=== PATIENT | male | born 1950 | race Two or more races ===

== ENCOUNTER 2022-03-26 15:35 | Outpatient (REF) | payer OTHER, SELFPAY ==
--- NOTE | ~2022-03-26 | US_ITS ---
EXAMINATION: US THYROID CLINICAL INFORMATION: Hyperthyroidism. COMPARISON: None. TECHNIQUE: Linear transducer grayscale and color Doppler examination with attention to the region of the thyroid. FINDINGS: SIZE: Measurements of the thyroid lobes and nodules are given in sagittal, anteroposterior and transverse dimensions respectively. Right Thyroid Lobe: 4.3 x 1.6 x 0.9 cm, volume 3 mL. Parenchyma: The gland echotexture is homogeneous. Thyroid vascularity is normal. Left Thyroid Lobe: 3.4 x 1.3 x 1 cm, volume 2.4 mL. Parenchyma: The gland echotexture is homogeneous. Thyroid vascularity is normal. Isthmus: 0.5 cm in maximum AP dimension. Estimated total number of nodules greater than or equal to 1 cm: 0. There is a 0.3 cm colloid cyst in the right lobe. NODES: No lymphadenopathy is seen in the tissue surrounding the thyroid gland. US/US thyroid IMPRESSION: Normal sonographic appearance of the thyroid gland. No thyroid nodules meeting size criteria for additional follow-up. ACR TI-RADS RECOMMENDATION REFERENCE: Ultrasound-guided fine-needle aspiration, followup ultrasound, no further follow up. * TR1 (0 point) and TR 2 (2 points): No FNA or follow up * TR3 (3 points): FNA if more than or equal to 2.5 cm in maximum dimension, followup ultrasound in 1, 3 and 5 years if 1.5 to 2.4 cm in maximum dimension. * TR4 (4-6 points): FNA if more than or equal to 1.5 cm in maximum dimension, followup ultrasound in 1, 2, 3 and 5 years if 1 to 1.4 cm in maximum dimension. * TR5 (more than or equal to 7 points): FNA if more than or equal to 1 cm in maximum dimension, followup ultrasound every year for 5 years if 0.5 to 0.9 cm in maximum dimension. * TR3, TR4 or TR5 nodules that are below the size threshold for follow up receive no follow up.
== END 2022-03-26 15:36 | disposition home or self-care (01) ==
LOC: HO.US 15:35
PROVIDERS: Visit Provider Internal Medicine
DX: E03.9 Hypothyroidism, unspecified (principal)
CPT/HCPCS: 76536

== ENCOUNTER → 2023-01-12 12:25 | Outpatient (BNVA) | payer MEDICARE, MEDICAID, SELFPAY | PROVIDERS: PCP Internal Medicine; Visit Provider Nurse Practitioner Family ==

== ENCOUNTER 2023-02-17 12:04 | Outpatient (REF) | payer OTHER, MEDICAID, SELFPAY ==
--- NOTE | ~2023-02-17 | US_ITS ---
EXAMINATION: US RETROPERITONEAL COMPLETE (RENAL) CLINICAL INFORMATION: Elevated prostate-specific antigen (PSA). COMPARISON: None available. TECHNIQUE: Real-time imaging of the kidneys and bladder. FINDINGS: RIGHT KIDNEY: 11.6 x 4.8 x 6.0 cm (SAG x AP x TRV). The kidney is normal in size, contour, and echogenicity. Renal cortical thickness is normal. No calculi or focal parenchymal lesions. No hydronephrosis. LEFT KIDNEY: 12.2 x 5.5 x 5.4 cm (SAG x AP x TRV). The kidney is normal in size, contour, and echogenicity. Renal cortical thickness is normal. No calculi or focal parenchymal lesions. No hydronephrosis. BLADDER: Bladder is well distended and appears mildly trabeculated. Bilateral ureteral jets are demonstrated. Prevoid bladder volume is 235 mL. Postvoid bladder volume is 98 mL. ADDITIONAL FINDINGS: Prostate is enlarged at 85 mL US/US retroperitoneal comp IMPRESSION: BPH with 85 mL prostate and 98 mL postvoid residual. The bladder is mildly trabeculated.
== END 2023-02-17 12:05 | disposition home or self-care (01) ==
LOC: HO.US 12:04
PROVIDERS: PCP Internal Medicine; Visit Provider Nurse Practitioner Family
DX: R97.20 Elevated prostate specific antigen [PSA] (principal); N40.0 Benign prostatic hyperplasia without lower urinary tract symptoms
CPT/HCPCS: 76770

== ENCOUNTER 2023-03-11 07:13 | Outpatient (REF) | payer OTHER, MEDICAID, SELFPAY ==
[2023-03-11 19:46] LABS: PSA,Total (Free>4and<10) 5.52 ng/mL (0.00-4.00)
[2023-03-14 10:44] LABS: Free Prostate Spec Ag 1.5 ng/mL; Percent Free Prostate Spec Ag 29 % (calc) (>25); Prostate Specific Ag Total 5.1 ng/mL (< OR = 4.0)
== END 2023-03-11 07:14 | disposition home or self-care (01) ==
LOC: HO.10HDL 07:13
PROVIDERS: Visit Provider Nurse Practitioner Family
DX: N40.0 Benign prostatic hyperplasia without lower urinary tract symptoms (principal); Z12.5 Encounter for screening for malignant neoplasm of prostate
CPT/HCPCS: 36415; 84153; 84154

== ENCOUNTER 2023-03-22 13:36 | Outpatient (AMB) | payer OTHER, MEDICAID, SELFPAY ==
--- NOTE | 2023-03-22 13:43 | A.OFFVIS_ITS ---
Intake Intake Visit Reasons: 6w/US/labs(SET) Intake Note: Patient presents for follow up ultrasound/labs/elevated labs (imaging 02/17) (PSA 5.52) Urology Medication: none Blood Thinner: none Sustainability Coach Required: Yes Sustainability Coach Name: juan Accompanied by: Self / Same As Patient Allergies No Known Allergies [No Known Allergies*] Allergy (Unverified 03/22/23 22:49) Medication List - Last Reconciled 03/22/23 by SHANNAN Call atorvastatin 40 mg PO BEDTIME finasteride 5 mg PO DAILY 90 days glipizide 5 mg PO BID glucosamine-chondroitin 500-400 mg 1 cap PO BID insulin glargine (Lantus Solostar U-100 Insulin) 26 units subcut QPM levothyroxine 50 mcg PO DAILY losartan 50 mg PO DAILY HPI HPI Comments History of Present Illness Details Driss is a pleasant 72-year-old male patient of Dr. Pat Castro. He presents to the office today for follow-up. Of note patient was seen approximately 2 months ago as a new patient for elevated PSA at which time a retroperitoneal ultrasound was ordered and redraw of PSA. These results were reviewed with the patient today. Bilateral kidneys with no calculi, lesions, and or hydronephrosis noted. The bladder is well distended and appears mildly trabeculated. Prostate is enlarged at 85 mL. PSAs are as follows.. 12/02--4.8 03/04--5.1 % free 29 In discussion with the patient today he reports to be doing and feeling well. When asked he denies any urinary issues or concerns. When asked he denies urinary urgency, urinary frequency, incontinence, nocturia, hematuria, dysuria, foul smelling urine, changes to urinary stream, flank pain, fever, and or chills. He is happy with his current voiding parameters. In office urinalysis results reviewed with the patient today. Discussed at length potential causes for elevated PSA. Discussed prostate biopsy verses trial of finasteride verses prostate MRI for further assessment evaluation. Discussed risks and benefits of prostate biopsy verses trial of finasteride versus prostate MRI. Review of Systems Const All systems reviewed & are unremarkable except as noted in HPI and below Reports no additional complaints Eyes Reports no additional complaints ENT Reports no additional complaints Card Reports no additional complaints Resp Reports no additional complaints GI Reports no additional complaints Reports as per HPI Musc Reports no additional complaints Neuro Reports no additional complaints Psych Reports no additional complaints Endo Details: patient reports he has Diabetes and checks his sugars 2-3 times per day Davion/Lymph Reports no additional complaints Aller/Immun Reports no additional complaints Physical Exam Const General: cooperative, healthy appearing, comfortable, no acute distress, well developed, alert and awake Orientation/consciousness: patient oriented x3 Limitations: no limitations HEENT Head: Yes normal to inspection, Yes normocephalic and Yes atraumatic Ears: hearing grossly normal bilaterally Eyes General: appearance normal, both eyes and all related structures Neck Neck: Yes normal visual inspection and Yes trachea midline Chest Chest palpation & inspection: normal inspection of the chest Resp Effort & Inspection: normal respiratory effort and able to speak in complete sentences Cardio Rate: regular rate GI Inspection: Yes normal to inspection General: Yes no CVA tenderness Back/Spine/Pelvis Back: no CVA tenderness Skin General skin exam: no rashes or lesions noted Neuro General: patient oriented x3 Extrem General: Yes normal to inspection Psych Appearance: grossly normal and well kempt Mental Status: mental status grossly normal Speech and movement: Normal speech and movement present and Clear speech present Affect: normal affect Attitude: cooperative Thought process: Normal thought process present Thought content: Normal thought content present Insight: Good insight present (Psych) Judgement: Good judgement present (Psych) Results AMB Urinalysis, Automated UA Leukoctes 0 Solomon/uL Last Edit by Anny Anaya on 03/22/23 14:00 UA Nitrite Negative Last Edit by Anny Anaya on 03/22/23 14:00 UA Urobilinogen 0.2 mg/dL Last Edit by [employer] Anaya on 03/22/23 14:00 UA Protein 0 mg/dL Last Edit by [employer] Jaclyn on 03/22/23 14:00 UA pH 5.5 Last Edit by [employer] Jaclyn on 03/22/23 14:00 UA Blood 0 Herson/uL Last Edit by [employer] Anaya on 03/22/23 14:00 UA Specific Delta 1.025 Last Edit by [employer] Anaya on 03/22/23 14:00 UA Ketone Negative Last Edit by [employer] Anaya on 03/22/23 14:00 UA Bilirubin 0 mg/dL Last Edit by Anny Anaya on 03/22/23 14:00 UA Glucose 250 mg/dL Last Edit by Anny Anaya on 03/22/23 14:00 Results Reviewed Results Reviewed: Laboratory Last Values Urine pH (Auto) 5.5 03/22/23 13:46 Specific Delta (Auto) 1.025 03/22/23 13:46 Urine Protein (Auto) 0 mg/dL 03/22/23 13:46 Glucose (UA)(Auto) 250 mg/dL 03/22/23 13:46 Urine Ketones (Auto) Negative 03/22/23 13:46 Urine Blood (Auto) 0 Herson/uL 03/22/23 13:46 Urine Nitrite (Auto) Negative 03/22/23 13:46 Urine Bilirubin (Auto) 0 mg/dL 03/22/23 13:46 Urine Urobilinogen (Auto) 0.2 mg/dL 03/22/23 13:46 Leukocyte Esterase (Auto) 0 Solomon/uL 03/22/23 13:46 Date of Service: 02/17/23 Procedure(s): US retroperitoneal comp FINDINGS: RIGHT KIDNEY: 11.6 x 4.8 x 6.0 cm (SAG x AP x TRV). The kidney is normal in size, contour, and echogenicity. Renal cortical thickness is normal. No calculi or focal parenchymal lesions. No hydronephrosis. LEFT KIDNEY: 12.2 x 5.5 x 5.4 cm (SAG x AP x TRV). The kidney is normal in size, contour, and echogenicity. Renal cortical thickness is normal. No calculi or focal parenchymal lesions. No hydronephrosis. BLADDER: Bladder is well distended and appears mildly trabeculated. Bilateral ureteral jets are demonstrated. Prevoid bladder volume is 235 mL. Postvoid bladder volume is 98 mL. ADDITIONAL FINDINGS: Prostate is enlarged at 85 mL IMPRESSION: BPH with 85 mL prostate and 98 mL postvoid residual. ? The bladder is mildly trabeculated. Assessment & Plan Assessment & Plan (1) Elevated PSA: Code(s): R97.20 - Elevated prostate specific antigen [PSA] (2) Enlarged prostate: Code(s): N40.0 - Benign prostatic hyperplasia without lower urinary tract symptoms Plan In office urinalysis results reviewed with the patient today. Recent retroperitoneal ultrasound results reviewed with the patient today; as noted above. Recent PSA results reviewed with the patient today; as noted above. Discussed at length potential causes for elevated PSA. Discussed trial finasteride verses prostate biopsy verses prostate MRI; discussed risks and benefits of these interventions. Start finasteride as discussed and prescribed. Will redraw PSA in 4 months. Follow-up in 4 months with lab to be completed prior; or sooner with any issues, concerns, and or questions Orders: Orders Prostate Specific Antigen 4 Months R97.20 - Elevated prostate specific antigen [PSA] AMB Urinalysis Automated Today Z13.9 - Encounter for screening, unspecified Medications: New finasteride 5 mg PO DAILY 90 days 90 tabs 1RF N13.8 - Other obstructive and reflux uropathy, N40.1 - Benign prostatic hyperplasia with lower urinary tract symptoms, R33.9 - Retention of urine, unspecified Patient Instructions: The patient had an opportunity to ask questions regarding the treatment plan. All questions were answered. Physical exam, labs, and imaging were discussed and reviewed in detail. As well as risks, benefits, and discussion of treatment choices. No major barriers to understanding were identified. The patient expressed understanding and agreement with the above treatment plan. The patient was made aware they should contact our office by phone for worsening of their current condition, the appearance of new symptoms, or with any questions or concerns. Compliance is encouraged with any medications and follow up testing that is ordered. It is a privilege to be allowed the opportunity to participate in? your urological care.? Again, if you have any questions or concerns If you have any questions or concerns please do not hesitate to contact me. The office is [phone]. This note is constructed using voice recognition software. While every effort has been made to ensure accuracy engineer chief errors may have been included. Yours sincerely, SHANNAN Call Coding Level of Care Code Est Pt Level 4 (73216) Diagnoses Elevated PSA R97.20 Enlarged prostate N40.0
== END 2023-03-22 14:33 | disposition home or self-care (01) ==
PROVIDERS: PCP Internal Medicine; Visit Provider Nurse Practitioner Family
DX: R97.20 Elevated prostate specific antigen [PSA] (principal); N40.0 Benign prostatic hyperplasia without lower urinary tract symptoms
CPT/HCPCS: 99214

== ENCOUNTER → 2023-03-22 13:36 | Outpatient (BNVA) | payer OTHER, MEDICAID, SELFPAY | PROVIDERS: PCP Internal Medicine; Visit Provider Nurse Practitioner Family ==

== ENCOUNTER 2023-07-07 08:41 | Outpatient (REF) | payer OTHER, MEDICAID, SELFPAY ==
[2023-07-07 11:31] LABS: Prostate Specific Antigen 4.81 ng/mL (<0.05-4.0)
== END 2023-07-07 08:42 | disposition home or self-care (01) ==
LOC: HO.10HDL 08:41
PROVIDERS: Visit Provider Nurse Practitioner Family
DX: Z12.5 Encounter for screening for malignant neoplasm of prostate (principal); R97.20 Elevated prostate specific antigen [PSA]
CPT/HCPCS: 36415; 84153

== ENCOUNTER 2023-07-12 12:16 | Outpatient (REF) | payer OTHER, SELFPAY ==
--- NOTE | ~2023-07-12 | XR_ITS ---
EXAMINATION: XR FOOT, RIGHT CLINICAL INFORMATION: Right foot plantar fasciitis COMPARISON: None available. TECHNIQUE: AP, lateral, and oblique views of the right foot. FINDINGS: No acute visible fracture or dislocation. Plantar calcaneal heel spur. Slight enthesopathy at the Achilles tendon insertion site. Mild multi joint arthritic changes. Joint spaces and alignment are otherwise maintained. Soft tissues are unremarkable. Atherosclerotic calcifications are noted. XR/XR foot RT min 3V IMPRESSION: 1. No acute visible fracture or dislocation. 2. Plantar calcaneal heel spur. 3. Slight enthesopathy at the Achilles tendon insertion site.
== END 2023-07-12 12:17 | disposition home or self-care (01) ==
LOC: HO.HHCX 12:16
PROVIDERS: Visit Provider Internal Medicine
DX: M72.2 Plantar fascial fibromatosis (principal)
CPT/HCPCS: 73630

== ENCOUNTER 2023-07-20 11:58 | Outpatient (AMB) | payer OTHER, MEDICAID, SELFPAY ==
--- NOTE | 2023-07-20 12:07 | A.OFFVIS_ITS ---
Intake Vital Signs 3 07/20/23 12:20 Height 5 ft 8 in Weight 217 lb BMI 33.0 BP 145/67 H Blood Pressure Location Lt brachial Position Sitting Pulse 79 Intake Visit Reasons: Colonoscopy Screening Intake Note: Patient new consult for pre colonoscopy screening. Patient denies any GI issues. 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 He is referred by Gene Castro, of [facility]. PMX Hypertension History of colon cancer -Dr. Concepcion [place] Diabetes Abnormal EKG BPH History or colon polyps * SURGICAL HISTORY Partial sigmoid colectomy - Jazmyn Stovall Colonoscopy x4 * ALLERGIES: NKDA * PCP SUPPLIED LABS: 11/2022 TSH 3.25, hemoglobin A1c 7.3%, unremarkable renal panel, unremarkable hepatic panel, negative hepatitis C screen. TODAY'S VISIT He had a prior colonoscopy at [facility] but they lost his record and his last scope was about 6 years ago. Has an upcoming appt with Dr. Day for his abnormal EKG, so we will need clearance from cardiology prior to the procedure. He says he has occasional chest pain. He denies respiratory problems except occasionally when he is climbing stairs. He denies any bowel or upper GI problems. No ID problems. There are no prior problems with anesthesia or sedation. He had sigmoid CRC and a partial colectomy, no known FHX of crc or polyps. [facility] Surgical History S/P partial colectomy Review of Systems Const Denies fatigue, Denies fever(s), Denies night sweats, Denies poor appetite and Denies weight loss Eyes Details: glasses Reports requires corrective lenses ENT Reports Normal hearing present, Denies dental pain, Denies dysphagia, Denies hearing loss, Denies mouth pain, Denies odynophagia, Denies throat swelling, Denies tongue swelling and Reports other (Dentition adequate) Card Reports chest pain and Reports dyspnea on exertion Resp Reports dyspnea on exertion GI Denies abdominal pain, Denies melena, Denies bloating, Denies hematochezia, Denies constipation, Denies GI cramping, Denies dysphagia, Denies excessive flatus, Denies early satiety, Denies heartburn, Denies diarrhea, Denies nausea, Denies odynophagia, Denies vomiting and Denies hematemesis Musc Reports abnormal gait and Reports arthralgias Skin/Breast Denies pruritus, Denies lesions, Denies rash and Denies jaundice Neuro Reports Normal hearing present, Denies Abnormal speech present and Reports abnormal gait Endo Denies fatigue Aller/Immun Denies throat swelling and Denies tongue swelling Physical Exam Vital Signs: Last Vital Signs Pulse 79 07/20/23 12:20 BP 145/67 H 07/20/23 12:20 BMI result Body Mass Index 33.0 Const General: cooperative, no acute distress, well developed and well groomed Nutritional Appearance: well nourished and obese centrally obese Orientation/consciousness: oriented to person, oriented to place and oriented to time Limitations: language barrier and ambulation with cane HEENT Head: Yes normocephalic and Yes atraumatic Eyes General: appearance normal, both eyes and all related structures Pupils: Equal, round and reactive pupils present Neck Neck: Yes normal visual inspection and Yes no lymphadenopathy Thyroid: Thyroid normal Resp Effort & Inspection: normal respiratory effort and able to speak in complete sentences Auscultation: clear to auscultation bilaterally Cardio Rate: regular rate Rhythm: regular rhythm Heart sounds: Normal, physiologic split S2 sound present Peripheral pulses: radial pulses present and posterior tibial pulses present GI Inspection: No distended, No Abdominal panniculus present and Yes obesity Palpation (GI): Soft to palpation, nontender, no guarding, not rigid and No hepatosplenomegaly present Percussion: Yes normal to percussion Auscultation: normal bowel sounds Rectal Exam - Male: Yes deferred Abdomen image: 2 1. surgical scars 2. Skin General skin exam: no rashes or lesions noted, turgor normal, skin not dry, no jaundice, No spider nevi and no striae Rashes: no rashes Nails: normal Neuro General: oriented to person, oriented to place and oriented to time Cranial nerves: Yes Equal, round and reactive pupils present and Yes Normal hearing present Speech: No Abnormal speech present Extrem General: Yes normal to inspection, No clubbing, No cyanosis and No edema Psych Appearance: grossly normal and well kempt Mental Status: mental status grossly normal Speech and movement: Normal speech and movement present Affect: normal affect Attitude: cooperative Thought process: Normal thought process present and not confabulating Thought content: Normal thought content present Insight: Fair insight present (Psych) Judgement: Fair judgement present (Psych) Assessment & Plan Assessment & Plan (1) Pre-op examination: Code(s): Z01.818 - Encounter for other preprocedural examination Plan: He had a prior colonoscopy at [facility] but they lost his record and his last scope was about 6 years ago. Has an upcoming appt with Dr. Day for his abnormal EKG, so we will need clearance from cardiology prior to the procedure. He says he has occasional chest pain. He denies respiratory problems except occasionally when he is climbing stairs. He denies any bowel or upper GI problems. No ID problems. There are no prior problems with anesthesia or sedation. He had sigmoid CRC and a partial colectomy, no known FHX of crc or polyps. (2) History of malignant neoplasm of colon: Code(s): Z85.038 - Personal history of other malignant neoplasm of large intestine (3) Abnormal EKG: Code(s): R94.31 - Abnormal electrocardiogram [ECG] [EKG] Orders: Orders 2 Colonoscopy - GI Use Only Today Z85.038 - Personal history of other malignant neoplasm of large intestine Medications: New 2 peg 3350-electrolytes [id number] -5.86 gram (Golytely) until fecal effluent is clear; do not exceed a total volume of 2,000 mL 240 mL PO Q10M 1 day 4,000 mL 0RF Z12.11 - Encounter for screening for malignant neoplasm of colon Coding Level of Care Code New Pt Level 3 (89637) Diagnoses Pre-op examination Z01.818 History of malignant neoplasm of colon Z85.038 Abnormal EKG R94.31
[2023-07-20 12:20] VITALS: BP 145/67; PULSE 79; BMI 33.0
== END 2023-07-20 12:46 | disposition home or self-care (01) ==
PROVIDERS: PCP Internal Medicine; Visit Provider Nurse Practitioner
DX: Z01.818 Encounter for other preprocedural examination (principal); Z12.11 Encounter for screening for malignant neoplasm of colon
CPT/HCPCS: S0285

== ENCOUNTER → 2023-07-20 11:58 | Outpatient (BNVA) | payer OTHER, MEDICAID, SELFPAY | PROVIDERS: PCP Internal Medicine; Visit Provider Nurse Practitioner ==

== ENCOUNTER 2023-07-22 09:04 | Outpatient (AMB) | payer OTHER, SELFPAY ==
--- NOTE | 2023-07-22 09:42 | MHC.OFFVIS ---
Intake Intake Visit Reasons: 4m/ lab(set) Intake Note: Patient is Present for Follow Up lab/pvr Urology Medication: Finasteride, Antibiotic Allergies: None Blood Thinners:None PVR: 160 Dehydration Plant Operator Required: Yes Dehydration Plant Operator Name: Amparo MachucaDONNA Allergies No Known Allergies [No Known Allergies*] Allergy (Verified 07/24/23 20:16) Medication List - Last Reconciled 07/24/23 by SYLVIA Call-LUIS atorvastatin 40 mg PO BEDTIME finasteride 5 mg PO DAILY 90 days glipizide 5 mg PO BID glucosamine-chondroitin 500-400 mg 1 cap PO BID insulin glargine (Lantus Solostar U-100 Insulin) 26 units subcut QPM levothyroxine 50 mcg PO DAILY losartan 50 mg PO DAILY peg 3350-electrolytes 236-22.74-6.74 -5.86 gram (Golytely) 240 mL PO Q10M 1 day HPI HPI Comments History of Present Illness Details Driss is a pleasant 72-year-old male patient of Dr. Zarate. He has a past medical history of type 2 diabetes, and hypertension. He presents to the office today for follow-up of his elevated PSA. Of note, patient was seen approximately 4 months ago at which time he was started on finasteride 5 mg daily. When asked he reports to be doing and feeling well. Recent PSA results reviewed with the patient today as noted below. When asked he reports compliance with finasteride 5 mg daily. Previous workup has included a retroperitoneal ultrasound noting bilateral kidneys with no calculi, lesions, and or hydronephrosis noted. The bladder is well distended and appears mildly trabeculated. Prostate is enlarged at 85 mL. PSAs are as follows.. 12/02--4.8 03/04--5.1 % free 29 07/04--4.8 When asked he denies any urinary issues or concerns. When asked he denies urinary urgency, urinary frequency, incontinence, nocturia, hematuria, dysuria, foul smelling urine, changes to urinary stream, flank pain, fever, and or chills. He is happy with his current voiding parameters. In office urinalysis results reviewed with the patient today. Discussed at length potential causes for elevated PSA. Discussed prostate biopsy verses continuation of finasteride verses prostate MRI for further assessment evaluation. Discussed risks and benefits of prostate biopsy verses continuation of finasteride versus prostate MRI. Discussed light decrease in PSA despite compliance with 5 mg of finasteride daily. PVR 160 mL. Discussed at length causes and affects of incomplete bladder emptying. [facility] Medical History (Updated 07/24/23 @ 20:26 by SHANNAN Call) Pre-op examination BPH (benign prostatic hyperplasia) Abnormal EKG Diabetes Hypertension Surgical History S/P partial colectomy Review of Systems Const All systems reviewed & are unremarkable except as noted in HPI and below Reports no additional complaints Eyes Reports no additional complaints ENT Reports no additional complaints Card Reports as per HPI Resp Reports no additional complaints GI Reports no additional complaints Reports as per HPI Musc Reports no additional complaints Neuro Reports no additional complaints Psych Reports no additional complaints Endo Reports as per HPI Davion/Lymph Reports no additional complaints Aller/Immun Reports no additional complaints Physical Exam Const General: cooperative, healthy appearing, comfortable, no acute distress, well developed, alert and awake Orientation/consciousness: patient oriented x3 Limitations: no limitations HEENT Head: Yes normal to inspection, Yes normocephalic and Yes atraumatic Ears: hearing grossly normal bilaterally Eyes General: appearance normal, both eyes and all related structures Neck Neck: Yes normal visual inspection and Yes trachea midline Chest Chest palpation & inspection: normal inspection of the chest Resp Effort & Inspection: normal respiratory effort and able to speak in complete sentences Cardio Rate: regular rate GI Inspection: Yes normal to inspection General: Yes no CVA tenderness Back/Spine/Pelvis Back: no CVA tenderness Skin General skin exam: no rashes or lesions noted Neuro General: patient oriented x3 Extrem General: Yes normal to inspection Psych Appearance: grossly normal and well kempt Mental Status: mental status grossly normal Speech and movement: Normal speech and movement present and Clear speech present Affect: normal affect Attitude: cooperative Thought process: Normal thought process present Thought content: Normal thought content present Insight: Good insight present (Psych) Judgement: Good judgement present (Psych) Office Procedures Post Void Residual Post Residual Void Post Void Residual (PVR): 160 [id number] Void Residual by ultrasound Results AMB Urinalysis, Automated UA Leukoctes 0 Solomon/uL Last Edit by EVERARDO Moser on 07/22/23 09:53 UA Nitrite Negative Last Edit by Elaine Jose, RMA on 07/22/23 09:53 UA Urobilinogen 0.2 mg/dL Last Edit by Elaine Jose, RMA on 07/22/23 09:53 UA Protein 0 mg/dL Last Edit by Elaine Jose, RMA on 07/22/23 09:53 UA pH 6.0 Last Edit by Elaine Jose, RMA on 07/22/23 09:53 UA Blood 0 Herson/uL Last Edit by Elaine Jose, RMA on 07/22/23 09:53 UA Specific [place] 1.025 Last Edit by Elaine Jose, RMA on 07/22/23 09:53 UA Ketone Negative Last Edit by Elaine Jose, A on 07/22/23 09:53 UA Bilirubin 0 mg/dL Last Edit by Elaine Jose, RMA on 07/22/23 09:53 UA Glucose 250 mg/dL Last Edit by Elaine Jose, A on 07/22/23 09:53 Results Reviewed Results Reviewed: Laboratory Last Values Urine pH (Auto) 6.0 07/22/23 09:46 Specific [place] (Auto) 1.025 07/22/23 09:46 Urine Protein (Auto) 0 mg/dL 07/22/23 09:46 Glucose (UA)(Auto) 250 mg/dL 07/22/23 09:46 Urine Ketones (Auto) Negative 07/22/23 09:46 Urine Blood (Auto) 0 Herson/uL 07/22/23 09:46 Urine Nitrite (Auto) Negative 07/22/23 09:46 Urine Bilirubin (Auto) 0 mg/dL 07/22/23 09:46 Urine Urobilinogen (Auto) 0.2 mg/dL 07/22/23 09:46 Leukocyte Esterase (Auto) 0 Solomon/uL 07/22/23 09:46 Assessment & Plan Assessment & Plan (1) Enlarged prostate: Code(s): N40.0 - Benign prostatic hyperplasia without lower urinary tract symptoms (2) Elevated PSA: Code(s): R97.20 - Elevated prostate specific antigen [PSA] (3) Bladder trabeculation: Code(s): N32.89 - Other specified disorders of bladder (4) Incomplete bladder emptying: Code(s): R33.9 - Retention of urine, unspecified Plan In office urinalysis results reviewed with the patient today; as noted above. PVR 160 mL. Discussed at length potential causes and affects of incomplete bladder emptying. Discussed lifestyle modifications to assist with complete bladder emptying such as double voiding and attempting to sit when urinating to relax pelvis. Recent PSA results reviewed with the patient today; as noted above. Discussed continuation of finasteride verses prostate MRI verses prostate biopsy; these interventions were discussed at length. Discussed slight decrease in PSA despite daily dosage of 5 mg of finasteride daily. Patient currently denies any bothersome urinary issues or concerns at this time. He reports be happy with current voiding parameters. Discussed at length importance of managing diabetes for improvement in overall health and well-being. Continue finasteride as discussed and prescribed. Will obtain PSA in 4 months. Follow-up in 4 months with lab to be completed prior; or sooner with any issues, concerns, and or questions. Orders: Orders AMB Urinalysis Automated 07/22/23 Z13.9 - Encounter for screening, unspecified AMB Post Void Residual by ultrasound 07/22/23 N40.0 - Benign prostatic hyperplasia without lower urinary tract symptoms Prostate Specific Antigen 4 Months N40.0 - Benign prostatic hyperplasia without lower urinary tract symptoms, R97.20 - Elevated prostate specific antigen [PSA] Patient Instructions: The patient had an opportunity to ask questions regarding the treatment plan. All questions were answered. Physical exam, labs, and imaging were discussed and reviewed in detail. As well as risks, benefits, and discussion of treatment choices. No major barriers to understanding were identified. The patient expressed understanding and agreement with the above treatment plan. The patient was made aware they should contact our office by phone for worsening of their current condition, the appearance of new symptoms, or with any questions or concerns. Compliance is encouraged with any medications and follow up testing that is ordered. It is a privilege to be allowed the opportunity to participate in? your urological care.? Again, if you have any questions or concerns If you have any questions or concerns please do not hesitate to contact me. The office is [phone]. This note is constructed using voice recognition software. While every effort has been made to ensure accuracy endband cutter hand errors may have been included. Yours sincerely, Bibi Downing, TNT POWDER WORKER-BC Coding Level of Care Code Est Pt Level 3 (99011) Diagnoses Enlarged prostate N40.0 Elevated PSA R97.20 Bladder trabeculation N32.89 Incomplete bladder emptying R33.9 CPT Codes Post Residual Void - PVR CPT Code: 48464-[id number] Void Residual by ultrasound ([id number])
== END 2023-07-22 10:28 | disposition home or self-care (01) ==
PROVIDERS: PCP Internal Medicine; Visit Provider Nurse Practitioner Family
DX: N40.0 Benign prostatic hyperplasia without lower urinary tract symptoms (principal); R97.20 Elevated prostate specific antigen [PSA]; N32.89 Other specified disorders of bladder; R33.9 Retention of urine, unspecified
CPT/HCPCS: 99213

== ENCOUNTER → 2023-07-22 09:04 | Outpatient (BNVA) | payer OTHER, MEDICAID, SELFPAY | PROVIDERS: PCP Internal Medicine; Visit Provider Nurse Practitioner Family | DX: N40.0 Benign prostatic hyperplasia without lower urinary tract symptoms (principal); R97.20 Elevated prostate specific antigen [PSA]; R33.9 Retention of urine, unspecified; N32.89 Other specified disorders of bladder | CPT/HCPCS: 51798; 81003 ==

== ENCOUNTER 2023-07-25 14:02 | Outpatient (AMB) | payer OTHER, MEDICAID, SELFPAY ==
--- NOTE | 2023-07-25 14:12 | A.OFFVIS_ITS ---
Intake Vital Signs 07/25/23 14:14 Height 5 ft 8 in Weight 213 lb 13.574 oz BMI 32.5 BP 124/74 Blood Pressure Location Lt brachial Position Sitting Pulse 92 Intake Visit Reasons: NPV/HTN/Abnormal EKG/A. Ramsay/ ? colo clearance Intake Note: NPV w/ EKG Healthcare Recruiter Required: Yes Healthcare Recruiter Language: Home Care Physical Therapist Name: Prashant [id number] Accompanied by: Self / Same As Patient Allergies No Known Allergies [No Known Allergies*] Allergy (Verified 07/25/23 14:13) Medication List - Last Reconciled 07/25/23 by Federico Day MD atorvastatin 40 mg PO BEDTIME finasteride 5 mg PO DAILY 90 days glipizide 5 mg PO BID glucosamine-chondroitin 500-400 mg 1 cap PO BID insulin glargine (Lantus Solostar U-100 Insulin) 26 units subcut QPM levothyroxine 50 mcg PO DAILY losartan 50 mg PO DAILY peg 3350-electrolytes 236-22.74-6.74 -5.86 gram (Golytely) 240 mL PO Q10M 1 day HPI HPI Comments History of Present Illness Details Driss is here for consultation regarding abnormal EKG. He also needs preoperative evaluation for colonoscopy. No history of coronary disease or myocardial infarction or cardiomyopathy. Multiple cardiovascular risk factors including diabetes, hypertension, dyslipidemia. He states that he gets chest tightness type symptoms off and on. Even with a education trainer, somewhat difficult to ascertain this in detail. On several occasions, it seems that happens more with exertion but can't be sure. Is some [facility] Medical History (Updated 07/25/23 @ 14:44 by Federico Day MD) Diabetes Abnormal EKG Pre-op examination BPH (benign prostatic hyperplasia) Hypertension Surgical History S/P partial colectomy Family History (Updated 07/25/23 @ 14:14 by Kristine Griffin) Mother Heart problem Sister Heart problem Social History (Updated 07/25/23 @ 14:13 by Kristine Griffin) Alcohol intake: former Patient Tobacco Use Status: Former Tobacco user Review of Systems Const All systems reviewed & are unremarkable except as noted in HPI and below Reports as per HPI and Reports no additional complaints Eyes Reports as per HPI and Denies no additional complaints ENT Denies no additional complaints and Reports as per HPI Card Reports as per HPI, Reports no additional complaints, Denies acrocyanosis, Denies chest pain, Denies leg edema, Denies lightheadedness, Denies palpitations and Denies dyspnea Resp Reports as per HPI, Denies no additional complaints and Denies dyspnea GI Reports as per HPI and Denies no additional complaints Reports no additional complaints and Reports as per HPI Musc Reports no additional complaints and Reports as per HPI Skin/Breast Reports system reviewed and no additional complaints, except as documented Neuro Reports no additional complaints and Reports as per HPI Psych Reports no additional complaints and Reports as per HPI Endo Reports no additional complaints, Reports as per HPI and Denies palpitations Davion/Lymph Reports no additional complaints and Reports as per HPI Aller/Immun Reports no additional complaints and Reports as per HPI Physical Exam Vital Signs: Last Vital Signs Pulse 92 07/25/23 14:14 BP 124/74 07/25/23 14:14 BMI result Body Mass Index 32.5 Const General: comfortable and no acute distress Orientation/consciousness: patient oriented x3 HEENT Other: Unremarkable Head: Yes normal to inspection Neck Neck: Yes normal visual inspection Chest Chest palpation & inspection: normal inspection of the chest Resp Auscultation: clear to auscultation bilaterally Cardio Palpation: normal PMI Heart sounds: S1 normal heart sound present, S2 normal heart sound present, no gallops, Murmur heart sound present systolic I/ and at the right sternal border and no rubs GI Palpation (GI): Soft to palpation Back/Spine/Pelvis Other: unremarkable Skin General skin exam: no rashes or lesions noted Neuro General: patient oriented x3 Extrem General: Yes normal to inspection Psych Mental Status: mental status grossly normal Assessment & Plan Assessment & Plan (1) Abnormal EKG: Code(s): R94.31 - Abnormal electrocardiogram [ECG] [EKG] (2) Preoperative cardiovascular examination: Code(s): Z01.810 - Encounter for preprocedural cardiovascular examination (3) Diabetes: Code(s): E11.9 - Type 2 diabetes mellitus without complications (4) Hypertension: Code(s): I10 - Essential (primary) hypertension Plan EKG from PCP shows sinus rhythm at 61/Min; inferior Q-waves with T inversions. Not clear if it is nonspecific or reflects ischemia. As he has numerous cardiovascular risk factors, possible exertional chest tightness, abnormal looking EKG, we will proceed with further workup. Echocardiogram as well as stress perfusion imaging recommended. He is walking with a cane and hence will do pharmacological stress test with Lexiscan. Follow-up after the above. Orders: Orders CA lexiscan stress w odessa Today I20.9 - Angina pectoris, unspecified NM cardiolite stress test Today R07.2 - Precordial pain CA echo transthoracic complete Today I25.10 - Atherosclerotic heart disease of [place] coronary artery without angina pectoris Coding Level of Care Code New Pt Level 4 (82719) Diagnoses Abnormal EKG R94.31 Preoperative cardiovascular examination Z01.810 Diabetes E11.9 Hypertension I10
[2023-07-25 14:14] VITALS: BP 124/74; PULSE 92; BMI 32.5
== END 2023-07-25 14:40 | disposition home or self-care (01) ==
PROVIDERS: PCP Internal Medicine; Visit Provider Internal Medicine
DX: R94.31 Abnormal electrocardiogram [ECG] [EKG] (principal); Z01.810 Encounter for preprocedural cardiovascular examination; E11.9 Type 2 diabetes mellitus without complications; I10 Essential (primary) hypertension
CPT/HCPCS: 99204

== ENCOUNTER → 2023-07-25 14:02 | Outpatient (BNVA) | payer OTHER, MEDICAID, SELFPAY | PROVIDERS: PCP Internal Medicine; Visit Provider Internal Medicine | DX: Z01.810 Encounter for preprocedural cardiovascular examination (principal); R94.31 Abnormal electrocardiogram [ECG] [EKG]; I10 Essential (primary) hypertension; E11.9 Type 2 diabetes mellitus without complications | CPT/HCPCS: 99202 ==

== ENCOUNTER → 2023-08-19 14:11 | Outpatient (REF) | payer OTHER, MEDICAID, SELFPAY ==
--- NOTE | 2023-08-19 14:13 | CA_ITS ---
Transthoracic Echocardiogram Patient (Last, First, Middle): Driss Bender E Gender: Male Date of : 1950 Age: 73 Procedure Date: 08/19/2023 Procedure Type: Transthoracic Echocardiogram Location: OP Height: 175.26 cm Weight: 98.43 kg BSA: 2.14 m2 Heart Rate: 63 bpm BP: 140 / 80 mmHg Customer Care Representative: LIONEL/IMELDA Referring MD: Federico Day MD Symptoms: I25.10 - Atherosclerotic heart disease of [place] coronary artery without... Study Quality: Adequate w contrast ECG Rhythm: Sinus Conclusions: - The left ventricular systolic function is normal. The calculated ejection fraction is 62% by biplane method. - There is moderate calcification of the aortic valve. - There is mild mitral annular calcification. Findings Procedure Information Contrast agent, definity, is being given per protocol without apparent complications. Left Ventricle Normal left ventricular cavity size. There is mildly increased left ventricular wall thickness. The left ventricular systolic function is normal. The calculated ejection fraction is 62% by biplane method. There is no evidence of regional wall motion abnormalities. Evidence suggests grade I (mild) diastolic dysfunction. Right Ventricle Mildly increased right ventricular cavity size. There is mildly decreased right ventricular systolic function. Atria Both atria are normal in size. Aortic Valve There is moderate calcification of the aortic valve. There is no aortic valve stenosis. There is no aortic valve regurgitation. Mitral Valve There is mild mitral annular calcification. There is no mitral valve regurgitation. There is no mitral valve stenosis. Pulmonic Valve The pulmonic valve is likely normal. There is trace pulmonic valve regurgitation. Tricuspid Valve Normal tricuspid valve structure. There is mild tricuspid valve regurgitation. There is no evidence of pulmonary hypertension. Great Vessels The asc aorta is normal in size. Venous The inferior vena cava is normal in size and collapses greater than 50% with inspiration. Pericardium/Pleural There is no evidence of pericardial effusion. Prior Study Comparison No prior study available for comparison. Measurements 2D Linear Measurements IVSd: 1.16 0.6-0.9/0.6-1.0 cm LVIDd: 5.15 3.9-5.3/4.2-5.9 cm LVIDd Index: 2.41 2.4-3.2/2.2-3.1 cm/m2 LVIDs: 3.74 2.0-3.6 cm LVPWd: 0.90 0.7-1.1 cm LA Diam: 3.90 2.7-3.8/3.0-4.0 cm LAIDs Index: 1.82 1.5-2.3 cm/m2 LV Mass: 246.93 67-162/88-224 g LV Mass Index: 115.39 43-95/49-115 g/m2 LVOT Diam: 2.20 3.0+(-)1.3 cm 2D Systolic Function EF 4C: 55.80 >55% EF 2C: 65.90 >55% EF BiP: 61.70 >55% Mitral Valve MV Pk E: 0.58 MV PK A: 1.13 MV Decel Time: 356.00 E/A: 0.50 E'Lateral: 6.20 E'Medial: 3.92 E/E' Med: 14.70 E/E' Lat: 9.30 PHT: 104.00 MVA PHT: 2.12 Decel [place]: 1.63 Aortic Valve AoV Pk Devin: 1.98 AoV Mn Devin: 1.37 AoV VTI: 0.43 AoV Pk Grad: 16.00 Aov Mn Grad: 9.00 ROMAIN Cont.VTI: 2.17 LVOT LVOT Pk Devin: 1.02 LVOT Mn Devin: 0.69 LVOT VTI: 0.25 LVOT Pk Grad: 4.00 LVOT Mn Grad: 2.00 LVOT Diam: 2.20 LVOT Area: 3.80 Diastolic Function MV Pk E: 0.58 MV Pk A: 1.13 E/A: 0.50 E'Medial: 3.92 E/E' Med: 14.70 E' Laterial: 6.20 E/E' Lat: 9.30 Right Ventricle TAPSE (mm): 15.20 TVS' Devin: 9.36 Tricuspid Valve TR Pk Devin: 2.29 TR Pk Grad: 21.00 RA Press: 3.00 RVSP: 24.00 Great Vessels Aorta Sinus of Valsalva: 3.10 2.0-3.5 cm Ao Asc: 3.60 2.1-3.4 cm Pulmonary Veins Pulm Vein S/D 2.10 Pulmonary Valve PV Pk Devin: 1.05 Peak PV Grad: 4.00 Updated in Other Vendor System with Status of Final Federico Day MD electronically signed on 08/21/2023 11:45:29 AM with status of Final
== END ==
LOC: HO.CARD 14:11
PROVIDERS: PCP Internal Medicine; Visit Provider Internal Medicine
DX: I25.10 Atherosclerotic heart disease of native coronary artery without angina pectoris (principal)
CPT/HCPCS: 93306; Q9957

== ENCOUNTER → 2023-08-19 14:13 | Outpatient (BNV) | payer OTHER, MEDICAID, SELFPAY | PROVIDERS: PCP Internal Medicine; Visit Provider Internal Medicine | DX: I34.81 Nonrheumatic mitral (valve) annulus calcification (principal); I35.8 Other nonrheumatic aortic valve disorders | CPT/HCPCS: 93306 ==

== ENCOUNTER → 2023-08-26 08:03 | Outpatient (REF) | payer OTHER, MEDICAID, SELFPAY ==
--- NOTE | ~2023-08-26 | NM_ITS ---
Myocardial perfusion study Indication: Precordial chest pain to evaluate for myocardial ischemia Technique: The patient was brought in for a Lexiscan perfusion study on 08/26/2023. Patient performed low-level exercise and was injected 0.4 mg of Lexiscan intravenously. Within a minute of injection, 30 mCi of sestamibi was given intravenously. Images were obtained using the SPECT gamma camera interlaced with the gating device. Images were obtained in supine position. Resting perfusion study was performed on 09/01/2023. Patient was administered 30 mCi of sestamibi intravenously at rest. Images were then obtained in supine position. Images obtained with and without CT attenuation. Total DLP 99 mGy-cm. Images were processed with the software and compared side to side in short axis, horizontal long axis and vertical long axis views. Findings: The stress perfusion study showed aerated corrected images show absent uptake in the basal inferior, mid inferior, severely reduced uptake in the inferoapical, apical, moderately reduced uptake in the inferolateral and moderately reduced uptake in the basal lateral wall of the LV myocardium. The non attenuated images show large area of absent uptake of the entire inferior wall, distal inferolateral and severely reduced uptake in the mid and basal inferolateral as well as mildly reduced uptake in the basal lateral wall and moderately reduced uptake in the inferoseptal wall of the LV myocardium.. The gated study shows normal LV systolic function with calculated LVEF of 58%. LV cavity is mildly dilated size. The gated study shows reduced wall thickening and contraction of basal inferior segments. Resting study shows non attenuated images show persistent severely reduced uptake in the basal inferior and mildly reduced uptake in the mid inferior and inferoapical wall as well as moderately reduced uptake in the inferolateral wall. There is improved uptake in the lateral wall of the LV myocardium. Attenuation corrected images show normalized uptake in the mid and apical inferior wall with absent uptake in the basal inferior blood improved uptake in the inferolateral and lateral wall of the LV myocardium.. Gating at rest reveals basal inferior wall motion abnormality with ejection fraction at 51%. The findings are consistent with large area of severe ischemia of the mid and apical inferior as well as inferolateral and basal lateral wall of the LV myocardium in the RCA/circumflex distribution with fixed defect of the basal inferior wall which could represent severe ischemia as well. NM/NM cardiolite stress test Impression: 1. Myocardial perfusion imaging study shows large area of ischemia in the inferior, inferolateral and basal lateral wall in the RCA/circumflex distribution 2. Gated LVEF is 58% 3. Transient ischemic dilatation not present but LV cavity is dilated EKG is nondiagnostic for ischemia
--- NOTE | 2023-08-26 08:09 | CA_ITS ---
Acquisition Time: 2023-08-26 08:26:47 Total Exercise Time: 00:02:00 Test Indications: Abnormal ECG CP Medications: ATORVASTATIN GLIPIZIDE FINASTERIDE INSULIN LEVOTHYROXINE LOSARTAN Protocol: LEXISCAN Max HR: 121 BPM 83% of Pred: 145 BPM Max BP: 146/070 mmHG Max Work Load: 1.0 METS Pharmacological stress test with Lexiscan injection while sitting and kicking his legs, without arrhythmias, with normotensive response to injection, with scooping lead 1 Nuclear images pending. Test reviewed with Dr. Osorio. V4-V6 downsloping correected with lead placement Referred By: Federico Day Overread By: Brooklynn Phipps
== END ==
LOC: HO.CARD 08:03
PROVIDERS: PCP Internal Medicine; Visit Provider Internal Medicine
DX: R07.2 Precordial pain (principal); I20.9 Angina pectoris, unspecified
CPT/HCPCS: 78452; 93017; A9500; J0280; J2785

== ENCOUNTER → 2023-08-26 08:09 | Outpatient (BNV) | payer OTHER, MEDICAID, SELFPAY | PROVIDERS: PCP Internal Medicine; Visit Provider Nurse Practitioner | DX: I25.10 Atherosclerotic heart disease of native coronary artery without angina pectoris (principal) | CPT/HCPCS: 78452; 93016; 93018 ==

== ENCOUNTER 2023-09-06 15:17 | Outpatient (AMB) | payer OTHER, MEDICAID, SELFPAY ==
[2023-09-06 15:42] VITALS: BP 130/62; PULSE 71; BMI 33.3
--- NOTE | 2023-09-06 15:42 | MHC.OFFVIS ---
Intake Vital Signs 09/06/23 15:42 Height 5 ft 8 in Weight 219 lb 2.232 oz BMI 33.3 BP 130/62 Blood Pressure Location Lt brachial Position Sitting Pulse 71 Pulse Source Pulse Oximeter Intake Visit Reasons: follow up abnormal stress HS Manager Hospital Required: Yes Manager Hospital Language: Internal Grinder Set Up Operator Name: herminia sabillon [id number] Allergies No Known Allergies [No Known Allergies*] Allergy (Verified 09/06/23 15:43) Medication List - Last Reconciled 09/06/23 by Manju Ponce NP-C aspirin (Adult Aspirin Regimen) 81 mg PO DAILY atorvastatin 40 mg PO BEDTIME finasteride 5 mg PO DAILY 90 days glipizide 5 mg PO BID glucosamine-chondroitin 500-400 mg 1 cap PO BID insulin glargine (Lantus Solostar U-100 Insulin) 26 units subcut QPM levothyroxine 50 mcg PO DAILY losartan 50 mg PO DAILY losartan-hydrochlorothiazide 100-12.5 mg 1 tab PO DAILY metoprolol succinate ER (Toprol XL) 25 mg PO DAILY peg 3350-electrolytes 236-22.74-6.74 -5.86 gram (Golytely) 240 mL PO Q10M 1 day sitagliptin phosphate (Januvia) 100 mg PO DAILY HPI follow up abnormal stress HS HPI Details Driss is a 73-year-old male with past medical history of diabetes, hyperlipidemia, hypertension who was recently evaluated for abnormal EKG done at PCP office showing inferior Q-waves with T-wave inversions. He underwent nuclear stress test showing large area of ischemia in the RCA territory. He now presents for follow-up. Today he reports that he does not have symptom of chest discomfort at rest or with activity. He denies shortness of breath, palpitations, presyncope, syncope, PND, orthopnea or edema. He walks with a cane and does light physical activity. He has been taking his meds as directed. [facility] Medical History Diabetes Abnormal EKG Pre-op examination BPH (benign prostatic hyperplasia) Hypertension Surgical History S/P partial colectomy Family History Mother Heart problem Sister Heart problem Social History Alcohol intake: former Patient Tobacco Use Status: Former Tobacco user Review of Systems Const All systems reviewed & are unremarkable except as noted in HPI and below ENT Denies dizziness Card Denies chest pain, Denies chest pain at rest, Denies chest pain with activity, Denies rapid heart rate, Denies pedal edema, Denies edema, Denies leg edema, Denies lightheadedness, Denies palpitations, Denies dyspnea, Denies dyspnea on exertion and Denies orthopnea Resp Denies cough, Denies dyspnea and Denies dyspnea on exertion GI Denies hematochezia and Denies change in stool character Musc Denies abnormal gait, Denies limited range of motion, Denies muscle cramps, Denies muscle weakness, Denies numbness, Denies radiating pain into limb, Denies stiffness and Denies tingling Neuro Denies abnormal gait, Denies dizziness, Denies numbness and Denies tingling Endo Denies palpitations Physical Exam Vital Signs: Last Vital Signs Pulse 71 09/06/23 15:42 BP 130/62 09/06/23 15:42 BMI result Body Mass Index 33.3 Const General: cooperative, healthy appearing, comfortable and no acute distress Orientation/consciousness: patient oriented x3 Neck Neck: Yes normal visual inspection Resp Effort & Inspection: normal respiratory effort Auscultation: clear to auscultation bilaterally, no crackles, no rales, no rhonchi and no wheezes Cardio Jugular venous distension: no JVD Rate: regular rate Rhythm: regular rhythm Heart sounds: S1 normal heart sound present, S2 normal heart sound present, no murmurs and no rubs Neuro General: patient oriented x3 Extrem General: Yes normal to inspection, No no pedal edema and No calf tenderness Psych Appearance: grossly normal Mental Status: mental status grossly normal Speech and movement: Normal speech and movement present Assessment & Plan Assessment & Plan (1) Abnormal EKG: Code(s): R94.31 - Abnormal electrocardiogram [ECG] [EKG] Plan: EKG from PCP office reported to have inferior Q-waves and T-wave inversions. Patient has no known history of coronary artery disease. He does have cardiac risk factors including diabetes, hyperlipidemia and hypertension. He denies having anginal sounding symptoms. He walks with a cane and does limited activity. He did undergo an echocardiogram on 08/19/2023 showing EF 62%, moderate calcification of the aortic valve, no reported regional wall motion abnormality. He underwent a pharmacological nuclear stress test on 09/01/2023 showing a large area of ischemia in the inferior, inferior lateral and basal lateral wall, RCA/circumflex distribution, EF 58%, t.i.d. not present but LV cavity is dilated. Review test results with him in detail. Need for cardiac catheterization reviewed including risks SD, stroke, JÚNIOR, infection, bleeding. He is agreeable to proceed. Will check labs today including basic metabolic profile, CBC and PT INR as part of preop evaluation, lipids added. Will continue on current med management including aspirin, atorvastatin, metoprolol, losartan/hydrochlorothiazide. Blood pressure is normal range. Signs and symptoms of angina reviewed. Emergency care if needed for symptoms. Cardiology follow-up 2 weeks post procedure. (2) Abnormal nuclear stress test: Code(s): R94.39 - Abnormal result of other cardiovascular function study Plan: As above (3) Hyperlipidemia: Code(s): E78.5 - Hyperlipidemia, unspecified Qualifiers: Hyperlipidemia type: unspecified Qualified Code(s): E78.5 - Hyperlipidemia, unspecified Plan: [place] LDL goal less than 70 in patient with diabetes. Continue atorvastatin, current dose 40 mg daily. Checking lipids today. (4) Hypertension: Code(s): I10 - Essential (primary) hypertension Qualifiers: Hypertension type: primary hypertension Qualified Code(s): I10 - Essential (primary) hypertension Plan: Controlled at present. No med changes made (5) Diabetes: Code(s): E11.9 - Type 2 diabetes mellitus without complications Plan: Hemoglobin A1c goal less than 7. Followed by his PCP Plan Time spent on chart review, documentation, interview and assessment Orders: Orders Basic Metabolic Panel Today R94.39 - Abnormal result of other cardiovascular function study Complete Blood Count Auto Diff Today R94.39 - Abnormal result of other cardiovascular function study Prothrombin Time INR Today R94.39 - Abnormal result of other cardiovascular function study Lipid Panel Today E78.5 - Hyperlipidemia, unspecified Cardiac Cath LT w PCI Today E78.5 - Hyperlipidemia, unspecified, I10 - Essential (primary) hypertension, R94.31 - Abnormal electrocardiogram [ECG] [EKG], R94.39 - Abnormal result of other cardiovascular function study Coding Level of Care Code Est Pt Level 4 (00483) Diagnoses Abnormal EKG R94.31 Abnormal nuclear stress test R94.39 Hyperlipidemia, unspecified hyperlipidemia type E78.5 Hyperlipidemia type: unspecified Primary hypertension I10 Hypertension type: primary hypertension Diabetes E11.9 Time Spent (min) 30
== END 2023-09-06 16:22 | disposition home or self-care (01) ==
PROVIDERS: PCP Internal Medicine; Visit Provider Nurse Practitioner Family
DX: R94.31 Abnormal electrocardiogram [ECG] [EKG] (principal); R94.39 Abnormal result of other cardiovascular function study; E78.5 Hyperlipidemia, unspecified; I10 Essential (primary) hypertension; E11.9 Type 2 diabetes mellitus without complications
CPT/HCPCS: 99214

== ENCOUNTER 2023-09-06 15:17 | Outpatient (REF) | payer OTHER, SELFPAY ==
[2023-09-06 16:35] LABS: MANUAL DIFF FLAG NO
[2023-09-06 18:00] LABS: Basophils Absolute Auto 0.1 X10*3/uL (0.0-0.2); Basophils Percent Auto 0.6 % (0-2); Eosinophils Absolute Auto 0.2 X10*3/uL (0.0-0.4); Eosinophils Percent Auto 1.5 % (0-4); Hematocrit 40.8 % (42.0-52.0); Hemoglobin 13.8 g/dl (14.0-18.0); Imm Gran Abs Auto 0.04 X10*3/uL (0.00-0.03); Imm Gran Pct Auto 0.4 % (0.0-0.4); Lymphocytes Absolute Auto 2.1 X10*3/uL (1.2-4.9); Lymphocytes Percent Auto 20.7 % (20-40); Mean Corpuscular HGB Conc 33.8 g/dl (31.0-36.0); Mean Corpuscular Hemoglobin 29.5 pg (27.0-33.0); Mean Corpuscular Volume 87.2 fL (80.0-98.0); Mean Platelet Volume 11.4 fL (9.4-12.4); Monocytes Absolute Auto 0.6 X10*3/uL (0.1-1.2); Monocytes Percent Auto 5.6 % (2-11); Neutrophils Absolute Auto 7.2 x10*3/uL (2.0-8.3); Neutrophils Percent Auto 71.2 % (45-73); Platelet Count 210 X10*3/uL (160-400); Red Blood Count 4.68 X10*6/uL (4.60-5.80)
[2023-09-06 18:31] LABS: Anion Gap 13 (12-20); Blood Urea Nitrogen 24 mg/dL (9-16); Calcium 10.5 mg/dL (8.4-10.2); Carbon Dioxide 28 mmol/L (22-29); Chloride 99 mmol/L (96-108); Cholesterol 216 mg/dL (<200); Estimated Glomerular Filt Rate 51; HDL Cholesterol 41 mg/dL (>40); LDL Cholesterol Calculated 123 mg/dL (<100); Potassium 4.4 mmol/L (3.3-5.1); Sodium 136 mmol/L (135-145); Triglycerides 261 mg/dL (<150)
[2023-09-06 18:38] LABS: Glucose Random 377 mg/dL (60-115)
== END 2023-09-06 15:18 | disposition home or self-care (01) ==
LOC: HO.LAB 15:17
PROVIDERS: PCP Internal Medicine; Visit Provider Nurse Practitioner Family
DX: R94.39 Abnormal result of other cardiovascular function study (principal); E78.5 Hyperlipidemia, unspecified; I10 Essential (primary) hypertension; E11.9 Type 2 diabetes mellitus without complications; Z79.899 Other long term (current) drug therapy; Z79.4 Long term (current) use of insulin
CPT/HCPCS: 36415; 80048; 80061; 85025; 85610; 99212

== ENCOUNTER 2023-11-14 08:03 | Outpatient (REF) | payer OTHER, SELFPAY ==
[2023-11-14 11:47] LABS: Prostate Specific Antigen 5.13 ng/mL (<0.05-4.0)
== END 2023-11-14 08:04 | disposition home or self-care (01) ==
LOC: HO.10HDL 08:03
PROVIDERS: Visit Provider Nurse Practitioner Family
DX: Z12.5 Encounter for screening for malignant neoplasm of prostate (principal); N40.0 Benign prostatic hyperplasia without lower urinary tract symptoms; R97.20 Elevated prostate specific antigen [PSA]
CPT/HCPCS: 36415; 84153

== ENCOUNTER 2023-11-15 14:48 | Outpatient (REF) | payer OTHER, SELFPAY ==
[2023-11-15 16:37] LABS: Anion Gap 10 (12-20); Blood Urea Nitrogen 24 mg/dL (9-16); Calcium 9.9 mg/dL (8.4-10.2); Carbon Dioxide 30 mmol/L (22-29); Chloride 103 mmol/L (96-108); Estimated Glomerular Filt Rate 56; Glucose Random 196 mg/dL (60-115); Potassium 4.1 mmol/L (3.3-5.1); Sodium 139 mmol/L (135-145)
== END 2023-11-15 14:49 | disposition home or self-care (01) ==
LOC: HO.HHCL 14:48
PROVIDERS: Visit Provider Internal Medicine
DX: I10 Essential (primary) hypertension (principal)
CPT/HCPCS: 36415; 80048

== ENCOUNTER 2023-11-23 09:20 | Outpatient (AMB) | payer OTHER, SELFPAY ==
--- NOTE | 2023-11-23 09:28 | MHC.OFFVIS ---
Intake Intake Visit Reasons: 4m/PSA Intake Note: Patient is Present for Follow Up Elevated PSA, Enlarged Prostate, Incomplete Bladder Emptying PSA: 5.13 Urology Medication: Finasteride Antibiotic Allergies: None Blood Thinners:None PVR: 115ml's Melter Assistant Required: Yes Melter Assistant Name: ALLA CASTILLO Accompanied by: Self / Same As Patient Allergies No Known Allergies [No Known Allergies*] Allergy (Verified 11/23/23 10:56) Medication List - Last Reconciled 11/23/23 by SYLVIA Call- aspirin (Adult Aspirin Regimen) 81 mg PO DAILY atorvastatin 80 mg PO BEDTIME dulaglutide (Trulicity) mg subcut finasteride 5 mg PO DAILY 90 days glipizide 5 mg PO BID glucosamine-chondroitin 500-400 mg 1 cap PO BID insulin glargine (Lantus Solostar U-100 Insulin) 26 units subcut QPM levothyroxine 50 mcg PO DAILY losartan 50 mg PO DAILY losartan-hydrochlorothiazide 100-12.5 mg 1 tab PO DAILY metoprolol succinate ER (Toprol XL) 25 mg PO DAILY peg 3350-electrolytes 236-22.74-6.74 -5.86 gram (Golytely) 240 mL PO Q10M 1 day sitagliptin phosphate (Januvia) 100 mg PO DAILY HPI HPI Comments History of Present Illness Details Driss is a pleasant 73-year-old male patient of Dr. Zarate. He has a past medical history of type 2 diabetes, and hypertension. He presents to the office today for follow-up of his elevated PSA. Of note, patient was seen approximately 4 months ago at which time he was started on finasteride 5 mg daily. When asked he reports to be doing and feeling well. Recent PSA results reviewed with the patient today as noted below. When asked he reports compliance with finasteride 5 mg daily. Previous workup has included a retroperitoneal ultrasound noting bilateral kidneys with no calculi, lesions, and or hydronephrosis noted. The bladder is well distended and appears mildly trabeculated. Prostate is enlarged at 85 mL. PSAs are as follows.. 12/02--4.8 03/04--5.1 % free 29 07/04--4.8 12/03--5.2 When asked he denies any urinary issues or concerns. When asked he denies urinary urgency, urinary frequency, incontinence, nocturia, hematuria, dysuria, foul smelling urine, changes to urinary stream, flank pain, fever, and or chills. He is happy with his current voiding parameters. In office urinalysis results reviewed with the patient today. PVR 115 mLs. Discussed at length potential causes for elevated PSA. Discussed bump in PSA despite compliance with finasteride. Discussed obtaining prostate MRI and or prostate biopsy. This was discussed at length. However, patient discusses his upcoming open heart surgery on the of this month and would like to continue with surveillance monitoring at this time. He otherwise offers no other issues or concerns at this time. Discussed at length causes and affects of incomplete bladder emptying. [facility] Medical History Diabetes Abnormal EKG Pre-op examination BPH (benign prostatic hyperplasia) Hypertension Surgical History S/P partial colectomy Family History Mother Heart problem Sister Heart problem Social History Alcohol intake: former Patient Tobacco Use Status: Former Tobacco user Review of Systems Const All systems reviewed & are unremarkable except as noted in HPI and below Reports no additional complaints Eyes Reports no additional complaints ENT Reports no additional complaints Card Reports as per HPI Resp Reports no additional complaints GI Reports no additional complaints Reports as per HPI Musc Reports no additional complaints Neuro Reports no additional complaints Psych Reports no additional complaints Endo Reports as per HPI Davion/Lymph Reports no additional complaints Aller/Immun Reports no additional complaints Physical Exam Const General: cooperative, healthy appearing, comfortable, no acute distress, well developed, alert and awake Orientation/consciousness: patient oriented x3 Limitations: no limitations HEENT Head: Yes normal to inspection, Yes normocephalic and Yes atraumatic Ears: hearing grossly normal bilaterally Eyes General: appearance normal, both eyes and all related structures Neck Neck: Yes normal visual inspection and Yes trachea midline Chest Chest palpation & inspection: normal inspection of the chest Resp Effort & Inspection: normal respiratory effort and able to speak in complete sentences Cardio Rate: regular rate GI Inspection: Yes normal to inspection General: Yes no CVA tenderness Back/Spine/Pelvis Back: no CVA tenderness Skin General skin exam: no rashes or lesions noted Neuro General: patient oriented x3 Extrem General: Yes normal to inspection Psych Appearance: grossly normal and well kempt Mental Status: mental status grossly normal Speech and movement: Normal speech and movement present and Clear speech present Affect: normal affect Attitude: cooperative Thought process: Normal thought process present Thought content: Normal thought content present Insight: Good insight present (Psych) Judgement: Good judgement present (Psych) Office Procedures Post Void Residual Post Residual Void Post Void Residual (PVR): 115 [id number] Void Residual by ultrasound Results AMB Urinalysis, Automated UA Leukoctes 0 Solomon/uL Last Edit by [employer] on 11/23/23 09:54 UA Nitrite Negative Last Edit by [employer] on 11/23/23 09:54 UA Urobilinogen 0.2 mg/dL Last Edit by [employer] on 11/23/23 09:54 UA Protein 15 mg/dL Last Edit by [employer] on 11/23/23 09:54 UA pH 6.0 Last Edit by [employer] on 11/23/23 09:54 UA Blood 0 Herson/uL Last Edit by [employer] on 11/23/23 09:54 UA Specific [place] 1.015 Last Edit by [employer]ing[employer]enn[employer] on 11/23/23 09:54 UA Ketone Negative Last Edit by [employer] on 11/23/23 09:54 UA Bilirubin 0 mg/dL Last Edit by [employer] on 11/23/23 09:54 UA Glucose 0 mg/dL Last Edit by [employer] on 11/23/23 09:54 Results Reviewed Results Reviewed: Laboratory Last Values Urine pH (Auto) 6.0 11/23/23 09:48 Specific [place] (Auto) 1.015 11/23/23 09:48 Urine Protein (Auto) 15 mg/dL 11/23/23 09:48 Glucose (UA)(Auto) 0 mg/dL 11/23/23 09:48 Urine Ketones (Auto) Negative 11/23/23 09:48 Urine Blood (Auto) 0 Herson/uL 11/23/23 09:48 Urine Nitrite (Auto) Negative 11/23/23 09:48 Urine Bilirubin (Auto) 0 mg/dL 11/23/23 09:48 Urine Urobilinogen (Auto) 0.2 mg/dL 11/23/23 09:48 Leukocyte Esterase (Auto) 0 Solomon/uL 11/23/23 09:48 Assessment & Plan Assessment & Plan (1) Elevated PSA: Code(s): R97.20 - Elevated prostate specific antigen [PSA] Plan In office urinalysis results reviewed with the patient today; as noted above. PVR 115 mL; as noted above. Recent PSA results reviewed with the patient today; as noted above. Discussed at length potential causes for elevated PSA. Discussed bump in PSA despite compliance with 5 mg of finasteride daily. Discussed obtaining MRI of the prostate and or prostate biopsy; risks and benefits of these interventions were discussed at length. Patient with upcoming open heart surgery on the will continue with surveillance monitoring at this time; discussed potential for delay in treatment. Patient currently denies any bothersome urinary issues or concerns. He is happy with his current voiding parameters. Continue finasteride 5 mg daily. PSA in 4 months. Follow-up in 4 months with lab to be completed prior; or sooner with any issues, concerns, and or questions. Orders: Orders AMB Urinalysis Automated Today Z13.9 - Encounter for screening, unspecified AMB Post Void Residual by ultrasound Today R33.9 - Retention of urine, unspecified PSA,Total (Free>4and<10) 4 Months R97.20 - Elevated prostate specific antigen [PSA] Patient Instructions: The patient had an opportunity to ask questions regarding the treatment plan. All questions were answered. Physical exam, labs, and imaging were discussed and reviewed in detail. As well as risks, benefits, and discussion of treatment choices. No major barriers to understanding were identified. The patient expressed understanding and agreement with the above treatment plan. The patient was made aware they should contact our office by phone for worsening of their current condition, the appearance of new symptoms, or with any questions or concerns. Compliance is encouraged with any medications and follow up testing that is ordered. It is a privilege to be allowed the opportunity to participate in? your urological care.? Again, if you have any questions or concerns If you have any questions or concerns please do not hesitate to contact me. The office is [phone]. This note is constructed using voice recognition software. While every effort has been made to ensure accuracy liquid sugar melter errors may have been included. Yours sincerely, LINN CallP-BC Coding Level of Care Code Est Pt Level 3 (99411) Diagnoses Elevated PSA R97.20 CPT Codes Post Residual Void - PVR CPT Code: 88682-Yxwq Void Residual by ultrasound ([id number])
== END 2023-11-23 10:18 | disposition home or self-care (01) ==
PROVIDERS: PCP Internal Medicine; Visit Provider Nurse Practitioner Family
DX: Z13.9 Encounter for screening, unspecified (principal); R97.20 Elevated prostate specific antigen [PSA]
CPT/HCPCS: 99213

== ENCOUNTER → 2023-11-23 09:20 | Outpatient (BNVA) | payer OTHER, SELFPAY | PROVIDERS: PCP Internal Medicine; Visit Provider Nurse Practitioner Family | DX: R97.20 Elevated prostate specific antigen [PSA] (principal); R33.9 Retention of urine, unspecified | CPT/HCPCS: 51798; 81003 ==

== ENCOUNTER 2024-01-03 09:11 | Outpatient (AMB) | payer OTHER, SELFPAY ==
[2024-01-03 09:37] VITALS: BP 138/70; PULSE 68; O2SAT 97; BMI 32.7
--- NOTE | 2024-01-03 09:37 | A.OFFVIS_ITS ---
Vital Signs 01/03/24 09:37 Height 5 ft 8 in Weight 215 lb BMI 32.7 BP 138/70 Blood Pressure Location Lt brachial Position Sitting Pulse 68 Pulse Source Monitor Pulse Oximetry (%) 97 Oxygen Delivery Method Room Air Intake Visit Reasons: follow-up post CABG [facility] Patcher Bowling Ball Required: Yes Patcher Bowling Ball Name: MARGI [id number] Allergies No Known Allergies [No Known Allergies*] Allergy (Verified 11/23/23 10:56) Medication List - Last Reconciled 01/03/24 by Federico Day MD aspirin (Adult Aspirin Regimen) 81 mg PO DAILY atorvastatin 80 mg PO BEDTIME dulaglutide (Trulicity) mg subcut finasteride 5 mg PO DAILY 90 days glipizide 5 mg PO BID glucosamine-chondroitin 500-400 mg 1 cap PO BID insulin glargine (Lantus Solostar U-100 Insulin) 26 units subcut QPM levothyroxine 50 mcg PO DAILY losartan 50 mg PO DAILY losartan-hydrochlorothiazide 100-12.5 mg 1 tab PO DAILY metoprolol succinate ER (Toprol XL) 25 mg PO DAILY peg 3350-electrolytes 236-22.74-6.74 -5.86 gram (Golytely) 240 mL PO Q10M 1 day sitagliptin phosphate (Januvia) 100 mg PO DAILY HPI Comments Details: Driss returns for follow-up. In the past, he was seen regarding abnormal EKG/preoperative evaluation for colonoscopy. Multiple cardiovascular risk factors. He is also describing chest tightness. That led to further workup eventually leading to cardiac catheterization followed by bypass surgery. He states he is overall doing good. Some shortness of breath with activity but could be from deconditioning. Comes with a walker. Otherwise feels okay. [facility] Medical History (Updated 01/03/24 @ 09:56 by Federico Day MD) Atherosclerotic cardiovascular disease Diabetes Abnormal EKG Pre-op examination BPH (benign prostatic hyperplasia) Hypertension Surgical History (Updated 01/03/24 @ 09:56 by Federico Day MD) Status post aorto-coronary artery bypass graft S/P partial colectomy Family History Mother Heart problem Sister Heart problem Social History Alcohol intake: former Patient Tobacco Use Status: Former Tobacco user Review of Systems Const Denies weakness ENT Denies dizziness Card Denies chest pain, Denies chest pain with activity, Denies syncope, Denies rapid heart rate, Denies pedal edema, Denies edema, Denies leg edema, Denies lightheadedness, Denies palpitations, Denies dyspnea, Denies dyspnea on exertion and Denies orthopnea Resp Denies cough, Denies dyspnea and Denies dyspnea on exertion GI Denies hematochezia and Denies change in stool character Musc Denies abnormal gait, Denies muscle cramps, Denies muscle weakness, Denies numbness, Denies radiating pain into limb and Denies tingling Neuro Denies abnormal gait, Denies dizziness, Denies syncope, Denies numbness, Denies tingling and Denies weakness Endo Denies palpitations Physical Exam Vital Signs: Last Vital Signs Pulse 68 01/03/24 09:37 BP 138/70 01/03/24 09:37 Pulse Ox 97 01/03/24 09:37 Oxygen Delivery Method Room Air 01/03/24 09:37 BMI result Body Mass Index 32.7 Const General: comfortable and no acute distress Orientation/consciousness: patient oriented x3 HEENT Other: Unremarkable Head: Yes normal to inspection Neck Neck: Yes normal visual inspection Chest Chest palpation & inspection: normal inspection of the chest Resp Auscultation: clear to auscultation bilaterally Cardio Palpation: normal PMI Heart sounds: S1 normal heart sound present, S2 normal heart sound present, no gallops, no murmurs and no rubs GI Palpation (GI): Soft to palpation Back/Spine/Pelvis Other: unremarkable Skin General skin exam: no rashes or lesions noted Neuro General: patient oriented x3 Extrem General: Yes normal to inspection Psych Mental Status: mental status grossly normal Office Procedures EKG Details: EKG with sinus rhythm at 68/Min; inferior as well as anterolateral T inversions. [place]. [id number], Complete Assessment & Plan Assessment & Plan (1) Atherosclerotic cardiovascular disease: Code(s): I25.10 - Atherosclerotic heart disease of [place] coronary artery without angina pectoris Category: Medical (2) Status post aorto-coronary artery bypass graft: Code(s): Z95.1 - Presence of aortocoronary bypass graft Category: Surgical Plan Cardiac catheterization data reviewed. Essentially complex multivessel disease with DIRECTOR HR COMMUNICATIONS of right coronary artery. Status post CABG. Continue long-term aspirin. Otherwise, aggressive risk factor modification of diabetes, hypertension and dyslipidemia. Will follow-up on lipids in due course. Suspect shortness of breath from walking is more from deconditioning but we will get an echocardiogram anyway. Otherwise, recommend cardiac rehabilitation. Patient agrees. Follow-up in 3 months. Orders: Orders Cardiac Rehab Today Z95.5 - Presence of coronary angioplasty implant and graft CA echo transthoracic complete Today Z95.1 - Presence of aortocoronary bypass graft Coding Level of Care Code Est Pt Level 4 (89660) Diagnoses Atherosclerotic cardiovascular disease I25.10 Status post aorto-coronary artery bypass graft Z95.1 CPT Codes EKG - CPT: 59379-[id number], Complete ([id number])
== END 2024-01-03 10:06 | disposition home or self-care (01) ==
PROVIDERS: PCP Internal Medicine; Visit Provider Internal Medicine
DX: I25.10 Atherosclerotic heart disease of native coronary artery without angina pectoris (principal); Z95.1 Presence of aortocoronary bypass graft
CPT/HCPCS: 93010; 99214

== ENCOUNTER → 2024-01-03 09:18 | Outpatient (BNVA) | payer OTHER, SELFPAY | PROVIDERS: PCP Internal Medicine; Visit Provider Internal Medicine | DX: I25.10 Atherosclerotic heart disease of native coronary artery without angina pectoris (principal); Z79.82 Long term (current) use of aspirin; Z95.1 Presence of aortocoronary bypass graft | CPT/HCPCS: 93005 ==

== ENCOUNTER → 2024-01-27 12:31 | Outpatient (REF) | payer OTHER, SELFPAY ==
--- NOTE | 2024-01-27 12:34 | CA_ITS ---
Transthoracic Echocardiogram Patient (Last, First, Middle): Driss Bender E Gender: Male Date of : 1950 Age: 73 Procedure Date: 01/27/2024 Procedure Type: Transthoracic Echocardiogram Location: OP Height: 172.72 cm Weight: 92.99 kg BSA: 2.07 m2 Heart Rate: bpm BP: 140 / 70 mmHg Music Sound Light Technician: TO Referring MD: Federico Day MD Controlled Area Checker: Hieu Sharp MD Symptoms: Z95.1 - Presence of aortocoronary bypass graft Study Quality: Fair/Contrast ECG Rhythm: Sinus Conclusions: - 1. Mildly reduced LV ejection fraction 45-50% with impaired relaxation filling pattern with underlying regional wall motion abnormality consistent with coronary artery disease 2. Mild aortic stenosis 3. Mildly dilated ascending aorta 3.7 cm 4. Small loculated pericardial effusion near the left ventricle Findings Procedure Information Contrast agent, definity, is being given per protocol without apparent complications. Left Ventricle Normal left ventricular cavity size. There is normal left ventricular wall thickness. The left ventricular systolic function is mildly decreased. The visually estimated ejection fraction is between 45-50%. There is paradoxical septal motion consistent with post-operative status. Spectral Doppler is indicative of an impaired relaxation filling pattern. E/E prime ratio is between 8 and 15 consistent with indeterminate filling pressures. There is mild septal asymmetric hypertrophy. Wall Motion Rest Echo Findings The basal inferolateral segment is hypokinetic. The basal inferior and basal inferoseptal segments are akinetic. All other scored wall segments showed normal motion. Right Ventricle The right ventricle was not well visualized. Aortic Valve There is mild calcification of the aortic valve. There is mild thickening of the aortic valve. There is mild aortic valve stenosis. The peak aortic gradient is 17 mmHg.The mean gradient is 9 mmHg. The aortic valve area is 1.81 cm2. There is no aortic valve regurgitation. Mitral Valve There is mild anterior and posterior mitral leaflet thickening. There is trace mitral valve regurgitation. There is no mitral valve stenosis. Pulmonic Valve The pulmonic valve was not well visualized. Tricuspid Valve Likely normal tricuspid valve structure and function. Tricuspid regurgitation envelope is inadequate for calculation of right ventricular systolic pressure. Normal right atrial pressure. Great Vessels The pulmonary artery was not well visualized. There is mild dilatation of the ascending aorta measuring 3.70 cm. Small plaque is seen in the sino tubular ridge. Venous The inferior vena cava is normal in size and collapses greater than 50% with inspiration. Pericardium/Pleural There is a moderate loculated pericardial effusion overlying the left ventricle. Measurements 2D Linear Measurements IVSd: 1.33 0.6-0.9/0.6-1.0 cm LVIDd: 4.59 3.9-5.3/4.2-5.9 cm LVIDd Index: 2.22 2.4-3.2/2.2-3.1 cm/m2 LVIDs: 3.70 2.0-3.6 cm LVPWd: 0.98 0.7-1.1 cm LA Diam: 4.30 2.7-3.8/3.0-4.0 cm LAIDs Index: 2.08 1.5-2.3 cm/m2 LV Mass: 241.38 67-162/88-224 g LV Mass Index: 116.61 43-95/49-115 g/m2 LVOT Diam: 2.30 3.0+(-)1.3 cm 2D Systolic Function EF 4C: 47.50 >55% EF 2C: 49.20 >55% EF BiP: 48.40 >55% Mitral Valve MV Pk E: 0.53 MV PK A: 0.93 MV Decel Time: 190.00 E/A: 0.60 E'Lateral: 6.53 E'Medial: 3.48 E/E' Med: 15.10 E/E' Lat: 8.10 PHT: 56.00 MVA PHT: 3.93 Decel Leslie: 2.77 Aortic Valve AoV Pk Devin: 2.04 AoV Mn Devin: 1.41 AoV VTI: 0.45 AoV Pk Grad: 17.00 Aov Mn Grad: 9.00 ROMAIN Cont.VTI: 1.81 LVOT LVOT Pk Devin: 0.93 LVOT Mn Devin: 0.60 LVOT VTI: 0.20 LVOT Pk Grad: 3.00 LVOT Mn Grad: 2.00 LVOT Diam: 2.30 LVOT Area: 4.15 Diastolic Function MV Pk E: 0.53 MV Pk A: 0.93 E/A: 0.60 E'Medial: 3.48 E/E' Med: 15.10 E' Laterial: 6.53 E/E' Lat: 8.10 Right Ventricle TAPSE (mm): 12.20 TVS' Devin: 8.05 Tricuspid Valve TR Pk Devin: 2.09 TR Pk Grad: 17.00 Great Vessels Aorta Sinus of Valsalva: 3.51 2.0-3.5 cm Ao Asc: 3.70 2.1-3.4 cm Ao Arch: 3.20 Updated in Other Vendor System with Status of Final Hieu Sharp MD electronically signed on 01/28/2024 4:26:18 PM with status of Final
== END ==
LOC: HO.CARD 12:31
PROVIDERS: PCP Internal Medicine; Visit Provider Internal Medicine
DX: Z95.1 Presence of aortocoronary bypass graft (principal)
CPT/HCPCS: 93306; Q9957

== ENCOUNTER → 2024-01-27 12:34 | Outpatient (BNV) | payer OTHER, SELFPAY | PROVIDERS: PCP Internal Medicine; Visit Provider Internal Medicine Cardiovascular Disease | DX: I35.0 Nonrheumatic aortic (valve) stenosis (principal); I35.8 Other nonrheumatic aortic valve disorders; Z95.1 Presence of aortocoronary bypass graft | CPT/HCPCS: 93306 ==

== ENCOUNTER 2024-03-19 07:42 | Outpatient (REF) | payer OTHER, SELFPAY ==
[2024-03-19 12:00] LABS: PSA,Total (Free>4and<10) 3.48 ng/mL (0.00-4.00)
== END 2024-03-19 07:43 | disposition home or self-care (01) ==
LOC: HO.10HDL 07:42
PROVIDERS: Visit Provider Nurse Practitioner Family
DX: R97.20 Elevated prostate specific antigen [PSA] (principal); Z12.5 Encounter for screening for malignant neoplasm of prostate
CPT/HCPCS: 36415; 84153

== ENCOUNTER 2024-03-23 09:14 | Outpatient (AMB) | payer OTHER, SELFPAY ==
--- NOTE | 2024-03-23 09:37 | A.OFFVIS_ITS ---
Intake Visit Reasons: 4m/PSA Intake Note: Patient is Present for Follow Up on: Elevated PSA, Enlarged Prostate, Incomplete Bladder Emptying PSA: 3.48 Urology Medication: Finasteride Antibiotic Allergies: None Blood Thinners:None PVR: 79ml's Rose Grower Required: Yes Rose Grower Name: Adam [id number] Accompanied by: Self / Same As Patient Allergies No Known Allergies [No Known Allergies*] Allergy (Verified 03/23/24 09:59) Medication List - Last Reconciled 03/23/24 by SYLVIA Call- aspirin (Adult Aspirin Regimen) 81 mg PO DAILY atorvastatin 80 mg PO BEDTIME dulaglutide (Trulicity) mg subcut dulaglutide (Trulicity) mg subcut finasteride 5 mg PO DAILY 90 days glipizide 5 mg PO BID glucosamine-chondroitin 500-400 mg 1 cap PO BID insulin glargine (Lantus Solostar U-100 Insulin) 26 units subcut QPM levothyroxine 50 mcg PO DAILY losartan 50 mg PO DAILY losartan-hydrochlorothiazide 100-12.5 mg 1 tab PO DAILY metoprolol succinate ER (Toprol XL) 25 mg PO DAILY sitagliptin phosphate (Januvia) 100 mg PO DAILY HPI Comments Details: Driss is a pleasant 73-year-old Andorran speaking male patient of Dr. Pat Castro. He has a past medical history of type 2 diabetes, and hypertension. He presents to the office today for follow-up of his elevated PSA. In discussion with the patient today he reports to be doing and feeling well. Currently denies any bothersome urinary issues or concerns. He reports compliance with 5 mg of finasteride daily. Recent PSA results reviewed with the patient today as noted and trended below. Previous workup has included a retroperitoneal ultrasound noting bilateral kidneys with no calculi, lesions, and or hydronephrosis noted. The bladder is well distended and appears mildly trabeculated. Prostate is enlarged at 85 mL. PSAs are as follows.. 12/02 4.8, 03/04 5.1 % free 29, 07/04 4.8, 12/03 5.2, 04/04 3.5 When asked he denies urinary urgency, urinary frequency, incontinence, nocturia, hematuria, dysuria, foul smelling urine, changes to urinary stream, flank pain, fever, and or chills. He is happy with his current voiding parameters. In office urinalysis results reviewed with the patient today. PVR 79ml's. He othe rwise offers no other issues or concerns at this time. [facility] Medical History Atherosclerotic cardiovascular disease Diabetes Abnormal EKG Pre-op examination BPH (benign prostatic hyperplasia) Hypertension Surgical History Status post aorto-coronary artery bypass graft S/P partial colectomy Family History Mother Heart problem Sister Heart problem Social History Alcohol intake: former Patient Tobacco Use Status: Former Tobacco user Review of Systems Const All systems reviewed & are unremarkable except as noted in HPI and below Reports no additional complaints Eyes Reports no additional complaints ENT Reports no additional complaints Card Reports as per HPI Resp Reports no additional complaints GI Reports no additional complaints Reports as per HPI Musc Reports no additional complaints Neuro Reports no additional complaints Psych Reports no additional complaints Endo Reports as per HPI Davion/Lymph Reports no additional complaints Aller/Immun Reports no additional complaints Physical Exam Const General: cooperative, healthy appearing, comfortable, no acute distress, well developed, alert and awake Orientation/consciousness: patient oriented x3 Limitations: no limitations HEENT Head: Yes normal to inspection, Yes normocephalic and Yes atraumatic Ears: hearing grossly normal bilaterally Eyes General: appearance normal, both eyes and all related structures Neck Neck: Yes normal visual inspection and Yes trachea midline Chest Chest palpation & inspection: normal inspection of the chest Resp Effort & Inspection: normal respiratory effort and able to speak in complete sentences Cardio Rate: regular rate GI Inspection: Yes normal to inspection General: Yes no CVA tenderness Back/Spine/Pelvis Back: no CVA tenderness Skin General skin exam: no rashes or lesions noted Neuro General: patient oriented x3 Extrem General: Yes normal to inspection Psych Appearance: grossly normal and well kempt Mental Status: mental status grossly normal Speech and movement: Normal speech and movement present and Clear speech present Affect: normal affect Attitude: cooperative Thought process: Normal thought process present Thought content: Normal thought content present Insight: Fair insight present (Psych) Judgement: Fair judgement present (Psych) Office Procedures Post Void Residual Post Residual Void Post Void Residual (PVR): 79 [id number]-[id number] Void Residual by ultrasound Results AMB Urinalysis, Automated UA Leukoctes 0 Solomon/uL Last Edit by Anny Anaya on 03/23/24 09:52 UA Nitrite Negative Last Edit by Anny Anaya on 03/23/24 09:52 UA Urobilinogen 0.2 mg/dL Last Edit by Anny Anaya on 03/23/24 09:52 UA Protein 15 mg/dL Last Edit by Anny Anaya on 03/23/24 09:52 UA pH 5.5 Last Edit by Anny Anaya on 03/23/24 09:52 UA Blood 0 Herson/uL Last Edit by Anny Anaya on 03/23/24 09:52 UA Specific [place] 1.015 Last Edit by Anny Anaya on 03/23/24 09:52 UA Ketone Negative Last Edit by Anny Anaya on 03/23/24 09:52 UA Bilirubin 0 mg/dL Last Edit by Anny Anaya on 03/23/24 09:52 UA Glucose 0 mg/dL Last Edit by Anny Anaya on 03/23/24 09:52 Results Reviewed Results Reviewed: Laboratory Last Values Urine pH (Auto) 5.5 03/23/24 09:43 Specific [place] (Auto) 1.015 03/23/24 09:43 Urine Protein (Auto) 15 mg/dL 03/23/24 09:43 Glucose (UA)(Auto) 0 mg/dL 03/23/24 09:43 Urine Ketones (Auto) Negative 03/23/24 09:43 Urine Blood (Auto) 0 Herson/uL 03/23/24 09:43 Urine Nitrite (Auto) Negative 03/23/24 09:43 Urine Bilirubin (Auto) 0 mg/dL 03/23/24 09:43 Urine Urobilinogen (Auto) 0.2 mg/dL 03/23/24 09:43 Leukocyte Esterase (Auto) 0 Solomon/uL 03/23/24 09:43 Assessment & Plan Assessment & Plan (1) Elevated PSA: Code(s): R97.20 - Elevated prostate specific antigen [PSA] Category: Medical (2) Enlarged prostate: Code(s): N40.0 - Benign prostatic hyperplasia without lower urinary tract symptoms Category: Medical Plan In office urinalysis results reviewed with the patient today; as noted above. PVR 79 mL; as noted above. Recent PSA results reviewed with the patient today; as noted above. Patient currently denies any bothersome urinary issues or concerns. He is happy with his current voiding parameters. Continue finasteride 5 mg daily. PSA in 6 months. Follow-up in 6 months with lab to be completed prior; or sooner with any issues, concerns, and or questions. Orders: Orders Prostate Specific Antigen 6 Months N40.0 - Benign prostatic hyperplasia without lower urinary tract symptoms, R97.20 - Elevated prostate specific antigen [PSA] AMB Urinalysis Automated Today Z13.9 - Encounter for screening, unspecified AMB Post Void Residual by ultrasound Today R33.9 - Retention of urine, unspecified Medications: Refilled finasteride 5 mg PO DAILY 90 days 90 tabs 1RF N13.8 - Other obstructive and reflux uropathy, N40.1 - Benign prostatic hyperplasia with lower urinary tract symptoms, R33.9 - Retention of urine, unspecified Patient Instructions: The patient had an opportunity to ask questions regarding the treatment plan. All questions were answered. Physical exam, labs, and imaging were discussed and reviewed in detail. As well as risks, benefits, and discussion of treatment choices. No major barriers to understanding were identified. The patient expressed understanding and agreement with the above treatment plan. The patient was made aware they should contact our office by phone for worsening of their current condition, the appearance of new symptoms, or with any questions or concerns. Compliance is encouraged with any medications and follow up testing that is ordered. It is a privilege to be allowed the opportunity to participate in? your urological care.? Again, if you have any questions or concerns If you have any questions or concerns please do not hesitate to contact me. The office is [phone]. This note is constructed using voice recognition software. While every effort has been made to ensure accuracy agile business analyst errors may have been included. Yours sincerely, SHANNAN Call Coding Level of Care Code Est Pt Level 3 (19602) Complex EM visit Add On G2211 Diagnoses Elevated PSA R97.20 Enlarged prostate N40.0 CPT Codes Post Residual Void - PVR CPT Code: 15397-[id number] Void Residual by ultrasound ([id number])
== END 2024-03-23 10:00 | disposition home or self-care (01) ==
PROVIDERS: PCP Internal Medicine; Visit Provider Nurse Practitioner Family
DX: R97.20 Elevated prostate specific antigen [PSA] (principal); N40.0 Benign prostatic hyperplasia without lower urinary tract symptoms; Z13.9 Encounter for screening, unspecified
CPT/HCPCS: 99213; G2211

== ENCOUNTER → 2024-03-23 09:14 | Outpatient (BNVA) | payer OTHER, SELFPAY | PROVIDERS: PCP Internal Medicine; Visit Provider Nurse Practitioner Family | DX: R97.20 Elevated prostate specific antigen [PSA] (principal); R40.1 Stupor; R33.8 Other retention of urine; Z79.899 Other long term (current) drug therapy | CPT/HCPCS: 51798; 81003 ==

== ENCOUNTER 2024-04-10 08:39 | Outpatient (AMB) | payer OTHER, SELFPAY ==
[2024-04-10 09:18] VITALS: BP 120/64; PULSE 68; BMI 32.5
--- NOTE | 2024-04-10 09:18 | A.OFFVIS_ITS ---
Vital Signs 04/10/24 09:18 Height 5 ft 8 in Weight 213 lb 13.574 oz BMI 32.5 BP 120/64 Blood Pressure Location Lt brachial Position Sitting Pulse 68 Pulse Source Pulse Oximeter Intake Visit Reasons: 3 mth f/up s/p stephanie/ echo Mysql Database Developer Required: Yes Mysql Database Developer Name: [id number] Allergies No Known Allergies [No Known Allergies*] Allergy (Verified 03/23/24 09:59) Medication List - Last Reconciled 04/10/24 by Federico Day MD aspirin (Adult Aspirin Regimen) 81 mg PO DAILY atorvastatin 80 mg PO BEDTIME dulaglutide (Trulicity) mg subcut finasteride 5 mg PO DAILY 90 days glipizide 5 mg PO BID glucosamine-chondroitin 500-400 mg 1 cap PO BID insulin glargine (Lantus Solostar U-100 Insulin) 26 units subcut QPM levothyroxine 50 mcg PO DAILY losartan 50 mg PO DAILY losartan-hydrochlorothiazide 100-12.5 mg 1 tab PO DAILY metoprolol succinate ER (Toprol XL) 25 mg PO DAILY sitagliptin phosphate (Januvia) 100 mg PO DAILY HPI Comments Details: Driss returns for follow-up. In the past, he was seen regarding abnormal EKG/preoperative evaluation for colonoscopy. Multiple cardiovascular risk factors. He was also describing chest tightness. That led to further workup eventually leading to cardiac catheterization followed by bypass surgery. Overall, he states he is feeling good. No cardiac symptoms. [facility], 1928–1983 Medical History Atherosclerotic cardiovascular disease Diabetes Abnormal EKG Pre-op examination BPH (benign prostatic hyperplasia) Hypertension Surgical History Status post aorto-coronary artery bypass graft S/P partial colectomy Family History Mother Heart problem Sister Heart problem Social History Alcohol intake: former Patient Tobacco Use Status: Former Tobacco user Review of Systems Const Denies weakness ENT Denies dizziness Card Denies chest pain, Denies chest pain with activity, Denies syncope, Denies rapid heart rate, Denies pedal edema, Denies edema, Denies leg edema, Denies lightheadedness, Denies palpitations, Denies dyspnea, Denies dyspnea on exertion and Denies orthopnea Resp Denies cough, Denies dyspnea and Denies dyspnea on exertion GI Denies hematochezia and Denies change in stool character Musc Denies abnormal gait, Denies muscle cramps, Denies muscle weakness, Denies numbness, Denies radiating pain into limb and Denies tingling Neuro Denies abnormal gait, Denies dizziness, Denies syncope, Denies numbness, Denies tingling and Denies weakness Endo Denies palpitations Physical Exam Vital Signs: Last Vital Signs Pulse 68 04/10/24 09:18 BP 120/64 04/10/24 09:18 BMI result Body Mass Index 32.5 Const General: comfortable and no acute distress Orientation/consciousness: patient oriented x3 HEENT Other: Unremarkable Head: Yes normal to inspection Neck Neck: Yes normal visual inspection Chest Chest palpation & inspection: normal inspection of the chest Resp Auscultation: clear to auscultation bilaterally Cardio Palpation: normal PMI Heart sounds: S1 normal heart sound present, S2 normal heart sound present, no gallops, no murmurs and no rubs GI Palpation (GI): Soft to palpation Back/Spine/Pelvis Other: unremarkable Skin General skin exam: no rashes or lesions noted Neuro General: patient oriented x3 Extrem General: Yes normal to inspection Psych Mental Status: mental status grossly normal Assessment & Plan Assessment & Plan (1) Atherosclerotic cardiovascular disease: Code(s): I25.10 - Atherosclerotic heart disease of [place] coronary artery without angina pectoris Category: Medical (2) Status post aorto-coronary artery bypass graft: Code(s): Z95.1 - Presence of aortocoronary bypass graft Category: Surgical (3) Pericardial effusion: Code(s): I31.39 - Other pericardial effusion (noninflammatory) Category: Medical Plan Cardiac catheterization data reviewed. 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 Status post CABG. Recent echocardiogram reported with LVEF of 45-50% inferior/inferolateral wall motion abnormality. Small pericardial effusion over the left ventricle. On review, wall motion seemed somewhat similar to the previous study, but EF was slightly lower. Clinically, he feels well. Hence we will continue medical management. Continue long-term aspirin. Otherwise, aggressive risk factor modification of diabetes, hypertension and dyslipidemia. Check lipids. We will recheck an echocardiogram in about 3-4 months for LVEF as well as the pericardial effusion. Orders: Orders Lipid Panel Today E78.5 - Hyperlipidemia, unspecified, Z95.1 - Presence of aortocoronary bypass graft CA echo transthoracic complete 3 Months I25.10 - Atherosclerotic heart disease of [place] coronary artery without angina pectoris, I31.39 - Other pericardial effusion (noninflammatory), Z95.1 - Presence of aortocoronary bypass graft Liver Panel Today I25.10 - Atherosclerotic heart disease of [place] coronary artery without angina pectoris, Z95.1 - Presence of aortocoronary bypass graft Coding Level of Care Code Est Pt Level 4 (81501) Diagnoses Atherosclerotic cardiovascular disease I25.10 Status post aorto-coronary artery bypass graft Z95.1 Pericardial effusion I31.39
== END 2024-04-10 09:49 | disposition home or self-care (01) ==
PROVIDERS: PCP Internal Medicine; Visit Provider Internal Medicine
DX: I25.10 Atherosclerotic heart disease of native coronary artery without angina pectoris (principal); Z95.1 Presence of aortocoronary bypass graft; I31.39 Other pericardial effusion (noninflammatory)
CPT/HCPCS: 99214

== ENCOUNTER → 2024-04-10 08:39 | Outpatient (BNVA) | payer OTHER, SELFPAY | PROVIDERS: PCP Internal Medicine; Visit Provider Internal Medicine ==

== ENCOUNTER 2024-04-25 07:58 | Outpatient (REF) | payer OTHER, SELFPAY ==
[2024-04-25 11:53] LABS: MANUAL DIFF FLAG NO
[2024-04-25 11:56] LABS: Basophils Percent Auto 0.5 % (0-2); Eosinophils Absolute Auto 0.2 X10*3/uL (0.0-0.4); Hematocrit 37.5 % (42.0-52.0); Hemoglobin 11.9 g/dl (14.0-18.0); Imm Gran Abs Auto 0.02 X10*3/uL (0.00-0.03); Imm Gran Pct Auto 0.2 % (0.0-0.4); Lymphocytes Absolute Auto 2.2 X10*3/uL (1.2-4.9); Mean Corpuscular HGB Conc 31.7 g/dl (31.0-36.0); Mean Corpuscular Hemoglobin 26.4 pg (27.0-33.0); Mean Corpuscular Volume 83.3 fL (80.0-98.0); Mean Platelet Volume 10.6 fL (9.4-12.4); Monocytes Absolute Auto 0.7 X10*3/uL (0.1-1.2); Monocytes Percent Auto 8.3 % (2-11); Neutrophils Absolute Auto 5.4 x10*3/uL (2.0-8.3); Platelet Count 226 X10*3/uL (160-400); White Blood Count 8.6 X10*3/uL (4.8-10.8)
[2024-04-25 12:16] LABS: Alanine Aminotransferase 22 U/L (0-40); Albumin Level 3.8 g/dL (3.5-5.0); Alkaline Phosphatase 81 U/L (39-117); Anion Gap 8 (12-20); Aspartate Amino Transferase 17 U/L (5-37); Bilirubin Total 0.4 mg/dL (0.0-1.0); Blood Urea Nitrogen 19 mg/dL (9-16); Calcium 9.9 mg/dL (8.4-10.2); Carbon Dioxide 29 mmol/L (22-29); Chloride 107 mmol/L (96-108); Cholesterol 137 mg/dL (<200); Estimated Glomerular Filt Rate 56; Glucose Random 173 mg/dL (60-115); HDL Cholesterol 36 mg/dL (>40); LDL Cholesterol Calculated 77 mg/dL (<100); Potassium 4.4 mmol/L (3.3-5.1); Sodium 140 mmol/L (135-145); Total Protein 6.8 g/dL (6.5-8.0); Triglycerides 121 mg/dL (<150)
[2024-04-25 12:28] LABS: Uric Acid 5.4 mg/dL (3.4-7.0)
== END 2024-04-25 07:59 | disposition home or self-care (01) ==
LOC: HO.HHCL 07:58
PROVIDERS: Visit Provider Internal Medicine
DX: E78.2 Mixed hyperlipidemia (principal); M79.671 Pain in right foot; I10 Essential (primary) hypertension; M79.641 Pain in right hand
CPT/HCPCS: 36415; 80053; 80061; 84550; 85025

== ENCOUNTER 2024-04-26 11:45 | Outpatient (REF) | payer OTHER, SELFPAY ==
[2024-04-26 13:45] LABS: Iron 93 mcg/dL (45-160); Percent Iron Saturation 35 % (15-50); Total Iron Binding Capacity 266 mcg/dL (228-428); Unsaturated Iron Binding 173 ug/dL
[2024-04-26 13:48] LABS: Ferritin 19 ng/mL (20-250)
[2024-04-26 14:08] LABS: Folate 4.7 ng/mL (> or = 4.0); Vitamin B12 378 pg/mL (200-900)
== END 2024-04-26 11:46 | disposition home or self-care (01) ==
LOC: HO.HHCL 11:45
PROVIDERS: Visit Provider Internal Medicine
DX: D64.9 Anemia, unspecified (principal)
CPT/HCPCS: 36415; 82607; 82728; 82746; 83540

== ENCOUNTER 2024-06-13 09:00 | Outpatient (RCR) | payer OTHER, SELFPAY | END 2024-08-15 10:38 | disposition home or self-care (01) | LOC: HO.PT 09:00 | PROVIDERS: PCP Internal Medicine; Visit Provider Physician Assistant | DX: M72.2 Plantar fascial fibromatosis (principal) | CPT/HCPCS: 97110; 97140; 97161 ==

== ENCOUNTER → 2024-07-10 08:14 | Outpatient (REF) | payer OTHER, SELFPAY ==
--- NOTE | 2024-07-10 08:47 | CA_ITS ---
Transthoracic Echocardiogram Patient (Last, First, Middle): Driss Bender E Gender: Male Date of : 1950 Age: 73 Procedure Date: 07/10/2024 Procedure Type: Transthoracic Echocardiogram Location: OP Height: 172.72 cm Weight: 98.43 kg BSA: 2.12 m2 Heart Rate: bpm BP: 160 / 85 mmHg Histology Technologist: TODD Referring MD: Federico Day MD Symptoms: I25.10 - Atherosclerotic heart disease of [place] coronary artery without... Study Quality: Adequate ECG Rhythm: Sinus Conclusions: - The left ventricular systolic function is mild to moderately decreased. The calculated ejection fraction is 43% by biplane method. - There is moderately increased left ventricular wall thickness. - The inferolateral wall and basal inferior segment are akinetic. - There is moderate calcification of the aortic valve. - There is moderate mitral annular calcification. Findings Procedure Information Contrast agent, definity, is being given per protocol without apparent complications. Left Ventricle Normal left ventricular cavity size. There is moderately increased left ventricular wall thickness. The left ventricular systolic function is mild to moderately decreased. The calculated ejection fraction is 43% by biplane method. There is evidence of regional wall motion abnormalities. Evidence suggests grade I (mild) diastolic dysfunction. Wall Motion Rest Echo Findings The inferolateral wall and basal inferior segment are akinetic. Right Ventricle Normal right ventricular cavity size. There is mildly decreased right ventricular systolic function. Atria Both atria are normal in size. Aortic Valve There is moderate calcification of the aortic valve. There is no aortic valve regurgitation. No significant aortic stenosis. Mitral Valve There is moderate mitral annular calcification. There is mild mitral valve regurgitation. There is no mitral valve stenosis. Pulmonic Valve There is trace pulmonic valve regurgitation. Tricuspid Valve Normal tricuspid valve structure. There is mild tricuspid valve regurgitation. There is no evidence of pulmonary hypertension. Great Vessels The asc aorta is normal in size. Venous The inferior vena cava was not well visualized. The inferior vena cava is normal in size. Pericardium/Pleural There is no evidence of pericardial effusion. Prior Study Comparison No significant change compared to prior study dated: 01/27/2024. Measurements 2D Linear Measurements IVSd: 1.39 0.6-0.9/0.6-1.0 cm LVIDd: 4.72 3.9-5.3/4.2-5.9 cm LVIDd Index: 2.23 2.4-3.2/2.2-3.1 cm/m2 LVIDs: 3.33 2.0-3.6 cm LVPWd: 1.30 0.7-1.1 cm Ao Root: 3.50 2.1-3.5 cm LA Diam: 4.50 2.7-3.8/3.0-4.0 cm LAIDs Index: 2.12 1.5-2.3 cm/m2 LV Mass: 313.78 67-162/88-224 g LV Mass Index: 148.01 43-95/49-115 g/m2 LVOT Diam: 2.40 3.0+(-)1.3 cm 2D Systolic Function EF 4C: 44.60 >55% EF 2C: 36.50 >55% EF BiP: 42.50 >55% Mitral Valve MV Pk E: 0.77 MV PK A: 0.84 MV Decel Time: 182.00 E/A: 0.90 E'Lateral: 5.55 E'Medial: 3.15 E/E' Med: 24.50 E/E' Lat: 13.90 PHT: 53.00 MVA PHT: 4.15 Decel Hemphill: 4.24 Aortic Valve AoV Pk Devin: 1.83 AoV Mn Devin: 1.23 AoV VTI: 0.42 AoV Pk Grad: 13.00 Aov Mn Grad: 7.00 ROMAIN Cont.VTI: 2.04 LVOT LVOT Pk Devin: 0.80 LVOT Mn Devin: 0.53 LVOT VTI: 0.19 LVOT Pk Grad: 3.00 LVOT Mn Grad: 1.00 LVOT Diam: 2.40 LVOT Area: 4.52 Diastolic Function MV Pk E: 0.77 MV Pk A: 0.84 E/A: 0.90 E'Medial: 3.15 E/E' Med: 24.50 E' Laterial: 5.55 E/E' Lat: 13.90 Right Ventricle TAPSE (mm): 12.00 TVS' Devin: 6.00 Tricuspid Valve TR Pk Devin: 2.13 TR Pk Grad: 18.00 RA Press: 3.00 RVSP: 21.00 Great Vessels Aorta Ao Root-2D: 3.50 2.0-3.7 cm Ao Asc: 3.30 2.1-3.4 cm Pulmonary Valve PV Pk Devin: 0.95 Peak PV Grad: 4.00 Updated in Other Vendor System with Status of Final Federico Day MD electronically signed on 07/11/2024 4:41:31 PM with status of Final
[2024-07-10 10:30] LABS: Alanine Aminotransferase 26 U/L (0-40); Albumin Level 3.8 g/dL (3.5-5.0); Alkaline Phosphatase 84 U/L (39-117); Anion Gap 9 (12-20); Aspartate Amino Transferase 24 U/L (5-37); Bilirubin Direct 0.1 mg/dL (0.0-0.5); Bilirubin Total 0.4 mg/dL (0.0-1.0); Blood Urea Nitrogen 17 mg/dL (9-16); Calcium 10.1 mg/dL (8.4-10.2); Carbon Dioxide 31 mmol/L (22-29); Chloride 105 mmol/L (96-108); Cholesterol 141 mg/dL (<200); Estimated Glomerular Filt Rate > 60; Glucose Random 107 mg/dL (60-115); HDL Cholesterol 36 mg/dL (>40); LDL Cholesterol Calculated 86 mg/dL (<100); Potassium 3.9 mmol/L (3.3-5.1); Sodium 141 mmol/L (135-145); Total Protein 6.6 g/dL (6.5-8.0); Triglycerides 99 mg/dL (<150)
== END ==
LOC: HO.CARD 08:14
PROVIDERS: PCP Internal Medicine; Visit Provider Internal Medicine
DX: I10 Essential (primary) hypertension (principal); I25.10 Atherosclerotic heart disease of native coronary artery without angina pectoris; I31.39 Other pericardial effusion (noninflammatory); Z95.1 Presence of aortocoronary bypass graft; E78.5 Hyperlipidemia, unspecified
CPT/HCPCS: 36415; 80048; 80061; 80076; 93306; Q9957

== ENCOUNTER → 2024-07-10 08:47 | Outpatient (BNV) | payer OTHER, SELFPAY | PROVIDERS: PCP Internal Medicine; Visit Provider Internal Medicine | DX: I35.8 Other nonrheumatic aortic valve disorders (principal); I34.81 Nonrheumatic mitral (valve) annulus calcification | CPT/HCPCS: 93306 ==

== ENCOUNTER 2024-07-25 08:37 | Outpatient (AMB) | payer OTHER, SELFPAY ==
--- NOTE | 2024-07-25 08:58 | A.OFFVIS_ITS ---
Vital Signs 07/25/24 08:59 Height 5 ft 8 in Weight 217 lb 13.067 oz BMI 33.1 BP 124/60 Blood Pressure Location Lt brachial Position Sitting Pulse 74 Pulse Source Pulse Oximeter Intake Visit Reasons: 3+ f/up s/p echo/ labs Rolls Mill Operator Required: Yes Rolls Mill Operator Services: Rolls Mill Operator Present Accompanied by: Self / Same As Patient Allergies No Known Allergies [No Known Allergies*] Allergy (Verified 03/23/24 09:59) Medication List - Last Reconciled 07/25/24 by Federico Day MD aspirin (Adult Aspirin Regimen) 81 mg PO DAILY atorvastatin 80 mg PO BEDTIME dulaglutide (Trulicity) mg subcut finasteride 5 mg PO DAILY 90 days glipizide 5 mg PO BID glucosamine-chondroitin 500-400 mg 1 cap PO BID insulin glargine (Lantus Solostar U-100 Insulin) 26 units subcut QPM levothyroxine 50 mcg PO DAILY losartan-hydrochlorothiazide 100-12.5 mg 1 tab PO DAILY metoprolol succinate ER (Toprol XL) 25 mg PO DAILY HPI Comments Details: Driss returns for follow-up. In the past, he was seen regarding abnormal EKG/preoperative evaluation for colonoscopy. Multiple cardiovascular risk factors. He was also describing chest tightness. That led to further workup eventually leading to cardiac catheterization followed by bypass surgery. Overall, no new complaints. No angina or in fact anything cardiac sounding. [facility] Medical History Atherosclerotic cardiovascular disease Diabetes Abnormal EKG Pre-op examination BPH (benign prostatic hyperplasia) Hypertension Surgical History Status post aorto-coronary artery bypass graft S/P partial colectomy Family History Mother Heart problem Sister Heart problem Social History Alcohol intake: former Patient Tobacco Use Status: Former Tobacco user Review of Systems Const Denies chills, Denies fatigue, Denies fever(s), Denies weight gain and Denies weight loss ENT Denies dizziness Card Denies chest pain, Denies leg edema, Denies lightheadedness, Denies palpitations, Denies dyspnea on exertion, Denies orthopnea and Denies other Resp Denies cough and Denies dyspnea on exertion GI Denies hematochezia and Denies change in stool character Musc Denies abnormal gait, Denies muscle weakness, Denies numbness, Denies radiating pain into limb and Denies tingling Neuro Denies abnormal gait, Denies dizziness, Denies numbness and Denies tingling Endo Denies fatigue and Denies palpitations Physical Exam Vital Signs: Last Vital Signs Pulse 74 07/25/24 08:59 BP 124/60 07/25/24 08:59 BMI result Body Mass Index 33.1 Const General: comfortable and no acute distress Orientation/consciousness: patient oriented x3 HEENT Other: Unremarkable Head: Yes normal to inspection Neck Neck: Yes normal visual inspection Chest Chest palpation & inspection: normal inspection of the chest Resp Auscultation: clear to auscultation bilaterally Cardio Palpation: normal PMI Heart sounds: S1 normal heart sound present, S2 normal heart sound present, no gallops, no murmurs and no rubs GI Palpation (GI): Soft to palpation Back/Spine/Pelvis Other: unremarkable Skin General skin exam: no rashes or lesions noted Neuro General: patient oriented x3 Extrem General: Yes normal to inspection Psych Mental Status: mental status grossly normal Assessment & Plan Assessment & Plan (1) Atherosclerotic cardiovascular disease: Code(s): I25.10 - Atherosclerotic heart disease of makah coronary artery without angina pectoris Category: Medical (2) Status post aorto-coronary artery bypass graft: Code(s): Z95.1 - Presence of aortocoronary bypass graft Category: Surgical Plan Cardiac catheterization data reviewed. Essentially complex multivessel disease with ASSESSMENT NURSE PRACTITIONER of right coronary artery. Status post CABG. In the recent echocardiogram, LVEF is 43%. Inferolateral/basal inferior akinesis. Moderate left ventricle hypertrophy. Aortic/mitral valve calcification. Overall, continue medical therapy for stable CAD. Long-term aspirin. Statins. Optimal management of diabetes, hypertension, dyslipidemia. Follow-up in 6 months. Discussed with patient using prior authorization nurse from our hospital. Coding Level of Care Code Est Pt Level 4 (30804) Diagnoses Atherosclerotic cardiovascular disease I25.10 Status post aorto-coronary artery bypass graft Z95.1
[2024-07-25 08:59] VITALS: BP 124/60; PULSE 74; BMI 33.1
== END 2024-07-25 09:21 | disposition home or self-care (01) ==
PROVIDERS: PCP Internal Medicine; Visit Provider Internal Medicine
DX: I25.10 Atherosclerotic heart disease of native coronary artery without angina pectoris (principal); Z95.1 Presence of aortocoronary bypass graft
CPT/HCPCS: 99214

== ENCOUNTER → 2024-07-25 08:37 | Outpatient (BNVA) | payer OTHER, SELFPAY | PROVIDERS: PCP Internal Medicine; Visit Provider Internal Medicine ==

== ENCOUNTER 2024-10-10 07:41 | Outpatient (REF) | payer OTHER, SELFPAY ==
--- OUTSIDE RECORDS SUMMARY | 2024-10-10 07:44 | XMS_ITS | Encounter Summary ---
Author Organization [employer] [facility] Address [address] [facility] 7t [place] [address] Care Team Providers Care Paper Wrapping Machine Operator Name Role Phone Gene Wallace MD Primary Care Provide r Carlito De La Cruz PharmD Unavailable [phone] Encounter Details Date Type Department Care Team (Late Contact Info) Description 10/08/2022 Orders Only [facility] MED[facility] [address] [place] [phone] Denita Carrasco, NIKHIL Social History Tobacco Use Types Packs/Day Years Used Date Smoking Tobacco: Never Assessed Sex and Gender Information Value Date Recorded Sex Assigned at Male 07/12/2022 10:17 AM EDT Legal Sex Male 10:17 AM EDT Gender Identity Choose not to disclose 10:17 AM EDT Sexual Orientation Choose not to disclose 2021 10:17 AM EDT documented as of this encounter Plan of Treatment Upcoming Encounters Date Type Department Care Team (Late Contact Info) Description 11/06/2024 2:00 PM EST Office Visit [facility] [address] [place] [phone] Gene Wallace MD [address] [place] [phone] documented as of this encounter Visit Diagnoses Not on filedocumented in this encounter Care Teams Paper Wrapping Machine Operator Relationship Specialty Start Date End Date Gene Wallace MD [address] [place] [phone] PCP - General Internal Medicine 07/22/21 Carlito De La Cruz, VargheseD [address] [place] [address] Pharmacist Internal Medicine 01/24/23 documented as of this encounter
--- OUTSIDE RECORDS SUMMARY | 2024-10-10 07:44 | XMS_ITS | Encounter Summary ---
Author Organization [employer] Address [address] [facility] 7t [place] [address] Care Team Providers Care Director Erp Name Role Phone Gene Wallace MD Primary Care Provide r Carlito De La Cruz PharmD Unavailable [phone] Reason for Visit * Reason Comments Med Refill Encounter Details Date Type Department Care Team (Late st Contact Info) Description 06/14/2023 Refill [facility] [address] [place] [address] Gene Wallace MD [address] [place] [address] Social History Tobacco Use Types Packs/Day Years Used Date Smoking Tobacco: Never Passive Smoke Exposure: Never Smokeless Tobacco: Never Alcohol Use Standard Drinks/Week Comments Never 0 (1 standard drink = 0.6 oz pur e alcohol) Depression Answer Date Recorded Patient Health Questionnaire-9 Score 0 12/02/2022 Housing Stability Answer Date Recorded What is your housing situation today? I have housing today, but I am worried about losing housing in the future 06/18/[address] you li ve. Do you have problems with any of the following? None of the above 06/18/2023 Food Insecurity Answer Date Recorded Within the past 12 months, y ou worried that your food would run out before you got money to buy more: Never True 06/18/2023 Within the past 12 months,th e food you bought just didn't last and you didn't have enough money to get more: Never True 03/2023 Transportation Answer Date Recorded In the past 12 months, has l ack of transportation kept you from medical appts, meetings, work or from getting things needed for daily living? No 06/18/2023 Utilities Answer Date Recorded In the past 12 months, has t he electric, gas, oil or water company threatened to shut off services in your home? No 06/18/2023 Depression Answer Date Recorded Patient Health Questionnaire-2 Score 0 12/02/2022 Sex and Gender Information Value Date Recorded Sex Assigned at Male 07/12/2022 10:17 AM EDT Legal Sex Male 10:17 AM EDT Gender Identity Choose not to disclose 10:17 AM EDT Sexual Orientation Choose not to disclose 2021 10:17 AM EDT documented as of this encounter Plan of Treatment Upcoming Encounters Date Type Department Care Team (Late st Contact Info) Description 11/06/2024 2:00 PM EST Office Visit [facility] [address] [place] [address] Gene Wallace MD [address] [place] [phone] documented as of this encounter Goals Goal Patient Goal Type Associated Problems Recent Progress Patient-Stated? Author Blood Pressure < 140/90 Blood Pressure HTN (hypertension), benign 138/82(2023 9:15 AM EDT) No Carlito De La Cruz, PharmD Keep fasting blood glucose between 70 and 130 Result Component Type 2 diabetes mellitus without complication On track( 023 11:39 AM EDT) No Carlito De La Cruz, PharmD Hemoglobin A1c < 7 Result Component 8.6( 9:15 AM EDT) No Carlito De La Cruz, PharmD documented as of this encounter Visit Diagnoses Not on filedocumented in this encounter Additional Health Concerns Assessment Noted Time PHQ-9 Depression Total Score: 0 12/03/19 23 10:28 AM EDT documented as of this encounter Care Teams Director Erp Relationship Specialty Start Date End Date Gene Wallace MD [address] [place] [phone] PCP - General Internal Medicine 07/22/21 Carlito De La Cruz, VargheseD [address] [place] [address] Pharmacist Internal Medicine 01/24/23 documented as of this encounter
--- OUTSIDE RECORDS SUMMARY | 2024-10-10 07:44 | XMS_ITS | Encounter Summary ---
Author Organization [employer] Address [address] [facility] 7t [place] [address] Care Team Providers Care Messenger Floorperson Name Role Phone Gene Wallace MD Primary Care Provide r Carlito De La Cruz PharmD Unavailable [phone] Reason for Visit * Reason Onset Date Comments Durable Medical Equipment 12/07/2023 Encounter Details Date Type Department Care Team ([facility] st Contact Info) Description 12/07/2023 Telephone [facility] [address] [place] [address] Gene Wallace MD [address] [place] [address] Durable Medical Equipment Social History Tobacco Use Types Packs/Day Years Used Date Smoking Tobacco: Never Passive Smoke Exposure: Never Smokeless Tobacco: Never Alcohol Use Standard Drinks/Week Comments Never 0 (1 standard drink = 0.6 oz pur e alcohol) Depression Answer Date Recorded Patient Health Questionnaire-9 Score 0 12/06/2023 Patient Health Questionnaire-9 Score 0 12/06/2023 Last PHQ-9: Questionnaire Data Not on file 0 12/06/2023 Housing Stability Answer Date Recorded What is your housing situation today? I have denis doshi 12/06/[address] you li ve. Do you have problems with any of the following? None of the above 12/06/2023 Food Insecurity Answer Date Recorded Within the past 12 months, y ou worried that your food would run out before you got money to buy more: Never True 12/06/2023 Within the past 12 months,th e food you bought just didn't last and you didn't have enough money to get more: Never True Transportation Answer Date Recorded In the past 12 months, has l ack of transportation kept you from medical appts, meetings, work or from getting things needed for daily living? No 12/06/2023 Utilities Answer Date Recorded In the past 12 months, has t he electric, gas, oil or water company threatened to shut off services in your home? No 12/06/2023 Depression Answer Date Recorded Patient Health Questionnaire-2 Score 0 12/06/2023 Sex and Gender Information Value Date Recorded Sex Assigned at Male 07/12/2022 10:17 AM EDT Legal Sex Male 10:17 AM EDT Gender Identity Choose not to disclose 10:17 AM EDT Sexual Orientation Choose not to disclose 2021 10:17 AM EDT documented as of this encounter Miscellaneous Notes * Telephone Encounter - Maegan Addison - 12/27/2023 2:40 PM EDT DME RX GENERATED FOR [facility] B[facility] AT PCP DESK FOR REVIEW AND SIGNATURE. ONCE SIGNED WILL BE FAXED TO [employer] APPROVAL AND SCAN TO [employer]. * Telephone Encounter - Ramos Castro - 12/27/2023 2:03 PM EDT Tc from Michael at [facility] calling to inform the patients hospital bed will be covered on theinsurance just need the office notes to support it and needs to be sent to [facility] to be filled * Telephone Encounter - Maegan Addison - 12/08/2023 1:44 PM EDT PLEASE READ MESSAGE BELOW AND ADVICE, IF AGREE PROVIDE NOTES AND DX TO SUPPORT THE NEED. * Telephone Encounter - Ramos Castro - 12/07/2023 12:08 PM EDT Tc from patient requesting a Hospital bed to help patient to sit up due to the patient having surgery 12/08 documented in this encounter Plan of Treatment Upcoming Encounters Date Type Department Care Team (Late st Contact Info) Description 11/06/2024 2:00 PM EST Office Visit [facility] [address] [facility] [place] [address] Gene Wallace MD [address] [place] [address] documented as of this encounter Goals Goal Patient Goal Type Associated Problems Recent Progress Patient-Stated? Author Blood Pressure < 140/90 Blood Pressure HTN (hypertension), benign 138/82(2023 9:15 AM EDT) No Carlito De La Cruz PharmAbel Keep fasting blood glucose between 70 and 130 Result Component Type 2 diabetes mellitus without complication On track( 023 11:39 AM EDT) No Carlito De La Cruz PharmAbel Hemoglobin A1c < 7 Result Component 8.6( 9:15 AM EDT) No Carlito De La Cruz PharmD documented as of this encounter Visit Diagnoses Not on filedocumented in this encounter Additional Health Concerns Assessment Noted Time PHQ-9 Depression Total Score: 0 12/06/19 24 9:14 AM EDT documented as of this encounter Care Teams Messenger Floorperson Relationship Specialty Start Date End Date Gene Wallace MD [address] [place] [address] PCP - General Internal Medicine 07/22/21 Carlito De La Cruz PharmD [address] [place], [place] [phone] Pharmacist Internal Medicine 01/24/23 documented as of this encounter
--- OUTSIDE RECORDS SUMMARY | 2024-10-10 07:44 | XMS_ITS | Encounter Summary ---
Author Organization [employer] Address [address] [facility] 7t [place] [address] Care Team Providers Care Event Designer Name Role Phone Gene Wallace MD Primary Care Provide r Carlito De La Cruz PharmD Unavailable [phone] Reason for Visit * Reason Onset Date Comments new script 10/07/2022 Encounter Details Date Type Department Care Team (Late Contact Info) Description 10/07/2022 Telephone [facility]INE [address] [place] [address] Gene Wallace MD [address] [place] [address] new script Social History Tobacco Use Types Packs/Day Years [...] encounter Miscellaneous Notes * Telephone Encounter - Sharyn Kelly - 10/07/2022 1:04 PM EST Tc from pt requesting a new script for Pen needles 8mm to be sent to [facility] Pharm[facility]. PCP DR. Ramsay documented in this encounter Plan of Treatment Upcoming Encounters Date Type Department Care Team (Late Contact Info) Description 11/06/2024 2:00 PM EST Office Visit [facility] [address] [place] [address] Gene Wallace MD [address] [place], [place] [phone] documented as of this encounter Visit Diagnoses Diagnosis Type 2 diabetes mellitus without complication, with long-term current use of insulin ([facility]) documented in this encounter Care Teams Event Designer Relationship Specialty Start Date End Date Gene Wallace MD [address] [place] [phone] PCP - General Internal Medicine 07/22/21 Carlito De La Cruz, VargheseD [address] [place] [phone] Pharmacist Internal Medicine 01/24/23 documented as of this encounter
--- OUTSIDE RECORDS SUMMARY | 2024-10-10 07:45 | XMS_ITS | Encounter Summary ---
Author Organization [employer] Address [address] [facility] 7t [place] [address] Care Team Providers Care Hotel Registration Clerk Name Role Phone Gene Wallace MD Primary Care Provide r Carlito De La Cruz PharmD Unavailable [phone] Reason for Visit * Reason Comments Med Refill Encounter Details Date Type Department Care Team (Late st Contact Info) Description 01/23/2024 Refill [facility] [address] [place] [address] Linda Flores MD [address] [place] [address] Social History Tobacco Use Types Packs/Day Years [...] is your housing situation today? I have denisalie doshi 12/06/[address] you [...] Description 11/06/2024 2:00 PM EST Office Visit [facility] [address] [place] [address] Gene Wallace MD [address] [place] [phone] documented as of this encounter Goals Goal Patient Goal Type Associated Problems Recent Progress Patient-Stated? Author Blood Pressure < 140/90 Blood Pressure HTN (hypertension), benign 138/82(2023 9:15 AM EDT) No Carlito De La Cruz, PharmD Keep fasting blood glucose between 70 and 130 Result Component Type 2 diabetes mellitus without complication On track( 023 11:39 AM EDT) No Eleazar De La Cruzril, PharmD Hemoglobin A1c < 7 Result Component 8.6( 9:15 AM EDT) No Carlito De La Cruz, PharmD documented as of this encounter Visit Diagnoses Not on filedocumented in this encounter Additional Health Concerns Assessment Noted Time PHQ-9 Depression Total Score: 0 12/06/19 24 9:14 AM EDT documented as of this encounter Care Teams Hotel Registration Clerk Relationship Specialty Start Date End Date Gene Wallace MD [address] [place] [phone] PCP - General Internal Medicine 07/22/21 Carlito De La Cruz, VargheseD [address] [place] [phone] Pharmacist Internal Medicine 01/24/23 documented as of this encounter
--- OUTSIDE RECORDS SUMMARY | 2024-10-10 07:45 | XMS_ITS | Encounter Summary ---
Author Organization [employer] Address [address] [facility] 7t [place] [address] Care Team Providers Care Sas Administrator Name Role Phone Gene Wallace MD Primary Care Provide r Carlito De La Cruz PharmD Unavailable [phone] Reason for Visit * Reason Comments Med Refill Encounter Details Date Type Department Care Team ([facility] st Contact Info) Description 04/25/2024 Telephone [facility] MED[facility]INE [address] [place] [address] Marilyn Sutherland MD [address] [place] [address] Med Refill Social History Tobacco Use Types Packs/Day Years Used Date Smoking Tobacco: Never Passive Smoke Exposure: Never Smokeless Tobacco: Never Alcohol Use Standard Drinks/Week Comments Never 0 (1 standard drink = 0.6 oz pur e alcohol) Depression Answer Date Recorded Patient Health Questionnaire-9 Score 0 04/17/2024 Patient Health Questionnaire-9 Score 0 04/17/2024 Last PHQ-9: Questionnaire Data Not on file 0 04/17/2024 Housing Stability Answer Date Recorded What is your housing situation today? I have denis sing 12/06/[address] you li [...] Date Recorded Patient Health Questionnaire-2 Score 0 04/17/2024 Sex and Gender Information Value Date Recorded Sex Assigned at Male 07/12/2022 10:17 AM EDT Legal Sex Male 10:17 AM EDT Gender Identity Choose not to disclose 10:17 AM EDT Sexual Orientation Choose not to disclose 2021 10:17 AM EDT documented as of this encounter Miscellaneous Notes * Telephone Encounter - Layla Holloway RN - 04/26/2024 3:07 PM EDT Incoming call from Dr Shay Berman's [place] returning my call below. She states discussed with Dr Day who said pt is not cleared for colonoscopy. He wouldn't recommend it until next year because of recent CABG. * Telephone Encounter - Layla Holloway RN - 04/26/2024 10:51 AM EDT Telephone call placed to [facility] Cardiology. Left V/m for Dr Day's KATHIA Heardwith my direct ext for call back to see if pt is cleared for colonoscopy now so it can be scheduled. Telephone call placed to pt. Informed of anemia and need for further labs. Pt states will come in later today to get them drawn. Will retask to recall cardiology if no response. * Telephone Encounter - Layla Holloway RN - 04/26/2024 10:41 AM EDT ----- Message from Gene Castro MD sent at 04/25/2024 3:40 PM EDT ----- Patient is anemic. Please contact to let him know I will be adding some tests. Likely as a result to recent CABG surgery. But need to check for Iron or Vitamin Deficiencies. Also please find out if they have scheduled him for his colonoscopy. He was evaluated by GI but wasawaiting cardiac clearance . He has undergone a CABG since . documented in this encounter Plan of Treatment Upcoming Encounters Date Type Department Care Team (Late st Contact Info) Description 11/06/2024 2:00 PM EST Office Visit [facility] MED[facility] [address] [place], [place] [phone] Gene Wallace MD [address] [place] [phone] documented as of this encounter Goals Goal Patient Goal Type Associated Problems Recent Progress Patient-Stated? Author Blood Pressure < 140/90 Blood Pressure HTN (hypertension), benign 138/82(2023 9:15 AM EDT) No Carlito De La Cruz PharmAbel Keep fasting blood glucose between 70 and 130 Result Component Type 2 diabetes mellitus without complication On track( 023 11:39 AM EDT) No Carlito De La Cruz PharmD Hemoglobin A1c < 7 Result Component 8.6( 9:15 AM EDT) No Carlito De La Cruz PharmD documented as of this encounter Visit Diagnoses Not on filedocumented in this encounter Additional Health Concerns Assessment Noted Time PHQ-9 Depression Total Score: 0 04/17/20 24 1:32 PM EDT documented as of this encounter Care Teams Sas Administrator Relationship Specialty Start Date End Date Gene Wallace MD [address] [place] [address] [phone] PCP - General Internal Medicine 07/22/21 Carlito De La Cruz PharmD [address] [place] [address] [phone] Pharmacist Internal Medicine 01/24/23 documented as of this encounter
--- OUTSIDE RECORDS SUMMARY | 2024-10-10 07:45 | XMS_ITS | Clinical Summary ---
Author Organization [employer] Address [address] [facility] [address] [place] [address] Care Team Providers Care In Service Coordinator Name Role Phone Gene Wallace MD Primary Care Provide r Carlito De La Cruz PharmD Unavailable [phone] Allergies No known active allergies Medications finasteride (Proscar) 5 MG tablet Take 5 mg by mouth in the morning. 3 Active insulin pen needle (Easy Touch Pen [place]) 31G X 8 mm miscIndication s:Type 2 diabetes mellitus without complication, with long-term current use of insulin (CMS/HCC) USE DIRECTED 100 each 4 Active OneTouch Delica Lancets 33G misc 1 each 2 times daily. 100 each 4 Active glucose blood (OneTouch Verio) test stripIndicatio ns:Type 2 diabetes mellitus without complication, with long-term current use of insulin (CMS/HCC) 1 each by Other route every 8 (eight) hours. 100 each 4 Active metoprolol succinate XL (Toprol-XL) 25 MG 24 hr tablet TAKE 1 TABLET BY MOUTH EVERY DAY 90 tablet 1 4 Active Aspirin Low Dose 81 MG EC tablet TAKE 1 TABLET BY MOUTH EVERY DAY 90 tablet 1 4 Active losartan-hydro CHLOROthiazide (Hyzaar) 100-12.5 MG tablet TAKE 1 TABLET BY MOUTH EVERY DAY IN THE MORNING 90 tablet 1 4 Active atorvastatin (Lipitor) 80 MG tablet TAKE 1 TABLET BY MOUTH AT BEDTIME 90 tablet 1 4 Active Lantus SoloStar 100 UNIT/ML penIndications :Type 2 diabetes mellitus without complication, with long-term current use of insulin (CMS/HCC) INJECT 34 UNITS SUBCUTANEOUSLY EVERY DAY IN THE EVENING 15 mL 3 4 Active Dulaglutide (Trulicity) 3 MG/0.5ML solution auto-injectorI ndications:Typ e 2 diabetes mellitus without complication, with long-term current use of insulin (CMS/HCC) Inject 3 mg under the skin 1 (one) time per week. 2 mL 3 4 Active levothyroxine (Synthroid, Levoxyl) 50 MCG tablet TAKE 1 TABLET BY MOUTH EVERY DAY AT BEDTIME 90 tablet 1 4 Active meloxicam (Mobic) 15 MG tabletIndicati ons:Plantar fasciitis of right foot TAKE 1 TABLET BY MOUTH ONCE DAILY IN THE MORNING 30 tablet 11 4 Active Active Problems Patient Care Coordination No te Formatting of this note migh t be different from the original. Followed by [facility] HTN, DM - Carlito De La Cruz, RPh Problem Noted Date Diagnosed Date Iron deficiency anemia 07/12/2024 Assessment & Plan (07/12/2024 8:29 AM EDT): Pt with mild anemia, slightly low ferritin, Normal B12 and Folate Pt awaiting Colonoscopy. Cardiology recommended to wait until next year given recent Hx of CABG Class 1 obesity without seri ous comorbidity with body mass index (BMI) of 32.0 to 32.9 in adult 04/17/2024 Assessment & Plan (04/17/2024 1:47 PM EDT): Patient has been counseled and educated about diet and exercise. Personal goal of weight loss discussedPatient has comorbidity of: DM S/P CABG (coronary artery bypass graft) 02/23/20 Assessment & Plan (02/23/2024 11:50 AM EDT): Doing well Following with cardiology Coronary artery disease invo lving [place] coronary artery of [place] heart without angina pectoris 11/15/2023 Assessment & Plan (04/17/2024 1:41 PM EDT): Patient with CAD Cardiac Cath showed: Right dominant circulation. 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 Severe distal left main stenosis involving the ostial LAD and circumflex. Severe proximal LAD stenosis. High diagonal with ostial 80% stenosis and mid segment 90% stenosis. First OM 80% stenosis. Mid circumflex 80% stenosis. S/p CABG 12/09/2023 Last seen by Manager Privacy Dr Day 04/10/2024 Scheduled for ECHO in 3-4 months Assessment & Plan (02/23/2024 12:54 PM EDT): Patient with CAD Most recent Cath showed: Right dominant circulation. Proximal DIRECTOR OF [employer] right coronary artery with [id number] collaterals. Severe distal left main stenosis involving the ostial LAD and circumflex. Severe proximal LAD stenosis. High diagonal with ostial 80% stenosis and mid segment 90% stenosis. First OM 80% stenosis. Mid circumflex 80% stenosis. He is now s/p CABG 12/09/2023 Last seen by Manager Privacy Dr Day 01/03/2024 Scheduled for cardiac rehab at some point Assessment & Plan (12/06/2023 8:39 AM EDT): Patient with CAD Most recent Cath showed: Right dominant circulation. 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 Severe distal left main stenosis involving the ostial LAD and circumflex. Severe proximal LAD stenosis. High diagonal with ostial 80% stenosis and mid segment 90% stenosis. First OM 80% stenosis. Mid circumflex 80% stenosis. Pt was referred for CABG to cardiac surgeon by Manager Privacy scheduled for 12/09/2023 Assessment & Plan (11/15/2023 2:25 PM EST): As part of his PE, Pt had an EKG that showed Qs in III and AVF As a result I referred patient to cardiology Pt had a stress test that was abnormal and subsequently underwent a Cath Coronary anatomy: Right dominant circulation. Proximal DIRECTOR [employer] right coronary artery with [id number] collaterals. Severe distal left main stenosis involving the ostial LAD and circumflex. Severe proximal LAD stenosis. High diagonal with ostial 80% stenosis and mid segment 90% stenosis. First OM 80% stenosis. Mid circumflex 80% stenosis. Pt was referred for CABG to cardiac surgeon by Manager Privacy scheduled for 12/09/2023 Plantar fasciitis of right foot 07/12/2023 Assessment & Plan (07/12/2024 8:26 AM EDT): Pt here for a follow up Previous exam indicative of this Plain films right heel showed; No acute visible fracture or dislocation. 2. Plantar calcaneal heel spur. 3. Slight enthesopathy at the Achilles tendon insertion site. Stretching exercises NSAIDS Patient was seen by Podiatry received a steroid injection with no good results Previous visit I ordered a CT right foot. Not done Pt interested in a 2nd opinion with Ortho. He was seen by [facility] 04/2024 they recommended conservative treatment and if failed might consider AFO or even surgical interventions. Assessment & Plan (04/17/2024 1:54 PM EDT): Exam indicative of this Plain film right heel showed; No acute visible fracture or dislocation. 2. Plantar calcaneal heel spur. 3. Slight enthesopathy at the Achilles tendon insertion site. Stretching exercises NSAIDS Patient was seen by Podiatry received a steroid injection with no good results Plan: CT right foot. 2nd opinion with Ortho cyber systems operations specialist Assessment & Plan (07/12/2023 10:50 AM EDT): Exam indicative of this Plan: Plain film right heel Stretching exercises NSAIDS Podiatry referral Elevated PSA 12/14/2022 Overview (03/23/2023): PSA mildly elevated From urology note 03/22/23: start finasteride as discussed and prescribed. Urology will redraw PSA in 4 months. Assessment & Plan (04/17/2024 1:43 PM EDT): Pt's PSA mildly elevated. Under the care of Urology. Seen last 03/23/2024 recommended to remain on Finasteride and repeat PSA in 6 months Assessment & Plan (12/06/2023 8:40 AM EDT): Pt's PSA mildly elevated. Referred to Urology. Seen last 11/23/2023 Assessment & Plan (04/14/2023 3:11 PM EDT): Pt's PSA mildly elevated. Referred to Urology. Seen last 03/22/2023 Assessment & Plan (01/11/2023 10:42 AM EDT): Pt's PSA mildly elevated. Referred to Urology. Pt has an appointment 01/12/2023 Assessment & Plan (12/14/2022 2:07 PM EDT): Pt's PSA mildly elevated. Plan: Urology referral Hyperlipidemia 10/08/2022 Assessment & Plan (07/12/2024 8:27 AM EDT): Patient with elevated lipids. Lipid profile showed Lab Results Component Value Date TRIG 121 04/25/2024 TRIG 261 (H) 09/06/2023 CHOL 137 04/25/2024 CHOL 216 (H) 09/06/2023 LDLCHOLCAL 77 04/25/2024 LDLCHOLCAL 123 (H) 09/06/2023 HDL 36 (L) 04/25/2024 HDL 41 09/06/2023 Currently on a regimen of: Atorvastatin 40 mg po qhs . Plan: Continue current regimen advised to try to adhere to a low cholesterol diet, counseled and educated about diet and exercise, Patient encouraged to come up with a personal goal for weight loss. Assessment & Plan (04/17/2024 1:46 PM EDT): Patient with elevated lipids. Lipid profile showed Lab Results Component Value Date TRIG 261 (H) 09/06/2023 TRIG 62 12/03/2022 CHOL 216 (H) 09/06/2023 LDLCHOLCAL 123 (H) 09/06/2023 HDL 41 09/06/2023 Currently on a regimen of: Atorvastatin 40 mg po qhs . Plan: Repeat Lipid profile advised to try to adhere to a low cholesterol diet, counseled and educated about diet and exercise, Patient encouraged to come up with a personal goal for weight loss. Assessment & Plan (02/23/2024 11:52 AM EDT): Patient with elevated lipids. Lipid profile 08/2023 showed: Lab Results Component Value Date TRIG 261 (H) 09/06/2023 TRIG 62 12/03/2022 CHOL 216 (H) 09/06/2023 LDLCHOLCAL 123 (H) 09/06/2023 HDL 41 09/06/2023 Currently on a regimen of: Atorvastatin 40 mg po qhs . Plan: continue with current regimen advised to try to adhere to a low cholesterol diet, counseled and educated about diet and exercise, Patient encouraged to come up with a personal goal for weight loss. Assessment & Plan (01/11/2023 8:30 AM EDT): Patient with elevated lipids. Lipid profile 12/03/2022 showed: TC: 144 Trigs 62, HDL 44, LDL: 86 Currently on a regimen of: Atorvastatin 40 mg po qhs . Plan: continue with current regimen advised to try to adhere to a low cholesterol diet, counseled and educated about diet and exercise, Patient encouraged to come up with a personal goal for weight loss. Assessment & Plan (12/02/2022 8:32 AM EDT): Patient with elevated lipids. Lipid profile 06/14/2022 showed: TC: 170 Trigs 69, HDL 41, LDL: 113 Currently on a regimen of: Atorvastatin 40 mg po qhs . LFTS 09/09/2021 Normal Plan: repeat Lipid profile prior to next visit advised to try to adhere to a low cholesterol diet, counseled and educated about diet and exercise, Patient encouraged to come up with a personal goal for weight loss. Hypothyroidism 10/08/2022 Assessment & Plan (01/11/2023 8:29 AM EDT): Repeat TSH 12/03/2022 Normal No record of hypothyroidism in the past Thyroid U/S 03/26/2022 showed: IMPRESSION: Normal sonographic appearance of the thyroid gland. No thyroid nodules meeting size criteria for additional follow-up. He is on Levothyroxine up to 50 mcg po daily' Was seen by Endocrinology 12/07/2021, Plan: Continue Levothyroxine 50 mcg po daily' Assessment & Plan (12/02/2022 8:36 AM EDT): Initial blood work showed TSH 9.67 No record of hypothyroidism in the past Repeat TSH 03/02/2022 down to 5.31 Thyroid U/S 03/26/2022 showed: IMPRESSION: Normal sonographic appearance of the thyroid gland. No thyroid nodules meeting size criteria for additional follow-up. He is on Levothyroxine up to 50 mcg po daily' Was seen by Endocrinology 12/07/2021, Will repeat Free T4, TSH Plan: Continue Levothyroxine 50 mcg po daily' S/P partial colectomy 10/08/2022 Assessment & Plan (12/06/2023 8:43 AM EDT): Past surg. 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 He is supposed to have colonoscopies to be repeated q 5 years, Last one we could obtain was from 01/23/2013 We contacted the office of Dr Concepcion directly unfortunately no more recent records were obtained Pt was treated in [place], at some point he had a repeat colonoscopy at [place] but no records were received from that colonoscopy 3 years ago other than a reference that it was done Pt was last seen by an Oncologist at [facility] [place], he was told he did not needed to come back Previous visit pt was referred to Gastroenterology Dr Crowder, Pt no showed to that appointment. He was finally seen by Pooja Lomax NP at [facility]. Given his ongoing cardiac issues the repeat colonoscopy has been postponed until after he is cleared by cardiology Assessment & Plan (07/12/2023 10:52 AM EDT): Past surg. 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 He is supposed to have colonoscopies to be repeated q 5 years, Last one we could obtain was from 01/23/2013 We contacted the office of Dr Concepcion directly unfortunately no more recent records were obtained Pt was treated in [place], at some point he had a repeat colonoscopy at [place] but no records were received from that colonoscopy 3 years ago other than a reference that it was done Pt was last seen by an Oncologist at [facility] [place], he was told he did not needed to come back Previous visit pt was referred to Gastroenterology Dr Crowder, Pt no showed to that appointment. Today he tells me he already has an appointment coming up Assessment & Plan (04/14/2023 3:12 PM EDT): Past surg. 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 He is supposed to have colonoscopies to be repeated q 5 years, Last one we could obtain was from 01/23/2013 We contacted the office of Dr Concepcion directly unfortunately no more recent records were obtained Pt was treated in [place], at some point he had a repeat colonoscopy at [place] but no records were received from that colonoscopy 3 years ago other than a reference that it was done Pt was last seen by an Oncologist at [facility] [place], he was told he did not needed to come back Previous visit pt was referred to Gastroenterology Dr Crowder, Pt no showed to that appointment. Today he will be referred back Assessment & Plan (01/11/2023 10:20 AM EDT): Past surg. 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 per his report. Last one we could obtain was from 01/23/2013 We contacted the office of Dr Concepcion directly unfortunately no more recent records were obtained Pt was treated in [place], at some point he had a repeat colonoscopy at [place] but no records were received from that colonoscopy 3 years ago other than a reference that it was done Pt was last seen by an Oncologist at [facility] [place], he was told he did not needed to come back 7 yrs ago Previous visit pt was referred to Gastroenterology Dr Crowder, Pt no showed to that appointment Assessment & Plan (12/02/2022 8:38 AM EDT): Past surg. 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 per his report. Last one we could obtain was from 01/23/2013 We contacted the office of Dr Concepcion directly unfortunately no more recent records were obtained Pt was treated in [place], at some point he had a repeat colonoscopy at [place] but no records were received from that colonoscopy 3 years ago other than a reference that it was done Pt was last seen by an Oncologist at [facility] [place], he was told he did not needed to come back 7 yrs ago Previous visit pt was referred to Gastroenterology Dr Crowder, Pt no showed to that appointment Type 2 diabetes mellitus without complication Overview (11/07/2023): Pharmacotherapy updated 11/07/23 - Trulicity 0.75mg weekly - started on 10/10/23 - Lantus solostar 34 units daily On Statin: Yes - Atorvastatin 80mg daily History: Updated 11/07/23 A1c completed today and does not reflect at home BG readings. Recommended to change time of testing to 2 hours after largest meal of day. SMBG dramatically improved since addition of Trulicity. Post prandials have dropped from >200mg/dl to less than 180mg/dl. Patient has upcoming pre-op appt hoping to have BG under better control. Assessment & Plan (07/12/2024 9:17 AM EDT): Pt here for a f/u He is on a regimen of: Lantus 34 units sc q pm, and Trulicity 1.5 once a week. No longer on Januvia. Hgb A1c 07/12/2024: 8.6 from 7.9 down from 8.2 Eye exam referred Microalbumin 09/09/2021 0.7 Pt on an ARB Foot check today is risk of: zero Pt reports compliance with Asa 81 mg po daily Plan: increase Trulicity to 3 mg once a week Continue to follow with our [facility] Program f/u 3 months Pt advised to: adhere to diabetic diet check your blood sugars regularly check your feet on a daily basis. Assessment & Plan (04/17/2024 1:44 PM EDT): Pt here for a f/u He is on a regimen of: Lantus 34 units sc q pm, and Trulicity 1.5 once a week. No longer on Januvia. Hgb A1c 02/23/2024: 7.9 down from 8.2 Eye exam referred Microalbumin 09/09/2021 0.7 Pt on an ARB Foot check today is risk of: zero Pt reports compliance with Asa 81 mg po daily Plan: Continue with current regimen Continue to follow with our [facility] Program f/u 3 months Pt advised to: adhere to diabetic diet check your blood sugars regularly check your feet on a daily basis. Assessment & Plan (02/23/2024 12:55 PM EDT): Pt here for a f/u He is on a regimen of: Lantus 34 units sc q pm, and Trulicity 0.75 once a week. No longer on Januvia. Hgb A1c 02/23/2024: 7.9 down from 8.2 Eye exam referred Microalbumin 09/09/2021 0.7 Pt on an ARB Foot check today is risk of: zero Pt reports compliance with Asa 81 mg po daily Plan: Increase Trulicity to 1.5 mg once a week. I discussed with patient that if his Fasting blood sugars go below 75 to lower the dose of Lantus to 17 units subcutaneous at bedtime. Continue to follow with our [facility] Program f/u 3 months Pt advised to: adhere to diabetic diet check your blood sugars regularly check your feet on a daily basis. Assessment & Plan (12/06/2023 9:18 AM EDT): Pt here for a f/u He is on a regimen of: Lantus 34 units sc q pm, and Trulicity 0.75 once a week. No longer on Januvia. Hgb A1c 12/06/2023: 8.2 Eye exam referred Microalbumin 09/09/2021 0.7 Pt on an ARB Foot check today is risk of: zero Pt reports compliance with Asa 81 mg po daily Plan: Continue to follow with our [facility] Program f/u 3 months Pt advised to: adhere to diabetic diet check your blood sugars regularly check your feet on a daily basis. Assessment & Plan (11/15/2023 2:31 PM EST): Pt here for a f/u He is on a regimen of: Lantus 34 units sc q pm, and Trulicity 0.75 once a week. No longer on Januvia. Hgb A1c 11/15/2023: 8.8 Eye exam referred Microalbumin 09/09/2021 0.7 Pt on an ARB Foot check today is risk of: zero Pt reports compliance with Asa 81 mg po daily Plan: Continue to follow with our [facility] Program f/u 3 months Pt advised to: adhere to diabetic diet check your blood sugars regularly check your feet on a daily basis. Assessment & Plan (11/07/2023 1:28 PM EST): Assessment: -A1c is not at goal of less than 7% per ADA guidelines; however, SMBG is looking better since addition of Trulicity. - Refill needed for lancets Plan: - Continue with current therapy - Lancets Rx sent to pharmacy - F/U in 3 months Assessment & Plan (10/10/2023 11:48 AM EST): Assessment: A1c is not at goal of less than 7% per ADA guidelines Plan: STOP januvia START Trulicity Change testing to 2 hours after largest meal Assessment & Plan (07/12/2023 10:51 AM EDT): Pt here for a f/u He is on a regimen of: Lantus 34 units sc q pm and Januvia 100 mg po daily Hgb A1c 07/12/2023: 8.1 Eye exam referred Microalbumin 09/09/2021 0.7 Pt on an ARB Foot check today is risk of: zero Pt reports compliance with Asa 81 mg po daily Plan: Continue to follow with our [facility] Program f/u 3 months Pt advised to: adhere to diabetic diet check your blood sugars regularly check your feet on a daily basis. Assessment & Plan (06/06/2023 11:38 AM EDT): - A1c not due until 07/2023. Based on at home BG readings; A1c is expected to be at goal based on SMBG/ fasting is between 80-130 mg/dl and 2 hours post prandial is <170mg/dl. - Goal: A1c less than 7% per ADA guidelines Assessment & Plan (05/02/2023 12:42 PM EDT): - A1c is not at goal of less than 7% per ADA guidelines - Start checking BG in AM and then 2 hours after lunch (biggest meal of the day) - Stop Glipizide and start Januvia - F/U in 1 month to assess for side effects Assessment & Plan (04/14/2023 3:26 PM EDT): Pt here for a f/u DM uncontrolled He is on a regimen of: Lantus 28 units sc q pm and Glipizide 5 mg po BID Hgb A1c 04/14/2023: 8.1 Eye exam referred Microalbumin 09/09/2021 0.7 Pt on an ARB Foot check today is risk of: zero Pt reports compliance with Asa 81 mg po daily Plan: Increase Lantus to 34 units qhs f/u 3 months Pt advised to: adhere to diabetic diet check your blood sugars regularly check your feet on a daily basis. Assessment & Plan (01/24/2023 11:10 AM EDT): - A1c was 7.3 in November. Near goal of less than 7% per ADA guidelines - Revisit at next f/u in April. Assessment & Plan (12/02/2022 10:38 AM EDT): Pt here for a f/u DM controlled He is on a regimen of: Lantus 34 units sc q pm and Glipizide 5 mg po BID Hgb A1c 12/02/2022 7.0 Eye exam referred Microalbumin 09/09/2021 0.7 Pt on an ARB Foot check today is risk of: zero Pt reports compliance with Asa 81 mg po daily Plan: Continue with current regimen for now, pt feels he would like to try diet and exercise f/u 3 months Pt advised to: adhere to diabetic diet check your blood sugars regularly check your feet on a daily basis. HTN (hypertension), benign 03/03/2015 Overview (10/10/2023): Pharmacotherapy: - Losartan/HCTZ 100-12.5mg daily History: Updated 10/10/23 [facility] since 04/2022. BP is at goal of less than 140/90 with current plan. Seen by cards for abnormal EKG. Plan to continue with current meds considering controlled BP. At home BP readings average 135/86 Assessment & Plan (07/12/2024 8:22 AM EDT): Patient with Hypertension here for a follow up currently on a regimen of: Losartan/Hctz 100/12.5 mg po daily Follows with our [facility] Program BMP Lab Results Component Value Date NA 140 04/25/2024 NA 139 11/15/2023 K 4.4 04/25/2024 K 4.1 11/15/2023 CL 107 04/25/2024 CL 103 11/15/2023 BUN 19 (H) 04/25/2024 BUN 24 (H) 11/15/2023 CREATININE 1.25 04/25/2024 CREATININE 1.25 11/15/2023 normal. Plan: Continue current regimen patient advised to adhere to a low sodium diet, encouraged about medication compliance, counseled about weight loss. Follow up in 4 months Assessment & Plan (04/17/2024 1:41 PM EDT): Patient with Hypertension currently on a regimen of: Losartan/Hctz 100/12.5 mg po daily Follows with our [facility] Program BMP 11/15/2023 normal. Plan: Continue current regimen patient advised to adhere to a low sodium diet, encouraged about medication compliance, counseled about weight loss. Follow up in 4 months Assessment & Plan (02/23/2024 11:50 AM EDT): Patient with Hypertension currently on a regimen of: Losartan/Hctz 100/12.5 mg po daily Follows with our [facility] Program BMP 11/15/2023 normal. Plan: Continue current regimen patient advised to adhere to a low sodium diet, encouraged about medication compliance, counseled about weight loss. Follow up in 3 months Assessment & Plan (12/06/2023 8:37 AM EDT): Patient with Hypertension currently on a regimen of: Losartan/Hctz 100/12.5 mg po daily Follows with our [facility] Program BMP 11/15/2023 normal. Plan: Continue current regimen patient advised to adhere to a low sodium diet, encouraged about medication compliance, counseled about weight loss. Follow up in 3 months Assessment & Plan (11/15/2023 2:27 PM EST): Patient with Hypertension currently on a regimen of: Losartan/Hctz 100/12.5 mg po daily Follows with our [facility] Program BMP 09/06/2023 normal Today will order a repeat BMP Plan: Continue current regimen patient advised to adhere to a low sodium diet, encouraged about medication compliance, counseled about weight loss. Follow up in 3 months Assessment & Plan (11/07/2023 1:27 PM EST): Assessment: Not assessed today; has upcoming procedure w/ cardiology Plan: - continue with f/u with cardiology - recheck in clinic in 3 months post-op Assessment & Plan (10/10/2023 11:43 AM EST): Assessment: BP is at goal of less than 140/90 per JNC8 guidelines Plan: Continue with current therapy and monitoring. Assessment & Plan (07/12/2023 10:40 AM EDT): Patient with Hypertension currently on a regimen of: Losartan/Hctz 100/12.5 mg po daily Follows with our [facility] Program [facility] 12/03/2022 normal Plan: Continue current regimen patient advised to adhere to a low sodium diet, encouraged about medication compliance, counseled about weight loss. Follow up in 3 months Assessment & Plan (06/06/2023 11:40 AM EDT): - Change losartan to losartan/ hydrochlorothiazide 100-12.5mg daily - BP is not at goal of less than 140/90 per JNC8 guidelines Assessment & Plan (05/02/2023 12:58 PM EDT): - BP is not at goal of less than 140/90 per JNC8 guidelines - Adherence may be a factor; continue with current therapy. Losartan refill sent. Follow-up at next visit Assessment & Plan (04/14/2023 2:57 PM EDT): Patient with Hypertension currently on a regimen of: Losartan 100 mg po daily [facility] 12/03/2022 normal Plan: Continue current regimen patient advised to adhere to a low sodium diet, encouraged about medication compliance, counseled about weight loss. Follow up in 3 months Assessment & Plan (01/24/2023 12:34 PM EDT): - BMP WNL as of 11/2022 - BP is at goal of less than 140/90 per JNC8 guidelines - Continue with current therapy; f/u in 3 months Assessment & Plan (01/11/2023 10:40 AM EDT): Patient with Hypertension currently on a regimen of: Losartan 50 mg po daily [facility] 12/03/2022 normal Plan: Increase Losartan to 100 mg po daily patient advised to adhere to a low sodium diet, encouraged about medication compliance, counseled about weight loss. Follow up in 3 months Assessment & Plan (12/02/2022 10:39 AM EDT): Patient with Hypertension currently uncontrolled on a regimen of: Losartan 50 mg po daily [facility] 06/14/2022 normal Plan: 1 month follow up, if persistently elevated will increase patient advised to adhere to a low sodium diet, encouraged about medication compliance, counseled about weight loss. Resolved Problems Problem Noted Date Diagnosed Date Resolved Date Routine physical examination 04/14/2023 02/23/2024 Assessment & Plan (04/14/2023 3:30 PM EDT): Physical exam today within normal limits EKG abnormal Pt referred to Cardiology for ECHO Abnormal EKG 04/14/2023 07/12/2024 Assessment & Plan (07/12/2023 10:41 AM EDT): As part of his PE, Pt had an EKG that showed Qs in III and AVF Plan: At a minimum he needs an ECHO, but given his age and multiple risk factors such as HTN, DM and High Lipids Last visit he was referred to cardiology for stress testing. Appointment scheduled for July Assessment & Plan (04/14/2023 3:21 PM EDT): As part of his PE, Pt had an EKG that showed Qs in III and AVF Plan: At a minimum he needs an ECHO, but given his age and multiple risk factors such as HTN, DM and High Lipids will refer to cardiology for stress testing Encounters Date Type Department Care Team Description 08/28/2024 Telephone [facility] [address] [place] [address] Juanis Samaniego MA Fe.Recall 07/30/2024 Refill [facility] [address] [place] [address] Gene Wallace MD Plantar fasciitis of right foot 07/17/2024 Refill [facility] [address] [place], [place] [phone] Gene Wallace MD 07/12/2024 9:00 AM EDT Office Visit [facility] [address] [place] [address] Gene Wallace MD Type 2 diabetes mellitus without complication, with long-term current use of insulin ([facility]) (Primary Dx); HTN (hypertension), benign; Plantar fasciitis of right foot; Mixed hyperlipidemia; Other iron deficiency anemia 07/12/2024 Travel from Last 3 Months Immunizations Name Administration Dates Next Due HPV, Quadrivalent 06/12/2012 Influenza High-dose Quadriva lent Preservative Free 06/01/2022 Influenza Quadrivalent Adjuvanted 06/15/2020 Influenza injectable quadriv alent preservative free 05/27/2023 Influenza, High Dose Seasona l, Preservative Free 05/22/2021,05/26/2020,05/16/2019,06/23,06/22/2017 Influenza, IIV3, injectable 05/27/2014, 3 Influenza, seasonal, injecta ble, preservative free 06/07/2016,05/29/2015 [place] SARS-CoV-2 Vaccination 12/09/2020,2020 Moderna Covid-19 Vaccine 12+ 01/26/2022 Pfizer Covid-19 Vaccine 12+ 07/22/2021 Pfizer Covid-19 Vaccine 12+ Bivalent 07/06/2022 Pneumococcal Conjugate PCV 13 08/11/2015 Pneumococcal Polysaccharide PPSV23 06/07/2016,,12/25/2010 Tdap 06/01/2022 Zoster, Recombinant 06/15/2022,04/12/2022 Zoster, live 12/10/2013 Social History Tobacco Use Types Packs/Day Years Used Date Smoking Tobacco: Never Passive Smoke Exposure: Never Smokeless Tobacco: Never Tobacco Cessation:Counseling Given: Not Answered Alcohol Use Standard Drinks/Week Comments Never 0 (1 standard drink = 0.6 oz pur e alcohol) Alcohol Answer Date Recorded Frequency of Alcohol Consumption Not on file 07/12/2024 Average Number of Drinks Not on file 024 Frequency of Binge Drinking Not on file 06/14 Score 0 07/12/2024 Depression Answer Date Recorded Patient Health Questionnaire-9 [...] Recorded Patient Health Questionnaire-2 Score 0 04/17/2024 Internet Access Answer Date Recorded Internet Access Q1 Yes 05/14/2024 Internet Access Q2 I do not want or need it 10/2023 Sex and Gender Information Value Date Recorded Sex Assigned at Male 07/12/2022 10:17 AM EDT Legal Sex Male 10:17 AM EDT Gender Identity Choose not to disclose 10:17 AM EDT Sexual Orientation Choose not to disclose 2021 10:17 AM EDT Last Filed Vital Signs Vital Sign Reading Time Taken Comments Blood Pressure 138/82 07/12/2024 9:15 AM EDT Pulse 77 07/12/2024 9:11 AM EDT Temperature 36.1 ??C (96.9 ??F) 07/12/2024 9:11 AM ED T Respiratory Rate 20 07/12/2024 9:11 AM EDT Oxygen Saturation 98% 07/12/2024 9:11 AM EDT Inhaled Oxygen Concentration - - Weight 98.6 kg (217 lb 6.4 oz) 07/12/2024 9:11 A M EDT Height 172.7 cm (5' 8 ) 07/12/2024 9:11 AM EDT Body Mass Index 33.06 07/12/2024 9:11 AM EDT Plan of Treatment Upcoming Encounters Date Type Department Care Team (Late st Contact Info) Description 11/06/2024 2:00 PM EST Office Visit [facility] [address] [place] [address] Gene Wallace MD [address] [place] [address] Health Maintenance Due Date Last Done Comments Diabetes: Foot Exam 1960 Eye Exam 1960 Diabetes: Urine Protein Screening 09/09/2022 09/09/2021 RSV Patients and Patients Aged 60 years or older (1 - 1-dose 75+ series) 2023 COVID-19 Vaccine ( season) 2024 07/06/2022, 01/26/2022, 07/22/2021, Additional history exists Diabetes: Hemoglobin A1C 10/12/2024 024, 02/23/2024, 12/06/2023, Additional history exists Depression Screening 04/17/2025 04/17/2024, 04/17/20 24 SDOH Screening 04/17/2025 04/17/2024 Lipid Panel 04/25/2025 04/25/2024, 08/13, 12/03/2022, Additional history exists Alcohol/Substance Use Screening 07/12/2025 07/12/2024 Tobacco Screening 07/12/2025 07/12/2024 DTaP/Tdap/Td Vaccines (2 - Td or Tdap) 06/01/2032 06/01/2022 HPV Vaccines Aged Out 06/12/2012 No longer eligi ble based on patient's age to complete this topic Pneumococcal Vaccine: 50+ Years Completed 06/07/2016, 08/11/2015, 05/27/2014, Additional history exists Zoster Vaccines Completed 06/15/2022, 080 09/2021, 12/10/2013 Hepatitis C Screening Completed 12/03/2022, 021 Influenza Vaccine Completed 05/15/2024, , 06/01/2022, Additional history exists HIB Vaccines Aged Out No longer eligi ble based on patient's age to complete this topic Hepatitis A Vaccines Aged Out No long er eligible based on patient's age to complete this topic Hepatitis B Vaccines Aged Out No long er eligible based on patient's age to complete this topic IPV Vaccines Aged Out No longer eligi ble based on patient's age to complete this topic Meningococcal Vaccine Aged Out No reina tulio eligible based on patient's age to complete this topic RSV under 20 months Aged Out No longe r eligible based on patient's age to complete this topic Rotavirus Vaccines Aged Out No longer eligible based on patient's age to complete this topic Goals Goal Patient Goal Type Associated Problems [...] EDT) No Carlito De La Cruz PharmD Procedures Procedure Name Priority Date/Time Associated Diagnosis Comments POCT GLYCATED HEMOGLOBIN, TOTAL Routine 07/12/2024 9:15 AM EDT Type 2 diabetes mellitus without complication, with long-term current use of insulin (CMS/HCC) POCT GLUCOSE Routine 07/12/2024 9:12 AM EDT Type 2 diabetes mellitus without complication, with long-term current use of insulin (CMS/HCC) LIPID PANEL, STANDARD Routine 04/25/2024 7:59 AM EDT Mixed hyperlipidemia HEPATITIS C AB W/REFL TO HCV RNA, QN, PCR Routine 12/03/2022 8:01 AM EDT Type 2 diabetes mellitus without complication, with long-term current use of insulin (CMS/HCC) ALBUMIN, RANDOM URINE W/CREATININE Routine 09/09/2021 8:02 AM EST from Last 3 Months or Most Recently Relevant to Health Maintenance Results * (ABNORMAL) POCT HGB A1C (07/12/2024 9:15 AM EDT) Hemoglobin A1C 8.6(A) 4.0 - 6.0 % QC Media Lot # [id number] Lot# Expiration Date Blood 07/12/2024 9:15 AM EDT us Gene Castro MD POINT OF CARE TEST EN TER/EDIT ORDERABLES Final Result * POCT Glucose (07/12/2024 9:12 AM EDT) Glucose Blood, POC 197 60 - 200 mg/dL QC Media Lot # [id number] Lot# Expiration Date ,025 Blood Capillary blood specimen / Unknown 07/12/2024 9:12 AM EDT us Gene Castro MD POINT OF CARE TEST EN TER/EDIT ORDERABLES Final Result * (ABNORMAL) Lipid Panel, Standard (04/25/2024 7:59 AM EDT) Triglycerides 121 <150 mg/dL [facility] Comment:Desirable Triglyceri de: less than 150 mg/dLBorderline High Triglyceride 150-199 mg/dLHigh Triglyceride: 200-499 mg/dLVery High Triglyceride: greater than or equal to 5OO mg/dL Cholesterol 137 <200 mg/dL [facility] Comment:Desirable Cholestero l: less than 200 mg/dLBorderline High Cholesterol: 200-239 mg/dLHigh Cholesterol: greater than 239 mg/dL LDL Cholesterol Calculated 77 <100 mg/dL [facility] Comment:Desirable LDL: less than 100 mg/dLNear Optimal/Above Optimal LDL: 110- 129 mg/dLBorderline High LDL: 130-159 mg/dLHigh LDL: 160-189 mg/dLVery High LDL: greater than or equal to 190 mg/dL HDL Cholesterol 36(L) >40 mg/dL [facility] Comment:Desirable HDL: great er than 40 mg/dL Note: This HDL assay may give artificially low results in patients with liver disease. Blood Venous blood specimen / Unknown 04/25/2024 7:59 AM EDT 04/25/2024 11:40 AM EDT us Gene Castro MD LAB BLOOD ORDERABLES Final Result [facility] [address] [place] [phone] * Hepatitis C Antibody with Reflex to HCV, RNA, Quantitative, Real-Time PCR (12/03/2022 8:01 AM EDT) Hepatitis C Antibody NON-REACT PUNEET NON-REACT PUNEET [employer] Index 0.05 <1.00 [facility] Comment: HCV antibody was non-reactive. There is no laboratory evidence of HCV infection. In most cases, no further action is required. However, if recent HCV exposure is suspected, a test for HCV RNA (test code 43367) is suggested. For additional information please refer to http://education.[employer]/faq/DTG94r1 (This link is being provided for informational/ educational purposes only.) Blood Venous blood specimen / Unknown 12/03/2022 8:01 AM EDT 12/03/2022 8:02 AM EDT Narrative [facility] - 12/03/2022 8:32 PM EDT FASTING:YES FASTING: YES Gene Castro MD LAB BLOOD ORDERABLES Final Result [facility] [address], [place] [address] [facility] [address] [place] [address] * ALBUMIN, RANDOM URINE W/CREATININE (09/09/2021 8:02 AM EST) Microalbumin Urine 0.7 See Note: mg/dL [facility] Comment: Reference Range: ?? Reference Range Not established Microalb/Creat Ratio 4 <30 mcg/mg creat [facility] Comment: ?? The ADA defines abnormalities in albumin excretion as follows: ?? Albuminuria Category ?Result (mcg/mg creatinine) ?? Normal to Mildly increased ?? <30 Moderately increased ? 30-299 ?? Severely increased ? > OR = 300 ?? The ADA recommends that at least two of three specimens collected within a 3-6 month period be abnormal before considering a patient to be within a diagnostic category. Creatinine, Urine 172 20 - 320 mg/dL [facility] 09/09/2021 8:02 AM EST Gene Castro MD LAB URINE ORDERABLES Final Result [facility] [address] from Last 3 Months or Most Recently Relevant to Health Maintenance Insurance [place] [employer] Care Teams In Service Coordinator Relationship Specialty Start Date End Date Gene Wallace MD [address] [place] [address] PCP - General Internal Medicine 07/22/21 Carlito De La Cruz PharmD [address] [place] [address] Pharmacist Internal Medicine 01/24/23
[2024-10-10 09:19] LABS: Prostate Specific Antigen 3.98 ng/mL (<0.05-4.0)
== END 2024-10-10 07:42 | disposition home or self-care (01) ==
LOC: HO.LAB 07:41
PROVIDERS: PCP Internal Medicine; Visit Provider Nurse Practitioner Family
DX: R97.20 Elevated prostate specific antigen [PSA] (principal); N40.0 Benign prostatic hyperplasia without lower urinary tract symptoms; Z12.5 Encounter for screening for malignant neoplasm of prostate
CPT/HCPCS: 36415; 84153

== ENCOUNTER 2024-10-16 13:31 | Outpatient (AMB) | payer OTHER, SELFPAY ==
--- OUTSIDE RECORDS SUMMARY | 2024-10-16 13:43 | XMS_ITS | Encounter Summary ---
Author Organization [employer] Address [address] [facility] 7t [place] [address] Care Team Providers Care Assistant Tennis Professional Name Role Phone Gene Wallace MD Primary Care Provide r Carlito De La Cruz PharmD Unavailable [phone] Reason for Visit * Reason Onset Date Comments Durable Medical Equipment 12/07/2023 Encounter Details Date Type Department Care Team ([facility] st Contact Info) Description 12/07/2023 Telephone [facility] [address] [place] [address] Gene Wallace MD [address] [place] [address] Durable Medical Equipment Social History Tobacco Use [...] FAXED TO [employer] AND SCAN TO [employer]. * Telephone Encounter - Ramos Castro - 12/27/2023 2:03 PM EDT Tc from Michael at [facility] calling to inform the patients hospital bed [...] 11/06/2024 2:00 PM EST Office Visit [facility] [address] [place] [address] Gene Wallace MD [address] [place] [address] documented as of this encounter Goals Goal [...] documented as of this encounter Care Teams Assistant Tennis Professional Relationship Specialty Start Date End Date Gene Wallace MD [address] [place] [address] PCP - General Internal Medicine 07/22/21 Carlito De La Cruz PharmD [address] [place], [place] [phone] Pharmacist Internal Medicine 01/24/23 documented as of this encounter
--- OUTSIDE RECORDS SUMMARY | 2024-10-16 13:43 | XMS_ITS | Encounter Summary ---
Author Organization [employer] Address 75 [facility] 7t [place] [address] Care Team Providers Care Wagon Drill Operator Name Role Phone Gene Wallace MD Primary Care Provide r Carlito De La Cruz PharmD Unavailable [phone] Reason for Visit * Reason Comments Med Refill Encounter Details Date Type Department Care Team (Late st Contact Info) Description 10/15/2024 Refill [facility] [address] [place] [address] Gene Wallace MD [address] [place] [address] Type 2 diabetes mellitus without complication, with long-term current use of insulin ([facility]) Social History Tobacco Use Types Packs/Day Years [...] t he electric, gas, oil or water [employer] threatened to shut off services in your [...] 11/06/2024 2:00 PM EST Office Visit [facility] [address] [place] [phone] Gene Wallace MD [address] [place] [address] documented as of this encounter Goals Goal Patient Goal Type Associated Problems Recent Progress Patient-Stated? Author Blood Pressure < 140/90 Blood Pressure HTN (hypertension), benign 138/82(2023 9:15 AM EDT) No Carlito De La Cruz PharmD Keep fasting blood glucose between 70 [...] complication, with long-term current use of insulin ([facility]) documented in this encounter Additional Health Concerns Assessment Noted Time PHQ-9 Depression Total Score: 0 04/17/20 24 1:32 PM EDT documented as of this encounter Care Teams Wagon Drill Operator Relationship Specialty Start Date End Date Gene Wallace MD [address] [place] [phone] PCP - General Internal Medicine 07/22/21 Carlito De La Cruz, VargheseD [address] [place] [phone] Pharmacist Internal Medicine 01/24/23 documented as of this encounter
--- OUTSIDE RECORDS SUMMARY | 2024-10-16 13:43 | XMS_ITS | Encounter Summary ---
Author Organization [employer] Address 75 [facility] 7t [place] [address] Care Team Providers Care Vault Mechanic Name Role Phone Gene Wallace MD Primary Care Provide r Carlito De La Cruz PharmD Unavailable [phone] Reason for Visit * Reason Comments Med Refill Encounter Details Date Type Department Care Team (Late st Contact Info) Description 06/14/2023 Refill [facility] [address] [place] [address] Gene Wallace MD [address] [place] [address] Social History Tobacco Use Types Packs/Day Years [...] Description 11/06/2024 2:00 PM EST Office Visit [facility] [address] [place] [address] Gene Wallace MD [address] [place] [phone] documented as of this encounter Goals Goal [...] documented as of this encounter Care Teams Vault Mechanic Relationship Specialty Start Date End Date Gene Wallace MD [address] [place] [phone] PCP - General Internal Medicine 07/22/21 Carlito De La Cruz, VargheseD [address] [place] [address] Pharmacist Internal Medicine 01/24/23 documented as of this encounter
--- OUTSIDE RECORDS SUMMARY | 2024-10-16 13:43 | XMS_ITS | Encounter Summary ---
Author Organization [employer] Address [address] [facility] 7t [place] [address] Care Team Providers Care Moisture Meter Reader Name Role Phone Gene Wallace MD Primary Care Provide r Carlito De La Cruz PharmD Unavailable [phone] Encounter Details Date Type Department Care Team ([facility] st Contact Info) Description 10/10/2024 Orders Only GENERIC EXTERNAL DATA DEPARTMENT Provider, Generic External Data Social History Tobacco Use Types Packs/Day Years [...] Description 11/06/2024 2:00 PM EST Office Visit [facility] [address] [place] [address] Gene Wallace MD [address] [place] [address] documented as of this encounter Goals Goal [...] Cruz PharmD documented as of this encounter Procedures Procedure Name Priority Date/Time Associated Diagnosis Comments PSA, TOTAL Routine 10/10/2024 7:50 AM EST documented in this encounter Results * PSA,Total (10/10/2024 7:50 AM EST) Prostate Specific Antigen 3.98 <0.05 - 4.0 ng/mL [facility] Comment:PSA methodology: Marquis Reno i ChemiluminescentMicroparticle Immunoassay (CMIA) 10/10/2024 7:50 AM EST 10/10/2024 7:50 AM EST us Generic External Data Provider LAB BLOOD ORDERAB LES Final Result [facility] [address] [place] [address] [phone] documented in this encounter Visit Diagnoses Not on filedocumented in this encounter Additional Health Concerns Assessment Noted Time PHQ-9 Depression Total Score: 0 04/17/20 24 1:32 PM EDT documented as of this encounter Care Teams Moisture Meter Reader Relationship Specialty Start Date End Date Gene Wallace MD [address] [place] [address] PCP - General Internal Medicine 07/22/21 Carlito De La Cruz PharmD [address] [place] [address] Pharmacist Internal Medicine 01/24/23 documented as of this encounter
--- OUTSIDE RECORDS SUMMARY | 2024-10-16 13:43 | XMS_ITS | Encounter Summary ---
Author Organization [employer] Address 75 [facility] 7t [place] [address] Care Team Providers Care Storekeeper Helper Name Role Phone Gene Wallace MD Primary Care Provide r Carlito De La Cruz PharmD Unavailable [phone] Reason for Visit * Reason Comments Med Refill Encounter Details Date Type Department Care Team ([facility] st Contact Info) Description 04/25/2024 Telephone [facility] [address] [place] [address] Marilyn Sutherland MD [address] [place] [address] Med Refill Social History Tobacco Use Types [...] 10:51 AM EDT Telephone call placed to [facility]. Left V/m for Dr Day's [...] Description 11/06/2024 2:00 PM EST Office Visit [facility] [address] [place], [place] [phone] Gene Wallace MD [address] [place] [address] [phone] documented as of this encounter Goals Goal [...] documented as of this encounter Care Teams Storekeeper Helper Relationship Specialty Start Date End Date Gene Wallace MD [address] [place] [address] [phone] PCP - General Internal Medicine 07/22/21 Carliot De La Cruz PharmD [address] [place] [address] [phone] Pharmacist Internal Medicine 01/24/23 documented as of this encounter
--- OUTSIDE RECORDS SUMMARY | 2024-10-16 13:43 | XMS_ITS | Encounter Summary ---
Author Organization [employer] Address 75 [facility] 7t [place] [address] Care Team Providers Care Qc Analyst Name Role Phone Gene Wallace MD Primary Care Provide r Carlito De La Cruz PharmD Unavailable [phone] Reason for Visit * Reason Onset Date Comments new script 10/07/2022 Encounter Details Date Type Department Care Team (Late Contact Info) Description 10/07/2022 Telephone [facility] [address] [place] [address] Gene Wallace MD [address] [place] [address] new script Social History Tobacco Use Types [...] Pen needles 8mm to be sent to [facility]. PCP DR. Ramsay documented in this encounter Plan of Treatment Upcoming Encounters Date Type Department Care Team (Late Contact Info) Description 11/06/2024 2:00 PM EST Office Visit [facility] [address] [place] [address] Gene Wallace MD [address] [place], [place] [phone] documented as of this encounter Visit Diagnoses Diagnosis Type 2 diabetes mellitus without complication, with long-term current use of insulin ([facility]) documented in this encounter Care Teams Qc Analyst Relationship Specialty Start Date End Date Gene Wallace MD [address] [place] [phone] PCP - General Internal Medicine 07/22/21 Carlito De La Cruz, VargheseD [address] [place] [phone] Pharmacist Internal Medicine 01/24/23 documented as of this encounter
--- OUTSIDE RECORDS SUMMARY | 2024-10-16 13:43 | XMS_ITS | Encounter Summary ---
Author Organization [facility] Address 75 [facility] 7t [place] [address] Care Team Providers Care Heating Repair Technician Name Role Phone Gene Wallace MD Primary Care Provide r Carlito De La Cruz PharmD Unavailable [phone] Encounter Details Date Type Department Care Team (Late Contact Info) Description 10/08/2022 Orders Only [facility] [address] [place] [phone] Denita Cararsco, NIKHIL Social History Tobacco Use Types Packs/Day [...] Description 11/06/2024 2:00 PM EST Office Visit [facility] [address] [place] [address] Gene Wallace MD [address] [place] [phone] documented as of this encounter Visit Diagnoses Not on filedocumented in this encounter Care Teams Heating Repair Technician Relationship Specialty Start Date End Date Gene Wallace MD [address] [place] [phone] PCP - General Internal Medicine 07/22/21 Carlito De La Cruz, VargheseD [address] [place] [address] Pharmacist Internal Medicine 01/24/23 documented as of this encounter
--- OUTSIDE RECORDS SUMMARY | 2024-10-16 13:43 | XMS_ITS | Encounter Summary ---
Author Organization [employer] Address [address] [facility] 7t [place] [address] Care Team Providers Care Art Therapy Specialist Name Role Phone Gene Wallace MD Primary Care Provide r Carlito De La Cruz PharmD Unavailable [phone] Reason for Visit * Reason Comments Med Refill Encounter Details Date Type Department Care Team (Late st Contact Info) Description 01/23/[address] [facility] CHC MED & PEDS [address] [place] [address] Linda Flores MD [address] [place] [address] Social History Tobacco Use Types Packs/Day Years [...] Description 11/06/2024 2:00 PM EST Office Visit [facility] MEDICINE [address] [place] [address] Gene Wallace MD [address] [place] [phone] documented as of this encounter Goals Goal [...] documented as of this encounter Care Teams Art Therapy Specialist Relationship Specialty Start Date End Date Gene Wallace MD [address] [place] [phone] PCP - General Internal Medicine 07/22/21 Carlito De La Cruz, VargheseD [address] [place] [phone] Pharmacist Internal Medicine 01/24/23 documented as of this encounter
--- OUTSIDE RECORDS SUMMARY | 2024-10-16 13:43 | XMS_ITS | Clinical Summary ---
Author Organization [employer] Address [address] [facility] 7t [place] [address] Care Team Providers Care Whipped Topping Finisher Name Role Phone Gene Wallace MD Primary Care Provide r Carlito De La Cruz PharmD Unavailable [phone] Allergies No known active allergies Medications finasteride (Proscar) 5 MG tablet Take 5 mg by mouth in the morning. 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 Severe distal left main stenosis involving the ostial LAD and circumflex. Severe proximal LAD stenosis. High diagonal with ostial 80% stenosis and mid segment 90% stenosis. First OM 80% stenosis. Mid circumflex 80% stenosis. S/p CABG 12/09/2023 Last seen by Airfield Engineer Officer Dr Day 04/10/2024 Scheduled for ECHO in 3-4 months Assessment & Plan (02/23/2024 12:54 PM EDT): Patient with CAD Most recent Cath showed: Right dominant circulation. 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 Severe distal left main stenosis involving the ostial LAD and circumflex. Severe proximal LAD stenosis. High diagonal with ostial 80% stenosis and mid segment 90% stenosis. First OM 80% stenosis. Mid circumflex 80% stenosis. He is now s/p CABG 12/09/2023 Last seen by Airfield Engineer Officer Dr Day 01/03/2024 Scheduled for cardiac rehab at some point Assessment & Plan (12/06/2023 8:39 AM EDT): Patient with CAD Most recent Cath showed: Right dominant circulation. 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 Severe distal left main stenosis involving the ostial LAD and circumflex. Severe proximal LAD stenosis. High diagonal with ostial 80% stenosis and mid segment 90% stenosis. First OM 80% stenosis. Mid circumflex 80% stenosis. Pt was referred for CABG to cardiac surgeon by Airfield Engineer Officer scheduled for 12/09/2023 Assessment & Plan (11/15/2023 2:25 PM EST): As part of his PE, Pt had an EKG that showed Qs in III and AVF As a result I referred patient to cardiology Pt had a stress test that was abnormal and subsequently underwent a Cath Coronary anatomy: Right dominant circulation. 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 Severe distal left main stenosis involving the ostial LAD and circumflex. Severe proximal LAD stenosis. High diagonal with ostial 80% stenosis and mid segment 90% stenosis. First OM 80% stenosis. Mid circumflex 80% stenosis. Pt was referred for CABG to cardiac surgeon by Airfield Engineer Officer scheduled for 12/09/2023 Plantar fasciitis of right [...] CT right foot. 2nd opinion with Ortho eviction specialist Assessment & Plan (07/12/2023 10:50 AM [...] records were obtained Pt was treated in [place], at some point he had a repeat colonoscopy at [place] but no records were received from that colonoscopy 3 years ago other than a reference that it was done Pt was last seen by an Oncologist at [facility], he was told he did not needed to come back Previous visit pt was referred to Gastroenterology Dr Crowder, Pt no showed to that appointment. He was finally seen by Pooja Lomax NP at [facility]. Given his ongoing cardiac issues the [...] records were obtained Pt was treated in [place], at some point he had a repeat colonoscopy at [place] but no records were received from that colonoscopy 3 years ago other than a reference that it was done Pt was last seen by an Oncologist at [facility], he was told he did not needed [...] records were obtained Pt was treated in [place], at some point he had a repeat colonoscopy at [place] but no records were received from that colonoscopy 3 years ago other than a reference that it was done Pt was last seen by an Oncologist at [facility], he was told he did not needed [...] records were obtained Pt was treated in [place], at some point he had a repeat colonoscopy at [place] but no records were received from that colonoscopy 3 years ago other than a reference that it was done Pt was last seen by an Oncologist at [facility], he was told he did not needed [...] records were obtained Pt was treated in [place], at some point he had a repeat colonoscopy at [place] but no records were received from that colonoscopy 3 years ago other than a reference that it was done Pt was last seen by an Oncologist at [facility], he was told he did not needed [...] po daily Follows with our CDTM Program [facility] 12/03/2022 normal Plan: Continue current regimen [...] regimen of: Losartan 100 mg po daily [facility] 12/03/2022 normal Plan: Continue current regimen [...] regimen of: Losartan 50 mg po daily [facility] 12/03/2022 normal Plan: Increase Losartan to 100 mg po daily patient advised to adhere to a low sodium diet, encouraged about medication compliance, counseled about weight loss. Follow up in 3 months Assessment & Plan (12/02/2022 10:39 AM EDT): Patient with Hypertension currently uncontrolled on a regimen of: Losartan 50 mg po daily [facility] 06/14/2022 normal Plan: 1 month follow [...] Encounters Date Type Department Care Team Description 10/15/2024 Refill [facility] MEDICINE [address] [place] [address] Gene Wallace MD Type 2 diabetes mellitus without complication, with long-term current use of insulin ([facility]) 10/10/2024 Orders Only GENERIC EXTERNAL DATA DEPARTMENT Provider, Generic External Data 08/28/2024 Telephone [facility] MEDICINE [address] [place] [address] Juanis Samaniego [place] Oct.Recall 07/30/2024 Refill [facility] MEDICINE [address] [place] [address] Gene Wallace MD Plantar fasciitis of right foot 07/17/2024 Refill [facility] CHC MED & PEDS [address] [place], [place] [phone] Gene Wallace MD from Last 3 Months Immunizations Name Administration [...] 11/06/2024 2:00 PM EST Office Visit [facility] MEDICINE [address] [place], [place] [phone] Gene Wallace MD [address] [place] [address] Health Maintenance Due Date Last Done Comments [...] Screening 04/17/2025 04/17/2024 Lipid Panel 04/25/2025 04/25/2024, 12/02/2023, 12/03/2022, Additional history exists Alcohol/Substance Use Screening 07/12/2025 07/12/2024 Tobacco Screening 07/12/2025 07/12/2024 DTaP/Tdap/Td Vaccines (2 - Td or Tdap) 06/01/2032 06/01/2022 HPV Vaccines Aged Out 06/12/2012 No longer eligi ble based on patient's age to complete this topic Pneumococcal Vaccine: 50+ Years Completed 06/07/2016, 08/11/2015, 05/27/2014, Additional history exists Zoster Vaccines Completed 06/15/2022, 09/2021, 12/10/2013 Hepatitis C Screening Completed 12/03/2022, [...] PSA, TOTAL Routine 10/10/2024 7:50 AM EST POCT GLYCATED HEMOGLOBIN, TOTAL Routine 07/12/2024 9:15 [...] Recently Relevant to Health Maintenance Results * PSA,Total (10/10/2024 7:50 AM EST) Prostate Specific Antigen 3.98 <0.05 - 4.0 ng/mL [facility] Comment:PSA methodology: Marquis Reno i ChemiluminescentMicroparticle Immunoassay (CMIA) 10/10/2024 7:50 AM EST 10/10/2024 7:50 AM EST us Generic External Data Provider LAB BLOOD ORDERAB LES Final Result Performing Organization Address City/State/[facility] Co de Phone Number [facility] [address] [place] [phone] * (ABNORMAL) POCT HGB A1C (07/12/2024 9:15 AM EDT) Hemoglobin A1C 8.6(A) 4.0 - 6.0 % QC Media Lot # [id number] Lot# Expiration Date [id number] Blood 07/12/2024 9:15 AM EDT us Gene Castro MD POINT OF CARE TEST EN TER/EDIT ORDERABLES Final Result * (ABNORMAL) Lipid Panel, Standard (04/25/2024 7:59 AM EDT) Triglycerides 121 <150 mg/dL [facility] Comment:Desirable Triglyceri de: less than 150 mg/dLBorderline High Triglyceride 150-199 mg/dLHigh Triglyceride: 200-499 mg/dLVery High Triglyceride: greater than or equal to 5OO mg/dL Cholesterol 137 <200 mg/dL [facility] Comment:Desirable Cholestero l: less than 200 mg/dLBorderline High Cholesterol: 200-239 mg/dLHigh Cholesterol: greater than 239 mg/dL LDL Cholesterol Calculated 77 <100 mg/dL [facility] Comment:Desirable LDL: less than 100 mg/dLNear Optimal/Above Optimal LDL: 110- 129 mg/dLBorderline High LDL: 130-159 mg/dLHigh LDL: 160-189 mg/dLVery High LDL: greater than or equal to 190 mg/dL HDL Cholesterol 36(L) >40 mg/dL [facility] Comment:Desirable HDL: great er than 40 mg/dL Note: This HDL assay may give artificially low results in patients with liver disease. Blood Venous blood specimen / Unknown 04/25/2024 7:59 AM EDT 04/25/2024 11:40 AM EDT us Gene Castro MD LAB BLOOD ORDERABLES Final Result [facility] [address] [place] [phone] * Hepatitis C Antibody with Reflex to HCV, RNA, Quantitative, Real-Time PCR (12/03/2022 8:01 AM EDT) Hepatitis C Antibody NON-REACT PUNEET NON-REACT PUNEET SpiderOakt Index 0.05 <1.00 [email or web address] Comment: HCV antibody was non-reactive. There is no laboratory evidence of HCV infection. In most cases, no further action is required. However, if recent HCV exposure is suspected, a test for HCV RNA (test code 82285) is suggested. For additional information please refer to http://education.SeatGeek/faq/KGA37u6 (This link is being provided for informational/ educational purposes only.) Blood Venous blood specimen / Unknown 12/03/2022 8:01 AM EDT 12/03/2022 8:02 AM EDT Narrative [facility] - 12/03/2022 8:32 PM EDT FASTING:YES FASTING: YES Gene Castro MD LAB BLOOD ORDERABLES Final Result [facility] [address], [place] [address] [facility] [address] [place] [address] * ALBUMIN, RANDOM URINE W/CREATININE (09/09/2021 8:02 [...] Final Result [facility] [address] from Last 3 Months or Most Recently Relevant to Health Maintenance Insurance [place] [facility] Care Teams Whipped Topping Finisher Relationship Specialty Start Date End Date Gene Wallace MD [address] [place] [address] PCP - General Internal Medicine 07/22/21 Carlito De La Cruz, VargheseD [address] [place] [address] Pharmacist Internal Medicine 01/24/23
--- NOTE | 2024-10-16 13:52 | A.OFFVIS_ITS ---
Intake Visit Reasons: PSA/PVR Intake Note: Patient is Present for Follow Up on: Elevated PSA, Enlarged Prostate, Incomplete Bladder Emptying * PSA: 3.98 Urology Medication: Finasteride Antibiotic Allergies: None Blood Thinners:None PVR: 89ml's Inspector Experimental Assembly Required: Yes Inspector Experimental Assembly Name: Brielle [id number] Accompanied by: Self / Same As Patient Allergies No Known Allergies [No Known Allergies*] Allergy (Verified 03/23/24 09:59) Medication List - Last Reconciled 10/16/24 by SYLVIA Call- aspirin (Adult Aspirin Regimen) 81 mg PO DAILY atorvastatin 80 mg PO BEDTIME dulaglutide (Trulicity) mg subcut finasteride 5 mg PO DAILY 90 days glipizide 5 mg PO BID glucosamine-chondroitin 500-400 mg 1 cap PO BID insulin glargine (Lantus Solostar U-100 Insulin) 26 units subcut QPM levothyroxine 50 mcg PO DAILY losartan-hydrochlorothiazide 100-12.5 mg 1 tab PO DAILY metoprolol succinate ER (Toprol XL) 25 mg PO DAILY HPI Comments Details: Driss is a pleasant 74-year-old Sierra Leonean speaking male patient of Dr. Pat Castro. He has a past medical history of type 2 diabetes, and hypertension. He presents to the office today for follow-up of his elevated PSA. In discussion with the patient today he reports to be doing and feeling well. He currently denies any bothersome urinary issues or concerns. He reports compliance with 5 mg of finasteride daily. Recent PSA results reviewed with the patient today as noted and trended below. Previous workup has included a retroperitoneal ultrasound 03/04 noting bilateral kidneys with no calculi, lesions, and or hydronephrosis noted. The bladder is well distended and appears mildly trabeculated. Prostate is enlarged at 85 mL. PSAs are as follows.. 12/02 4.8, 03/04 5.1 % free 29, 07/04 4.8, 12/03 5.2, 7/24 3.5, 10/06 4.0 When asked he denies urinary urgency, urinary frequency, incontinence, nocturia, hematuria, dysuria, foul smelling urine, changes to urinary stream, flank pain, fever, and or chills. He is happy with his current voiding parameters. In office urinalysis results reviewed with the patient today. PVR 88ml's. We discussed slight increase in PSA over the last 6 months. We discussed further treatment options and risks and benefits of these treatment options. He otherwise offers no other issues or concerns at this time. [facility] Medical History Atherosclerotic cardiovascular disease Diabetes Abnormal EKG Pre-op examination BPH (benign prostatic hyperplasia) Hypertension Surgical History Status post aorto-coronary artery bypass graft S/P partial colectomy Family History Mother Heart problem Sister Heart problem Social History Alcohol intake: former Patient Tobacco Use Status: Former Tobacco user Review of Systems Const All systems reviewed & are unremarkable except as noted in HPI and below Reports no additional complaints Eyes Reports no additional complaints ENT Reports no additional complaints Card Reports as per HPI Resp Reports no additional complaints GI Reports no additional complaints Reports as per HPI Musc Reports no additional complaints Neuro Reports no additional complaints Psych Reports no additional complaints Endo Reports as per HPI Davion/Lymph Reports no additional complaints Aller/Immun Reports no additional complaints Physical Exam Const General: cooperative, healthy appearing, comfortable, no acute distress, well developed, alert and awake Orientation/consciousness: patient oriented x3 Limitations: no limitations HEENT Head: Yes normal to inspection, Yes normocephalic and Yes atraumatic Ears: hearing grossly normal bilaterally Eyes General: appearance normal, both eyes and all related structures Neck Neck: Yes normal visual inspection and Yes trachea midline Chest Chest palpation & inspection: normal inspection of the chest Resp Effort & Inspection: normal respiratory effort and able to speak in complete sentences Cardio Rate: regular rate GI Inspection: Yes normal to inspection General: Yes no CVA tenderness Back/Spine/Pelvis Back: no CVA tenderness Skin General skin exam: no rashes or lesions noted Neuro General: patient oriented x3 Extrem General: Yes normal to inspection Psych Appearance: grossly normal and well kempt Mental Status: mental status grossly normal Speech and movement: Normal speech and movement present and Clear speech present Affect: normal affect Attitude: cooperative Thought process: Normal thought process present Thought content: Normal thought content present Insight: Fair insight present (Psych) Judgement: Fair judgement present (Psych) Office Procedures Post Void Residual Post Residual Void Post Void Residual (PVR): 89 [id number] Void Residual by ultrasound Results AMB Urinalysis, Automated UA Leukoctes 0 Solomon/uL Last Edit by E-Buyya Blanchardjennifer on 10/16/24 15:27 UA Nitrite Last Edit by [employer] PL Lojennifer on 10/16/24 15:27 UA Urobilinogen 0.2 mg/dL Last Edit by [employer] PL Lojennifer on 10/16/24 15:27 UA Protein 15 mg/dL Last Edit by Acqua Innovationsjennifer on 10/16/24 15:27 UA pH 6.0 Last Edit by MarcoBlack Chair Groupya Blanchardjennifer on 10/16/24 15:27 UA Blood 0 Herson/uL Last Edit by [employer] PL Lojennifer on 10/16/24 15:27 UA Specific Mesa 1.015 Last Edit by [employer] on 10/16/24 15:27 UA Ketone Last Edit by Acqua Innovationsjennifer on 10/16/24 15:27 UA Bilirubin 1 mg/dL Last Edit by Acqua Innovationsjennifer on 10/16/24 15:27 UA Glucose 100 mg/dL Last Edit by [employer] Innovationsjennifer on 10/16/24 15:27 Results Reviewed Results Reviewed: Laboratory Last Values Urine pH (Auto) 6.0 10/16/24 15:25 Specific Mesa (Auto) 1.015 10/16/24 15:25 Urine Protein (Auto) 15 mg/dL 10/16/24 15:25 Glucose (UA)(Auto) 100 mg/dL 10/16/24 15:25 Urine Blood (Auto) 0 Herson/uL 10/16/24 15:25 Urine Bilirubin (Auto) 1 mg/dL 10/16/24 15:25 Urine Urobilinogen (Auto) 0.2 mg/dL 10/16/24 15:25 Leukocyte Esterase (Auto) 0 Solomon/uL 10/16/24 15:25 Assessment & Plan Assessment & Plan (1) Elevated PSA: Code(s): R97.20 - Elevated prostate specific antigen [PSA] Category: Medical (2) Enlarged prostate: Code(s): N40.0 - Benign prostatic hyperplasia without lower urinary tract symptoms Category: Medical Plan In office urinalysis results reviewed with the patient today; as noted above. PVR 88 mL. Recent PSA results reviewed with the patient today; as noted above; we discussed slight increase in PSA over the last 6 months despite compliance with finasteride 5 mg daily. We discussed further treatment options and risks and benefits of these treatment options Continue finasteride. Will continue with surveillance monitoring however will recheck PSA in 4 months. We discussed obtaining PSA in 4 months with no sex the night before, no heavy lifting 1-2 days prior, and no caffeine morning of labs. He currently denies any bothersome urinary issues or concerns. He reports be happy with current voiding parameters. Follow-up in 4 months with PSA to be completed prior; or sooner with any issues, concerns, and or questions. Orders: Orders PSA,Total (Free>4and<10) 4 Months N40.0 - Benign prostatic hyperplasia without lower urinary tract symptoms, R97.20 - Elevated prostate specific antigen [PSA] AMB Urinalysis Automated Today Z13.9 - Encounter for screening, unspecified AMB Post Void Residual by ultrasound Today R33.9 - Retention of urine, unspecified Patient Instructions: The patient had an opportunity to ask questions regarding the treatment plan. All questions were answered. Physical exam, labs, and imaging were discussed and reviewed in detail. As well as risks, benefits, and discussion of treatment choices. No major barriers to understanding were identified. The patient expressed understanding and agreement with the above treatment plan. The patient was made aware they should contact our office by phone for worsening of their current condition, the appearance of new symptoms, or with any questions or concerns. Compliance is encouraged with any medications and follow up testing that is ordered. It is a privilege to be allowed the opportunity to participate in? your urological care.? Again, if you have any questions or concerns If you have any questions or concerns please do not hesitate to contact me. The office is [phone]. This note is constructed using voice recognition software. While every effort has been made to ensure accuracy bottom stainer errors may have been included. Yours sincerely, Bibi Downing, [employer] OPENER-BC Coding Level of Care Code Est Pt Level 3 (98133) Complex EM visit Add On G2211 Diagnoses Elevated PSA R97.20 Enlarged prostate N40.0 CPT Codes Post Residual Void - PVR CPT Code: 40019-Qmlm Void Residual by ultrasound ([id number])
== END 2024-10-16 14:31 | disposition home or self-care (01) ==
PROVIDERS: PCP Internal Medicine; Visit Provider Nurse Practitioner Family
DX: R97.20 Elevated prostate specific antigen [PSA] (principal); N40.0 Benign prostatic hyperplasia without lower urinary tract symptoms; Z13.9 Encounter for screening, unspecified
CPT/HCPCS: 99213; G2211

== ENCOUNTER → 2024-10-16 13:31 | Outpatient (BNVA) | payer OTHER, SELFPAY | PROVIDERS: PCP Internal Medicine; Visit Provider Nurse Practitioner Family | DX: R97.20 Elevated prostate specific antigen [PSA] (principal); N40.1 Benign prostatic hyperplasia with lower urinary tract symptoms; R33.8 Other retention of urine | CPT/HCPCS: 51798; 81003 ==

== ENCOUNTER 2024-11-07 08:57 | Outpatient (REF) | payer MEDICAID, SELFPAY ==
--- OUTSIDE RECORDS SUMMARY | 2024-11-07 09:47 | XMS_ITS | Encounter Summary ---
Author Organization [employer] Address [address] [facility] [address] [place] [address] Care Team Providers Care Body Design Checker Name Role Phone Gene Wallace MD Primary Care Provide r Carlito De La Cruz PharmD Unavailable [phone] Reason for Visit * Reason Comments Med Refill Encounter Details Date Type Department Care Team ([facility] st Contact Info) Description 04/25/2024 Telephone [facility] MEDICINE [address] [place] [address] Marilyn Sutherland MD [address] [place] [address] Med Refill Social History Tobacco Use Types [...] 10:51 AM EDT Telephone call placed to [facility] Cardiology. Left V/m for Dr Day's [...] Care Team (Late st Contact Info) Description 02/07/2025 10:15 AM EDT Office Visit [facility] MEDICINE [address] [place] [address] Gene Wallace MD [address] [place], [place] [phone] documented as of this encounter Goals Goal Patient Goal Type Associated Problems Recent Progress Patient-Stated? Author Blood Pressure < 140/90 Blood Pressure HTN (hypertension), benign 110/70(2024 1:47 PM EST) No Carlito De La Cruz PharmD Keep fasting blood glucose between 70 and 130 Result Component Type 2 diabetes mellitus without complication, with long-term current use of insulin On track( 023 11:39 AM EDT) No Carlito De La Cruz PharmD Hemoglobin A1c < 7 Result Component 8.1( 1:50 PM EST) No Carlito De La Cruz PharmD documented as of this encounter Visit Diagnoses Not on filedocumented in this encounter Additional Health Concerns Assessment Noted Time PHQ-9 Depression Total Score: 0 04/17/20 24 1:32 PM EDT documented as of this encounter Care Teams Body Design Checker Relationship Specialty Start Date End Date Gene Wallace MD [address] [place] [address] [phone] PCP - General Internal Medicine 07/22/21 Carlito De La Cruz PharmD [address] [place] [address] [phone] Pharmacist Internal Medicine 01/24/23 documented as of this encounter
--- OUTSIDE RECORDS SUMMARY | 2024-11-07 09:47 | XMS_ITS | Encounter Summary ---
Author Organization [email or web address] Address [address] [facility] 7t [place] [address] Care Team Providers Care Net Developer Architect Name Role Phone Gene Wallace MD Primary Care Provide r Carlito De La Cruz PharmD Unavailable [phone] Encounter Details Date Type Department Care Team (Latest Contact Info) Description 11/06/2024 Travel Social History Tobacco Use Types Packs/Day Years [...] Description 02/07/2025 10:15 AM EDT Office Visit [facility] [address] [place] [address] Gene Wallace MD [address] [place] [address] documented as of this encounter Goals Goal [...] PM EST) No Carlito De La Cruz PharmAbel documented as of this encounter Visit Diagnoses Not on filedocumented in this encounter Additional Health Concerns Assessment Noted Time PHQ-9 Depression Total Score: 0 04/17/20 24 1:32 PM EDT documented as of this encounter Care Teams Net Developer Architect Relationship Specialty Start Date End Date Gene Wallace MD [address] [place] [address] PCP - General Internal Medicine 07/22/21 Carlito De La Cruz PharmD [address] [place] [address] Pharmacist Internal Medicine 01/24/23 documented as of this encounter
--- OUTSIDE RECORDS SUMMARY | 2024-11-07 09:47 | XMS_ITS | Encounter Summary ---
Author Organization [employer] Address [address] [facility] 7t [place] [address] Care Team Providers Care Boiler Tube Blower Name Role Phone Gene Wallace MD Primary Care Provide r Carlito De La Cruz PharmD Unavailable [phone] Reason for Visit * Reason Comments Pre-visit Planning SDOH Screening negat link and Tobacco screening negative Encounter Details Date Type Department Care Team ([facility] st Contact Info) Description 10/24/2024 Patient Outreach [facility]INE [address] [place] [address] Gene Wallace MD [address] [place] [address] Pre-visit Planning (SDOH Screening negative and Tobacco screening negative) Social History Tobacco Use Types Packs/Day Years [...] AM EDT documented as of this encounter Progress Notes * Shyann Garrett - 10/24/2024 11:37 AM EST CC Shyann Turner placed successful outbound call to patient for pre-visit planning. Patient name and confirmed. Patient confirms appt date and time, and has transportation arrangements. Biggest concern for appointment at this time is requesting a Configuration Consultant referral. Patient advised to bring to appointment a photo id and insurance card. Appropriate screenings completed in anticipation of appointment. documented in this encounter Plan of Treatment Upcoming Encounters Date Type Department Care Team (Late st Contact Info) Description 02/07/2025 10:15 AM EDT Office Visit [facility] [address] [place], [place] [phone] Gene Wallace MD [address] [place] [address] documented as of this encounter Goals Goal [...] documented as of this encounter Care Teams Boiler Tube Blower Relationship Specialty Start Date End Date Gene Wallace MD [address] [place] [id number] PCP - General Internal Medicine 07/22/21 Carlito De La Cruz PharmD [address] [place] [address] Pharmacist Internal Medicine 01/24/23 documented as of this encounter
--- OUTSIDE RECORDS SUMMARY | 2024-11-07 09:47 | XMS_ITS | Encounter Summary ---
Author Organization [employer] Address [address] [facility] 7t [place] [address] Care Team Providers Care Controls Designer Name Role Phone Gene Wallace MD Primary Care Provide r Carlito De La Cruz PharmD Unavailable [phone] Reason for Visit * Reason Onset Date Comments Durable Medical Equipment 12/07/2023 Encounter Details Date Type Department Care Team ([facility] st Contact Info) Description 12/07/2023 Telephone [facility] MEDICINE [address] [place] [address] Gene Wallace MD [address] [place] [address] Durable Medical Equipment Social History Tobacco Use [...] FAXED TO [employer]PROVAL AND SCAN TO [employer]. * Telephone Encounter - Ramos Castro - 12/27/2023 2:03 PM EDT Tc from Michael at [facility] calling to inform the patients hospital [...] Description 02/07/2025 10:15 AM EDT Office Visit [facility] [address] [facility] [place] [address] Gene Wallace MD [address] [place] [address] documented as of this encounter Goals Goal [...] documented as of this encounter Care Teams Controls Designer Relationship Specialty Start Date End Date Gene Wallace MD [address] [place] [address] PCP - General Internal Medicine 07/22/21 Carlito De La Cruz PharmD [address] [place], [place] [phone] Pharmacist Internal Medicine 01/24/23 documented as of this encounter
--- OUTSIDE RECORDS SUMMARY | 2024-11-07 09:47 | XMS_ITS | Encounter Summary ---
Author Organization [employer] Address [address] [facility] 7t [place] [address] Care Team Providers Care Tank Farm Attendant Name Role Phone Gene Wallace MD Primary Care Provide r Carlito De La Cruz PharmD Unavailable [phone] Reason for Visit * Reason Comments Med Refill Encounter Details Date Type Department Care Team (Late st Contact Info) Description 10/21/2024 Refill [facility] [address] [place] [address] Gene Wallace MD [address] [place] [address] Social History Tobacco Use Types Packs/Day Years [...] Description 02/07/2025 10:15 AM EDT Office Visit [facility] MEDICINE [address] [place] [address] Gene Wallace MD [address] [place] [address] documented as of this encounter Goals Goal [...] documented as of this encounter Care Teams Tank Farm Attendant Relationship Specialty Start Date End Date Gene Wallace MD [address] [place], [place] [phone] PCP - General Internal Medicine 07/22/21 Carlito De La Cruz PharmD [address] [place] [address] Pharmacist Internal Medicine 01/24/23 documented as of this encounter
--- OUTSIDE RECORDS SUMMARY | 2024-11-07 09:47 | XMS_ITS | Encounter Summary ---
Author Organization [employer] Address [address] [facility] 7t [place] [address] Care Team Providers Care Pick Up And Delivery Driver Name Role Phone Gene Wallace MD Primary Care Provide r Carlito De La Cruz PharmD Unavailable [phone] Reason for Visit * Reason Onset Date Comments Chart Prep 10/24/2024 Encounter Details Date Type Department Care Team ([facility] st Contact Info) Description 10/24/2024 Telephone [facility] [address] [place] [address] Gene Wallace MD [address] [place] [address] Chart Prep Social History Tobacco Use Types Packs/Day Years [...] encounter Miscellaneous Notes * Telephone Encounter - Marilia Cates [place] - 10/24/2024 2:37 PM EST Chart Prep Labs: not applicable Images: not done Vaccines due: Covid Due and RSV in Pharmacy Due Referrals: Orthopedics Completed Screenings: Eye Exam and Foot Exam Overdue care gaps: A1C and Glucose Chart prep for upcoming appt with Dr.Esparza arriaga. LB documented in this encounter Plan of Treatment Upcoming Encounters Date Type Department Care Team (Late st Contact Info) Description 02/07/2025 10:15 AM EDT Office Visit [facility] [address] [place] [address] Gene Wallace MD [address] [place] [address] documented as of this encounter Goals Goal Patient Goal Type Associated Problems Recent Progress Patient-Stated? Author Blood Pressure < 140/90 Blood Pressure HTN (hypertension), benign 110/70(2024 1:47 PM EST) No Carlito De La Cruz, PharmD Keep fasting blood glucose between 70 and 130 Result Component Type 2 diabetes mellitus without complication, with long-term current use of insulin On track( 023 11:39 AM EDT) No Carlito De La Cruz PharmD Hemoglobin A1c < 7 Result Component 8.1( 5 1:50 PM EST) No Carlito De La Cruz PharmD documented as of this encounter Visit Diagnoses Not on filedocumented in this encounter Additional Health Concerns Assessment Noted Time PHQ-9 Depression Total Score: 0 04/17/20 24 1:32 PM EDT documented as of this encounter Care Teams Pick Up And Delivery Driver Relationship Specialty Start Date End Date Gene Wallace MD [address] [place] [address] PCP - General Internal Medicine 07/22/21 Carlito De La Cruz PharmD [address] [place] [address] Pharmacist Internal Medicine 01/24/23 documented as of this encounter
--- OUTSIDE RECORDS SUMMARY | 2024-11-07 09:47 | XMS_ITS | Encounter Summary ---
Author Organization [employer] Address [address] [facility] 7t [place] [address] Care Team Providers Care Electrician Marine Name Role Phone Gene Wallace MD Primary Care Provide r Carlito De La Cruz PharmD Unavailable [phone] Reason for Visit * Reason Comments Med Refill Encounter Details Date Type Department Care Team (Late st Contact Info) Description 10/15/2024 Refill [facility] [address] [place] [address] Gene Wallace MD [address] [place] [address] Type 2 diabetes mellitus without complication, with long-term current use of insulin ([facility] Social History Tobacco Use Types Packs/Day Years [...] Description 02/07/2025 10:15 AM EDT Office Visit [facility] [address] [place] [address] Gene Wallace MD [address] [place] [address] documented as of this encounter Goals Goal [...] complication, with long-term current use of insulin ([facility]) documented in this encounter Additional Health Concerns Assessment Noted Time PHQ-9 Depression Total Score: 0 04/17/20 24 1:32 PM EDT documented as of this encounter Care Teams Electrician Marine Relationship Specialty Start Date End Date Gene Wallace MD [address] [place] [address] PCP - General Internal Medicine 07/22/21 Carlito De La Cruz PharmD [address] [place] [address] Pharmacist Internal Medicine 01/24/23 documented as of this encounter
--- OUTSIDE RECORDS SUMMARY | 2024-11-07 09:47 | XMS_ITS | Encounter Summary ---
Author Organization [employer] Address [address] [facility] 7t [place] [address] Care Team Providers Care Highway Painter Name Role Phone Gene Wallace MD Primary Care Provide r Carlito De La Cruz PharmD Unavailable [phone] Encounter Details Date Type Department Care Team ([facility] st Contact Info) Description 10/10/2024 Orders Only [...] t he electric, gas, oil or water [employer] threatened to shut off services in your [...] Description 02/07/2025 10:15 AM EDT Office Visit [facility] [address] [place] [address] Gene Wallace MD [address] [place] [address] documented as of this encounter Goals Goal [...] Specific Antigen 3.98 <0.05 - 4.0 ng/mL [facility] Comment:PSA methodology: Marquis [place] i ChemiluminescentMicroparticle Immunoassay (CMIA) 10/10/2024 7:50 AM EST 10/10/2024 7:50 AM EST us Generic External Data Provider LAB BLOOD ORDERAB LES Final Result [facility] [address] [place] [address] [phone] documented in this encounter Visit Diagnoses Not on filedocumented in this encounter Additional Health Concerns Assessment Noted Time PHQ-9 Depression Total Score: 0 04/17/20 24 1:32 PM EDT documented as of this encounter Care Teams Highway Painter Relationship Specialty Start Date End Date Gene Wallace MD [address] [place] [address] PCP - General Internal Medicine 07/22/21 Carlito De La Cruz, Konstantin [address] [place] [address] Pharmacist Internal Medicine 01/24/23 documented as of this encounter
--- OUTSIDE RECORDS SUMMARY | 2024-11-07 09:47 | XMS_ITS | Encounter Summary ---
Author Organization [employer] [facility] Address [address] [facility] [address] [place] [address] Care Team Providers Care Lightning Protection Installer Name Role Phone Gene Wallace MD Primary Care Provide r Carlito De La Cruz PharmD Unavailable [phone] Encounter Details Date Type Department Care Team (Late Contact Info) Description 10/08/2022 Orders Only [facility] MED[facility]INE [address] [place] [address] Denita Carrasco, NIKHIL Social History Tobacco Use [...] Department Care Team (Late Contact Info) Description 02/07/2025 10:15 AM EDT Office Visit [facility] [address] [place] [address] Gene Wallace MD [address] [place] [address] documented as of this encounter Visit Diagnoses Not on filedocumented in this encounter Care Teams Lightning Protection Installer Relationship Specialty Start Date End Date Gene Wallace MD [address] [place] [address] PCP - General Internal Medicine 07/22/21 Carlito De La Cruz, Konstantin [address] [place] [address] Pharmacist Internal Medicine 01/24/23 documented as of this encounter
--- OUTSIDE RECORDS SUMMARY | 2024-11-07 09:47 | XMS_ITS | Clinical Summary ---
Author Organization [employer] Address [address] [facility] [address] [place] [address] Care Team Providers Care Job Site Superintendent Name Role Phone Gene Wallace MD Primary Care Provide r Carlito De La Cruz PharmD Unavailable [phone] Allergies No known active allergies Medications finasteride (Proscar) 5 MG tablet Take 5 mg by mouth in the morning. 06/01/20 23 Active insulin pen needle (Easy Touch Pen Arnold) 31G X 8 mm miscIndicatio ns:Type 2 diabetes mellitus without complication, with long-term current use of insulin (CMS/HCC) USE DIRECTED 100 each 11/03/19 24 Active OneTouch Delica Lancets 33G misc 1 each 2 times daily. 100 each 11/07/19 24 Active glucose blood (OneTouch Verio) test stripIndicati ons:Type 2 diabetes mellitus without complication, with long-term current use of insulin (CMS/HCC) 1 each by Other route every 8 (eight) hours. 100 each 12/27/19 24 Active meloxicam (Mobic) 15 MG tabletIndicat ions:Plantar fasciitis of right foot TAKE 1 TABLET BY MOUTH ONCE DAILY IN THE MORNING 30 tablet 11 07/31/20 24 Active Trulicity 3 MG/0.5ML solution auto-injector Indications:T ype 2 diabetes mellitus without complication, with long-term current use of insulin (CMS/HCC) INJECT ONE PEN (= 3MG) SUBCUTANEOUSLY ONCE A WEEK DIRECTED 2 mL 3 10/16/19 25 Active Lantus SoloStar 100 UNIT/ML penIndication s:Type 2 diabetes mellitus without complication, with long-term current use of insulin ([facility]) INJECT 34 UNIT SUBCUTANEOUSLY EVERY EVENING 15 mL 3 10/16/19 25 Active levothyroxine (Synthroid, Levoxyl) 50 MCG tablet TAKE 1 TABLET BY MOUTH AT BEDTIME 90 tablet 1 10/23/19 25 Active losartan-hydr oCHLOROthiazi de (Hyzaar) 100-12.5 MG tablet TAKE 1 TABLET BY MOUTH EVERY DAY IN THE MORNING 90 tablet 1 10/23/19 25 Active atorvastatin (Lipitor) 80 MG tablet TAKE 1 TABLET BY MOUTH EVERY DAY AT BEDTIME 90 tablet 1 10/23/19 25 Active Aspirin Low Dose 81 MG EC tablet TAKE 1 TABLET BY MOUTH EVERY DAY 90 tablet 1 10/23/19 25 Active metoprolol succinate XL (Toprol-XL) 25 MG 24 hr tablet TAKE 1 TABLET BY MOUTH EVERY DAY 90 tablet 1 10/23/19 25 Active Blood Glucose Monitoring Suppl (Problemcity.com) w/Device kitIndication s:Type 2 diabetes mellitus without complication, with long-term current use of insulin ([facility]) Use daily 1 kit 11/06/19 25 Active metoprolol succinate XL (Toprol-XL) 25 MG 24 hr tablet TAKE 1 TABLET BY MOUTH EVERY DAY 90 tablet 1 04/25/20 24 2024 Discontinued Aspirin Low Dose 81 MG EC tablet TAKE 1 TABLET BY MOUTH EVERY DAY 90 tablet 1 04/25/20 24 2024 Discontinued losartan-hydr oCHLOROthiazi de (Hyzaar) 100-12.5 MG tablet TAKE 1 TABLET BY MOUTH EVERY DAY IN THE MORNING 90 tablet 1 04/25/20 24 2024 Discontinued atorvastatin (Lipitor) 80 MG tablet TAKE 1 TABLET BY MOUTH AT BEDTIME 90 tablet 1 04/25/20 24 2024 Discontinued Lantus SoloStar 100 UNIT/ML penIndication s:Type 2 diabetes mellitus without complication, with long-term current use of insulin ([facility]) INJECT 34 UNITS SUBCUTANEOUSLY EVERY DAY IN THE EVENING 15 mL 3 05/22/20 24 2024 Discontinued Dulaglutide (Trulicity) 3 MG/0.5ML solution auto-injector Indications:T ype 2 diabetes mellitus without complication, with long-term current use of insulin ([facility]) Inject 3 mg under the skin 1 (one) time per week. 2 mL 3 07/12/20 24 2024 Discontinued levothyroxine (Synthroid, Levoxyl) 50 MCG tablet TAKE 1 TABLET BY MOUTH EVERY DAY AT BEDTIME 90 tablet 1 07/18/20 24 2024 Discontinued Active Problems Patient Care Coordination No te Formatting of this note migh t be different from the original. Followed by [facility] HTN, DM - Carlito De La Cruz, RPh Problem Noted Date Diagnosed Date Preventative health care 11/06/2024 Assessment & Plan (11/06/2024 1:42 PM EST): PSA 10/10/2024: Normal Colonoscopy: Past surg. 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, he was told he did not needed to come back Previous visit pt was referred to Gastroenterology Dr Crowder, Pt no showed to that appointment. He was finally seen by Pooja Lomax NP at [facility]. Given his ongoing cardiac issues the repeat colonoscopy has been postponed until after he is cleared by cardiology Bilateral knee pain 11/06/2024 Assessment & Plan (11/06/2024 2:04 PM EST): Pt with c/o new onset Exam suggestive of OA Plan: Obtain plain films both knees Bilateral hip pain 11/06/2024 Assessment & Plan (11/06/2024 2:05 PM EST): Pt with c/o new onset Exam suggestive of OA Plan: Obtain plain films both hips Lesion of nose 11/06/2024 Assessment & Plan (11/06/2024 2:04 PM EST): Hyperpigmented lesion on the nose. Pt reports he has had it for at least 10 years, but lately feels like it has increased in size Will refer to Dermatology Iron deficiency anemia 07/12/2024 Assessment & Plan (07/12/2024 8:29 AM EDT): Pt with mild anemia, slightly low ferritin, Normal B12 and Folate Pt awaiting Colonoscopy. Cardiology recommended to wait until next year given recent Hx of CABG Class 1 obesity without seri ous comorbidity with body mass index (BMI) of 32.0 to 32.9 in adult 04/17/2024 Assessment & Plan (11/06/2024 1:44 PM EST): Patient has been counseled and educated about diet and exercise. Personal goal of weight loss discussedPatient has comorbidity of: DM Dietary Recommendations: Fruits, vegetables, whole grains, protein foods, and fat-free or low-fat dairy products are healthy choices. Eat different types of protein foods in your diet. This can include seafood, lean meats, poultry, beans, peas, lentils, nuts, seeds, soy products, and eggs. Limit foods and beverages higher in added sugars, saturated fat, and sodium. Exercise Recommendations: At least 150 minutes of moderate-intensity physical activity per week, or an equivalent combination of moderate- and vigorous-intensity activity Assessment & Plan (04/17/2024 1:47 PM EDT): Patient has been counseled and educated about diet and exercise. Personal goal of weight loss discussedPatient has comorbidity of: DM S/P CABG (coronary artery bypass graft) 02/23/20 Assessment & Plan (11/06/2024 12:44 PM EST): Doing well Following with cardiology Assessment & Plan (02/23/2024 11:50 AM EDT): Doing well Following with cardiology Coronary artery disease invo lving [place] coronary artery of [place] heart without angina pectoris 11/15/2023 Assessment & Plan (11/06/2024 12:44 PM EST): Patient with CAD Cardiac Cath showed: Right dominant circulation. Proximal DESIGN TECHNICIAN right coronary artery with [id number] collaterals. Severe distal left main stenosis involving the ostial LAD and circumflex. Severe proximal LAD stenosis. High diagonal with ostial 80% stenosis and mid segment 90% stenosis. First OM 80% stenosis. Mid circumflex 80% stenosis. S/p CABG 12/09/2023 Last seen by [facility] Dr Day 07/25/2024 Scheduled for f/u 6 months Assessment & Plan (04/17/2024 1:41 PM EDT): Patient with CAD Cardiac Cath showed: Right dominant circulation. Proximal DESIGN TECHNICIAN right coronary artery with [id number] collaterals. Severe distal left main stenosis involving the ostial LAD and circumflex. Severe proximal LAD stenosis. High diagonal with ostial 80% stenosis and mid segment 90% stenosis. First OM 80% stenosis. Mid circumflex 80% stenosis. S/p CABG 12/09/2023 Last seen by Seat [facility] Dr Day 04/10/2024 Scheduled for ECHO in 3-4 months Assessment & Plan (02/23/2024 12:54 PM EDT): Patient with CAD Most recent Cath showed: Right dominant circulation. Proximal DESIGN TECHNICIAN right coronary artery with [id number] collaterals. Severe distal left main stenosis involving the ostial LAD and circumflex. Severe proximal LAD stenosis. High diagonal with ostial 80% stenosis and mid segment 90% stenosis. First OM 80% stenosis. Mid circumflex 80% stenosis. He is now s/p CABG 12/09/2023 Last seen by Seat [facility] Dr Day 01/03/2024 Scheduled for cardiac rehab at some point Assessment & Plan (12/06/2023 8:39 AM EDT): Patient with CAD Most recent Cath showed: Right dominant circulation. Proximal DESIGN TECHNICIAN right coronary artery with [id number] collaterals. Severe distal left main stenosis involving the ostial LAD and circumflex. Severe proximal LAD stenosis. High diagonal with ostial 80% stenosis and mid segment 90% stenosis. First OM 80% stenosis. Mid circumflex 80% stenosis. Pt was referred for CABG to cardiac surgeon by [facility] [facility] scheduled for 12/09/2023 Assessment & Plan (11/15/2023 2:25 PM EST): As part of his PE, Pt had an EKG that showed Qs in III and AVF As a result I referred patient to cardiology Pt had a stress test that was abnormal and subsequently underwent a Cath Coronary anatomy: Right dominant circulation. Proximal DESIGN TECHNICIAN right coronary artery with [id number] collaterals. Severe distal left main stenosis involving the ostial LAD and circumflex. Severe proximal LAD stenosis. High diagonal with ostial 80% stenosis and mid segment 90% stenosis. First OM 80% stenosis. Mid circumflex 80% stenosis. Pt was referred for CABG to cardiac surgeon by [facility] [facility] scheduled for 12/09/2023 Plantar fasciitis of right [...] CT right foot. 2nd opinion with Ortho business account specialist Assessment & Plan (07/12/2023 10:50 AM [...] Urology referral Hyperlipidemia 10/08/2022 Assessment & Plan (11/06/2024 12:47 PM EST): Patient with elevated lipids. Lipid profile showed [...] goal for weight loss. Assessment & Plan (07/12/2024 8:27 AM EDT): [...] weight loss. Hypothyroidism 10/08/2022 Assessment & Plan (11/06/2024 12:47 PM EST): Repeat Lab Results Component Value Date TSH 3.25 12/03/2022 Normal No record of hypothyroidism in the past Thyroid U/S 03/26/2022 showed: IMPRESSION: Normal sonographic appearance of the thyroid gland. No thyroid nodules meeting size criteria for additional follow-up. He is on Levothyroxine up to 50 mcg po daily' Was seen by Endocrinology 12/07/2021, Plan: Continue Levothyroxine 50 mcg po daily' Assessment & Plan (01/11/2023 8:29 AM EDT): [...] records were obtained Pt was treated in [place], at some point he had a repeat colonoscopy at [place] but no records were received from that colonoscopy 3 years ago other than a reference that it was done Pt was last seen by an Oncologist at [facility], he was told he did not needed to come back Previous visit pt was referred to Gastroenterology Dr Crowder, Pt no showed to that appointment. He was finally seen by Pooja Lomax NP at [facility]. Given his ongoing cardiac issues the [...] records were obtained Pt was treated in [place], at some point he had a repeat colonoscopy at [place] but no records were received from that colonoscopy 3 years ago other than a reference that it was done Pt was last seen by an Oncologist at [facility], he was told he did not needed [...] records were obtained Pt was treated in [place], at some point he had a repeat colonoscopy at [place] but no records were received from that colonoscopy 3 years ago other than a reference that it was done Pt was last seen by an Oncologist at [facility], he was told he did not needed [...] records were obtained Pt was treated in [place], at some point he had a repeat colonoscopy at [place] but no records were received from that colonoscopy 3 years ago other than a reference that it was done Pt was last seen by an Oncologist at [facility], he was told he did not needed [...] records were obtained Pt was treated in [place], at some point he had a repeat colonoscopy at [place] but no records were received from that colonoscopy 3 years ago other than a reference that it was done Pt was last seen by an Oncologist at [facility], he was told he did not needed to come back 7 yrs ago Previous visit pt was referred to Gastroenterology Dr Crowder, Pt no showed to that appointment Type 2 diabetes mellitus wit hout complication, with long-term current use of insulin 10/08/2022 Overview (11/07/2023): Pharmacotherapy updated 11/07/23 - Trulicity [...] BG under better control. Assessment & Plan (11/06/2024 2:06 PM EST): Pt here for a f/u Dm improving, did not bring his glucometer He is on a regimen of: Lantus 34 units sc q pm, and Trulicity 3 mg once a week. No longer on Januvia. Hgb A1c 11/06/2024: 8.1 from 8.6 Eye exam referred Microalbumin 09/09/2021 0.7 Pt on an ARB. Will repeat Foot check today is risk of: zero Pt reports compliance with Asa 81 mg po daily Plan:No change until he brings his glucometer Continue to follow with our [facility] Program f/u 3 months Pt advised to: adhere to diabetic diet check your blood sugars regularly check your feet on a daily basis. Assessment & Plan (07/12/2024 9:17 AM EDT): [...] BP readings average 135/86 Assessment & Plan (11/06/2024 12:44 PM EST): Patient here for a follow up currently on [...] up in 4 months Assessment & Plan (07/12/2024 8:22 AM EDT): [...] po daily Follows with our [facility] 09/06/2023 normal Today will order a repeat [...] daily Follows with our [facility] Program BMP 12/03/2022 normal Plan: Continue current regimen patient [...] regimen of: Losartan 100 mg po daily BMP 12/03/2022 normal Plan: Continue current regimen patient [...] regimen of: Losartan 50 mg po daily BMP 12/03/2022 normal Plan: Increase Losartan to 100 mg po daily patient advised to adhere to a low sodium diet, encouraged about medication compliance, counseled about weight loss. Follow up in 3 months Assessment & Plan (12/02/2022 10:39 AM EDT): Patient with Hypertension currently uncontrolled on a regimen of: Losartan 50 mg po daily BMP 06/14/2022 normal Plan: 1 month follow up, [...] Encounters Date Type Department Care Team Description 11/06/2024 2:00 PM EST Office Visit [facility] [address] [place] [phone] Gene Wallace MD Type 2 diabetes mellitus without complication, with long-term current use of insulin ([facility]) (Primary Dx); HTN (hypertension), benign; Mixed hyperlipidemia; Coronary artery disease involving [place] coronary artery of [place] heart without angina pectoris; S/P CABG (coronary artery bypass graft); Acquired hypothyroidism; Preventative health care; Class 1 obesity due to excess calories without serious comorbidity with body mass index (BMI) of 32.0 to 32.9 in adult; Dietary counseling; Exercise counseling; Acute pain of both knees; Bilateral hip pain; Lesion of nose 11/06/2024 Travel 10/24/2024 Telephone [facility] [address] [place] [address] Gene Wallace MD Chart Prep 10/24/2024 Patient Outreach [facility] [address] [place] [address] Gene Wallace MD Pre-visit Planning (SDOH Screening negative and Tobacco screening negative) 10/21/2024 Refill [facility] & PEDS [address] [place] [address] Gene Wallace MD 10/15/2024 Refill [facility] [address] [place] [address] Gene Wallace MD Type 2 diabetes mellitus without complication, with long-term current use of insulin ([facility]) 10/10/2024 Orders Only GENERIC EXTERNAL DATA DEPARTMENT Provider, Generic External Data 08/28/[address] [address] Juanis Samaniego [place] Fe.Recall from Last 3 Months Immunizations Name Administration Dates Next Due HPV, Quadrivalent 06/12/2012 Influenza High-dose Quadriva lent Preservative Free 06/01/2022 Influenza Quadrivalent Adjuvanted 06/15/2020 Influenza injectable quadriv alent preservative free 05/27/2023 Influenza, High Dose Seasona l, Preservative Free 05/22/2021,05/26/2020,05/16/2019,06/23,06/22/2017 Influenza, IIV3, injectable 05/27/2014, 3 Influenza, seasonal, injecta ble, preservative free 06/07/2016,05/29/2015 Influenza, trivalent, adjuvanted 05/15/2024 [place] SARS-CoV-2 Vaccination 12/09/2020,2020 Moderna Covid-19 Vaccine [...] Sign Reading Time Taken Comments Blood Pressure 110/70 11/06/2024 1:47 PM EST Pulse 80 11/06/2024 1:47 PM EST Temperature 36.1 ??C (97 ??F) 11/06/2024 1:47 PM EST Respiratory Rate 18 11/06/2024 1:47 PM EST Oxygen Saturation 98% 11/06/2024 1:47 PM EST Inhaled Oxygen Concentration - - Weight 97.5 kg (215 lb) 11/06/2024 1:47 PM EST Height 172.7 cm (5' 8 ) 11/06/2024 1:47 PM EST Body Mass Index 32.69 11/06/2024 1:47 PM EST Plan of Treatment Upcoming Encounters Date Type Department Care Team (Late st Contact Info) Description 02/07/2025 10:15 AM EDT Office Visit [facility] [address] [place], [place] [phone] Gene Wallace MD [address], [place] [phone] Health Maintenance Due Date Last Done Comments Diabetes: Foot Exam 1960 Eye Exam 1960 Diabetes: Urine Protein Screening 09/09/2022 09/09/2021 RSV Patients and Patients Aged 60 years or older (1 - 1-dose 75+ series) 2023 COVID-19 Vaccine ( season) 2024 07/06/2022, 01/26/2022, 07/22/2021, Additional history exists Diabetes: Hemoglobin A1C 02/03/2025 025, 07/12/2024, 02/23/2024, Additional history exists Depression Screening 04/17/2025 04/17/2024, 04/17/20 24 Lipid Panel 04/25/2025 04/25/2024, 08/13, 12/03/2022, Additional history exists Alcohol/Substance Use Screening 07/12/2025 07/12/2024 SDOH Screening 10/24/2025 10/24/2024 Tobacco Screening 11/06/2025 11/06/2024 DTaP/Tdap/Td Vaccines (2 - Td or Tdap) [...] EST) No Carlito De La Cruz PharmD Procedures Procedure Name Priority Date/Time Associated Diagnosis Comments POCT GLYCATED HEMOGLOBIN, TOTAL Routine 11/06/2024 1:50 PM EST Type 2 diabetes mellitus without complication, with long-term current use of insulin ([facility]) POCT GLUCOSE Routine 11/06/2024 1:49 PM EST Type 2 diabetes mellitus without complication, with long-term current use of insulin ([facility]) PSA, TOTAL Routine 10/10/2024 7:50 AM EST LIPID PANEL, STANDARD Routine 04/25/2024 7:59 AM EDT Mixed hyperlipidemia HEPATITIS C AB W/REFL TO HCV RNA, QN, PCR Routine 12/03/2022 8:01 AM EDT Type 2 diabetes mellitus without complication, with long-term current use of insulin (CMS/HCC) ALBUMIN, RANDOM URINE W/CREATININE Routine 09/09/2021 8:02 AM EST from Last 3 Months or Most Recently Relevant to Health Maintenance Results * (ABNORMAL) POCT HGB A1C (11/06/2024 1:50 PM EST) Hemoglobin A1C 8.1(A) 4.0 - 6.0 % QC Media Lot # [id number] Lot# Expiration Date Blood 11/06/2024 1:50 PM EST Gene Castro MD POINT OF CARE TEST EN TER/EDIT ORDERABLES Final Result * POCT Glucose (11/06/2024 1:49 PM EST) Glucose Blood, POC 164 60 - 200 mg/dL QC Media Lot # [id number] Lot# Expiration Date Blood Capillary blood specimen / Unknown 11/06/2024 1:49 PM EST Gene Castro MD POINT OF CARE TEST EN TER/EDIT ORDERABLES Final Result * PSA,Total (10/10/2024 7:50 AM EST) Prostate Specific Antigen 3.98 <0.05 - 4.0 ng/mL [facility] Comment:PSA methodology: Abb hollis Alikikity i ChemiluminescentMicroparticle Immunoassay (CMIA) 10/10/2024 7:50 AM EST 10/10/2024 7:50 AM EST us Generic External Data Provider LAB BLOOD ORDERAB LES Final Result Performing Organization Address [facility]/ZIP Co de Phone Number [facility] [address] [place] [phone] * (ABNORMAL) Lipid Panel, Standard (04/25/2024 7:59 AM EDT) Triglycerides 121 <150 mg/dL [facility] Comment:Desirable Triglyceri de: less than 150 mg/dLBorderline High Triglyceride 150-199 mg/dLHigh Triglyceride: 200-499 mg/dLVery High Triglyceride: greater than or equal to 5OO mg/dL Cholesterol 137 <200 mg/dL [facility] Comment:Desirable Cholestero l: less than 200 mg/dLBorderline High Cholesterol: 200-239 mg/dLHigh Cholesterol: greater than 239 mg/dL LDL Cholesterol Calculated 77 <100 mg/dL [facility] Comment:Desirable LDL: less than 100 mg/dLNear Optimal/Above Optimal LDL: 110- 129 mg/dLBorderline High LDL: 130-159 mg/dLHigh LDL: 160-189 mg/dLVery High LDL: greater than or equal to 190 mg/dL HDL Cholesterol 36(L) >40 mg/dL [facility] Comment:Desirable HDL: great er than 40 mg/dL Note: This HDL assay may give artificially low results in patients with liver disease. Blood Venous blood specimen / Unknown 04/25/2024 7:59 AM EDT 04/25/2024 11:40 AM EDT us Gene Castro MD LAB BLOOD ORDERABLES Final Result Performing Organization Address [facility]/ZIP Co de Phone Number [facility] [address] [place] [phone] * Hepatitis C Antibody with Reflex to HCV, RNA, Quantitative, Real-Time PCR (12/03/2022 8:01 AM EDT) Hepatitis C Antibody NON-REACT PUNEET NON-REACT PUNEET [facility] Diagnost Index 0.05 <1.00 [facility] Comment: HCV antibody was non-reactive. There is no laboratory evidence of HCV infection. In most cases, no further action is required. However, if recent HCV exposure is suspected, a test for HCV RNA (test code 00811) is suggested. For additional information please refer to http://education.[employer]/faq/RLJ39i5 (This link is being provided for informational/ educational purposes only.) Blood Venous blood specimen / Unknown 12/03/2022 8:01 AM EDT 12/03/2022 8:02 AM EDT Narrative [facility] - 12/03/2022 8:32 PM EDT FASTING:YES FASTING: YES us Gene Castro MD LAB BLOOD ORDERABLES Final Result [facility] [address], [place] [address] [employer] [place] [address] [place] [address] * ALBUMIN, RANDOM URINE W/CREATININE (09/09/2021 8:02 AM EST) Microalbumin Urine 0.7 See Note: mg/dL [facility] Comment: Reference Range: ?? Reference [...] [facility] 09/09/2021 8:02 AM EST us Gene Castro MD LAB URINE ORDERABLES Final Result [facility] [address] from Last 3 Months or Most Recently Relevant to Health Maintenance Insurance [facility] STANDARD Member Subscriber Plan / Payer (Ef fective 2023-Present) Name:Driss Guerrero Relation to Subscriber:Self Name:Driss Guerrero Payer ID:Not on file Group ID:Not on file Type:Medicaid Address: [address] [id number] [address] Care Teams Job Site Superintendent Relationship Specialty Start Date End Date Ramsay Matthew, Gene, MD [address] [place] [address] PCP - General Internal Medicine 07/22/21 Carlito De La Cruz PharmD [address] [place] [address] Pharmacist Internal Medicine 01/24/23
--- OUTSIDE RECORDS SUMMARY | 2024-11-07 09:47 | XMS_ITS | Encounter Summary ---
Author Organization [employer] Address [address] [facility] 7t [place] [address] Care Team Providers Care Circus Performer Name Role Phone Gene Wallace MD Primary Care Provide r Carlito De La Cruz PharmD Unavailable [phone] Reason for Visit * Reason Onset Date Comments new script 10/07/2022 Encounter Details Date Type Department Care Team (Late Contact Info) Description 10/07/2022 Telephone [facility] MEDICINE [address] [place] [address] Gene Wallace MD [address] [place] [address] new script Social History Tobacco Use Types [...] Pen needles 8mm to be sent to [facility] Pharm[facility]. PCP DR. Ramsay documented in this encounter Plan of Treatment Upcoming Encounters Date Type Department Care Team (Late Contact Info) Description 02/07/2025 10:15 AM EDT Office Visit [facility] MEDICINE [address] [place] [address] Gene Wallace MD [address] [place] [address] documented as of this encounter Visit Diagnoses Diagnosis Type 2 diabetes mellitus without complication, with long-term current use of insulin ([facility]) documented in this encounter Care Teams Circus Performer Relationship Specialty Start Date End Date Gene Wallace MD [address] [place] [address] PCP - General Internal Medicine 07/22/21 Carlito De La Cruz, VargheseD [address] [place] [address] Pharmacist Internal Medicine 01/24/23 documented as of this encounter
--- OUTSIDE RECORDS SUMMARY | 2024-11-07 09:47 | XMS_ITS | Encounter Summary ---
Author Organization [employer] Address [address] [facility] [address]t [place] [address] Care Team Providers Care Journeyman Pressman Name Role Phone Gene Wallace MD Primary Care Provide r Carlito De La Cruz PharmD Unavailable [phone] Reason for Referral * Consultation (Routine) - Authorized Specialty Diagnoses / Procedures Referred By Jimmie garcia Referred To Contact Optometry Diagnoses Type 2 diabetes mellitus without complication, with long-term current use of insulin ([facility]) Gene Wallace MD [address] [place] [address] Phone: tel: fax: [facility] OPTOMETRY [address] [place] [address] Phone: tel: fax: Referral ID Status Reason Start Date Expiration Date Visits Requested Visits Authorized [id number] Authorized Consult and Treat 11/06/2024 11/06/2025 1 1 * Consultation (Routine) - Authorized Specialty Diagnoses / Procedures Referred By Jmimie t Referred To Contact Dermatology Diagnoses Lesion of nose Gene Wallace MD [address] [place] [address] Phone: tel: fax: Donal Hensley MD [address] [place] [address] Phone: tel: fax: Referral ID Status Reason Start Date Expiration Date Visits Requested Visits Authorized [id number] Authorized Specialty Services Required 11/06/2024 11/06/2025 1 1 Reason for Visit * Reason Comments Diabetes Mellitus Fatigue Encounter Details Date Type Department Care Team (Late st Contact Info) Description 11/06/2024 2:00 PM EST Office Visit [facility] MEDICINE [address] [place] [address] Gene Wallace MD [address] [place] [address] Type 2 diabetes mellitus without complication, with long-term current use of insulin (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 angina pectoris; S/P CABG (coronary artery bypass graft); Acquired hypothyroidism; Preventative health care; Class 1 obesity due to excess calories without serious comorbidity with body mass index (BMI) of 32.0 to 32.9 in adult; Dietary counseling; Exercise counseling; Acute pain of both knees; Bilateral hip pain; Lesion of nose Social History Tobacco Use Types Packs/Day Years [...] AM EDT documented as of this encounter Last Filed Vital Signs Vital Sign Reading [...] Mass Index 32.69 11/06/2024 1:47 PM EST documented in this encounter Progress Notes * Gene Castro MD - 11/06/2024 2:00 PM EST SUBJECTIVE Driss Johnson is a 74 y.o. adult who presents for Diabetes Mellitus and Fatigue. Diabetes He presents for his follow-up diabetic visit. He has type 2 diabetes mellitus. Pertinent negatives for hypoglycemia include no headaches. Pertinent negatives for diabetes include no chest pain. Review of Systems Constitutional: Negative for fever. HENT: Negative for sore throat. Respiratory: Negative for cough and shortness of breath. Cardiovascular: Negative for chest pain. Gastrointestinal: Negative for abdominal pain. Neurological: Negative for headaches. No Known Allergies OBJECTIVE Vitals: 11/06/24 1347 BP: 110/70 BP Location: Left arm Patient Position: Sitting BP Cuff Size: Adult Pulse: 80 Resp: 18 Temp: 97 ??F (36.1 ??C) TempSrc: Temporal SpO2: 98% Weight: 215 lb (97.5 kg) Height: 5' 8 (1.727 m) Physical Exam Vitals reviewed. Constitutional: Appearance: Normal appearance. HENT: Head: Normocephalic and atraumatic. Right Ear: External ear normal. Left Ear: External ear normal. Nose: Nose normal. Mouth/Throat: Mouth: Mucous membranes are moist. Eyes: Conjunctiva/sclera: Conjunctivae normal. Cardiovascular: Rate and Rhythm: Normal rate and regular rhythm. Pulmonary: Effort: Pulmonary effort is normal. Breath sounds: Normal breath sounds. Skin: General: Skin is warm. Neurological: Mental Status: He is alert. Mental status is at baseline. Assessment/Plan Problem List Items Addressed This Visit Type 2 diabetes mellitus without complication, with long-term current use of insulin ([facility]) - Primary Pt here for a f/u Dm improving, [...] check your feet on a daily basis. Relevant Medications Blood Glucose Monitoring Suppl (official.fm Verio) w/Device kit Other Relevant Orders POCT Glucose (Completed) POCT HGB A1C (Completed) Albumin, Random Urine W/Creatinine Referral to [facility] Eye Care HTN (hypertension), benign Patient here for a follow up currently [...] weight loss. Follow up in 4 months Relevant Orders Basic Metabolic Panel Hyperlipidemia Patient with elevated lipids. Lipid profile showed [...] diet, counseled and educated about diet and exercise,Patient encouraged to come up with a personal goal for weight loss. 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 Severe distal left main stenosis involving the ostial LAD and circumflex. Severe proximal LAD stenosis. High diagonal with ostial 80% stenosis and mid segment 90% stenosis. First OM 80% stenosis. Mid circumflex 80% stenosis. S/p CABG 12/09/2023 Last seen by Rehab Nursing Tech Dr Day 07/25/2024 Scheduled for f/u 6 months S/P CABG (coronary artery bypass graft) Doing well Following with cardiology Hypothyroidism Repeat Lab Results Component Value Date TSH 3.25 12/03/2022 Normal No record of hypothyroidism in the past Thyroid U/S 03/26/2022 showed: IMPRESSION: Normal sonographic appearance of the thyroid gland. No thyroid nodules meeting size criteria for additional follow-up. He is on Levothyroxine up to 50 mcg po daily' Was seen by Endocrinology 12/07/2021, Plan: Continue Levothyroxine 50 mcg po daily' Relevant Orders TSH with Reflex to Free T4 Preventative health care PSA 10/10/2024: Normal Colonoscopy: Past surg. 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 He is supposed to have colonoscopies to be repeated q 5 years, Last one we could obtain was from 01/23/2013 We contacted the office of Dr Concepcion directly unfortunately no more recent records were obtained Pt was treated in [place], at some point he had a repeat colonoscopy at [place] but no records were received from that colonoscopy 3 years ago other than a reference that it was done Pt was last seen by [place]ologist [place] [facility] he was told he did not needed to come back Previous visit pt was referred to Gastroenterology Dr Crowder, Pt no showed to that appointment. He was finally seen by Pooja Lomax NP at [facility]. Given his ongoing cardiac issues the repeat colonoscopy has been postponed until after he is cleared by cardiology Class 1 obesity without serious comorbidity with body mass index (BMI) of 32.0 to 32.9 in adult Patient has been counseled and educated about diet and exercise. Personal goal of weight loss discussedPatient has comorbidity of: DM Dietary Recommendations: Fruits, vegetables, whole grains, protein foods, and fat-free or low-fat dairy products are healthychoices. Eat different types of protein foods in your diet. This can include seafood, lean meats, poultry, beans, peas, lentils, nuts, seeds, soy products, and eggs. Limit foods and beverages higher in added sugars, saturated fat, and sodium. Exercise Recommendations: At least 150 minutes of moderate-intensity physical activity per week, or an equivalent combinationof moderate- and vigorous-intensity activity Bilateral knee pain Pt with c/o new onset Exam suggestive of OA Plan: Obtain plain films both knees Relevant Orders XR Knee 3 Views Right XR Knee 3 Views Left Bilateral hip pain Pt with c/o new onset Exam suggestive of OA Plan: Obtain plain films both hips Relevant Orders XR Hip 2 or 3 Views Right XR Hip 2 or 3 Views Left Lesion of nose Hyperpigmented lesion on the nose. Pt reports he has had it for at least 10 years, but lately feelslike it has increased in size Will refer to Dermatology Relevant Orders Referral to Dermatology Other Visit Diagnoses Dietary counseling Exercise counseling documented in this encounter Miscellaneous Notes * Assessment & Plan Note - Gene Castro MD - 11/06/2024 2:05 PM EST Associated Problem(s): Bilateral hip pain Pt with c/o new onset Exam suggestive of OA Plan: Obtain plain films both hips * Assessment & Plan Note - Gene Castro MD - 11/06/2024 2:04 PM EST Associated Problem(s): Bilateral knee pain Pt with c/o new onset Exam suggestive of OA Plan: Obtain plain films both knees * Assessment & Plan Note - Gene Castro MD - 11/06/2024 2:02 PM EST Associated Problem(s): Lesion of nose Hyperpigmented lesion on the nose. Pt reports he has had it for at least 10 years, but lately feelslike it has increased in size Will refer to Dermatology * Assessment & Plan Note - Gene Castro MD - 11/06/2024 1:44 PM EST Associated Problem(s): Class 1 obesity without serious comorbidity with body mass index (BMI) of 32.0 to 32.9 in adult Patient has been counseled and educated about diet and exercise. Personal goal of weight loss discussedPatient has comorbidity of: DM Dietary Recommendations: Fruits, vegetables, whole grains, protein foods, and fat-free or low-fat dairy products are healthychoices. Eat different types of protein foods in your diet. This can include seafood, lean meats, poultry, beans, peas, lentils, nuts, seeds, soy products, and eggs. Limit foods and beverages higher in added sugars, saturated fat, and sodium. Exercise Recommendations: At least 150 minutes of moderate-intensity physical activity per week, or an equivalent combinationof moderate- and vigorous-intensity activity * Assessment & Plan Note - Gene Castro MD - 11/06/2024 1:42 PM EST Associated Problem(s): Preventative health care PSA 10/10/2024: Normal Colonoscopy: Past surg. 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 He is supposed to have colonoscopies to be repeated q 5 years, Last one we could obtain was from 01/23/2013 We contacted the office of Dr Concepcion directly unfortunately no more recent records were obtained Pt was treated in [place], at some point he had a repeat colonoscopy at [place] but no records were received from that colonoscopy 3 years ago other than a reference that it was done Pt was last seen by an Oncologist [place] [facility], he was told he did not needed to come back Previous visit pt was referred to Gastroenterology Dr Crowder, Pt no showed to that appointment. He was finally seen by Pooja Lomax NP at [facility]. Given his ongoing cardiac issues the repeat colonoscopy has been postponed until after he is cleared by cardiology * Assessment & Plan Note - Gene Castro MD - 11/06/2024 12:47 PM EST Associated Problem(s): Hyperlipidemia Patient with elevated lipids. Lipid profile showed [...] diet, counseled and educated about diet and exercise,Patient encouraged to come up with a personal goal for weight loss. * Assessment & Plan Note - Gene Castro MD - 11/06/2024 12:47 PM EST Associated Problem(s): Hypothyroidism Repeat Lab Results Component Value Date TSH 3.25 12/03/2022 Normal No record of hypothyroidism in the past Thyroid U/S 03/26/2022 showed: IMPRESSION: Normal sonographic appearance of the thyroid gland. No thyroid nodules meeting size criteria for additional follow-up. He is on Levothyroxine up to 50 mcg po daily' Was seen by Endocrinology 12/07/2021, Plan: Continue Levothyroxine 50 mcg po daily' * Assessment & Plan Note - Gene Castro MD - 11/06/2024 12:45 PM EST Associated Problem(s): Type 2 diabetes mellitus without complication, with long-term current use ofinsulin ([facility]) Pt here for a f/u Dm improving, [...] check your feet on a daily basis. * Assessment & Plan Note - Gene Castro MD - 11/06/2024 12:44 PM EST Associated Problem(s): HTN (hypertension), benign Patient here for a follow up currently [...] weight loss. 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 Severe distal left main stenosis involving the ostial LAD and circumflex. Severe proximal LAD stenosis. High diagonal with ostial 80% stenosis and mid segment 90% stenosis. First OM 80% stenosis. Mid circumflex 80% stenosis. S/p CABG 12/09/2023 Last seen by Rehab Nursing Tech Dr Day 07/25/2024 Scheduled for f/u 6 months documented in this encounter Plan of Treatment Upcoming Encounters Date Type Department Care Team (Late st Contact Info) Description 02/07/2025 10:15 AM EDT Office Visit [facility] MEDICINE [address] [place], [place] [phone] Gene Wallace MD [address] [place], [place] [phone] Scheduled Orders Name Type Priority Associated Diagnoses Orde r Schedule TSH with Reflex to Free T4 Lab Routine Acquired hypothyroidism Ordered: 11/06/2024 Albumin, Random Urine W/Creatinine Lab Routine Type 2 diabetes mellitus without complication, with long-term current use of insulin (CMS/HCC) Ordered: 11/06/2024 XR Knee 3 Views Right Imaging Routine Acute pain of both knees Ordered: 11/06/2024 XR Knee 3 Views Left Imaging Routine Acute pain of both knees Ordered: 11/06/2024 XR Hip 2 or 3 Views Right Imaging Routine Bilateral hip pain Ordered: 11/06/2024 XR Hip 2 or 3 Views Left Imaging Routine Bilateral hip pain Expected: 11/06/2024, Expires: 11/06/2025 Basic Metabolic Panel Lab Routine HTN (hypertension), benign Ordered: 11/06/2024 Scheduled Referrals Name Type Priority Associated Diagnoses Order Schedule Referral to Dermatology Outpatient Referral Routine Lesion of nose Expected: 11/06/2024 (Approximate), Expires: 11/06/2025 Referral to [facility] Eye Care Outpatient Referral Routine Type 2 diabetes mellitus without complication, with long-term current use of insulin (CMS/HCC) Expected: 11/06/2024 (Approximate), Expires: 11/06/2025 documented as of this encounter Goals Goal [...] complication, with long-term current use of insulin ([facility]) POCT GLUCOSE Routine 11/06/2024 1:49 PM EST Type 2 diabetes mellitus without complication, with long-term current use of insulin ([facility]) documented in this encounter Results * (ABNORMAL) POCT HGB A1C (11/06/2024 1:50 PM EST) Hemoglobin A1C 8.1(A) 4.0 - 6.0 % QC Media Lot # [id number] Lot# Expiration Date Blood 11/06/2024 1:50 PM EST us Gene Castro MD POINT OF CARE TEST EN TER/EDIT ORDERABLES Final Result * POCT Glucose (11/06/2024 1:49 PM EST) Glucose Blood, POC 164 60 - 200 mg/dL QC Media Lot # [id number] Lot# Expiration Date Blood Capillary blood specimen / Unknown 11/06/2024 1:49 PM EST us Gene Castro MD POINT OF CARE TEST EN TER/EDIT ORDERABLES Final Result documented in this encounter Visit Diagnoses Diagnosis Type 2 diabetes mellitus without complication, with long-term current use of insulin (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 pectoris S/P CABG (coronary artery bypass graft) Postsurgical aortocoronary bypass status Acquired hypothyroidism Unspecified hypothyroidism Preventative health care Routine general medical examination at a health care facility Class 1 obesity due to excess calories without serious comorbidity with body mass index (BMI) of 32.0 to 32.9 in adult Dietary counseling Dietary surveillance and counseling Exercise counseling Acute pain of both knees Bilateral hip pain Pain in joint, pelvic region and thigh Lesion of nose documented in this encounter Additional Health Concerns Assessment Noted Time PHQ-9 Depression Total Score: 0 04/17/20 24 1:32 PM EDT documented as of this encounter Care Teams Journeyman Pressman Relationship Specialty Start Date End Date Gene Wallace MD [address] [place] [address] PCP - General Internal Medicine 07/22/21 Carlito De La Cruz PharmD [address] [place] [address] Pharmacist Internal Medicine 01/24/23 documented as of this encounter
--- OUTSIDE RECORDS SUMMARY | 2024-11-07 09:47 | XMS_ITS | Encounter Summary ---
Author Organization [employer] Address [address] [facility] [address]t [place] [address] Care Team Providers Care Labor Relations Teacher Name Role Phone Gene Wallace MD Primary Care Provide r Carlito De La Cruz PharmD Unavailable [phone] Reason for Visit * Reason Comments Med Refill Encounter Details Date Type Department Care Team (Late st Contact Info) Description 06/14/2023 Refill [facility] MEDICINE [address] [place] [address] Gene Wallace MD [address] [place] [address] Social History Tobacco Use Types Packs/Day Years [...] Description 02/07/2025 10:15 AM EDT Office Visit [facility] MEDICINE [address] [place] [address] Gene Wallace MD [address] [place] [address] documented as of this encounter Goals Goal [...] PharmAbel Hemoglobin A1c < 7 Result Component 8.1( 1:50 PM EST) No Carlito De La Cruz PharmD documented as of this encounter Visit Diagnoses Not on filedocumented in this encounter Additional Health Concerns Assessment Noted Time PHQ-9 Depression Total Score: 0 12/03/19 23 10:28 AM EDT documented as of this encounter Care Teams Labor Relations Teacher Relationship Specialty Start Date End Date Gene Wallace MD [address] [place] [address] PCP - General Internal Medicine 07/22/21 Carlito De La Cruz, Konstantin [address] [place] [address] Pharmacist Internal Medicine 01/24/23 documented as of this encounter
--- OUTSIDE RECORDS SUMMARY | 2024-11-07 09:47 | XMS_ITS | Encounter Summary ---
Author Organization [employer] Address [address] [facility] 7t [place] [address] Care Team Providers Care Jewel Oliving Machine Operator Name Role Phone Gene Wallace MD Primary Care Provide r Carlito De La Cruz PharmD Unavailable [phone] Reason for Visit * Reason Comments Med Refill Encounter Details Date Type Department Care Team (Late st Contact Info) Description 01/23/2024 Refill [facility] [address] [place] [address] Linda Flores MD [address] [place] [address] Social History Tobacco Use Types Packs/Day Years [...] Description 02/07/2025 10:15 AM EDT Office Visit [facility] MEDICINE [address] [place] [address] Gene Wallace MD [address] [place] [address] documented as of this encounter Goals Goal Patient Goal Type Associated Problems Recent Progress Patient-Stated? Author Blood Pressure < 140/90 Blood Pressure HTN (hypertension), benign 110/70(2024 1:47 PM EST) No Carliot De La Cruz, PharmD Keep fasting blood [...] documented as of this encounter Care Teams Jewel Oliving Machine Operator Relationship Specialty Start Date End Date Gene Wallace MD [address] [place] [address] PCP - General Internal Medicine 07/22/21 Carlito De La Cruz, VargheseD [address] [place] [address] Pharmacist Internal Medicine 01/24/23 documented as of this encounter
[2024-11-07 11:36] LABS: Anion Gap 10 (12-20); Blood Urea Nitrogen 22 mg/dL (9-16); Calcium 9.8 mg/dL (8.4-10.2); Carbon Dioxide 29 mmol/L (22-29); Chloride 103 mmol/L (96-108); Estimated Glomerular Filt Rate > 60; Glucose Random 182 mg/dL (60-115); Potassium 3.7 mmol/L (3.3-5.1); Sodium 138 mmol/L (135-145)
[2024-11-07 11:42] LABS: Creatinine Urine 211.69 mg/dL; Microalbum/Creatinine Ratio Ur 3.3 ug/mg cr (<30)
[2024-11-07 11:47] LABS: TSH reflex Free T4 4.69 uIU/mL (0.32-4.0)
[2024-11-07 13:09] LABS: Free T4 (Free Thyroxine) 0.98 ng/dL (0.71-1.85)
== END 2024-11-07 08:58 | disposition home or self-care (01) ==
LOC: HO.HHCL 08:57
PROVIDERS: Visit Provider Internal Medicine
DX: E03.9 Hypothyroidism, unspecified (principal); E11.9 Type 2 diabetes mellitus without complications; I10 Essential (primary) hypertension; Z79.4 Long term (current) use of insulin
CPT/HCPCS: 36415; 80048; 82043; 82570; 84439; 84443

== ENCOUNTER 2024-11-29 08:38 | Outpatient (REF) | payer MEDICAID, SELFPAY ==
--- NOTE | ~2024-11-29 | XR_ITS ---
EXAMINATION: XR HIP, LEFT CLINICAL INFORMATION: bilateral hip pain COMPARISON: None available. TECHNIQUE: Two views of the left hip. FINDINGS: Sclerosis along the articular surface of the left acetabulum and left femoral head with associated subchondral cyst formation. Asymmetric joint space narrowing, left coxofemoral joint. No acute cortical disruption or malalignment. No lytic or blastic lesions. XR/XR hip LT min 2V IMPRESSION: Gake-bp-rwxcokpi osteoarthrosis, left hip. Electronically signed by: Stevan Martinez MD 11/29/2024 09:17 AM EDT
--- NOTE | ~2024-11-29 | XR_ITS ---
EXAMINATION: XR HIP, RIGHT CLINICAL INFORMATION: bilateral hip pain COMPARISON: None available. TECHNIQUE: Two views of the right hip. FINDINGS: Sclerosis along the articular surface of the right acetabulum. Subchondral cyst formation femoral head. Asymmetric joint space narrowing. No acute cortical disruption or malalignment. No lytic or blastic lesions. 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 Electronically signed by: Stevan Martinez MD 11/29/2024 09:16 AM EDT
--- NOTE | ~2024-11-29 | XR_ITS ---
EXAMINATION: XR KNEE, RIGHT CLINICAL INFORMATION: bilateral knee pain COMPARISON: None available. TECHNIQUE: Four views of the right knee. FINDINGS: Chondrocalcinosis in the lateral and medial meniscus. Joint space narrowing medial compartment. Sclerosis of the articular surface in the medial and to a lesser extent lateral compartment of the tibial plateau and medial femoral condyle. No suprapatellar bursa joint effusion. Small osteophyte formation in the posterior superior patella. Vascular calcifications in the popliteal region. XR/XR knee RT 3V IMPRESSION: Tricompartmental osteoarthrosis, moderate involving mostly the medial compartment. Consider CPPD. Electronically signed by: Stevan Martinez MD 11/29/2024 09:20 AM EDT
--- NOTE | ~2024-11-29 | XR_ITS ---
EXAMINATION: XR KNEE, LEFT CLINICAL INFORMATION: knee pain COMPARISON: None available. TECHNIQUE: Four views of the left knee. FINDINGS: Chondrocalcinosis in the medial and lateral menisci. Asymmetric joint space narrowing involving the medial compartment with the sclerosis on the medial tibial plateau. No acute cortical disruption or malalignment. No lytic or blastic lesions. No suprapatellar bursa joint effusion. Small osteophyte formation in the posterior superior patella. Punctate calcifications in the popliteal region. XR/XR knee LT 3V IMPRESSION: Consider CPPD. Tricompartmental osteoarthrosis, mild to moderate involving likely the medial compartment. Probable vascular calcifications, popliteal region. Electronically signed by: Stevan Martinez MD 11/29/2024 09:19 AM EDT
--- OUTSIDE RECORDS SUMMARY | 2024-11-29 08:56 | XMS_ITS | Encounter Summary ---
Author Organization [employer] Address [address] [facility] [address]t [place] [address] Care Team Providers Care Glass Installer Name Role Phone Gene Wallace MD Primary Care Provide r Carlito De La Cruz PharmD Unavailable [phone] Encounter Details Date Type Department Care Team [...] Description 02/07/2025 10:15 AM EDT Office Visit [facility] MEDICINE [address] [place] [address] Gene Wallace MD [address] [place] [address] documented as of this encounter Goals Goal [...] documented as of this encounter Care Teams Glass Installer Relationship Specialty Start Date End Date Gene Wallace MD [address] [place] [address] PCP - General Internal Medicine 07/22/21 Carlito De La Cruz PharmD [address] [place] [address] Pharmacist Internal Medicine 01/24/23 documented as of this encounter
--- OUTSIDE RECORDS SUMMARY | 2024-11-29 08:56 | XMS_ITS | Encounter Summary ---
Author Organization [employer] Address [address] [facility] [address]t [place] [address] Care Team Providers Care Research Director Name Role Phone Gene Wallace MD Primary Care Provide r Carlito De La Cruz PharmD Unavailable [phone] Reason for Visit * Reason Comments Med Refill Encounter Details Date Type Department Care Team (Late st Contact Info) Description 06/14/2023 Refill [facility] MEDICINE [address] [place] [address] Gene Wallace MD [address] [place] [address] Social History Tobacco Use Types Packs/Day Years [...] Description 02/07/2025 10:15 AM EDT Office Visit [facility] MEDICINE [address] [place] [address] Gene Wallace MD [address] [place] [address] documented as of this encounter Goals Goal [...] documented as of this encounter Care Teams Research Director Relationship Specialty Start Date End Date Gene Wallace MD [address] [place] [address] PCP - General Internal Medicine 07/22/21 Carlito De La Cruz, Konstantin [address] [place] [address] Pharmacist Internal Medicine 01/24/23 documented as of this encounter
--- OUTSIDE RECORDS SUMMARY | 2024-11-29 08:56 | XMS_ITS | Encounter Summary ---
Author Organization [employer] Address [address] [facility] [address]t [place] [address] Care Team Providers Care Integration Specialist Name Role Phone Gene Wallace MD Primary Care Provide r Carlito De La Cruz PharmD Unavailable [phone] Reason for Referral * Consultation (Routine) - Authorized Specialty Diagnoses / Procedures Referred By Jimmie garcia Referred To Contact Optometry Diagnoses Type 2 diabetes mellitus without complication, with long-term current use of insulin ([facility]) Gene Wallace MD [address] [place] [address] Phone: tel: fax: [facility] OPTOMETRY [address] [place] [address] Phone: tel: fax: Referral ID Status Reason Start Date Expiration Date Visits Requested Visits Authorized [id number] Authorized Consult and Treat 11/06/2024 11/06/2025 1 1 * Consultation (Routine) - Authorized Specialty Diagnoses / Procedures Referred By Jimmie t Referred To Contact Dermatology Diagnoses Lesion of nose Gene Wallace MD [address] [place] [address] Phone: tel: fax: Donal Hensley MD [address] [place] [address] Phone: tel: fax: Referral ID Status Reason Start Date Expiration Date Visits Requested Visits Authorized [id number] Authorized Specialty Services Required 11/06/2024 11/06/2025 1 1 Reason for Visit * Reason Comments Diabetes Mellitus Fatigue Encounter Details Date Type Department Care Team (Late st Contact Info) Description 11/06/2024 2:00 PM EST Office Visit [facility] MEDICINE [address] [place] [address] Gene Wallace MD [address] [place] [address] Type 2 diabetes mellitus without complication, with long-term current use of insulin ([facility]) (Primary Dx); HTN (hypertension), benign; Mixed hyperlipidemia; Coronary artery disease involving [place] coronary artery of [place] heart without angina pectoris; S/P CABG (coronary [...] complication, with long-term current use of insulin ([facility]) - Primary Pt here for a f/u [...] basis. Relevant Medications Blood Glucose Monitoring Suppl ([employer]) w/Device kit Other Relevant Orders POCT Glucose (Completed) POCT HGB A1C (Completed) Albumin, Random Urine W/Creatinine Referral to [facility] Eye Care HTN (hypertension), benign Patient here [...] for weight loss. Coronary artery disease involving [place] coronary artery of [place] heart without angina pectoris Patient with CAD Cardiac Cath showed: Right dominant circulation. Proximal SPEAKER WIRER right coronary artery with mwki-fh-yugti collaterals. Severe distal left main stenosis involving the ostial LAD and circumflex. Severe proximal LAD stenosis. High diagonal with ostial 80% stenosis and mid segment 90% stenosis. First OM 80% stenosis. Mid circumflex 80% stenosis. S/p CABG 12/09/2023 Last seen by Wireless Field Technician Dr Day 07/25/2024 Scheduled for f/u 6 [...] records were obtained Pt was treated in [place], at some point he had a repeat colonoscopy at [place] but no records were received from that colonoscopy 3 years ago other than a reference that it was done Pt was last seen by an Oncologist at [facility], he was told he did not needed to come back Previous visit pt was referred to Gastroenterology Dr Crowder, Pt no showed to that appointment. He was finally seen by Pooja Lomax NP at [facility]. Given his ongoing cardiac issues [...] records were obtained Pt was treated in [place], at some point he had a repeat colonoscopy at [place] but no records were received from that colonoscopy 3 years ago other than a reference that it was done Pt was last seen by an Oncologist at [facility], he was told he did not needed to come back Previous visit pt was referred to Gastroenterology Dr Crowder, Pt no showed to that appointment. He was finally seen by Pooja Lomax NP at [facility]. Given his ongoing cardiac issues [...] without complication, with long-term current use ofinsulin ([facility]) Pt here for a f/u Dm improving, [...] EST Associated Problem(s): Coronary artery disease involving [place] coronary artery of [place] heart without angina pectoris Patient with CAD Cardiac Cath showed: Right dominant circulation. Proximal SPEAKER WIRER right coronary artery with pakx-we-nwumc collaterals. Severe distal left main stenosis involving the ostial LAD and circumflex. Severe proximal LAD stenosis. High diagonal with ostial 80% stenosis and mid segment 90% stenosis. First OM 80% stenosis. Mid circumflex 80% stenosis. S/p CABG 12/09/2023 Last seen by Wireless Field Technician Dr Day 07/25/2024 Scheduled for f/u 6 months documented in this encounter Plan of Treatment Upcoming Encounters Date Type Department Care Team (Late st Contact Info) Description 02/07/2025 10:15 AM EDT Office Visit [facility] MEDICINE [address] [place] [address] Gene Wallace MD [address] [place] [address] Scheduled Orders Name Type Priority Associated Diagnoses Orde r Schedule XR Knee 3 Views Right Imaging Routine Acute pain of both knees Ordered: 11/06/2024 XR Knee 3 Views Left Imaging Routine Acute pain of both knees Ordered: 11/06/2024 XR Hip 2 or 3 Views Right Imaging Routine Bilateral hip pain Ordered: 11/06/2024 XR Hip 2 or 3 Views Left Imaging Routine Bilateral hip pain Expected: 11/06/2024, Expires: 11/06/2025 Scheduled Referrals Name Type Priority Associated Diagnoses Order Schedule Referral to Dermatology Outpatient Referral Routine Lesion of nose Expected: 11/06/2024 (Approximate), Expires: 11/06/2025 Referral to [facility] Eye Care Outpatient Referral Routine Type 2 diabetes mellitus without complication, with long-term current use of insulin ([facility]) Expected: 11/06/2024 (Approximate), Expires: 11/06/2025 documented as of this encounter Goals Goal Patient Goal Type Associated Problems Recent Progress Patient-Stated? Author Blood Pressure < 140/90 Blood Pressure HTN (hypertension), benign 110/70(2024 1:47 PM EST) No Carlito De La Cruz PharmAbel Keep fasting blood glucose between 70 and 130 Result Component Type 2 diabetes mellitus without complication, with long-term current use of insulin On track( 023 11:39 AM EDT) No Carlito De La Cruz, PharmAbel Hemoglobin A1c < 7 Result Component 8.1( 1:50 PM EST) No Carlito De La Cruz PharmD documented as of this encounter Procedures Procedure Name Priority Date/Time Associated Diagnosis Comments TSH W/REFLEX TO FT4 Routine 11/07/2024 9:00 AM EST Acquired hypothyroidism ALBUMIN, RANDOM URINE W/CREATININE Routine 11/07/2024 9:00 AM EST Type 2 diabetes mellitus without complication, with long-term current use of insulin ([facility]) BASIC METABOLIC PANEL Routine 11/07/2024 9:00 AM EST HTN (hypertension), benign POCT GLYCATED HEMOGLOBIN, TOTAL Routine 11/06/2024 1:50 PM EST Type 2 diabetes mellitus without complication, with long-term current use of insulin ([facility]) POCT GLUCOSE Routine 11/06/2024 1:49 PM EST Type 2 diabetes mellitus without complication, with long-term current use of insulin ([facility]) documented in this encounter Results * (ABNORMAL) Basic Metabolic Panel (11/07/2024 9:00 AM EST) Sodium 138 135 - 145 mmol/L [facility] Potassium 3.7 3.3 - 5.1 mmol/L [facility] Chloride 103 96 - 108 mmol/L [facility] Carbon Dioxide 29 22 - 29 mmol/L [facility] Anion Gap 10(L) 12 - 20 [facility] Urea Nitrogen (BUN) 22(H) 9 - 16 mg/dL [facility] Creatinine, Serum 1.13 0.5 - 1.4 mg/dL [facility] Estimated Glomerular Filt Rate >60 [facility] Comment:Chronic Kidney Disea se: Estimated GFR < 60 mL/min/1.03o3Upwndj Kidney Disease: Estimated GFR < 15 mL/min/1.73m2 Glucose 182(H) 60 - 115 mg/dL [facility] Calcium 9.8 8.4 - 10.2 mg/dL [facility] Blood Venous blood specimen / Unknown 11/07/2024 9:00 AM EST 11/07/2024 11:08 AM EST Gene Castro MD LAB BLOOD ORDERABLES Final Result Performing Organization Address [facility] Co de Phone Number [facility] [address] [place] [phone] * Albumin, Random Urine W/Creatinine (11/07/2024 9:00 AM EST) Creatinine, Urine 211.69 mg/dL [facility] Microalbumin Urine 7.0 mg/L [facility] Microalbum Creatinine Ratio Ur 3.3 <30 ug/mg cr [facility] Comment:Albumin/Creatinine R atio Reference Ranges: Normal: < 30 ug/mg creatinine Microalbuminuria: 30 - 300 ug/mg creatinineClinical Albuminuria: > 300 ug/mg creatinine Urine (Urine, Random) 11/07/2024 9:00 AM EST 11/07/2024 11:06 AM EST Gene Castro MD LAB URINE ORDERABLES Final Result Performing Organization Address [facility] Co de Phone Number [facility] [address] [place] [phone] * (ABNORMAL) TSH with Reflex to Free T4 (11/07/2024 9:00 AM EST) TSH reflex Free T4 4.69(H) 0.32 - 4.0 uIU/mL [facility] Blood Venous blood specimen / Unknown 11/07/2024 9:00 AM EST 11/07/2024 11:08 AM EST Gene Castro MD LAB BLOOD ORDERABLES Final Result Performing Organization Address [facility] Co de Phone Number [facility] [address] [place] [address] [phone] * (ABNORMAL) POCT HGB A1C (11/06/2024 1:50 [...] complication, with long-term current use of insulin ([facility])- Primary HTN (hypertension), benign Essential hypertension, benign Mixed hyperlipidemia Coronary artery disease involving [place] coronary artery of [place] heart without angina pectoris S/P CABG (coronary [...] documented as of this encounter Care Teams Integration Specialist Relationship Specialty Start Date End Date Gene Wallace MD [address] [place] [address] PCP - General Internal Medicine 07/22/21 Carlito De La Cruz, VargheseD [address] [place] [address] Pharmacist Internal Medicine 01/24/23 documented as of this encounter
--- OUTSIDE RECORDS SUMMARY | 2024-11-29 08:57 | XMS_ITS | Encounter Summary ---
Author Organization [employer] Address [address] [facility] 7t [place] [address] Care Team Providers Care Solar Sales Consultant Name Role Phone Gene Wallace MD Primary Care Provide r Carlito De La Cruz PharmD Unavailable [phone] Reason for Visit * Reason Comments Med Refill Encounter Details Date Type Department Care Team ([facility] st Contact Info) Description 04/25/2024 Telephone [facility] MEDICINE [address] [place] [address] Marilyn Sutherland MD [address] [place] [address] Med Refill Social History Tobacco Use Types [...] 10:51 AM EDT Telephone call placed to [facility] Cardiology. Left V/m for Dr Day's [...] 10:15 AM EDT Office Visit [facility] MEDICINE [address] [place] [address] Gene Wallace MD [address] [place], [place] [phone] documented as of this encounter Goals Goal [...] documented as of this encounter Care Teams Solar Sales Consultant Relationship Specialty Start Date End Date Gene Wallace MD [address] [place] [address] [phone] PCP - General Internal Medicine 07/22/21 Carlito De La Cruz PharmD [address] [place] [address] [phone] Pharmacist Internal Medicine 01/24/23 documented as of this encounter
--- OUTSIDE RECORDS SUMMARY | 2024-11-29 08:57 | XMS_ITS | Encounter Summary ---
Author Organization [employer] Address [address] [facility] 7t [place] [address] Care Team Providers Care Animal Nurse Name Role Phone Gene Wallace MD Primary Care Provide r Carlito De La Cruz PharmD Unavailable [phone] Reason for Visit * Reason Comments Med Refill Encounter Details Date Type Department Care Team (Late st Contact Info) Description 01/23/2024 Refill [facility] [address] [place] [address] Linda Flores MD [address] [place] [address] Social History Tobacco Use Types Packs/Day Years [...] Description 02/07/2025 10:15 AM EDT Office Visit [facility] MEDICINE [address] [place] [address] Gene Wallace MD [address] [place] [address] documented as of this encounter Goals Goal [...] documented as of this encounter Care Teams Animal Nurse Relationship Specialty Start Date End Date Gene Wallace MD [address] [place] [address] PCP - General Internal Medicine 07/22/21 Carlito De La Cruz, VargheseD [address] [place] [phone] Pharmacist Internal Medicine 01/24/23 documented as of this encounter
--- OUTSIDE RECORDS SUMMARY | 2024-11-29 08:57 | XMS_ITS | Encounter Summary ---
Author Organization [employer] Address [address] [facility] 7t [place] [address] Care Team Providers Care Canoe Inspector Final Name Role Phone Gene Wallace MD Primary Care Provide r Carlito De La Cruz PharmD Unavailable [phone] Reason for Visit * Reason Onset Date Comments Durable Medical Equipment 12/07/2023 Encounter Details Date Type Department Care Team ([facility] st Contact Info) Description 12/07/2023 Telephone [facility] MEDICINE [address] [place] [address] eGne Wallace MD [address] [place] [address] Durable Medical Equipment Social History Tobacco Use [...] FAXED TO [employer] AND SC[employer] TO [employer]. * Telephone Encounter - Ramos Castro - 12/27/2023 2:03 PM EDT Tc from Michael at [facility] calling to inform the patients hospital [...] 10:15 AM EDT Office Visit [facility] [address] [facility] [place] [address] Gene Wallace MD [address] [place] [address] documented as of this encounter Goals Goal [...] documented as of this encounter Care Teams Canoe Inspector Final Relationship Specialty Start Date End Date Gene Wallace MD [address] [place] [address] PCP - General Internal Medicine 07/22/21 Carlito De La Cruz PharmD [address] [place], [place] [phone] Pharmacist Internal Medicine 01/24/23 documented as of this encounter
--- OUTSIDE RECORDS SUMMARY | 2024-11-29 08:57 | XMS_ITS | Encounter Summary ---
Author Organization [employer] Address [address] [facility] 7t [place] [address] Care Team Providers Care Cad Administrator Name Role Phone Gene Wallace MD Primary Care Provide r Carlito De La Cruz PharmD Unavailable [phone] Reason for Visit * Reason Onset Date Comments new script 10/07/2022 Encounter Details Date Type Department Care Team (Late Contact Info) Description 10/07/2022 Telephone [facility] MEDICINE [address] [place] [address] Gene Wallace MD [address] [place] [address] new script Social History Tobacco Use Types [...] Pen needles 8mm to be sent to [facility] Pharm[facility]. PCP DR. Ramsay documented in this encounter Plan of Treatment Upcoming Encounters Date Type Department Care Team (Late Contact Info) Description 02/07/2025 10:15 AM EDT Office Visit [facility] MEDICINE [address] [place] [address] Gene Wallace MD [address] [place] [address] documented as of this encounter Visit Diagnoses Diagnosis Type 2 diabetes mellitus without complication, with long-term current use of insulin ([facility]) documented in this encounter Care Teams Cad Administrator Relationship Specialty Start Date End Date Gene Wallace MD [address] [place] [phone] PCP - General Internal Medicine 07/22/21 Carlito De La Cruz, VargheseD [address] [place] [phone] Pharmacist Internal Medicine 01/24/23 documented as of this encounter
--- OUTSIDE RECORDS SUMMARY | 2024-11-29 08:57 | XMS_ITS | Encounter Summary ---
Author Organization [employer] Address [address] [facility] 7t [place] [address] Care Team Providers Care Steep Tender Name Role Phone Gene Wallace MD Primary Care Provide r Carlito De La Cruz PharmD Unavailable [phone] Reason for Visit * Reason Onset Date Comments Referral 11/28/2024 Encounter Details Date Type Department Care Team ([facility] st Contact Info) Description 11/28/2024 Telephone [facility] MEDICINE [address] [place] [address] Gene Wallace MD [address] [place] [address] Referral Social History Tobacco Use Types Packs/Day Years [...] encounter Miscellaneous Notes * Telephone Encounter - Kristine Tovar RN - 11/28/2024 3:22 PM EDT Telephone call to pt using [employer] japanese interpreter Viktor #[id number]. Pt reports still having bilateral knee pain, states it is the same pain as in office visit on 11/06/24 and asked about orthopedic referral. Advised pt that plan of care from office visit with Dr Devendra sheppard to complete bilateral knee xrays and hip xrays, pt stated he was unaware. Advised him he can get this done at [facility] tomorrow or [facility] and that typically, providers make referrals based on the results. Pt verbalized understanding, states he will go get xrays done tomorrow. * Telephone Encounter - Sarai Johnson - 11/28/2024 1:11 PM EDT Tc from pt requesting Orthopaedic referral regarding knee pain. Pt states spoke with PCP in last office visit (11/06/24). documented in this encounter Plan of Treatment Upcoming Encounters Date Type Department Care Team (Late st Contact Info) Description 02/07/2025 10:15 AM EDT Office Visit [facility] MED[facility]INE [address] [place] [address] Gene Wallace MD [address] [place] [address] documented as of this encounter Goals Goal [...] documented as of this encounter Care Teams Steep Tender Relationship Specialty Start Date End Date Gene Wallace MD [address] [place] [phone] PCP - General Internal Medicine 07/22/21 Carlito De La Cruz PharmD [address] [place] [phone] Pharmacist Internal Medicine 01/24/23 documented as of this encounter
--- OUTSIDE RECORDS SUMMARY | 2024-11-29 08:57 | XMS_ITS | Clinical Summary ---
Author Organization [employer] Address [address] [facility] 7[address] [place] [address] Care Team Providers Care Gastroenterology Teacher Name Role Phone Gene Wallace MD Primary Care Provide r Carlito De La Cruz PharmD Unavailable [phone] Allergies No known active allergies Medications finasteride (Proscar) 5 MG tablet Take 5 mg by mouth in the morning. 3 Active insulin pen needle (Easy Touch Pen [place]) 31G X 8 mm miscIndication s:Type 2 diabetes mellitus without complication, with long-term current use of insulin (CMS/HCC) USE DIRECTED 100 each 11 4 Active OneTouch Delica Lancets 33G misc 1 each 2 times daily. 100 each 4 Active glucose blood (OneTouch Verio) test stripIndicatio ns:Type 2 diabetes mellitus without complication, with long-term current use of insulin (CMS/HCC) 1 each by Other route every 8 (eight) hours. 100 each 11 4 Active meloxicam (Mobic) 15 MG tabletIndicati ons:Plantar fasciitis of right foot TAKE 1 TABLET BY MOUTH ONCE DAILY IN THE MORNING 30 tablet 11 4 Active Trulicity 3 MG/0.5ML solution auto-injectorI ndications:Typ e 2 diabetes mellitus without complication, with long-term current use of insulin (CMS/HCC) INJECT ONE PEN (= 3MG) SUBCUTANEOUSLY ONCE A WEEK DIRECTED 2 mL 3 5 Active Lantus SoloStar 100 UNIT/ML penIndications :Type 2 diabetes mellitus without complication, with long-term current use of insulin (CMS/HCC) INJECT 34 UNIT SUBCUTANEOUSLY EVERY EVENING 15 mL 3 5 Active levothyroxine (Synthroid, Levoxyl) 50 MCG tablet TAKE 1 TABLET BY MOUTH AT BEDTIME 90 tablet 1 5 Active losartan-hydro CHLOROthiazide (Hyzaar) 100-12.5 MG tablet TAKE 1 TABLET BY MOUTH EVERY DAY IN THE MORNING 90 tablet 1 5 Active atorvastatin (Lipitor) 80 MG tablet TAKE 1 TABLET BY MOUTH EVERY DAY AT BEDTIME 90 tablet 1 5 Active Aspirin Low Dose 81 MG EC tablet TAKE 1 TABLET BY MOUTH EVERY DAY 90 tablet 1 5 Active metoprolol succinate XL (Toprol-XL) 25 MG 24 hr tablet TAKE 1 TABLET BY MOUTH EVERY DAY 90 tablet 1 5 Active Blood Glucose Monitoring Suppl (Keyade Verio) w/Device kitIndications :Type 2 diabetes mellitus without complication, with long-term current use of insulin (CMS/HCC) Use daily 1 kit 5 Active Active Problems Patient Care Coordination No [...] records were obtained Pt was treated in [place], at some point he had a repeat colonoscopy at [place] but no records were received from that colonoscopy 3 years ago other than a reference that it was done Pt was last seen by an Oncologist at [facility], he was told he did not needed to come back Previous visit pt was referred to Gastroenterology Dr Crowder, Pt no showed to that appointment. He was finally seen by Pooja Lomax NP at [facility]. Given his ongoing cardiac issues the [...] with cardiology Coronary artery disease invo lving kake coronary artery of kake heart without angina pectoris 11/15/2023 Assessment & Plan (11/06/2024 12:44 PM EST): Patient with CAD Cardiac Cath showed: Right dominant circulation. Proximal PUBLIC RELATIONS SPECIALIST right coronary artery with [id number] collaterals. Severe distal left main stenosis involving the ostial LAD and circumflex. Severe proximal LAD stenosis. High diagonal with ostial 80% stenosis and mid segment 90% stenosis. First OM 80% stenosis. Mid circumflex 80% stenosis. S/p CABG 12/09/2023 Last seen by Professor Of Forest[employer] Dr Day 07/25/2024 Scheduled for f/u 6 months Assessment & Plan (04/17/2024 1:41 PM EDT): Patient with CAD Cardiac Cath showed: Right dominant circulation. Proximal PUBLIC RELATIONS SPECIALIST right coronary artery with [id number] collaterals. Severe distal left main stenosis involving the ostial LAD and circumflex. Severe proximal LAD stenosis. High diagonal with ostial 80% stenosis and mid segment 90% stenosis. First OM 80% stenosis. Mid circumflex 80% stenosis. S/p CABG 12/09/2023 Last seen by Professor Of Forestry Dr Day 04/10/2024 Scheduled for ECHO in 3-4 months Assessment & Plan (02/23/2024 12:54 PM EDT): Patient with CAD Most recent Cath showed: Right dominant circulation. Proximal PUBLIC RELATIONS SPECIALIST right coronary artery with [id number] collaterals. Severe distal left main stenosis involving the ostial LAD and circumflex. Severe proximal LAD stenosis. High diagonal with ostial 80% stenosis and mid segment 90% stenosis. First OM 80% stenosis. Mid circumflex 80% stenosis. He is now s/p CABG 12/09/2023 Last seen by Professor Of Forestry Dr Day 01/03/2024 Scheduled for cardiac rehab at some point Assessment & Plan (12/06/2023 8:39 AM EDT): Patient with CAD Most recent Cath showed: Right dominant circulation. Proximal PUBLIC RELATIONS SPECIALIST right coronary artery with [id number]-[id number] collaterals. Severe distal left main stenosis involving the ostial LAD and circumflex. Severe proximal LAD stenosis. High diagonal with ostial 80% stenosis and mid segment 90% stenosis. First OM 80% stenosis. Mid circumflex 80% stenosis. Pt was referred for CABG to cardiac surgeon by Professor Of Forestry scheduled for 12/09/2023 Assessment & Plan (11/15/2023 2:25 PM EST): As part of his PE, Pt had an EKG that showed Qs in III and AVF As a result I referred patient to cardiology Pt had a stress test that was abnormal and subsequently underwent a Cath Coronary anatomy: Right dominant circulation. Proximal PUBLIC RELATIONS SPECIALIST right coronary artery with [id number]-og-hcmzi collaterals. Severe distal left main stenosis involving the ostial LAD and circumflex. Severe proximal LAD stenosis. High diagonal with ostial 80% stenosis and mid segment 90% stenosis. First OM 80% stenosis. Mid circumflex 80% stenosis. Pt was referred for CABG to cardiac surgeon by Professor Of Forestry scheduled for 12/09/2023 Plantar fasciitis of right [...] CT right foot. 2nd opinion with Ortho destination specialist Assessment & Plan (07/12/2023 10:50 AM [...] records were obtained Pt was treated in [place], at some point he had a repeat colonoscopy at [place] but no records were received from that colonoscopy 3 years ago other than a reference that it was done Pt was last seen by an Oncologist at [facility], he was told he did not needed to come back Previous visit pt was referred to Gastroenterology Dr Crowder, Pt no showed to that appointment. He was finally seen by Pooja Lomax NP at [facility]. Given his ongoing cardiac issues the [...] records were obtained Pt was treated in [place], at some point he had a repeat colonoscopy at [place] but no records were received from that colonoscopy 3 years ago other than a reference that it was done Pt was last seen by an Oncologist at [facility], he was told he did not needed [...] records were obtained Pt was treated in [place], at some point he had a repeat colonoscopy at [place] but no records were received from that colonoscopy 3 years ago other than a reference that it was done Pt was last seen by an Oncologist at [facility], he was told he did not needed [...] records were obtained Pt was treated in [place], at some point he had a repeat colonoscopy at [place] but no records were received from that colonoscopy 3 years ago other than a reference that it was done Pt was last seen by an Oncologist at [facility], he was told he did not needed [...] records were obtained Pt was treated in [place], at some point he had a repeat colonoscopy at [place] but no records were received from that colonoscopy 3 years ago other than a reference that it was done Pt was last seen by an Oncologist at [facility], he was told he did not needed [...] daily Follows with our CDTM Program [facility] Lab Results Component Value Date NA 140 [...] of: Losartan 50 mg po daily [facility] 12/03/2022 normal Plan: Increase Losartan to 100 [...] Encounters Date Type Department Care Team Description 11/28/2024 Telephone [facility] [place] [address] Gene Wallace MD Referral 11/06/2024 2:00 PM EST Office Visit [facility] [address] [facility] [place] [address] Gene Wallace MD Type 2 diabetes mellitus without complication, with long-term current use of insulin (CMS/[facility]) (Primary Dx); HTN (hypertension), benign; Mixed hyperlipidemia; Coronary artery disease involving kake coronary artery of kake heart without angina pectoris; S/P CABG (coronary artery bypass graft); Acquired hypothyroidism; Preventative health care; Class 1 obesity due to excess calories without serious comorbidity with body mass index (BMI) of 32.0 to 32.9 in adult; Dietary counseling; Exercise counseling; Acute pain of both knees; Bilateral hip pain; Lesion of nose 11/06/2024 Travel 10/24/2024 Telephone [facility] [address] [place] [address] Gene Wallace MD Chart Prep 10/24/2024 Patient Outreach [facility] [address] [place] [address] Gene Wallace MD Pre-visit Planning (SDOH Screening negative and Tobacco screening negative) 10/21/2024 Refill [facility] [address] [place], [place] [phone] Gene Wallace MD 10/15/2024 Refill [facility] [address] [place] [address] Gene Wallace MD Type 2 diabetes mellitus without complication, with long-term current use of insulin (CMS/HCC) 10/10/2024 Orders Only GENERIC EXTERNAL DATA DEPARTMENT Provider, Generic External Data from Last 3 Months Immunizations Name Administration [...] 10:15 AM EDT Office Visit [facility] [address] [place] [address] Gene Wallace MD [address] [place] [address] Health Maintenance Due Date Last Done Comments Diabetes: Foot Exam 1960 Eye Exam 1960 RSV Patients and Patients Aged 60 years or older (1 - 1-dose 75+ series) 2023 COVID-19 Vaccine ( season) 2024 07/06/2022, 01/26/2022, 07/22/2021, Additional history exists Diabetes: Hemoglobin A1C 02/03/2025 025, 07/12/2024, 02/23/2024, Additional history exists Depression Screening 04/17/2025 04/17/2024, 04/17/20 Lipid Panel 04/25/2025 04/25/2024, 08/13, 12/03/2022, Additional history exists Alcohol/Substance Use Screening 07/12/2025 07/12/2024 SDOH Screening 10/24/2025 10/24/2024 Tobacco Screening 11/06/2025 11/06/2024 Diabetes: Urine Protein Screening 11/07/2025 11/07/2024, 09/09/2021 DTaP/Tdap/Td Vaccines (2 - Td or Tdap) 06/01/2032 06/01/2022 HPV Vaccines Aged Out 06/12/2012 No longer eligi ble based on patient's age to complete this topic Pneumococcal Vaccine: 50+ Years Completed 06/07/2016, 08/11/2015, 05/27/2014, Additional history exists Zoster Vaccines Completed 06/15/2022, 08/0 09/2021, 12/10/2013 Hepatitis C Screening Completed 12/03/2022, [...] Procedure Name Priority Date/Time Associated Diagnosis Comments T4, FREE Routine 11/07/2024 9:00 AM EST BASIC METABOLIC PANEL Routine 11/07/2024 9:00 AM EST HTN (hypertension), benign ALBUMIN, RANDOM URINE W/CREATININE Routine 11/07/2024 9:00 AM EST Type 2 diabetes mellitus without complication, with long-term current use of insulin (CMS/HCC) TSH W/REFLEX TO FT4 Routine 11/07/2024 9:00 AM EST Acquired hypothyroidism POCT GLYCATED HEMOGLOBIN, TOTAL Routine 11/06/2024 1:50 PM EST Type 2 diabetes mellitus without complication, with long-term current use of insulin (CMS/HCC) POCT GLUCOSE Routine 11/06/2024 1:49 PM EST Type 2 diabetes mellitus without complication, with long-term current use of insulin (CMS/HCC) PSA, TOTAL Routine 10/10/2024 7:50 AM EST LIPID PANEL, STANDARD Routine 04/25/2024 7:59 AM EDT Mixed hyperlipidemia HEPATITIS C AB W/REFL TO HCV RNA, QN, PCR Routine 12/03/2022 8:01 AM EDT Type 2 diabetes mellitus without complication, with long-term current use of insulin (CMS/HCC) from Last 3 Months or Most Recently Relevant to Health Maintenance Results * (ABNORMAL) TSH with Reflex to Free T4 (11/07/2024 9:00 AM EST) TSH reflex Free T4 4.69(H) 0.32 - 4.0 uIU/mL [facility] Blood Venous blood specimen / Unknown 11/07/2024 9:00 AM EST 11/07/2024 11:08 AM EST Gene Castro MD LAB BLOOD ORDERABLES Final Result Performing Organization Address [facility] Co de Phone Number [facility] [address] [place] [phone] * Albumin, Random Urine W/Creatinine (11/07/2024 9:00 AM EST) Creatinine, Urine 211.69 mg/dL [facility] Microalbumin Urine 7.0 mg/L [facility] Microalbum Creatinine Ratio Ur 3.3 <30 ug/mg cr [facility] Comment:Albumin/Creatinine R atio Reference Ranges: Normal: < 30 ug/mg creatinine Microalbuminuria: 30 - 300 ug/mg creatinineClinical Albuminuria: > 300 ug/mg creatinine Urine (Urine, Random) 11/07/2024 9:00 AM EST 11/07/2024 11:06 AM EST Gene Castro MD LAB URINE ORDERABLES Final Result Performing Organization Address [facility] Co de Phone Number [facility] [address] [place] [phone] * T4, Free (11/07/2024 9:00 AM EST) Free T4 (Free Thyroxine) 0.98 0.71 - 1.85 ng/dL [facility] 11/07/2024 9:00 AM EST 11/07/2024 11:08 AM EST Gene Castro MD LAB BLOOD ORDERABLES Final Result Performing Organization Address [facility] Co de Phone Number [facility] [address] [place] [phone] * (ABNORMAL) Basic Metabolic Panel (11/07/2024 9:00 AM EST) Pathologist [facility] Sodium 138 135 - 145 mmol/L [facility] Potassium 3.7 3.3 - 5.1 mmol/L [facility] Chloride 103 96 - 108 mmol/L [facility] Carbon Dioxide 29 22 - 29 mmol/L [facility] Anion Gap 10(L) 12 - 20 [facility] Urea Nitrogen (BUN) 22(H) 9 - 16 mg/dL [facility] Creatinine, Serum 1.13 0.5 - 1.4 mg/dL [facility] Estimated Glomerular Filt Rate >60 [facility] Comment:Chronic Kidney Disea se: Estimated GFR < 60 mL/min/[id number] Kidney Disease: Estimated GFR < 15 mL/min/1.73m2 Glucose 182(H) 60 - 115 mg/dL [facility] Calcium 9.8 8.4 - 10.2 mg/dL [facility] Blood Venous blood specimen / Unknown 11/07/2024 9:00 AM EST 11/07/2024 11:08 AM EST Gene Castro MD LAB BLOOD ORDERABLES Final Result [facility] [address] [place] [phone] * (ABNORMAL) POCT HGB A1C (11/06/2024 1:50 PM EST) Pathologist [facility] Hemoglobin A1C 8.1(A) 4.0 - 6.0 % QC Media Lot # [id number] Lot# Expiration Date Blood 11/06/2024 1:50 PM EST us Gene Castro MD POINT OF CARE TEST EN TER/EDIT ORDERABLES Final Result * POCT Glucose (11/06/2024 1:49 PM EST) Glucose Blood, POC 164 60 - 200 mg/dL [employer] Lot # [id number] Lot# Expiration Date [id number] Blood Capillary blood specimen / Unknown 11/06/2024 1:49 PM EST Gene Castro MD POINT OF CARE TEST EN TER/EDIT ORDERABLES Final Result * PSA,Total (10/10/2024 7:50 AM EST) Prostate Specific Antigen 3.98 <0.05 - 4.0 ng/mL [facility] Comment:PSA methodology: Abb hollis Alitasha i ChemiluminescentMicroparticle Immunoassay (CMIA) 10/10/2024 7:50 AM EST 10/10/2024 7:50 AM EST us Generic External Data Provider LAB BLOOD ORDERAB LES Final Result [facility] [address] [place] [phone] * (ABNORMAL) Lipid Panel, Standard (04/25/2024 7:59 AM EDT) Triglycerides 121 <150 mg/dL [facility] Comment:Desirable Triglyceri de: less than 150 mg/dLBorderline High Triglyceride 150-199 mg/dLHigh Triglyceride: 200-499 mg/dLVery High Triglyceride: greater than or equal to 5OO mg/dL Cholesterol 137 <200 mg/dL [facility] Comment:Desirable Cholestero l: less than 200 mg/dLBorderline High Cholesterol: 200-239 mg/dLHigh Cholesterol: greater than 239 mg/dL LDL Cholesterol Calculated 77 <100 mg/dL [facility] Comment:Desirable LDL: less than 100 mg/dLNear Optimal/Above Optimal LDL: 110- 129 mg/dLBorderline High LDL: 130-159 mg/dLHigh LDL: 160-189 mg/dLVery High LDL: greater than or equal to 190 mg/dL HDL Cholesterol 36(L) >40 mg/dL [facility] Comment:Desirable HDL: great er than 40 mg/dL Note: This HDL assay may give artificially low results in patients with liver disease. Blood Venous blood specimen / Unknown 04/25/2024 7:59 AM EDT 04/25/2024 11:40 AM EDT Gene Castro MD LAB BLOOD ORDERABLES Final Result Performing Organization Address City/[facility]/ZIP Co de Phone Number [facility] [address] [place] [phone] * Hepatitis C Antibody with Reflex to HCV, RNA, Quantitative, Real-Time PCR (12/03/2022 8:01 AM EDT) Hepatitis C Antibody NON-REACT PUNEET NON-REACT PUNEET uber[facility]U Index 0.05 <1.00 [facility] Comment: HCV antibody was non-reactive. There is no laboratory evidence of HCV infection. In most cases, no further action is required. However, if recent HCV exposure is suspected, a test for HCV RNA (test code 16022) is suggested. For additional information please refer to http://education.Prediculous/faq/YVJ22i6 (This link is being provided for informational/ educational purposes only.) Blood Venous blood specimen / Unknown 12/03/2022 8:01 AM EDT 12/03/2022 8:02 AM EDT Narrative [facility] - 12/03/2022 8:32 PM EDT FASTING:YES FASTING: YES Gene Castro MD LAB BLOOD ORDERABLES Final Result Performing Organization Address City/[facility] Co de Phone Number [facility] [address], [facility] [place] [phone] [employer] [address] [place] [phone] from Last 3 Months or Most Recently Relevant to Health Maintenance Insurance [facility] Care Teams Gastroenterology Teacher Relationship Specialty Start Date End Date Gene Wallace MD [address] [place] [phone] PCP - General Internal Medicine 07/22/21 Carlito De La Cruz, VargheseD [address] [place] [phone] Pharmacist Internal Medicine 01/24/23
--- OUTSIDE RECORDS SUMMARY | 2024-11-29 08:57 | XMS_ITS | Encounter Summary ---
Author Organization [employer] [facility] Address [address] [facility] [address] [place] [address] Care Team Providers Care Malted Milk Mixer Name Role Phone Gene Wallace MD Primary Care Provide r Carlito De La rCuz PharmD Unavailable [phone] Encounter Details Date Type Department Care Team (Late Contact Info) Description 10/08/[address] [facility] [address] [place] [phone] Denita Carrasco, NIKHIL Social History Tobacco Use [...] Description 02/07/2025 10:15 AM EDT Office Visit [facility] [address] [place] [phone] Gene Wallace MD [address] [place] [phone] documented as of this encounter Visit Diagnoses Not on filedocumented in this encounter Care Teams Malted Milk Mixer Relationship Specialty Start Date End Date Gene Wallace MD [address] [place] [phone] PCP - General Internal Medicine 07/22/21 Carlito De La Cruz, Konstantin [address] [place] [address] Pharmacist Internal Medicine 01/24/23 documented as of this encounter
== END 2024-11-29 08:39 | disposition home or self-care (01) ==
LOC: HO.HHCX 08:38
PROVIDERS: Visit Provider Internal Medicine
DX: M25.561 Pain in right knee (principal); M25.562 Pain in left knee; M25.551 Pain in right hip; M25.552 Pain in left hip
CPT/HCPCS: 73502; 73562

== ENCOUNTER → 2024-11-29 08:38 | Outpatient (BNV) | payer MEDICAID, SELFPAY | PROVIDERS: Visit Provider Radiology Diagnostic Radiology | DX: M25.551 Pain in right hip (principal); M25.552 Pain in left hip; M25.561 Pain in right knee; M25.562 Pain in left knee | CPT/HCPCS: 73502; 73562 ==

== ENCOUNTER 2024-12-17 07:46 | Outpatient (AMB) | payer MEDICAID, SELFPAY ==
--- OUTSIDE RECORDS SUMMARY | 2024-12-17 07:49 | XMS_ITS | Clinical Summary ---
Author Organization [employer] Address [address] [place] [address] Care Team Providers Care Claim Processing Specialist Name Role Phone Gene Wallace MD Primary Care Provide r Carlito De La Cruz PharmD Unavailable [phone] Allergies No known active allergies Medications finasteride (Proscar) 5 MG tablet Take 5 mg by mouth in the morning. 3 Active insulin pen needle (Easy Touch Pen Carpenter) 31G X 8 mm miscIndication s:Type 2 [...] 1 5 Active Blood Glucose Monitoring Suppl ([facility] Verio) w/Device kitIndications :Type 2 diabetes mellitus [...] records were obtained Pt was treated in [place], at some point he had a repeat colonoscopy at [place] but no records were received from that colonoscopy 3 years ago other than a reference that it was done Pt was last seen by an Oncologist at [facility], he was told he did not needed to come back Previous visit pt was referred to Gastroenterology Dr Crowder, Pt no showed to that appointment. He was finally seen by Pooja Lomax NP at [facility]. Given his ongoing cardiac issues [...] with cardiology Coronary artery disease invo lving chippewa-cree coronary artery of chippewa-cree heart without angina pectoris 11/15/2023 Assessment & Plan (11/06/2024 12:44 PM EST): Patient with CAD Cardiac Cath showed: Right dominant circulation. 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 Severe distal left main stenosis involving the ostial LAD and circumflex. Severe proximal LAD stenosis. High diagonal with ostial 80% stenosis and mid segment 90% stenosis. First OM 80% stenosis. Mid circumflex 80% stenosis. S/p CABG 12/09/2023 Last seen by Welfare Specialist Dr Day 07/25/2024 Scheduled for f/u 6 months Assessment & Plan (04/17/2024 1:41 PM EDT): Patient with CAD Cardiac Cath showed: Right dominant circulation. 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 Severe distal left main stenosis involving the ostial LAD and circumflex. Severe proximal LAD stenosis. High diagonal with ostial 80% stenosis and mid segment 90% stenosis. First OM 80% stenosis. Mid circumflex 80% stenosis. S/p CABG 12/09/2023 Last seen by Welfare Specialist Dr Day 04/10/2024 Scheduled for ECHO in 3-4 months Assessment & Plan (02/23/2024 12:54 PM EDT): Patient with CAD Most recent Cath showed: Right dominant circulation. 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 Severe distal left main stenosis involving the ostial LAD and circumflex. Severe proximal LAD stenosis. High diagonal with ostial 80% stenosis and mid segment 90% stenosis. First OM 80% stenosis. Mid circumflex 80% stenosis. He is now s/p CABG 12/09/2023 Last seen by Welfare Specialist Dr Day 01/03/2024 Scheduled for cardiac rehab at some point Assessment & Plan (12/06/2023 8:39 AM EDT): Patient with CAD Most recent Cath showed: Right dominant circulation. 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 Severe distal left main stenosis involving the ostial LAD and circumflex. Severe proximal LAD stenosis. High diagonal with ostial 80% stenosis and mid segment 90% stenosis. First OM 80% stenosis. Mid circumflex 80% stenosis. Pt was referred for CABG to cardiac surgeon by Welfare Specialist scheduled for 12/09/2023 Assessment & Plan (11/15/2023 2:25 PM EST): As part of his PE, Pt had an EKG that showed Qs in III and AVF As a result I referred patient to cardiology Pt had a stress test that was abnormal and subsequently underwent a Cath Coronary anatomy: Right dominant circulation. 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 Severe distal left main stenosis involving the ostial LAD and circumflex. Severe proximal LAD stenosis. High diagonal with ostial 80% stenosis and mid segment 90% stenosis. First OM 80% stenosis. Mid circumflex 80% stenosis. Pt was referred for CABG to cardiac surgeon by Welfare Specialist scheduled for 12/09/2023 Plantar fasciitis of right [...] CT right foot. 2nd opinion with Ortho engineer specialist Assessment & Plan (07/12/2023 10:50 AM [...] records were obtained Pt was treated in [place], at some point he had a repeat colonoscopy at [place] but no records were received from that colonoscopy 3 years ago other than a reference that it was done Pt was last seen by an Oncologist at [facility], he was told he did not needed to come back Previous visit pt was referred to Gastroenterology Dr Crowder, Pt no showed to that appointment. He was finally seen by Pooja Lomax NP at [facility]. Given his ongoing cardiac issues [...] records were obtained Pt was treated in [place], at some point he had a repeat colonoscopy at [place] but no records were received from that colonoscopy 3 years ago other than a reference that it was done Pt was last seen by an Oncologist at [facility], he was told he [...] records were obtained Pt was treated in [place], at some point he had a repeat colonoscopy at [place] but no records were received from that colonoscopy 3 years ago other than a reference that it was done Pt was last seen by an Oncologist at [facility], he was told he [...] records were obtained Pt was treated in [place], at some point he had a repeat colonoscopy at [place] but no records were received from that colonoscopy 3 years ago other than a reference that it was done Pt was last seen by an Oncologist at [facility], he was told he [...] records were obtained Pt was treated in [place], at some point he had a repeat colonoscopy at [place] but no records were received from that colonoscopy 3 years ago other than a reference that it was done Pt was last seen by an Oncologist at [facility], he was told he [...] po daily Follows with our CDTM Program [facility] Lab Results Component Value Date NA 140 [...] regimen of: Losartan 50 mg po daily [facility] 12/03/2022 normal Plan: Increase Losartan to [...] Encounters Date Type Department Care Team Description 12/04/2024 Orders Only [facility] [address] [place] [address] Gene Wallace MD Acute pain of both knees (Primary Dx); Bilateral hip pain 11/28/2024 Telephone [facility] [address] [place] [address] Gene Wallace MD Referral 11/06/2024 2:00 PM EST Office Visit [facility] [address] [place] [place] [address] Gene Wallace MD Type 2 diabetes mellitus without complication, with long-term current use of insulin (CMS/HCC) (Primary Dx); HTN (hypertension), benign; Mixed hyperlipidemia; Coronary artery disease involving chippewa-cree coronary artery of chippewa-cree heart without angina pectoris; S/P CABG (coronary artery bypass graft); Acquired hypothyroidism; Preventative health care; Class 1 obesity due to excess calories without serious comorbidity with body mass index (BMI) of 32.0 to 32.9 in adult; Dietary counseling; Exercise counseling; Acute pain of both knees; Bilateral hip pain; Lesion of nose 11/06/2024 Travel 10/24/2024 Telephone [facility] [place] [address] Gene Wallace MD Chart Prep 10/24/2024 Patient Outreach [facility] [address] [place] [address] Gene Wallace MD Pre-visit Planning (SDOH Screening negative and Tobacco screening negative) 10/21/2024 Refill [facility] [address] [place], [place] [phone] Gene Wallace MD 10/15/2024 Refill [facility] [address] [place], [place] [phone] Gene Wallace MD Type 2 diabetes mellitus [...] Description 02/07/2025 10:15 AM EDT Office Visit [facility] [address] [place] [address] Gene Wallace MD [address] [place] [address] Health Maintenance Due Date Last Done Comments Diabetes: Foot Exam 1958 Eye Exam 1958 RSV Patients and Patients Aged 60 years or older (1 - 1-dose 75+ series) 2023 COVID-19 Vaccine (2023- season) 2024 07/06/2022, 01/26/2022, 07/22/2021, Additional history [...] this topic Meningococcal Vaccine Aged Out No renia tulio eligible based on patient's age to [...] Procedure Name Priority Date/Time Associated Diagnosis Comments XR HIP 2 OR 3 VIEWS LEFT Routine 11/29/2024 8:38 AM EDT Bilateral hip pain XR HIP 2 OR 3 VIEWS RIGHT Routine 11/29/2024 8:38 AM EDT Bilateral hip pain XR KNEE 3 VIEWS LEFT Routine 11/29/2024 8:38 AM EDT Acute pain of both knees XR KNEE 3 VIEWS RIGHT Routine 11/29/2024 8:38 AM EDT Acute pain of both knees T4, FREE Routine 11/07/2024 9:00 AM EST BASIC METABOLIC PANEL Routine 11/07/2024 9:00 AM EST HTN (hypertension), benign ALBUMIN, RANDOM URINE W/CREATININE Routine 11/07/2024 9:00 AM EST Type 2 diabetes mellitus without complication, with long-term current use of insulin ([facility]) TSH W/REFLEX TO FT4 Routine 11/07/2024 9:00 AM EST Acquired hypothyroidism POCT GLYCATED HEMOGLOBIN, TOTAL Routine 11/06/2024 1:50 PM EST Type 2 diabetes mellitus without complication, with long-term current use of insulin ([facility]) POCT GLUCOSE Routine 11/06/2024 1:49 PM [...] Recently Relevant to Health Maintenance Results * XR Knee 3 Views Right (11/29/2024 8:38 AM EDT) Anatomical Region Laterality Modality Lower Extremities, Knee Right Radiogra phic Imaging 11/29/2024 8:38 AM EDT Narrative 11/29/2024 9:23 AM EDT ?[facility] ?[address] ?[place] [address] ?XRay Report ? Signed ? Patient: Driss Bender ?MR#: [id number] ?? 52 ? : 1950 ?Acct:[id number] ? Age/Sex: 74 / M ?ADM Date: 11/29/24 ? Loc: HO.HHCX ? Attending Dr: Gene Zarate MD ? Ordering Physician: Gene Zarate MD ?? Date of Service: 11/29/24 ?? Procedure(s): XR knee RT 3V ?? Accession Number(s): [id number] ? cc: Gene Zarate MD ? EXAMINATION: ?? XR KNEE, RIGHT ? CLINICAL INFORMATION: ?? bilateral knee pain ? COMPARISON: ?? None available. ? TECHNIQUE: ?? Four views of the right knee. ? FINDINGS: ?? Chondrocalcinosis in the lateral and medial meniscus. ?? Joint space narrowing medial compartment. ?? Sclerosis of the articular surface in the medial and to a lesser extent ?? lateral compartment of the tibial plateau and medial femoral condyle. ?? No suprapatellar bursa joint effusion. ?? Small osteophyte formation in the posterior superior patella. ?? Vascular calcifications in the popliteal region. ? XR/XR knee RT 3V ?? IMPRESSION: ?? 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 ?? Consider CPPD. ? Electronically signed by: ??Stevan Martinez MD ??11/29/2024 09:20 AM ?? EDT RP ? Dictated By: ?Stevan Garcia MD ? Signed By: ?<Electronically signed by Stevan Holloway MD in OV> ? 11/29/24 0920 ? DD/ 0838 ? TD/TT: 11/29/24 0900 ? Fur Repairer: ? Procedure Note Prestonenrique, Bassam - 11/29/[address] [address] XRay Report Signed Patient: Driss Bender EMR#: [id number] 52 : 1950cct:[id number] Age/Sex: 74 / MADM Date: 11/29/24 Loc: HO.HHCX Attending Dr: Gene Zarate MD Ordering Physician: Gene Zarate MD Date of Service: 11/29/24 Procedure(s): XR knee RT 3V Accession Number(s): [id number] cc: Gene Zarate MD EXAMINATION: XR KNEE, RIGHT CLINICAL INFORMATION: bilateral knee pain COMPARISON: None available. TECHNIQUE: Four views of the right knee. FINDINGS: Chondrocalcinosis in the lateral and medial meniscus. Joint space narrowing medial compartment. Sclerosis of the articular surface in the medial and to a lesser extent lateral compartment of the tibial plateau and medial femoral condyle. No suprapatellar bursa joint effusion. Small osteophyte formation in the posterior superior patella. Vascular calcifications in the popliteal region. XR/XR knee RT 3V IMPRESSION: Tricompartmental osteoarthrosis, moderate involving mostly the medial compartment. Consider CPPD. Electronically signed by: Stevan Martinez MD 11/29/2024 09:20 AM EDT Dictated By: Stevan Garcia MD Signed By: <Electronically signed by Stevan Holloway MDin OV> 11/29/24 09 DD/ 0838 TD/TT: 11/29/24 09 Fur Repairer: us Gene Castro MD IMG XR PROCEDURES Rodriguez peace Result - Final * XR Knee 3 Views Left (11/29/2024 8:38 AM EDT) Anatomical Region Laterality Modality Lower Extremities, Knee Left Radiogra phic Imaging 11/29/2024 8:38 AM EDT Narrative 11/29/2024 9:23 AM EDT ?[facility] ?[address] ?[place] [address] ?XRay Report ? Signed ? Patient: Driss Bender ?MR#: [id number] ?? 52 ? : 1950 ?Acct:[id number] ? Age/Sex: 74 / M ?ADM Date: 11/29/24 ? Loc: HO.HHCX ? Attending Dr: Gene Zarate MD ? Ordering Physician: Gene Zarate MD ?? Date of Service: 11/29/24 ?? Procedure(s): XR knee LT 3V ?? Accession Number(s): [id number] ? cc: Gene Zarate MD ? EXAMINATION: ?? XR KNEE, LEFT ? CLINICAL INFORMATION: ?? knee pain ? COMPARISON: ?? None available. ? TECHNIQUE: ?? Four views of the left knee. ? FINDINGS: ?? Chondrocalcinosis in the medial and lateral menisci. ?? Asymmetric joint space narrowing involving the medial compartment with ?? the sclerosis on the medial tibial plateau. ?? No acute cortical disruption or malalignment. No lytic or blastic ?? lesions. No suprapatellar bursa joint effusion. ?? Small osteophyte formation in the posterior superior patella. ?? Punctate calcifications in the popliteal region. ? XR/XR knee LT 3V ?? IMPRESSION: ?? Consider CPPD. ?? Tricompartmental osteoarthrosis, mild to moderate involving likely the ?? medial compartment. ?? Probable vascular calcifications, popliteal region. ? Electronically signed by: ??Stevan Martinez MD ??11/29/2024 09:19 AM ?? EDT RP ? Dictated By: ?Stevan Garcia MD ? Signed By: ?<Electronically signed by Stevan Holloway MD in OV> ? 11/29/24 0919 ? DD/ 0838 ? TD/TT: 11/29/24 0900 ? Fur Repairer: ? Procedure Note Ilsater, Image - 11/29/[address] [address] XRay Report Signed Patient: Driss Bender EMR#: [id number] [birth year] : 8Acct:[id number] Age/Sex: 74 / MADM Date: 11/29/24 Loc: HO.HHCX Attending Dr: Gene Zarate MD Ordering Physician: Gene Zarate MD Date of Service: 11/29/24 Procedure(s): XR knee LT 3V Accession Number(s): [id number] cc: Gene Zarate MD EXAMINATION: XR KNEE, LEFT CLINICAL INFORMATION: knee pain COMPARISON: None available. TECHNIQUE: Four views of the left knee. FINDINGS: Chondrocalcinosis in the medial and lateral menisci. Asymmetric joint space narrowing involving the medial compartment with the sclerosis on the medial tibial plateau. No acute cortical disruption or malalignment. No lytic or blastic lesions. No suprapatellar bursa joint effusion. Small osteophyte formation in the posterior superior patella. Punctate calcifications in the popliteal region. XR/XR knee LT 3V IMPRESSION: Consider CPPD. Tricompartmental osteoarthrosis, mild to moderate involving likely the medial compartment. Probable vascular calcifications, popliteal region. Electronically signed by: Stevan Martinez MD 11/29/2024 09:19 AM EDT Dictated By: Stevan Garcia MD Signed By: <Electronically signed by Stevan Holloway MDin OV> 11/29/24 0919 DD/ 0838 TD/TT: 11/29/24 0900 Fur Repairer: us Gene Castro MD IMG XR PROCEDURES Rodriguez peace Result - Final * XR Hip 2 or 3 Views Right (11/29/2024 8:38 AM EDT) Anatomical Region Laterality Modality Lower Extremities, Hip Right Radiograp hic Imaging 11/29/2024 8:38 AM EDT Narrative 11/29/2024 9:20 AM EDT ?[facility] ?[address] ?[place] [address] ?XRay Report ? Signed ? Patient: Driss Bender ?MR#: [id number] ?? 52 ? : 1950 ?Acct:[id number] ? Age/Sex: 74 / M ?ADM Date: 11/29/24 ? Loc: HO.HHCX ? Attending Dr: Gene Zarate MD ? Ordering Physician: Gene Zarate MD ?? Date of Service: 11/29/24 ?? Procedure(s): XR hip RT min 2V ?? Accession Number(s): [id number] ? cc: Gene Zarate MD ? EXAMINATION: ?? XR HIP, RIGHT ? CLINICAL INFORMATION: ?? bilateral hip pain ? COMPARISON: ?? None available. ? TECHNIQUE: ?? Two views of the right hip. ? FINDINGS: ?? Sclerosis along the articular surface of the right acetabulum. ?? Subchondral cyst formation femoral head. Asymmetric joint space ?? narrowing. No acute cortical disruption or malalignment. No lytic or ?? blastic lesions. ? XR/XR hip RT min 2V ?? IMPRESSION: ?? Mild to moderate osteoarthrosis, right hip. ? Electronically signed by: ??Stevan Martinez MD ??11/29/2024 09:16 AM ?? EDT RP ? Dictated By: ?Stevan Garcia MD ? Signed By: ?<Electronically signed by Stevan Holloway MD in OV> ? 11/29/24 0916 ? DD/ 0838 ? TD/TT: 11/29/24 0900 ? Fur Repairer: ? Procedure Note Donotrobbieinterpreter, Image - 11/29/2024 [facility] [address] [place] [address] XRay Report Signed Patient: Driss Bender EMR#: [id number] [birth year] : 8Acct:[id number] Age/Sex: 74 / MADM Date: 11/29/24 Loc: HO.HHCX Attending Dr: Gene Zarate MD Ordering Physician: Gene Zarate MD Date of Service: 11/29/24 Procedure(s): XR hip RT min 2V Accession Number(s): [id number] cc: Gene Zarate MD EXAMINATION: XR HIP, RIGHT CLINICAL INFORMATION: bilateral hip pain COMPARISON: None available. TECHNIQUE: Two views of the right hip. FINDINGS: Sclerosis along the articular surface of the right acetabulum. Subchondral cyst formation femoral head. Asymmetric joint space narrowing. No acute cortical disruption or malalignment. No lytic or blastic lesions. 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 Electronically signed by: Stevan Martinez MD 11/29/2024 09:16 AM EDT Dictated By: Stevan Garcia MD Signed By: <Electronically signed by Stevan Holloway MDin OV> 11/29/24 0916 DD/ 0838 TD/TT: 11/29/24 0900 Fur Repairer: us Gene Castro MD IMG XR PROCEDURES Rodriguez peace Result - Final * XR Hip 2 or 3 Views Left (11/29/2024 8:38 AM EDT) Anatomical Region Laterality Modality Lower Extremities, Hip Left Radiograp hic Imaging 11/29/2024 8:38 AM EDT Narrative 11/29/2024 9:22 AM EDT ?[facility] ?[address] ?[place] [address] ?XRay Report ? Signed ? Patient: Bender,Driss E ?MR#: [id number] ?? 52 ? : 1950 ?Acct:[id number] ? Age/Sex: 74 / M ?ADM Date: 11/29/24 ? Loc: HO.HHCX ? Attending Dr: Gene Zarate MD ? Ordering Physician: Gene Zarate MD ?? Date of Service: 11/29/24 ?? Procedure(s): XR hip LT min 2V ?? Accession Number(s): [id number] ? cc: Gene Zarate MD ? EXAMINATION: ?? XR HIP, LEFT ? CLINICAL INFORMATION: ?? bilateral hip pain ? COMPARISON: ?? None available. ? TECHNIQUE: ?? Two views of the left hip. ? FINDINGS: ?? Sclerosis along the articular surface of the left acetabulum and left ?? femoral head with associated subchondral cyst formation. ?? Asymmetric joint space narrowing, left coxofemoral joint. ?? No acute cortical disruption or malalignment. No lytic or blastic ?? lesions. ? XR/XR hip LT min 2V ?? IMPRESSION: ?? Qypq-dl-pxkokhdf osteoarthrosis, left hip. ? Electronically signed by: ??Stevan Martinez MD ??11/29/2024 09:17 AM ?? EDT RP ? Dictated By: ?Stevan Garcia MD ? Signed By: ?<Electronically signed by Stevan Holloway MD in OV> ? 11/29/24 0917 ? DD/ 0838 ? TD/TT: 11/29/24 0900 ? Fur Repairer: ? Procedure Note Bassam Lang - 11/29/2024 [facility] [address] [place] [address] XRay Report Signed Patient: Driss Bender EMR#: [id number] 52 : 1950Acct:[id number] Age/Sex: 74 / MADM Date: 11/29/24 Loc: .HHX Attending Dr: Gene Zarate MD Ordering Physician: Gene Zarate MD Date of Service: 11/29/24 Procedure(s): XR hip LT min 2V Accession Number(s): [id number] cc: Gene Zarate MD EXAMINATION: XR HIP, LEFT CLINICAL INFORMATION: bilateral hip pain COMPARISON: None available. TECHNIQUE: Two views of the left hip. FINDINGS: Sclerosis along the articular surface of the left acetabulum and left femoral head with associated subchondral cyst formation. Asymmetric joint space narrowing, left coxofemoral joint. No acute cortical disruption or malalignment. No lytic or blastic lesions. XR/XR hip LT min 2V IMPRESSION: Cxnc-bs-dfkzvnxg osteoarthrosis, left hip. Electronically signed by: Stevan Martinez MD 11/29/2024 09:17 AM EDT RP Dictated By: Stevan Garcia MD Signed By: <Electronically signed by Stevan Holloway MDin OV> 11/29/24 0917 DD/ 0838 TD/TT: 11/29/24 0900 Fur Repairer: Gene Castro MD IMG XR PROCEDURES Rodriguez peace Result - Final * (ABNORMAL) TSH with Reflex to Free T4 (11/07/2024 9:00 AM EST) TSH reflex Free T4 4.69(H) 0.32 - 4.0 uIU/mL [facility] Blood Venous blood specimen / Unknown 11/07/2024 9:00 AM EST 11/07/2024 11:08 AM EST Gene Castro MD LAB BLOOD ORDERABLES Final Result [facility] [address] [place] [phone] * Albumin, Random Urine W/Creatinine (11/07/2024 9:00 AM EST) Creatinine, Urine 211.69 mg/dL [facility] Microalbumin Urine 7.0 mg/L [facility] Microalbum Creatinine Ratio Ur 3.3 <30 ug/mg cr [facility] Comment:Albumin/Creatinine R atio Reference Ranges: Normal: < 30 ug/mg creatinine Microalbuminuria: 30 - 300 ug/mg creatinineClinical Albuminuria: > 300 ug/mg creatinine Urine (Urine, Random) 11/07/2024 9:00 AM EST 11/07/2024 11:06 AM EST Gene Castro MD LAB URINE ORDERABLES Final Result Performing Organization Address [facility] Co de Phone Number [facility] [address] [place] [phone] * T4, Free (11/07/2024 9:00 AM EST) Pathologist [facility] Free T4 (Free Thyroxine) 0.98 0.71 - 1.85 ng/dL [facility] 11/07/2024 9:00 AM EST 11/07/2024 11:08 AM EST Gene Castro MD LAB BLOOD ORDERABLES Final Result Performing Organization Address [facility] de Phone Number [facility] [address] [place] [phone] * (ABNORMAL) Basic Metabolic Panel (11/07/2024 9:00 AM EST) Pathologist [facility] Sodium 138 135 - 145 mmol/L [facility] Potassium 3.7 3.3 - 5.1 mmol/L [facility] Chloride 103 96 - 108 mmol/L [facility] Carbon Dioxide 29 22 - 29 mmol/L [facility] Anion Gap 10(L) 12 - 20 [facility] Urea Nitrogen (BUN) 22(H) 9 - 16 mg/dL [facility] Creatinine, Serum 1.13 0.5 - 1.4 mg/dL [facility] Estimated Glomerular Filt Rate >60 [facility] Comment:Chronic Kidney Disea se: Estimated GFR < 60 mL/min/[id number] Kidney Disease: Estimated GFR < 15 mL/min/1.73m2 Glucose 182(H) 60 - 115 mg/dL [facility] Calcium 9.8 8.4 - 10.2 mg/dL [facility] Blood Venous blood specimen / Unknown 11/07/2024 9:00 AM EST 11/07/2024 11:08 AM EST us Gene Castro MD LAB BLOOD ORDERABLES Final Result [facility] [address] [place] [phone] * (ABNORMAL) POCT HGB A1C (11/06/2024 [...] Media Lot # [id number] Lot# Expiration Date 628 Blood Capillary blood specimen / Unknown 11/06/2024 1:49 PM EST us Gene Castro MD POINT OF CARE TEST EN TER/EDIT ORDERABLES Final Result * PSA,Total (10/10/2024 7:50 AM EST) Prostate Specific Antigen 3.98 <0.05 - 4.0 ng/mL [facility] Comment:PSA methodology: Abb hollis Alikikity i ChemiluminescentMicroparticle Immunoassay (CMIA) 10/10/2024 7:50 AM EST 10/10/2024 7:50 AM EST Generic External Data Provider LAB BLOOD ORDERAB LES Final Result Performing Organization Address City/[facility]/ZIP Co de Phone Number [facility] [address] [place] [phone] * (ABNORMAL) Lipid Panel, Standard (04/25/2024 7:59 AM EDT) Triglycerides 121 <150 mg/dL [facility] Comment:Desirable Triglyceri de: less than 150 mg/dLBorderline High Triglyceride 150-199 mg/dLHigh Triglyceride: 200-499 mg/dLVery High Triglyceride: greater than or equal to 5OO mg/dL Cholesterol 137 <200 mg/dL [facility] Comment:Desirable Cholestero l: less than 200 mg/dLBorderline High Cholesterol: 200-239 mg/dLHigh Cholesterol: greater than 239 mg/dL LDL Cholesterol Calculated 77 <100 mg/dL [facility] Comment:Desirable LDL: less than 100 mg/dLNear Optimal/Above Optimal LDL: 110- 129 mg/dLBorderline High LDL: 130-159 mg/dLHigh LDL: 160-189 mg/dLVery High LDL: greater than or equal to 190 mg/dL HDL Cholesterol 36(L) >40 mg/dL [facility] Comment:Desirable HDL: great er than 40 mg/dL Note: This HDL assay may give artificially low results in patients with liver disease. Blood Venous blood specimen / Unknown 04/25/2024 7:59 AM EDT 04/25/2024 11:40 AM EDT us Gene Castro MD LAB BLOOD ORDERABLES Final Result Performing Organization Address City/[facility]/ZIP Co de Phone Number [facility] [address] [place] [address] [phone] * Hepatitis C Antibody with Reflex to HCV, RNA, Quantitative, Real-Time PCR (12/03/2022 8:01 AM EDT) Hepatitis C Antibody NON-REACT PUNEET NON-REACT PUNEET [facility] [place] [facility] Index 0.05 <1.00 [facility] [place] [facility] Comment: HCV antibody was non-reactive. There is no laboratory evidence of HCV infection. In most cases, no further action is required. However, if recent HCV exposure is suspected, a test for HCV RNA (test code 32449) is suggested. For additional information please refer to http://education.[employer]/faq/KHE20t4 (This link is being provided for informational/ educational purposes only.) Blood Venous blood specimen / Unknown 12/03/2022 8:01 AM EDT 12/03/2022 8:02 AM EDT Narrative [facility] - 12/03/2022 8:32 PM EDT FASTING:YES FASTING: YES Gene Castro MD LAB BLOOD ORDERABLES Final Result [facility] [address], [place] [address] [facility] [place] [facility] [address] [place] [address] from Last 3 Months or Most Recently Relevant to Health Maintenance Insurance [facility] [employer] Care Teams Claim Processing Specialist Relationship Specialty Start Date End Date Gene Wallace MD [address] [place] [address] PCP - General Internal Medicine 07/22/21 Carlito De La Cruz, Konstantin [address] [place] [address] Pharmacist Internal Medicine 01/24/23
--- OUTSIDE RECORDS SUMMARY | 2024-12-17 07:49 | XMS_ITS | Encounter Summary ---
Author Organization [employer] Address [address] [facility] 7t [place] [address] Care Team Providers Care Valving Machine Operator Name Role Phone Gene Wallace MD Primary Care Provide r Carlito De La Cruz PharmD Unavailable [phone] Reason for Visit * Reason Comments Med Refill Encounter Details Date Type Department Care Team ([facility] st Contact Info) Description 04/25/2024 Telephone [facility] [address] [place] [address] Marilyn Sutherland MD [address] [place] [address] Med Refill Social History Tobacco Use Types [...] 10:51 AM EDT Telephone call placed to [facility]. Left V/m for Dr Day's KATHIA [...] EDT Office Visit [facility] [address] [place] [address] Gene Wallace MD [address] [place], [place] [phone] documented as of this encounter Goals Goal [...] documented as of this encounter Care Teams Valving Machine Operator Relationship Specialty Start Date End Date Gene Wallace MD [address] [place] [address] [phone] PCP - General Internal Medicine 07/22/21 Carlito De La Cruz PharmD [address] [place] [address] [phone] Pharmacist Internal Medicine 01/24/23 documented as of this encounter
--- OUTSIDE RECORDS SUMMARY | 2024-12-17 07:49 | XMS_ITS | Encounter Summary ---
Author Organization [employer] Address 75 [facility] 7t [place] [address] Care Team Providers Care Regulatory Intern Name Role Phone Gene Wallace MD Primary Care Provide r Carlito De La Cruz PharmD Unavailable [phone] Reason for Visit * Reason Onset Date Comments Durable Medical Equipment 12/07/2023 Encounter Details Date Type Department Care Team ([facility] st Contact Info) Description 12/07/2023 Telephone [facility] [address] [place] [address] Gene Wallace MD [address] [place] [address] Durable Medical Equipment Social History Tobacco Use [...] FAXED TO [employer] AND SCAN TO [employer]. * Telephone Encounter - Ramos Castro - 12/27/2023 2:03 PM EDT Tc from Michael at [facility] calling to inform the patients hospital bed [...] Description 02/07/2025 10:15 AM EDT Office Visit [facility] [address] [facility] [place] [address] Gene Wallace MD [address] [place] [address] documented as of this encounter Goals Goal [...] documented as of this encounter Care Teams Regulatory Intern Relationship Specialty Start Date End Date Gene Wallace MD [address] [place] [address] PCP - General Internal Medicine 07/22/21 Carlito De La Cruz PharmD [address] [place], [place] [phone] Pharmacist Internal Medicine 01/24/23 documented as of this encounter
--- OUTSIDE RECORDS SUMMARY | 2024-12-17 07:49 | XMS_ITS | Encounter Summary ---
Author Organization [employer] Address 75 [facility] 7t [place] [address] Care Team Providers Care Facility Manager Name Role Phone Gene Wallace MD Primary Care Provide r Carlito De La Cruz PharmD Unavailable [phone] Reason for Visit * Reason Comments Med Refill Encounter Details Date Type Department Care Team (Late st Contact Info) Description 06/14/2023 Refill [facility] [address] [place] [address] Gene Wallace MD [address] [place] [address] Social History Tobacco Use Types Packs/Day Years [...] 02/07/2025 10:15 AM EDT Office Visit [facility] [address] [place] [address] Gene Wallace MD [address] [place] [address] documented as of this encounter Goals Goal [...] documented as of this encounter Care Teams Facility Manager Relationship Specialty Start Date End Date Gene Wallace MD [address] [place] [address] PCP - General Internal Medicine 07/22/21 Carlito De La Cruz, Konstantin [address] [place] [address] Pharmacist Internal Medicine 01/24/23 documented as of this encounter
--- OUTSIDE RECORDS SUMMARY | 2024-12-17 07:49 | XMS_ITS | Encounter Summary ---
Author Organization [employer] Address [address] [facility] 7t [place] [address] Care Team Providers Care Wringer And Setter Name Role Phone Gene Wallace MD Primary Care Provide r Carlito De La Cruz PharmD Unavailable [phone] Reason for Visit * Reason Comments Med Refill Encounter Details Date Type Department Care Team (Late st Contact Info) Description 01/23/2024 Refill [facility] & [facility]EDS [address] [place] [address] Linda Flores MD [address] [place] [address] Social History Tobacco Use Types Packs/Day Years [...] 10:15 AM EDT Office Visit [facility] MEDICINE [address] [place] [address] Gene Wallace MD [address] [place] [address] documented as of this encounter Goals Goal [...] documented as of this encounter Care Teams Wringer And Setter Relationship Specialty Start Date End Date Gene Wallace MD [address] [place] [address] PCP - General Internal Medicine 07/22/21 Carlito De La Cruz, VargheseD [address] [place] [phone] Pharmacist Internal Medicine 01/24/23 documented as of this encounter
--- OUTSIDE RECORDS SUMMARY | 2024-12-17 07:49 | XMS_ITS | Encounter Summary ---
Author Organization [employer] Address 75 [facility] 7t [place] [address] Care Team Providers Care Fisher Trap Name Role Phone Gene Wallace MD Primary Care Provide r Carlito De La Cruz PharmD Unavailable [phone] Reason for Visit * Reason Onset Date Comments new script 10/07/2022 Encounter Details Date Type Department Care Team (Late Contact Info) Description 10/07/2022 Telephone [facility] [address] [place] [address] Gene Wallace MD [address] [place] [address] new script Social History Tobacco Use Types [...] Pen needles 8mm to be sent to [facility] Pharm[facility]. PCP DR. Ramsay documented in this encounter Plan of Treatment Upcoming Encounters Date Type Department Care Team (Late Contact Info) Description 02/07/2025 10:15 AM EDT Office Visit [facility] [address] [place] [address] Gene Wallace MD [address] [place] [address] documented as of this encounter Visit Diagnoses Diagnosis Type 2 diabetes mellitus without complication, with long-term current use of insulin ([facility]) documented in this encounter Care Teams Fisher Trap Relationship Specialty Start Date End Date Gene Wallace MD [address] [place] [phone] PCP - General Internal Medicine 07/22/21 Carlito De La Cruz, VargheseD [address] [place] [phone] Pharmacist Internal Medicine 01/24/23 documented as of this encounter
--- OUTSIDE RECORDS SUMMARY | 2024-12-17 07:49 | XMS_ITS | Encounter Summary ---
Author Organization [facility] Address [address] [facility] 7t [place] [address] Care Team Providers Care Gristmiller Name Role Phone Gene Wallace MD Primary Care Provide r Carlito De La Cruz PharmD Unavailable [phone] Encounter Details Date Type Department Care Team (Late Contact Info) Description 10/08/2022 Orders Only [facility] MED[facility]INE [address] [place] [address] Denita Carrasco, NIKHIL Social History Tobacco Use [...] Description 02/07/2025 10:15 AM EDT Office Visit [facility] MED[facility] [address] [place] [address] Gene Wallace MD [address] [place] [address] documented as of this encounter Visit Diagnoses Not on filedocumented in this encounter Care Teams Gristmiller Relationship Specialty Start Date End Date Gene Wallace MD [address] [place] [id number] PCP - General Internal Medicine 07/22/21 Carlito De La Cruz, Konstantin [address] [place] [address] Pharmacist Internal Medicine 01/24/23 documented as of this encounter
--- NOTE | 2024-12-17 08:15 | A.OFFVIS_ITS ---
Vital Signs 12/17/24 08:27 Height 5 ft 8 in Weight 217 lb BMI 33.0 Intake Visit Reasons: New Pt - B/L knee pain Intake Note: Driss is a 74 year old male who presents today as a new patient for a evaluation of his bilateral knee pain. Patient reports ongoing pain for about 2 year ago. He states that his pain is worse in both knees. Patient notices that his pain is through out both knees. When patient is walking, using the stairs, bending makes his pain worse. Patient has tried Tylenol, heat/ice and NSAIDs with mild relief for a couple hours. IMPRESSION (right knee): Tricompartmental osteoarthrosis, moderate involving mostly the medial compartment. Consider CPPD. IMPRESSION (left knee): Consider CPPD. Tricompartmental osteoarthrosis, mild to moderate involving likely the medial compartment. Probable vascular calcifications, popliteal region. Allergies No Known Allergies [No Known Allergies*] Allergy (Verified 12/17/24 08:27) HPI HPI New Pt - B/L knee pain: Details: Mr. Aguilera is a 74-year-old male who presents the office today for bilateral knee pain for the past several years. He denies any injury or trauma. He he he has increased pain with going from a sitting to standing position as well as squatting or stair climbing. He has not had any treatment such as physical therapy or cortisone injections. [facility] Medical History Atherosclerotic cardiovascular disease Diabetes Abnormal EKG Pre-op examination BPH (benign prostatic hyperplasia) Hypertension Surgical History Status post aorto-coronary artery bypass graft S/P partial colectomy Family History Mother Heart problem Sister Heart problem Social History (Updated 12/17/24 @ 08:27 by Alisa Corley) Alcohol intake: former Patient Tobacco Use Status: Former Tobacco user Current occupational status: retired Review of Systems Const All systems reviewed & are unremarkable except as noted in HPI and below Physical Exam Vital Signs: BMI result Body Mass Index 33.0 Const General: cooperative, healthy appearing and no acute distress Resp Effort & Inspection: normal respiratory effort and able to speak in complete sentences Cardio Rate: regular rate Peripheral pulses: Peripheral pulses 2+ throughout Skin Lesions: no lesions Rashes: no rashes Extrem Other: Right/Left knees: Normal to inspection. No ecchymosis, erythema, or joint effusion. Full knee extension and flexion. Crepitus felt with range of motion. NVI. Office Procedures AMB Joint Injection/Aspiration Joint Injection/Aspiration Primary Site: right knee Secondary Site: left knee Prep: site was prepped using aseptic technique, ethochloride spray was applied and injection warnings given Injected: 40 mg of, DepoMedrol, with 8 mL of (2% plain lidocaine) and in the joint Approach Used: anterolateral Procedure: The patient tolerated the procedure well, but had some pain with the injection and there was some relief with the local anesthesia Coding - Bilateral Large Joint Procedure code (CPT) selection complete Assessment & Plan Assessment & Plan (1) Osteoarthritis of knees, bilateral: Code(s): M17.0 - Bilateral primary osteoarthritis of knee Category: Medical (2) Diabetes: Code(s): E11.9 - Type 2 diabetes mellitus without complications Category: Medical Plan The patient was offered a cortisone injection in bilateral knees with 40 mg of DepoMedrol. The patient was explained the risks, benefits, and alternatives to receiving this injection. After receiving consent for the injection, the patient had the procedure done while in the office today. The patient tolerated the procedure well with no complications. Due to the patient?s history of diabetes, they were instructed to monitor their blood glucose level. The patient was informed that they could see a rise in their numbers and if the numbers became too high, they were instructed to call their PCP. The patient was also informed that they could have facial flushing as a side effect of the injection, but this will pass. Follow-up will be p.r.n., or sooner if needed X-rays of the left knee which were obtained on 11/29/2024 were reviewed by me, Corazon Tello PA-C, revealed osteoarthritis bilateral knees. Coding Level of Care Code New Pt Level 4 (13233) Diagnoses Osteoarthritis of knees, bilateral M17.0 Diabetes E11.9 CPT Codes Coding - - Bilateral Large Joint: 45029 - Bilateral Large Joint ([id number])
[2024-12-17 08:27] VITALS: BMI 33.0
== END 2024-12-17 08:52 | disposition home or self-care (01) ==
LOC: HO.HOS 07:47
PROVIDERS: Visit Provider Physician Assistant
DX: M17.0 Bilateral primary osteoarthritis of knee (principal); E11.9 Type 2 diabetes mellitus without complications
CPT/HCPCS: 20610; 99203

== ENCOUNTER → 2024-12-17 07:46 | Outpatient (BNVA) | payer MEDICAID, SELFPAY | PROVIDERS: Visit Provider Physician Assistant | DX: M17.0 Bilateral primary osteoarthritis of knee (principal); E11.9 Type 2 diabetes mellitus without complications | CPT/HCPCS: 20610; 99212; J1010; J2003 ==

== ENCOUNTER 2024-12-19 12:50 | Outpatient (AMB) | payer MEDICARE, MEDICAID, SELFPAY ==
[2024-12-19 13:22] VITALS: BP 122/68; PULSE 72; BMI 32.5
--- NOTE | 2024-12-19 13:22 | A.OFFVIS_ITS ---
Vital Signs 12/19/24 13:22 Height 5 ft 8 in Weight 213 lb 13.574 oz BMI 32.5 BP 122/68 Blood Pressure Location Lt brachial Position Sitting Pulse 72 Pulse Source Monitor Intake Visit Reasons: new onset leg edema Collar Turner Operator Required: Yes Collar Turner Operator Name: RAYMOND [id number] Allergies No Known Allergies [No Known Allergies*] Allergy (Verified 12/17/24 08:27) Medication List - Last Reconciled 12/19/24 by Federico Day MD aspirin (Adult Aspirin Regimen) 81 mg PO DAILY atorvastatin 80 mg PO BEDTIME dulaglutide (Trulicity) mg subcut finasteride 5 mg PO DAILY 90 days glipizide 5 mg PO BID insulin glargine (Lantus Solostar U-100 Insulin) 26 units subcut QPM levothyroxine 50 mcg PO DAILY losartan-hydrochlorothiazide 100-12.5 mg 1 tab PO DAILY metoprolol succinate ER (Toprol XL) 25 mg PO DAILY HPI Comments Details: Driss returns for follow-up. In the past, he was seen regarding abnormal EKG/preoperative evaluation for colonoscopy. Multiple cardiovascular risk factors. He was also describing chest tightness. That led to further workup eventually leading to cardiac catheterization followed by bypass surgery. For the most part, he seems to be feeling okay but has been noticing some leg swelling and that is bothering him. Has been present for the last few weeks according to him. No shortness of breath or angina. [facility] Medical History Atherosclerotic cardiovascular disease Diabetes Abnormal EKG Pre-op examination BPH (benign prostatic hyperplasia) Hypertension Surgical History Status post aorto-coronary artery bypass graft S/P partial colectomy Family History Mother Heart problem Sister Heart problem Social History (Updated 12/17/24 @ 08:27 by Alisa Corley) Alcohol intake: former Patient Tobacco Use Status: Former Tobacco user Current occupational status: retired Review of Systems Const Denies weakness ENT Denies dizziness Card Denies chest pain, Denies chest pain with activity, Denies syncope, Denies rapid heart rate, Denies pedal edema, Denies edema, Denies leg edema, Denies lightheadedness, Denies palpitations, Denies dyspnea, Denies dyspnea on exertion and Denies orthopnea Resp Denies cough, Denies dyspnea and Denies dyspnea on exertion GI Denies hematochezia and Denies change in stool character Musc Denies abnormal gait, Reports joint swelling, Denies muscle cramps, Denies muscle weakness, Reports numbness, Denies radiating pain into limb and Denies tingling Neuro Denies abnormal gait, Denies dizziness, Denies syncope, Reports numbness, Denies tingling and Denies weakness Endo Denies palpitations Physical Exam Vital Signs: Last Vital Signs Pulse 72 12/19/24 13:22 BP 122/68 12/19/24 13:22 BMI result Body Mass Index 32.5 Const General: comfortable and no acute distress Orientation/consciousness: patient oriented x3 HEENT Other: Unremarkable Head: Yes normal to inspection Neck Neck: Yes normal visual inspection Chest Chest palpation & inspection: normal inspection of the chest Resp Auscultation: clear to auscultation bilaterally Cardio Palpation: normal PMI Heart sounds: S1 normal heart sound present, S2 normal heart sound present, no gallops, no murmurs and no rubs GI Palpation (GI): Soft to palpation Back/Spine/Pelvis Other: unremarkable Skin General skin exam: no rashes or lesions noted Neuro General: patient oriented x3 Extrem Other: 1+ edema General: Yes normal to inspection Psych Mental Status: mental status grossly normal Office Procedures EKG Details: EKG with underlying sinus rhythm at 72/Min; inferior and anterolateral [place] inversions[place] [address]-Ezqlxwdoqmijheeqb, Complete Assessment & Plan Assessment & Plan (1) Atherosclerotic cardiovascular disease: Code(s): I25.10 - Atherosclerotic heart disease of [place] coronary artery without angina pectoris Category: Medical (2) Status post aorto-coronary artery bypass graft: Code(s): Z95.1 - Presence of aortocoronary bypass graft Category: Surgical Plan Cardiac catheterization data reviewed. Essentially complex multivessel disease with SOCIAL MEDIA EDITOR of right coronary artery. Status post CABG. In the echocardiogram from June 2024, LVEF is 43%. Inferolateral/basal inferior akinesis. Moderate left ventricle hypertrophy. Aortic/mitral valve calcification. Overall, continue medical therapy for stable CAD. Long-term aspirin. Statins. Optimal management of diabetes, hypertension, dyslipidemia. With regard to leg swelling, could be dependent edema. Less likely congestive heart failure but could also be possible. We will recheck his echocardiogram for any worsening of cardiac function. He can take low-dose Lasix for the next few days and then make it as needed. We discussed about this today. He is already on HCTZ in a combination pill for high blood pressure. If he needs long-term diuretics, then we can stop the hydrochlorothiazide and just keep him on Lasix only. Follow-up renal function in the next few weeks. He already has an appointment set up for next month and he can keep that. Discussed using condominium property manager. Orders: Orders B Type Natriuretic Peptide 4 Weeks I50.9 - Heart failure, unspecified, Z95.1 - Presence of aortocoronary bypass graft Basic Metabolic Panel 4 Weeks I50.9 - Heart failure, unspecified, Z95.1 - Presence of aortocoronary bypass graft CA echo transthoracic complete Today I42.9 - Cardiomyopathy, unspecified, Z95.1 - Presence of aortocoronary bypass graft Medications: New furosemide (Lasix) once/day as needed for leg swelling. 20 mg PO DAILY PRN 30 tabs 3RF edema Coding Level of Care Code Est Pt Level 4 (90047) Complex EM visit Add On G2211 Diagnoses Atherosclerotic cardiovascular disease I25.10 Status post aorto-coronary artery bypass graft Z95.1 CPT Codes EKG - CPT: 37801-Oydnqyeffxmohliga, Complete ([id number])
--- OUTSIDE RECORDS SUMMARY | 2024-12-19 14:54 | XMS_ITS | Encounter Summary ---
Author Organization [employer] Address 75 [facility] 7t [place] [address] Care Team Providers Care Pot Maker Name Role Phone Gene Wallace MD Primary Care Provide r Carlito De La Cruz PharmD Unavailable [phone] Reason for Visit * Reason Comments Med Refill Encounter Details Date Type Department Care Team (Late st Contact Info) Description 06/14/2023 Refill [facility] MED[facility]INE [address] [place] [address] Gene Wallace MD [address] [place] [address] Social History Tobacco Use Types Packs/Day Years [...] Description 02/07/2025 10:15 AM EDT Office Visit [facility] [address] [place] [address] Gene Wallace MD [address] [place] [address] documented as of this encounter Goals Goal [...] documented as of this encounter Care Teams Pot Maker Relationship Specialty Start Date End Date Gene Wallace MD [address] [place] [address] PCP - General Internal Medicine 07/22/21 Carlito De La Cruz, Konstantin [address] [place] [address] Pharmacist Internal Medicine 01/24/23 documented as of this encounter
--- OUTSIDE RECORDS SUMMARY | 2024-12-19 14:54 | XMS_ITS | Encounter Summary ---
Author Organization [email or web address] Address 75 [facility] 7t [place] [address] Care Team Providers Care Low Pressure Kettle Operator Name Role Phone Gene Wallace MD Primary Care Provide r Carlito De La Cruz PharmD Unavailable [phone] Reason for Visit * Reason Onset Date Comments new script 10/07/2022 Encounter Details Date Type Department Care Team (Late Contact Info) Description 10/07/2022 Telephone [facility] MEDICINE [address] [place] [address] Gene Wallace MD [address] [place] [address] new script Social History Tobacco Use Types [...] Pen needles 8mm to be sent to [facility] Pharmacy. PCP DR. Ramsay documented in this encounter Plan of Treatment Upcoming Encounters Date Type Department Care Team (Late Contact Info) Description 02/07/2025 10:15 AM EDT Office Visit [facility] MED[facility]INE [address] [place] [address] Gene Wallace MD [address] [place] [address] documented as of this encounter Visit Diagnoses Diagnosis Type 2 diabetes mellitus without complication, with long-term current use of insulin ([facility]) documented in this encounter Care Teams Low Pressure Kettle Operator Relationship Specialty Start Date End Date Gene Wallace MD [address] [place] [phone] PCP - General Internal Medicine 07/22/21 Carlito De La Cruz, VargheseD [address] [place] [phone] Pharmacist Internal Medicine 01/24/23 documented as of this encounter
--- OUTSIDE RECORDS SUMMARY | 2024-12-19 14:54 | XMS_ITS | Encounter Summary ---
Author Organization [employer] Address [address] [facility] 7t [place] [address] Care Team Providers Care Load Manager Name Role Phone Gene Wallace MD Primary Care Provide r Carlito De La Cruz PharmD Unavailable [phone] Reason for Visit * Reason Comments Med Refill Encounter Details Date Type Department Care Team ([facility] st Contact Info) Description 04/25/2024 Telephone [facility] [address] [place] [address] Marilyn Sutherland MD [address] [place] [address] Med Refill Social History Tobacco Use Types [...] 10:51 AM EDT Telephone call placed to [facility] Cardiology. Left V/m for Dr Day's KATHIA [...] Description 02/07/2025 10:15 AM EDT Office Visit [facility] [address] [place] [address] Gene Wallace MD [address] [place], [place] [phone] documented as of this encounter Goals Goal [...] documented as of this encounter Care Teams Load Manager Relationship Specialty Start Date End Date Gene Wallace MD [address] [place] [address] [phone] PCP - General Internal Medicine 07/22/21 Carlito De La Cruz PharmD [address] [place] [address] [phone] Pharmacist Internal Medicine 01/24/23 documented as of this encounter
--- OUTSIDE RECORDS SUMMARY | 2024-12-19 14:54 | XMS_ITS | Clinical Summary ---
Author Organization [employer] Address 75 [facility] 7t [place] [address] Care Team Providers Care Direct Support Worker Name Role Phone Gene Wallace MD Primary Care Provide r Carlito De La Cruz PharmD Unavailable [phone] Allergies No known active allergies Medications finasteride (Proscar) 5 MG tablet Take 5 mg by mouth in the morning. 3 Active insulin pen needle (Easy Touch Pen Oneida) 31G X 8 mm miscIndication s:Type 2 [...] 1 5 Active Blood Glucose Monitoring Suppl (Floobits Verio) w/Device kitIndications :Type 2 diabetes mellitus [...] records were obtained Pt was treated in [place], at some point he had a repeat colonoscopy at [place] but no records were received from that colonoscopy 3 years ago other than a reference that it was done Pt was last seen by an Oncologist at [facility], he was told he did not needed to come back Previous visit pt was referred to Gastroenterology Dr Crowder, Pt no showed to that appointment. He was finally seen by Pooja Lomax NP at [facility]. Given his ongoing cardiac issues the [...] with cardiology Coronary artery disease invo lving eklutna coronary artery of eklutna heart without angina pectoris 11/15/2023 Assessment & Plan (11/06/2024 12:44 PM EST): Patient with CAD Cardiac Cath showed: Right dominant circulation. Proximal DIRECT CARE SPECIALIST right coronary artery with pval-ka-elzev collaterals. Severe distal left main stenosis involving the ostial LAD and circumflex. Severe proximal LAD stenosis. High diagonal with ostial 80% stenosis and mid segment 90% stenosis. First OM 80% stenosis. Mid circumflex 80% stenosis. S/p CABG 12/09/2023 Last seen by Weight Guesser Dr Day 07/25/2024 Scheduled for f/u 6 months Assessment & Plan (04/17/2024 1:41 PM EDT): Patient with CAD Cardiac Cath showed: Right dominant circulation. Proximal DIRECT CARE SPECIALIST right coronary artery with aoau-xz-pqced collaterals. Severe distal left main stenosis involving the ostial LAD and circumflex. Severe proximal LAD stenosis. High diagonal with ostial 80% stenosis and mid segment 90% stenosis. First OM 80% stenosis. Mid circumflex 80% stenosis. S/p CABG 12/09/2023 Last seen by Weight Guesser Dr Day 04/10/2024 Scheduled for ECHO in 3-4 months Assessment & Plan (02/23/2024 12:54 PM EDT): Patient with CAD Most recent Cath showed: Right dominant circulation. Proximal DIRECT CARE SPECIALIST right coronary artery with jrop-dq-mptme collaterals. Severe distal left main stenosis involving the ostial LAD and circumflex. Severe proximal LAD stenosis. High diagonal with ostial 80% stenosis and mid segment 90% stenosis. First OM 80% stenosis. Mid circumflex 80% stenosis. He is now s/p CABG 12/09/2023 Last seen by Weight Guesser Dr Day 01/03/2024 Scheduled for cardiac rehab at some point Assessment & Plan (12/06/2023 8:39 AM EDT): Patient with CAD Most recent Cath showed: Right dominant circulation. Proximal DIRECT CARE SPECIALIST right coronary artery with xhxx-wp-kuabd collaterals. Severe distal left main stenosis involving the ostial LAD and circumflex. Severe proximal LAD stenosis. High diagonal with ostial 80% stenosis and mid segment 90% stenosis. First OM 80% stenosis. Mid circumflex 80% stenosis. Pt was referred for CABG to cardiac surgeon by Weight Guesser scheduled for 12/09/2023 Assessment & Plan (11/15/2023 2:25 PM EST): As part of his PE, Pt had an EKG that showed Qs in III and AVF As a result I referred patient to cardiology Pt had a stress test that was abnormal and subsequently underwent a Cath Coronary anatomy: Right dominant circulation. Proximal DIRECT CARE SPECIALIST right coronary artery with xnzt-cr-ixfgw collaterals. Severe distal left main stenosis involving the ostial LAD and circumflex. Severe proximal LAD stenosis. High diagonal with ostial 80% stenosis and mid segment 90% stenosis. First OM 80% stenosis. Mid circumflex 80% stenosis. Pt was referred for CABG to cardiac surgeon by Weight Gu[employer]er scheduled for 12/09/2023 Plantar fasciitis of right [...] CT right foot. 2nd opinion with Ortho mirror specialist Assessment & Plan (07/12/2023 10:50 AM [...] records were obtained Pt was treated in [place], at some point he had a repeat colonoscopy at [place] but no records were received from that colonoscopy 3 years ago other than a reference that it was done Pt was last seen by an Oncologist at [facility], he was told he did not needed to come back Previous visit pt was referred to Gastroenterology Dr Crowder, Pt no showed to that appointment. He was finally seen by Pooja Lomax NP at [facility]. Given his ongoing cardiac issues the [...] records were obtained Pt was treated in [place], at some point he had a repeat colonoscopy at [place] but no records were received from that colonoscopy 3 years ago other than a reference that it was done Pt was last seen by an Oncologist at [facility], he was told he did not needed [...] records were obtained Pt was treated in [place], at some point he had a repeat colonoscopy at [place] but no records were received from that colonoscopy 3 years ago other than a reference that it was done Pt was last seen by an Oncologist at [facility], he was told he did not needed [...] records were obtained Pt was treated in [place], at some point he had a repeat colonoscopy at [place] but no records were received from that colonoscopy 3 years ago other than a reference that it was done Pt was last seen by an Oncologist at [facility], he was told he did not needed [...] records were obtained Pt was treated in [place], at some point he had a repeat colonoscopy at [place] but no records were received from that colonoscopy 3 years ago other than a reference that it was done Pt was last seen by an Oncologist at [facility], he was told he did not needed [...] po daily Follows with our CDTM Program [facility] Lab Results Component Value Date NA [...] regimen of: Losartan 50 mg po daily [facility] 12/03/2022 normal Plan: Increase Losartan to [...] Department Care Team Description 12/04/2024 Orders Only [facility] [address] [facility] [place] [address] Gene Wallace MD Acute pain of both knees (Primary Dx); Bilateral hip pain 11/28/2024 Telephone [facility] [address] [place] [address] Gene Wallace MD Referral 11/06/2024 2:00 PM EST Office Visit [facility] [address] [facility] [place] [address] Gene Wallace MD Type 2 diabetes mellitus without complication, with long-term current use of insulin (CMS/HCC) (Primary Dx); HTN (hypertension), benign; Mixed hyperlipidemia; Coronary artery disease involving eklutna coronary artery of eklutna heart without angina pectoris; S/P CABG (coronary artery bypass graft); Acquired hypothyroidism; Preventative health care; Class 1 obesity due to excess calories without serious comorbidity with body mass index (BMI) of 32.0 to 32.9 in adult; Dietary counseling; Exercise counseling; Acute pain of both knees; Bilateral hip pain; Lesion of nose 11/06/2024 Travel 10/24/2024 Telephone [facility] [place] [address] Gene Wallace MD Chart Prep 10/24/2024 Patient Outreach [facility] [address] [place] [address] Gene Wallace MD Pre-visit Planning (SDOH Screening negative and Tobacco screening negative) 10/21/2024 Refill [facility] [address] [place], [place] [phone] Gene Wallace MD 10/15/2024 Refill [facility] [address] [place], [place] [phone] Gene Wallace MD Type 2 diabetes mellitus [...] Description 02/07/2025 10:15 AM EDT Office Visit [facility] [address] [place] [address] Gene Wallace MD [address] [place] [address] Health Maintenance Due Date Last Done Comments [...] complication, with long-term current use of insulin ([facility]) TSH W/REFLEX TO FT4 Routine 11/07/2024 9:00 AM EST Acquired hypothyroidism POCT GLYCATED HEMOGLOBIN, TOTAL Routine 11/06/2024 1:50 PM EST Type 2 diabetes mellitus without complication, with long-term current use of insulin ([facility]) POCT GLUCOSE Routine 11/06/2024 1:49 PM [...] AM EDT Narrative 11/29/2024 9:23 AM EDT ?[facility] ?[address] ?[place] [address] ?XRay Report ? Signed ? Patient: Driss Bender ?MR#: [id number] ?? 52 ? : 1950 ?Acct:[id number] ? Age/Sex: 74 / M ?ADM Date: 11/29/24 ? Loc: HO.HHCX ? Attending Dr: Gene Zarate MD ? Ordering Physician: Gene Zarate MD ?? Date of Service: 11/29/24 ?? Procedure(s): XR knee RT 3V ?? Accession Number(s): [id number] ? cc: Gene Zarate MD ? EXAMINATION: [...] DD/ 0838 ? TD/TT: 11/29/24 0900 ? Seafood Fisherman: ? Procedure Note Prestonenrique, Bassam - 11/29/[address] [address] XRay Report Signed Patient: Driss Bender EMR#: [id number] 52 : 1950cct:[id number] Age/Sex: 74 / MADM Date: 11/29/24 Loc: HO.HHCX Attending Dr: Gene Zarate MD Ordering Physician: Gene Zarate MD Date of Service: 11/29/24 Procedure(s): XR knee RT 3V Accession Number(s): [id number] cc: Gene Zarate MD EXAMINATION: XR KNEE, [...] 11/29/24 09 DD/ 0838 TD/TT: 11/29/24 09 Seafood Fisherman: us Gene Castro MD IMG XR PROCEDURES Rodriguez peace Result - Final * XR Knee 3 Views Left (11/29/2024 8:38 AM EDT) Anatomical Region Laterality Modality Lower Extremities, Knee Left Radiogra phic Imaging 11/29/2024 8:38 AM EDT Narrative 11/29/2024 9:23 AM EDT ?[facility] ?[address] ?[place] [address] ?XRay Report ? Signed ? Patient: Driss Bender ?MR#: [id number] ?? 52 ? : 1950 ?Acct:[id number] ? Age/Sex: 74 / M ?ADM Date: 11/29/24 ? Loc: HO.HHCX ? Attending Dr: Gene Zarate MD ? Ordering Physician: Gene Zarate MD ?? Date of Service: 11/29/24 ?? Procedure(s): XR knee LT 3V ?? Accession Number(s): [id number] ? cc: Gene Zarate MD ? EXAMINATION: [...] DD/ 0838 ? TD/TT: 11/29/24 0900 ? Seafood Fisherman: ? Procedure Note Ilsater, Image - 11/29/[address] [address] XRay Report Signed Patient: Driss Bender EMR#: [id number] 52 : 8Acct:[id number] Age/Sex: 74 / MADM Date: 11/29/24 Loc: HO.HHCX Attending Dr: Gene Zarate MD Ordering Physician: Gene Zarate MD Date of Service: 11/29/24 Procedure(s): XR knee LT 3V Accession Number(s): [id number] cc: Gene Zarate MD EXAMINATION: XR KNEE, [...] 11/29/24 0919 DD/ 0838 TD/TT: 11/29/24 0900 Seafood Fisherman: us Gene Castro MD IMG XR PROCEDURES Rodriguez peace Result - Final * XR Hip 2 or 3 Views Right (11/29/2024 8:38 AM EDT) Anatomical Region Laterality Modality Lower Extremities, Hip Right Radiograp hic Imaging 11/29/2024 8:38 AM EDT Narrative 11/29/2024 9:20 AM EDT ?[facility] ?[address] ?[place] [address] ?XRay Report ? Signed ? Patient: Driss Bender ?MR#: [id number] ?? 52 ? : 1950 ?Acct:[id number] ? Age/Sex: 74 / M ?ADM Date: 11/29/24 ? Loc: HO.HHCX ? Attending Dr: Gene Zarate MD ? Ordering Physician: Geen Zarate MD ?? Date of Service: 11/29/24 ?? Procedure(s): XR hip RT min 2V ?? Accession Number(s): [id number] ? cc: Gene Zarate MD ? EXAMINATION: [...] DD/ 0838 ? TD/TT: 11/29/24 0900 ? Seafood Fisherman: ? Procedure Note Donotrobbieinterpreter, Image - 11/29/2024 [facility] [address] [place] [address] XRay Report Signed Patient: Driss Bender EMR#: [id number] 52 : 8Acct:[id number] Age/Sex: 74 / MADM Date: 11/29/24 Loc: HO.HHCX Attending Dr: Gene Zarate MD Ordering Physician: Gene Zarate MD Date of Service: 11/29/24 Procedure(s): XR hip RT min 2V Accession Number(s): [id number] cc: Gene Zarate MD EXAMINATION: XR HIP, [...] 11/29/24 0916 DD/ 0838 TD/TT: 11/29/24 0900 Seafood Fisherman: us Gene Castro MD IMG XR PROCEDURES Rodriguez peace Result - Final * XR Hip 2 or 3 Views Left (11/29/2024 8:38 AM EDT) Anatomical Region Laterality Modality Lower Extremities, Hip Left Radiograp hic Imaging 11/29/2024 8:38 AM EDT Narrative 11/29/2024 9:22 AM EDT ?[facility] ?[address] ?[place] [address] ?XRay Report ? Signed ? Patient: Bender,Driss E ?MR#: [id number] ?? 52 ? : 1950 ?Acct:[id number] ? Age/Sex: 74 / M ?ADM Date: 11/29/24 ? Loc: HO.HHCX ? Attending Dr: Gene Zarate MD ? Ordering Physician: Gene Zarate MD ?? Date of Service: 11/29/24 ?? Procedure(s): XR hip LT min 2V ?? Accession Number(s): [id number] ? cc: Gene Zarate MD ? EXAMINATION: [...] hip LT min 2V ?? IMPRESSION: ?? Gxdy-lv-rlabwzsb osteoarthrosis, left hip. ? Electronically signed by: ??Stevan Martinez MD ??11/29/2024 09:17 AM ?? EDT RP ? Dictated By: ?Stevan Garcia MD ? Signed By: ?<Electronically signed by Stevan Holloway MD in OV> ? 11/29/24 0917 ? DD/ 0838 ? TD/TT: 11/29/24 0900 ? Seafood Fisherman: ? Procedure Note Bassam Lang - 11/29/2024 [facility] [address] [place] [address] XRay Report Signed Patient: Driss Bender EMR#: [id number] 52 : 1950Acct:[id number] Age/Sex: 74 / MADM Date: 11/29/24 Loc: .HHX Attending Dr: Gene Zarate MD Ordering Physician: Gene Zarate MD Date of Service: 11/29/24 Procedure(s): XR hip LT min 2V Accession Number(s): [id number] cc: Gene Zarate MD EXAMINATION: XR HIP, [...] lesions. XR/XR hip LT min 2V IMPRESSION: Uwsj-uv-zkxopsos osteoarthrosis, left hip. Electronically signed by: Stevan Martinez MD 11/29/2024 09:17 AM EDT RP Dictated By: Stevan Garcia MD Signed By: <Electronically signed by Stevan Holloway MDin OV> 11/29/24 0917 DD/ 0838 TD/TT: 11/29/24 0900 Seafood Fisherman: Gene Castro MD IMG XR PROCEDURES Rodriguez peace Result - Final * (ABNORMAL) TSH with Reflex to Free T4 (11/07/2024 9:00 AM EST) TSH reflex Free T4 4.69(H) 0.32 - 4.0 uIU/mL [facility] Blood Venous blood specimen / Unknown 11/07/2024 9:00 AM EST 11/07/2024 11:08 AM EST Gene Castro MD LAB BLOOD ORDERABLES Final Result [facility] [address] [place] [phone] * Albumin, Random Urine W/Creatinine (11/07/2024 9:00 AM EST) Creatinine, Urine 211.69 mg/dL [facility] Microalbumin Urine 7.0 mg/L [facility] Microalbum Creatinine Ratio Ur 3.3 <30 ug/mg cr [facility] Comment:Albumin/Creatinine R atio Reference Ranges: Normal: < 30 ug/mg creatinine Microalbuminuria: 30 - 300 ug/mg creatinineClinical Albuminuria: > 300 ug/mg creatinine Urine (Urine, Random) 11/07/2024 9:00 AM EST 11/07/2024 11:06 AM EST Gene Castro MD LAB URINE ORDERABLES Final Result Performing Organization Address [facility] Co de Phone Number [facility] [address] [place] [phone] * T4, Free (11/07/2024 9:00 AM EST) Pathologist [facility] Free T4 (Free Thyroxine) 0.98 0.71 - 1.85 ng/dL [facility] 11/07/2024 9:00 AM EST 11/07/2024 11:08 AM EST Gene Castro MD LAB BLOOD ORDERABLES Final Result Performing Organization Address [facility] de Phone Number [facility] [address] [place] [phone] * (ABNORMAL) Basic Metabolic Panel (11/07/2024 9:00 AM EST) Pathologist [facility] Sodium 138 135 - 145 mmol/L [facility] Potassium 3.7 3.3 - 5.1 mmol/L [facility] Chloride 103 96 - 108 mmol/L [facility] Carbon Dioxide 29 22 - 29 mmol/L [facility] Anion Gap 10(L) 12 - 20 [facility] Urea Nitrogen (BUN) 22(H) 9 - 16 mg/dL [facility] Creatinine, Serum 1.13 0.5 - 1.4 mg/dL [facility] Estimated Glomerular Filt Rate >60 [facility] Comment:Chronic Kidney Disea se: Estimated GFR < 60 mL/min/1.46s7Zdaahw Kidney Disease: Estimated GFR < 15 mL/min/1.73m2 Glucose 182(H) 60 - 115 mg/dL [facility] Calcium 9.8 8.4 - 10.2 mg/dL [facility] Blood Venous blood specimen / Unknown 11/07/2024 9:00 AM EST 11/07/2024 11:08 AM EST us Gene Castro MD LAB BLOOD ORDERABLES Final Result [facility] [address] [place] [phone] * (ABNORMAL) POCT HGB A1C (11/06/2024 [...] Media Lot # [id number] Lot# Expiration Date 194 Blood Capillary blood specimen / Unknown 11/06/2024 1:49 PM EST us Gene Castro MD POINT OF CARE TEST EN TER/EDIT ORDERABLES Final Result * PSA,Total (10/10/2024 7:50 AM EST) Prostate Specific Antigen 3.98 <0.05 - 4.0 ng/mL [facility] Comment:PSA methodology: Abb hollis Alikikity i ChemiluminescentMicroparticle Immunoassay (CMIA) 10/10/2024 7:50 AM EST 10/10/2024 7:50 AM EST Generic External Data Provider LAB BLOOD ORDERAB LES Final Result Performing Organization Address City/[facility]/ZIP Co de Phone Number [facility] [address] [place] [phone] * (ABNORMAL) Lipid Panel, Standard (04/25/2024 7:59 AM EDT) Triglycerides 121 <150 mg/dL [facility] Comment:Desirable Triglyceri de: less than 150 mg/dLBorderline High Triglyceride 150-199 mg/dLHigh Triglyceride: 200-499 mg/dLVery High Triglyceride: greater than or equal to 5OO mg/dL Cholesterol 137 <200 mg/dL [facility] Comment:Desirable Cholestero l: less than 200 mg/dLBorderline High Cholesterol: 200-239 mg/dLHigh Cholesterol: greater than 239 mg/dL LDL Cholesterol Calculated 77 <100 mg/dL [facility] Comment:Desirable LDL: less than 100 mg/dLNear Optimal/Above Optimal LDL: 110- 129 mg/dLBorderline High LDL: 130-159 mg/dLHigh LDL: 160-189 mg/dLVery High LDL: greater than or equal to 190 mg/dL HDL Cholesterol 36(L) >40 mg/dL [facility] Comment:Desirable HDL: great er than 40 mg/dL Note: This HDL assay may give artificially low results in patients with liver disease. Blood Venous blood specimen / Unknown 04/25/2024 7:59 AM EDT 04/25/2024 11:40 AM EDT us Gene Castro MD LAB BLOOD ORDERABLES Final Result Performing Organization Address City/[facility]/ZIP Co de Phone Number [facility] [address] [place] [phone] * Hepatitis C Antibody with Reflex to HCV, RNA, Quantitative, Real-Time PCR (12/03/2022 8:01 AM EDT) Hepatitis C Antibody NON-REACT PUNEET NON-REACT PUNEET [facility] Index 0.05 <1.00 [facility] Comment: HCV antibody was non-reactive. There is no laboratory evidence of HCV infection. In most cases, no further action is required. However, if recent HCV exposure is suspected, a test for HCV RNA (test code 31298) is suggested. For additional information please refer to http://education.Timecros/faq/BLM37n7 (This link is being provided for informational/ educational purposes only.) Blood Venous blood specimen / Unknown 12/03/2022 8:01 AM EDT 12/03/2022 8:02 AM EDT Narrative [facility] - 12/03/2022 8:32 PM EDT FASTING:YES FASTING: YES Gene Castro MD LAB BLOOD ORDERABLES Final Result [facility] [address] [place] [phone] [facility] [address] [place] [phone] from Last 3 Months or Most Recently Relevant to Health Maintenance Insurance [facility] [employer] Care Teams Direct Support Worker Relationship Specialty Start Date End Date Gene Wallace MD [address] [place] [address] PCP - General Internal Medicine 07/22/21 Carlito De La Cruz, Konstantin [address] [place] [address] Pharmacist Internal Medicine 01/24/23
--- OUTSIDE RECORDS SUMMARY | 2024-12-19 14:54 | XMS_ITS | Encounter Summary ---
Author Organization [employer] Address [address] [facility] 7t [place] [address] Care Team Providers Care Family Resource Specialist Name Role Phone Gene Wallace MD Primary Care Provide r Carlito De La Cruz PharmD Unavailable [phone] Reason for Visit * Reason Onset Date Comments Durable Medical Equipment 12/07/2023 Encounter Details Date Type Department Care Team ([facility] st Contact Info) Description 12/07/2023 Telephone [facility] [address] [place] [address] Gene Wallace MD [address] [place] [address] Durable Medical Equipment Social History Tobacco Use [...] FAXED TO [employer]AL AND SCAN TO [employer]. * Telephone Encounter - Ramos Castro - 12/27/2023 2:03 PM EDT Tc from Michael at [facility] calling to inform the patients hospital bed [...] Description 02/07/2025 10:15 AM EDT Office Visit [facility] [address] [facility] [place] [address] Gene Wallace MD [address] [place] [address] documented as of this encounter Goals Goal [...] documented as of this encounter Care Teams Family Resource Specialist Relationship Specialty Start Date End Date Gene Wallace MD [address] [place] [address] PCP - General Internal Medicine 07/22/21 Carlito De La Cruz PharmD [address] [place], [place] [phone] Pharmacist Internal Medicine 01/24/23 documented as of this encounter
--- OUTSIDE RECORDS SUMMARY | 2024-12-19 14:54 | XMS_ITS | Encounter Summary ---
Author Organization [employer] Address [address] [facility] 7t [place] [address] Care Team Providers Care Ict Support Engineer Name Role Phone Gene Wallace MD Primary Care Provide r Carlito De La Cruz PharmD Unavailable [phone] Reason for Visit * Reason Comments Med Refill Encounter Details Date Type Department Care Team (Late st Contact Info) Description 01/23/2024 Refill [facility] [address] [place] [address] Linda Flores MD [address] [place] [address] Social History Tobacco Use Types Packs/Day Years [...] Description 02/07/2025 10:15 AM EDT Office Visit [facility] [address] [place] [address] Gene Wallace MD [address] [place] [address] documented as of this encounter Goals Goal [...] documented as of this encounter Care Teams Ict Support Engineer Relationship Specialty Start Date End Date Gene Wallace MD [address] [place] [address] PCP - General Internal Medicine 07/22/21 Carlito De La Cruz, VargheseD [address] [place] [phone] Pharmacist Internal Medicine 01/24/23 documented as of this encounter
--- OUTSIDE RECORDS SUMMARY | 2024-12-19 14:54 | XMS_ITS | Encounter Summary ---
Author Organization [employer] [facility] Address [address] [facility] [address] [place] [address] Care Team Providers Care Wet Cotton Feeder Name Role Phone Gene Wallace MD Primary Care Provide r Carlito De La Cruz PharmD Unavailable [phone] Encounter Details Date Type Department Care Team (Late Contact Info) Description 10/08/2022 Orders Only [facility] [address] [place] [phone] Denita Carrasco, NIKHIL Social History Tobacco Use [...] EDT Office Visit [facility] [address] [place] [phone] Gene Wallace MD [address] [place] [phone] documented as of this encounter Visit Diagnoses Not on filedocumented in this encounter Care Teams Wet Cotton Feeder Relationship Specialty Start Date End Date Gene Wallace MD [address] [place] [phone] PCP - General Internal Medicine 07/22/21 Carlito De La Cruz, Konstantin [address] [place] [address] Pharmacist Internal Medicine 01/24/23 documented as of this encounter
== END 2024-12-19 13:45 | disposition home or self-care (01) ==
LOC: HO.HCS 12:53
PROVIDERS: PCP Internal Medicine; Visit Provider Internal Medicine
DX: I25.10 Atherosclerotic heart disease of native coronary artery without angina pectoris (principal); Z95.1 Presence of aortocoronary bypass graft
CPT/HCPCS: 93010; 99214; G2211

== ENCOUNTER → 2024-12-19 12:50 | Outpatient (BNVA) | payer MEDICARE, MEDICAID, SELFPAY | PROVIDERS: PCP Internal Medicine; Visit Provider Internal Medicine | DX: I25.10 Atherosclerotic heart disease of native coronary artery without angina pectoris (principal); I50.9 Heart failure, unspecified; I42.9 Cardiomyopathy, unspecified; Z95.1 Presence of aortocoronary bypass graft | CPT/HCPCS: 93005; 99212 ==

== ENCOUNTER 2025-01-14 08:47 | Outpatient (AMB) | payer MEDICARE, SELFPAY ==
--- NOTE | 2025-01-14 08:59 | MHC.OFFVIS ---
Intake Visit Reasons: New prob - B/L hip OA Intake Note: Driss is a 74 year old male who presents today for a evaluation of his bilateral hip OA. No hx of injury. No previous treatments. Hx of Patient states ongoing pain for about 2 months. He states his pain is worse on the left hip than the right hip. He states that his pain is on the lateral aspect of both hips and it radiates up to his lower back. Patient notices that his pain is worse when he is laying down, sitting and bending down. He states that he tried ice and topical cream with mild relief. IMPRESSION: Mild to moderate osteoarthrosis, right hip. IMPRESSION: [id number]-ok-[id number] osteoarthrosis, left hip. 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 Bender is a 74-year-old male who presents to the office today for evaluation of bilateral hip pain. He reports that the majority of his pain is located on the posterior aspect of his hip just superior to his glute. He reports that the left is worse than the right. He endorses numbness and tingling in bilateral lower extremities. His pain is worse when lying down. He has tried ice and topical pain cream with mild relief. [facility] Medical History Atherosclerotic cardiovascular disease Diabetes Abnormal EKG Pre-op examination BPH (benign prostatic hyperplasia) Hypertension Surgical History Status post aorto-coronary artery bypass graft S/P partial colectomy Family History Mother Heart problem Sister Heart problem Social History Alcohol intake: former Patient Tobacco Use Status: Former Tobacco user Current occupational status: retired Review of Systems Const All systems reviewed & are unremarkable except as noted in HPI and below Physical Exam Const General: cooperative, healthy appearing and no acute distress Resp Effort & Inspection: normal respiratory effort and able to speak in complete sentences Extrem Other: Right/Left hip Full hip ROM in all planes. No reports of groin pain with range of motion testing. No tenderness to palpation over the greater trochanteric bursa. Reproduction of pain in the lower back with straight leg raise. 4/5 strength with resisted hip flexion, knee extension, abduction, and abduction. NVI. Assessment & Plan Assessment & Plan (1) Low back pain: Code(s): M54.50 - Low back pain, unspecified Category: Medical (2) Osteoarthritis of hips, bilateral: Code(s): M16.0 - Bilateral primary osteoarthritis of hip Category: Medical Plan Mr. Bender is a 74-year-old male who presents to the office today for evaluation of bilateral hip pain. He reports that the majority of his pain is located on the posterior aspect of his hip just superior to his glute. He reports that the left is worse than the right. He endorses numbness and tingling in bilateral lower extremities. His pain is worse when lying down. He has tried ice and topical pain cream with mild relief. While in the office today I did discuss with the patient that x-rays do show that he has [id number] osteoarthritis in bilateral hips. Although the patient is denying groin pain. Additionally he denies groin pain with internal and external rotation on exam. He reports that the pain is located in his lower back just superior to the glutes on both sides. He also endorses numbness and tingling down bilateral lower extremities. Although the patient does have osteoarthritis in bilateral hips on x-ray I feel as though his symptoms are coming from his lower back at this time. He does have a history of lower back pain. I have placed a referral to Dr. Milligan for additional workup to evaluate his low back for contributing pain. He will follow up with Orthopedics p.r.n[facility] sooner if needed. X-rays of the bilateral hips which were obtained on 11/2024 revealed bilateral hip osteoarthritis mild to moderate. Coding Level of Care Code Est Pt Level 3 (79809) Diagnoses Low back pain M54.50 Osteoarthritis of hips, bilateral M16.0
--- OUTSIDE RECORDS SUMMARY | 2025-01-14 09:11 | XMS_ITS | Encounter Summary ---
Author Organization [employer] Address [address] [facility] [address] [place] [address] Care Team Providers Care Cable Maintainer Name Role Phone Gene Wallace MD Primary Care Provide r Carlito De La Cruz PharmD Unavailable [phone] Reason for Visit * Reason Onset Date Comments Durable Medical Equipment 12/07/2023 Encounter Details Date Type Department Care Team ([facility] st Contact Info) Description 12/07/2023 Telephone [facility] [address] [place] [address] Gene Wallace MD [address] [place] [address] Durable Medical Equipment Social History Tobacco Use [...] FAXED TO [employer] AND [employer] TO [employer]. * Telephone Encounter - Ramos Castro - 12/27/2023 2:03 PM EDT Tc from Michael at [facility] calling to inform the patients hospital [...] Description 02/07/2025 10:15 AM EDT Office Visit [facility] [address] [place] [address] Gene Wallace MD [address] [place] [address] 04/18/2025 2:00 PM EDT Office Visit [facility] OPT[facility] [address] [place], [place] [phone] Angeline Robison, OD [address] [place] [address] documented as of this encounter Goals Goal [...] documented as of this encounter Care Teams Cable Maintainer Relationship Specialty Start Date End Date Gene Wallace MD [address] [place] [address] [phone] PCP - General Internal Medicine 07/22/21 Carlito De La Cruz, PharmD [address] [place] [address] Pharmacist Internal Medicine 01/24/23 documented as of this encounter
--- OUTSIDE RECORDS SUMMARY | 2025-01-14 09:11 | XMS_ITS | Encounter Summary ---
Author Organization [employer] Address [address] [facility] 7t [place] [address] Care Team Providers Care Breaker Tender Name Role Phone Gene Wallace MD Primary Care Provide r Carlito De La Cruz PharmD Unavailable [phone] Reason for Visit * Reason Comments Med Refill Encounter Details Date Type Department Care Team ([facility] st Contact Info) Description 04/25/2024 Telephone [facility] [address] [place] [address] Marilyn Sutherland MD [address] [place] [address] Med Refill Social History Tobacco Use Types [...] 10:51 AM EDT Telephone call placed to [facility] Cardiology. Left V/m for Dr Day's [...] Description 02/07/2025 10:15 AM EDT Office Visit [facility] [address] [place] [address] Gene Wallace MD [address] [place] [address] 04/18/2025 2:00 PM EDT Office Visit [facility] OPTOMETRY [address] [place], [place] [phone] Angeline Robison, OD [address] [place] [address] documented as of this encounter Goals Goal [...] documented as of this encounter Care Teams Breaker Tender Relationship Specialty Start Date End Date Gene Wallace MD [address] [place] [address] PCP - General Internal Medicine 07/22/21 Carlito De La Cruz, VargheseD [address] [place] [address] [place] [phone] Pharmacist Internal Medicine 01/24/23 documented as of this encounter
--- OUTSIDE RECORDS SUMMARY | 2025-01-14 09:11 | XMS_ITS | Encounter Summary ---
Author Organization [employer] Address [address] [facility] [address] [place] [address] Care Team Providers Care Wildlife Officer Name Role Phone Gene Wallace MD Primary Care Provide r Carlito De La Cruz PharmD Unavailable [phone] Reason for Visit * Reason Onset Date Comments new script 10/07/2022 Encounter Details Date Type Department Care Team (Late Contact Info) Description 10/07/2022 Telephone [facility] [address] [place] [address] Gene Wallace MD [address] [place] [address] new script Social History Tobacco Use Types [...] Pen needles 8mm to be sent to [facility] Pharmacy. PCP DR. Ramsay documented in this encounter Plan of Treatment Upcoming Encounters Date Type Department Care Team (Late Contact Info) Description 02/07/2025 10:15 AM EDT Office Visit [facility] [address] [place] [address] Gene Wallace MD [address] [place] [address] 04/18/2025 2:00 PM EDT Office Visit [facility] OPTOMETRY [address] [place] [address] Angeline Robison, OD [address] [place] [address] documented as of this encounter Visit Diagnoses Diagnosis Type 2 diabetes mellitus without complication, with long-term current use of insulin ([facility]) documented in this encounter Care Teams Wildlife Officer Relationship Specialty Start Date End Date Gene Wallace MD [address] [place] [phone] PCP - General Internal Medicine 07/22/21 Carlito De La Cruz, VargheseD [address] [place] [address] Pharmacist Internal Medicine 01/24/23 documented as of this encounter
--- OUTSIDE RECORDS SUMMARY | 2025-01-14 09:11 | XMS_ITS | Encounter Summary ---
Author Organization [employer] Address [address] [facility] [address] [place] [address] Care Team Providers Care Screw Machine Tender Name Role Phone Gene Wallace MD Primary Care Provide r Carlito De La Cruz PharmD Unavailable [phone] Encounter Details Date Type Department Care Team (Late Contact Info) Description 10/08/2022 Orders Only [facility] [address] [place] [address] Denita Carrasco, NIKHIL Social History Tobacco Use [...] 02/07/2025 10:15 AM EDT Office Visit [facility] [address] [place] [address] Gene Wallace MD [address] [place] [address] 04/18/2025 2:00 PM EDT Office Visit [facility] OPTOMETRY [address] [place] [address] Ricki, Angeline, OD [address] [place] [address] documented as of this encounter Visit Diagnoses Not on filedocumented in this encounter Care Teams Screw Machine Tender Relationship Specialty Start Date End Date Gene Wallace MD [address] [place] [address] PCP - General Internal Medicine 07/22/21 Carlito De La Cruz PharmD [address] [place] [phone] Pharmacist Internal Medicine 01/24/23 documented as of this encounter
--- OUTSIDE RECORDS SUMMARY | 2025-01-14 09:11 | XMS_ITS | Clinical Summary ---
Author Organization [employer] Address [address] [facility] 7t [place] [address] Care Team Providers Care Guide Escort Name Role Phone Gene Wallace MD Primary Care Provide r Carlito De La Cruz PharmD Unavailable [phone] Allergies No known active allergies Medications finasteride (Proscar) 5 MG tablet Take 5 mg by mouth in the morning. 3 Active insulin pen needle (Easy Touch Pen [employer]) 31G X 8 mm miscIndication s:Type 2 [...] 1 5 Active Blood Glucose Monitoring Suppl ([employer] Ver[employer]) w/Device kitIndications :Type 2 diabetes mellitus without complication, with long-term current use of insulin (CMS/HCC) Use daily 1 kit 5 Active Active Problems Patient Care Coordination No te Formatting of this note migh t be different from the original. Followed by CDTM HTN, DM - Cralito De La Cruz, RPh Problem Noted Date [...] were obtained Pt was treated in [place], at some point he had a repeat colonoscopy at [place] but no records were received from that colonoscopy 3 years ago other than a reference that it was done Pt was last seen by an Oncologist at [facility], he was told he did not needed to come back Previous visit pt was referred to Gastroenterology Dr Crowder, Pt no showed to that appointment. He was finally seen by Pooja Lomax NP at [facility]. Given his ongoing cardiac issues the [...] with cardiology Coronary artery disease invo lving choctaw coronary artery of choctaw heart without angina pectoris 11/15/2023 Assessment & Plan (11/06/2024 12:44 PM EST): Patient with CAD Cardiac Cath showed: Right dominant circulation. Proximal CITY DETECTIVE right coronary artery with qqzd-mn-orjvb collaterals. Severe distal left main stenosis involving the ostial LAD and circumflex. Severe proximal LAD stenosis. High diagonal with ostial 80% stenosis and mid segment 90% stenosis. First OM 80% stenosis. Mid circumflex 80% stenosis. S/p CABG 12/09/2023 Last seen by [facility] Dr Day 07/25/2024 Scheduled for f/u 6 months Assessment & Plan (04/17/2024 1:41 PM EDT): Patient with CAD Cardiac Cath showed: Right dominant circulation. Proximal CITY DETECTIVE right coronary artery with awrp-bb-bqddn collaterals. Severe distal left main stenosis involving the ostial LAD and circumflex. Severe proximal LAD stenosis. High diagonal with ostial 80% stenosis and mid segment 90% stenosis. First OM 80% stenosis. Mid circumflex 80% stenosis. S/p CABG 12/09/2023 Last seen by [facility] [facility] Dr Day 04/10/2024 Scheduled for ECHO in 3-4 months Assessment & Plan (02/23/2024 12:54 PM EDT): Patient with CAD Most recent Cath showed: Right dominant circulation. Proximal CITY DETECTIVE right coronary artery with vknt-fc-shryg collaterals. Severe distal left main stenosis involving the ostial LAD and circumflex. Severe proximal LAD stenosis. High diagonal with ostial 80% stenosis and mid segment 90% stenosis. First OM 80% stenosis. Mid circumflex 80% stenosis. He is now s/p CABG 12/09/2023 Last seen by [facility] Dr Day 01/03/2024 Scheduled for cardiac rehab at some point Assessment & Plan (12/06/2023 8:39 AM EDT): Patient with CAD Most recent Cath showed: Right dominant circulation. Proximal CITY DETECTIVE right coronary artery with ogrt-yx-fiyub collaterals. Severe distal left main stenosis involving the ostial LAD and circumflex. Severe proximal LAD stenosis. High diagonal with ostial 80% stenosis and mid segment 90% stenosis. First OM 80% stenosis. Mid circumflex 80% stenosis. Pt was referred for CABG to cardiac surgeon by [employer] scheduled for 12/09/2023 Assessment & Plan (11/15/2023 2:25 PM EST): As part of his PE, Pt had an EKG that showed Qs in III and AVF As a result I referred patient to cardiology Pt had a stress test that was abnormal and subsequently underwent a Cath Coronary anatomy: Right dominant circulation. Proximal CITY DETECTIVE right coronary artery with uoor-ay-hvism collaterals. Severe distal left main stenosis involving the ostial LAD and circumflex. Severe proximal LAD stenosis. High diagonal with ostial 80% stenosis and mid segment 90% stenosis. First OM 80% stenosis. Mid circumflex 80% stenosis. Pt was referred for CABG to cardiac surgeon by [employer] scheduled for 12/09/2023 Plantar fasciitis of right [...] CT right foot. 2nd opinion with Ortho legal specialist Assessment & Plan (07/12/2023 10:50 AM [...] were obtained Pt was treated in [place], at some point he had a repeat colonoscopy at [place] but no records were received from that colonoscopy 3 years ago other than a reference that it was done Pt was last seen by an Oncologist at [facility], he was told he did not needed to come back Previous visit pt was referred to Gastroenterology Dr Crowder, Pt no showed to that appointment. He was finally seen by Pooja Lomax NP at [facility]. Given his ongoing cardiac issues the [...] were obtained Pt was treated in [place], at some point he had a repeat colonoscopy at [place] but no records were received from that colonoscopy 3 years ago other than a reference that it was done Pt was last seen by an Oncologist at [facility], he was told he did not needed [...] were obtained Pt was treated in [place], at some point he had a repeat colonoscopy at [place] but no records were received from that colonoscopy 3 years ago other than a reference that it was done Pt was last seen by an Oncologist at [facility], he was told he did not needed [...] were obtained Pt was treated in [place], at some point he had a repeat colonoscopy at [place] but no records were received from that colonoscopy 3 years ago other than a reference that it was done Pt was last seen by an Oncologist at [facility], he was told he did not needed [...] were obtained Pt was treated in [place], at some point he had a repeat colonoscopy at [place] but no records were received from that colonoscopy 3 years ago other than a reference that it was done Pt was last seen by an Oncologist at [facility], he was told he did not needed [...] po daily Follows with our [facility] Program [facility] Lab Results Component Value Date [...] regimen of: Losartan 50 mg po daily [facility] 12/03/2022 normal Plan: Increase Losartan [...] Department Care Team Description 12/04/2024 Orders Only [facility] MEDICINE [address] [place] [phone] Gene Wallace MD Acute pain of both knees (Primary Dx); Bilateral hip pain 11/28/2024 Telephone [facility] [address] [place] [address] Gene Wallace MD Referral 11/06/2024 2:00 PM EST Office Visit [facility] MEDICINE [address] [place] [address] Gene Wallace MD Type 2 diabetes mellitus without complication, with long-term current use of insulin ([facility]) (Primary Dx); HTN (hypertension), benign; Mixed hyperlipidemia; Coronary artery disease involving choctaw coronary artery of choctaw heart without angina pectoris; S/P CABG (coronary artery bypass graft); Acquired hypothyroidism; Preventative health care; Class 1 obesity due to excess calories without serious comorbidity with body mass index (BMI) of 32.0 to 32.9 in adult; Dietary counseling; Exercise counseling; Acute pain of both knees; Bilateral hip pain; Lesion of nose 11/06/2024 Travel 10/24/2024 Telephone [facility] MEDICINE [address] [place] [phone] Gene Wallace MD Chart Prep 10/24/2024 Patient Outreach [address] [address] Gene Wallace MD Pre-visit Planning (SDOH Screening negative and Tobacco screening negative) 10/21/2024 Refill [facility] CHC MED & PEDS [address] [place], [place] [phone] Gene Wallace MD from Last 3 Months [...] Description 02/07/2025 10:15 AM EDT Office Visit [facility] MEDICINE [address] [place] [address] Gene Wallace MD [address] [place] [address] 04/18/2025 2:00 PM EDT Office Visit [facility] OPTOMETRY [address] [place] [address] Angeline Robison, OD [address] [place] [address] Health Maintenance Due Date Last Done Comments [...] complication, with long-term current use of insulin ([facility]) TSH W/REFLEX TO FT4 Routine 11/07/2024 9:00 AM EST Acquired hypothyroidism POCT GLYCATED HEMOGLOBIN, TOTAL Routine 11/06/2024 1:50 PM EST Type 2 diabetes mellitus without complication, with long-term current use of insulin (CMS/[facility]) POCT GLUCOSE Routine 11/06/2024 1:49 PM EST Type 2 diabetes mellitus without complication, with long-term current use of insulin (CMS/[facility]) LIPID PANEL, STANDARD Routine 04/25/2024 7:59 AM [...] AM EDT Narrative 11/29/2024 9:23 AM EDT ?[facility] ?[address] ?[place] [address] ?XRay Report ? Signed ? Patient: Driss Bender ?MR#: [id number] ?? 52 ? : 1950 ?Acct:[id number] ? Age/Sex: 74 / M ?ADM Date: 11/29/24 ? Loc: HO.HHCX ? Attending Dr: Gene Zarate MD ? Ordering Physician: Gene Zarate MD ?? Date of Service: 11/29/24 ?? Procedure(s): XR knee RT 3V ?? Accession Number(s): [id number] ? cc: Gene Zarate MD ? EXAMINATION: [...] DD/ 0838 ? TD/TT: 11/29/24 0900 ? Wastewater Supervisor: ? Procedure Note Donotuseinterpreter, Image - 11/29/[address] [address] XRay Report Signed Patient: Driss Bender EMR#: [id number] 52 : 8Acct:[id number] Age/Sex: 74 / MADM Date: 11/29/24 Loc: HO.HHCX Attending Dr: Gene Zarate MD Ordering Physician: Gene Zarate MD Date of Service: 11/29/24 Procedure(s): XR knee RT 3V Accession Number(s): [id number] cc: Gene Zarate MD EXAMINATION: XR KNEE, [...] <Electronically signed by Stevan Holloway MDin OV> 03/20/25 0920 DD/ 0838 TD/TT: 11/29/24 0900 Wastewater Supervisor: us Gene Castro MD IMG XR PROCEDURES Rodriguez peace Result - Final * XR Knee 3 Views Left (11/29/2024 8:38 AM EDT) Anatomical Region Laterality Modality Lower Extremities, Knee Left Radiogra phic Imaging 11/29/2024 8:38 AM EDT Narrative 11/29/2024 9:23 AM EDT ?[facility] ?[address] ?[place] [address] ?XRay Report ? Signed ? Patient: Driss Bender ?MR#: [id number] ?? 52 ? : 1950 ?Acct:[id number] ? Age/Sex: 74 / M ?ADM Date: 11/29/24 ? Loc: HO.HHCX ? Attending Dr: Gene Zarate MD ? Ordering Physician: Gene Zarate MD ?? Date of Service: 11/29/24 ?? Procedure(s): XR knee LT 3V ?? Accession Number(s): [id number] ? cc: Gene Zarate MD ? EXAMINATION: [...] by Stevan Holloway MD in OV> ? 11/29/[address] ? DD/ ? TD/TT: 11/29/24 0900 ? Wastewater Supervisor: ? Procedure Note Donmadisonrobbieheatherter, Image - 11/29/2024 [facility] [address] [place] [address] XRay Report Signed Patient: Driss Bender EMR#: [id number] 52 : 1950cct:[id number] Age/Sex: 74 / MADM Date: 11/29/24 Loc: HO.HHCX Attending Dr: Gene Zarate MD Ordering Physician: Gene Zarate MD Date of Service: 11/29/24 Procedure(s): XR knee LT 3V Accession Number(s): [id number] cc: Gene Zarate MD EXAMINATION: XR KNEE, [...] 11/29/24 0919 DD/ 0838 TD/TT: 11/29/24 0900 Wastewater Supervisor: us Gene Castro MD IMG XR PROCEDURES Rodriguez peace Result - Final * XR Hip 2 or 3 Views Right (11/29/2024 8:38 AM EDT) Anatomical Region Laterality Modality Lower Extremities, Hip Right Radiograp hic Imaging 11/29/2024 8:38 AM EDT Narrative 11/29/2024 9:20 AM EDT ?[facility] ?[address] ?[place] [address] ?XRay Report ? Signed ? Patient: Driss Bender ?MR#: [id number] ?? 52 ? : 1950 ?Acct:[id number] ? Age/Sex: 74 / M ?ADM Date: 11/29/24 ? Loc: HO.HHCX ? Attending Dr: Gene Zarate MD ? Ordering Physician: Gene Zarate MD ?? Date of Service: 11/29/24 ?? Procedure(s): XR hip RT min 2V ?? Accession Number(s): [id number] ? cc: Gene Zarate MD ? EXAMINATION: [...] DD/ 0838 ? TD/TT: 11/29/24 0900 ? Wastewater Supervisor: ? Procedure Note Rickey Image - 11/29/2024 [facility] [address] [place] [address] XRay Report Signed Patient: Driss Bender EMR#: [id number] 52 : 8Acct:[id number] Age/Sex: 74 / MADM Date: 11/29/24 Loc: HO.HHCX Attending Dr: Gene Zarate MD Ordering Physician: Gene Zarate MD Date of Service: 11/29/24 Procedure(s): XR hip RT min 2V Accession Number(s): [id number] cc: Gene Zarate MD EXAMINATION: XR HIP, [...] 11/29/24 0916 DD/ 0838 TD/TT: 11/29/24 0900 Wastewater Supervisor: us Gene Castro MD IMG XR PROCEDURES Rodriguez peace Result - Final * XR Hip 2 or 3 Views Left (11/29/2024 8:38 AM EDT) Anatomical Region Laterality Modality Lower Extremities, Hip Left Radiograp hic Imaging 11/29/2024 8:38 AM EDT Narrative 11/29/2024 9:22 AM EDT ?[facility] [facility] ?[address] ?[place] [address] ?XRay Report ? Signed ? Patient: Bender,Driss E ?MR#: [id number] ?? 52 ? : 1950 ?Acct:[id number] ? Age/Sex: 74 / M ?ADM Date: 11/29/24 ? Loc: HO.HHCX ? Attending Dr: Gene Zarate MD ? Ordering Physician: Gene Zarate MD ?? Date of Service: 11/29/24 ?? Procedure(s): XR hip LT min 2V ?? Accession Number(s): [id number] ? cc: Gene Zarate MD ? EXAMINATION: [...] hip LT min 2V ?? IMPRESSION: ?? Cwfl-tx-hnwmyywq osteoarthrosis, left hip. ? Electronically signed by: ??Stevan Mratinez MD ??11/29/2024 09:17 AM ?? EDT RP ? Dictated By: ?Stevan Garcia MD ? Signed By: ?<Electronically signed by Stevan Holloway MD in OV> ? 11/29/24 0917 ? DD/ 0838 ? TD/TT: 11/29/24 0900 ? Wastewater Supervisor: ? Procedure Note Bassam aLng - 11/29/[address] [address] XRay Report Signed Patient: Driss Bender EMR#: [id number] 52 : 8Acct:[id number] Age/Sex: 74 / MADM Date: 11/29/24 Loc: HO.HHCX Attending Dr: Gene Zarate MD Ordering Physician: Gene Zarate MD Date of Service: 11/29/24 Procedure(s): XR hip LT min 2V Accession Number(s): [id number] cc: Gene Zarate MD EXAMINATION: XR HIP, [...] lesions. XR/XR hip LT min 2V IMPRESSION: Pwdq-du-mbrzaemr osteoarthrosis, left hip. Electronically signed by: Stevan Martinez MD 11/29/2024 09:17 AM EDT Dictated By: Stevan Garcia MD Signed By: <Electronically signed by Stevan Holloway MDin OV> 11/29/24 0917 DD/ 0838 TD/TT: 11/29/24 0900 Wastewater Supervisor: Gene Castro MD IMG XR PROCEDURES Rodriguez peace Result - Final * (ABNORMAL) TSH with Reflex to Free T4 (11/07/2024 9:00 AM EST) TSH reflex Free T4 4.69(H) 0.32 - 4.0 uIU/mL [facility] Blood Venous blood specimen / Unknown 11/07/2024 9:00 AM EST 11/07/2024 11:08 AM EST us Gene Castro MD LAB BLOOD ORDERABLES Final Result [facility] [address] [place] [phone] * Albumin, Random Urine W/Creatinine (11/07/2024 9:00 AM EST) Creatinine, Urine 211.69 mg/dL [facility] Microalbumin Urine 7.0 mg/L [facility] Microalbum Creatinine Ratio Ur 3.3 <30 ug/mg cr [facility] Comment:Albumin/Creatinine R atio Reference Ranges: Normal: < 30 ug/mg creatinine Microalbuminuria: 30 - 300 ug/mg creatinineClinical Albuminuria: > 300 ug/mg creatinine Urine (Urine, Random) 11/07/2024 9:00 AM EST 11/07/2024 11:06 AM EST Gene Castro MD LAB URINE ORDERABLES Final Result Performing Organization Address [facility] Co de Phone Number [facility] [address] [place] [phone] * T4, Free (11/07/2024 9:00 AM EST) Free T4 (Free Thyroxine) 0.98 0.71 - 1.85 ng/dL [facility] 11/07/2024 9:00 AM EST 11/07/2024 11:08 AM EST Gene Castro MD LAB BLOOD ORDERABLES Final Result Performing Organization Address [facility] de Phone Number [facility] [address] [place] [phone] * (ABNORMAL) Basic Metabolic Panel (11/07/2024 9:00 AM EST) Sodium 138 135 - 145 mmol/L [facility] Potassium 3.7 3.3 - 5.1 mmol/L [facility] Chloride 103 96 - 108 mmol/L [facility] Carbon Dioxide 29 22 - 29 mmol/L [facility] Anion Gap 10(L) 12 - 20 [facility] Urea Nitrogen (BUN) 22(H) 9 - 16 mg/dL [facility] Creatinine, Serum 1.13 0.5 - 1.4 mg/dL [facility] Estimated Glomerular Filt Rate >60 [facility] Comment:Chronic Kidney Disea se: Estimated GFR < 60 mL/min/1.98j8Ypxkyk Kidney Disease: Estimated GFR < 15 mL/min/1.73m2 Glucose 182(H) 60 - 115 mg/dL [facility] Calcium 9.8 8.4 - 10.2 mg/dL [facility] Blood Venous blood specimen / Unknown 11/07/2024 9:00 AM EST 11/07/2024 11:08 AM EST us Gene Castro MD LAB BLOOD ORDERABLES Final Result [facility] [address] [place] [address] [phone] * (ABNORMAL) POCT HGB A1C (11/06/2024 [...] Media Lot # [id number] Lot# Expiration Date 260 Blood Capillary blood specimen / Unknown 11/06/2024 1:49 PM EST us Gene Castro MD POINT OF CARE TEST EN TER/EDIT ORDERABLES Final Result * (ABNORMAL) Lipid Panel, Standard (04/25/2024 7:59 AM EDT) Triglycerides 121 <150 mg/dL [facility] Comment:Desirable Triglyceri de: less than 150 mg/dLBorderline High Triglyceride 150-199 mg/dLHigh Triglyceride: 200-499 mg/dLVery High Triglyceride: greater than or equal to 5OO mg/dL Cholesterol 137 <200 mg/dL [facility] Comment:Desirable Cholestero l: less than 200 mg/dLBorderline High Cholesterol: 200-239 mg/dLHigh Cholesterol: greater than 239 mg/dL LDL Cholesterol Calculated 77 <100 mg/dL [facility] Comment:Desirable LDL: less than 100 mg/dLNear Optimal/Above Optimal LDL: 110- 129 mg/dLBorderline High LDL: 130-159 mg/dLHigh LDL: 160-189 mg/dLVery High LDL: greater than or equal to 190 mg/dL HDL Cholesterol 36(L) >40 mg/dL [facility] Comment:Desirable HDL: great er than 40 mg/dL Note: This HDL assay may give artificially low results in patients with liver disease. Blood Venous blood specimen / Unknown 04/25/2024 7:59 AM EDT 04/25/2024 11:40 AM EDT Gene Castro MD LAB BLOOD ORDERABLES Final Result [facility] [address] [place] [phone] * Hepatitis C Antibody with Reflex to HCV, RNA, Quantitative, Real-Time PCR (12/03/2022 8:01 AM EDT) Hepatitis C Antibody NON-REACT PUNEET NON-REACT PUNEET [employer] [place] [employer] | VIP Index 0.05 <1.00 [employer] [place] [employer] Comment: HCV antibody was non-reactive. There is no laboratory evidence of HCV infection. In most cases, no further action is required. However, if recent HCV exposure is suspected, a test for HCV RNA (test code 39451) is suggested. For additional information please refer to http://education.[employer]/faq/ZIM99o0 (This link is being provided for informational/ educational purposes only.) Blood Venous blood specimen / Unknown 12/03/2022 8:01 AM EDT 12/03/2022 8:02 AM EDT Narrative [facility] - 12/03/2022 8:32 PM EDT FASTING:YES FASTING: YES Gene Castro MD LAB BLOOD ORDERABLES Final Result [facility] [address], [place] [address] [facility] [address] [place] [phone] from Last 3 Months or Most Recently Relevant to Health Maintenance Insurance [facility] STANDARD Member Subscriber Plan / Payer (Ef fective 2023-Present) Name:Driss Guerrero Relation to Subscriber:Self Name:Driss Guerrero Payer ID:Not on file Group ID:Not on file Type:Medicaid Address: [address] [place] [address] [place], [place] [address] Care Teams Guide Escort Relationship Specialty Start Date End Date Gene Wallace MD [address] [place] [address] PCP - General Internal Medicine 07/22/21 Carlito De La Cruz, VargheseD [address] [place] [address] Pharmacist Internal Medicine 01/24/23"
--- OUTSIDE RECORDS SUMMARY | 2025-01-14 09:11 | XMS_ITS | Encounter Summary ---
Author Organization [employer] Address [address] [facility] 7t [place] [address] Care Team Providers Care Plate Cleaner Name Role Phone Gene Wallace MD Primary Care Provide r Carlito De La Cruz PharmD Unavailable [phone] Reason for Visit * Reason Comments Med Refill Encounter Details Date Type Department Care Team (Late st Contact Info) Description 01/23/2024 Refill [facility] CHC MED & PEDS [address] [place] [address] Linda Flores MD [address] [place] [address] Social History Tobacco Use Types Packs/Day Years [...] EDT Office Visit [facility] MEDICINE [address] [place] [address] Gene Wallace MD [address] [place] [address] 04/18/2025 2:00 PM EDT Office Visit [facility] OPTOMETRY [address] [place] [address] Angeline Robison, OD [address] [place] [address] documented as of this encounter Goals Goal [...] documented as of this encounter Care Teams Plate Cleaner Relationship Specialty Start Date End Date Gene Wallace MD [address] [place] [phone] PCP - General Internal Medicine 07/22/21 Carlito De La Cruz PharmD [address] [place] [phone] Pharmacist Internal Medicine 01/24/23 documented as of this encounter
--- OUTSIDE RECORDS SUMMARY | 2025-01-14 09:11 | XMS_ITS | Encounter Summary ---
Author Organization [employer] Address [address] [facility] 7t [place] [address] Care Team Providers Care Music Publicist Name Role Phone Gene Wallace MD Primary Care Provide r Carlito De La Cruz PharmD Unavailable [phone] Reason for Visit * Reason Comments Med Refill Encounter Details Date Type Department Care Team (Late st Contact Info) Description 06/14/2023 Refill [facility] MEDICINE [address] [place] [address] Gene Wallace MD [address] [place] [address] Social History Tobacco Use Types Packs/Day Years [...] Description 02/07/2025 10:15 AM EDT Office Visit [facility] MEDICINE [address] [place] [address] Gene Wallace MD [address] [place] [address] 04/18/2025 2:00 PM EDT Office Visit [facility] OPTOMETRY [address] [place] [address] Angeline Robison OD [address] [place] [address] documented as of this encounter Goals Goal [...] Time PHQ-9 Depression Total Score: 0 12/03/19 10:28 AM EDT documented as of this encounter Care Teams Music Publicist Relationship Specialty Start Date End Date Gene Wallace MD [address] [place] [address] PCP - General Internal Medicine 07/22/21 Carlito De La Cruz PharmD [address] [place] [address] Pharmacist Internal Medicine 01/24/23 documented as of this encounter
== END 2025-01-14 09:18 | disposition home or self-care (01) ==
LOC: HO.HOS 08:47
PROVIDERS: PCP Internal Medicine; Visit Provider Physician Assistant
DX: M54.50 Low back pain, unspecified (principal); M16.0 Bilateral primary osteoarthritis of hip
CPT/HCPCS: 99213

== ENCOUNTER → 2025-01-14 08:47 | Outpatient (BNVA) | payer OTHER, SELFPAY | PROVIDERS: PCP Internal Medicine; Visit Provider Physician Assistant | DX: M16.0 Bilateral primary osteoarthritis of hip (principal); M54.50 Low back pain, unspecified | CPT/HCPCS: 99212 ==

== ENCOUNTER → 2025-01-16 09:18 | Outpatient (REF) | payer OTHER, SELFPAY ==
--- OUTSIDE RECORDS SUMMARY | 2025-01-16 09:57 | XMS_ITS | Encounter Summary ---
Author Organization [employer] Address [address] [facility] 7[address] [place] [address] Care Team Providers Care Liner Checker Name Role Phone Gene Wallace MD Primary Care Provide r Carlito De La Cruz PharmD Unavailable [phone] Reason for Visit * Reason Onset Date Comments new script 10/07/2022 Encounter Details Date Type Department Care Team (Late Contact Info) Description 10/07/2022 Telephone [facility] MEDICINE [address] [place] [address] Gene Wallace MD [address] [place] [address] new script Social History Tobacco Use Types [...] Pen needles 8mm to be sent to [facility] Pharmacy. PCP DR. Ramsay documented in this encounter Plan of Treatment Upcoming Encounters Date Type Department Care Team (Late Contact Info) Description 02/07/2025 10:15 AM EDT Office Visit [facility] MEDICINE [address] [place] [address] Gene Wallace MD [address] [place] [address] 04/18/2025 2:00 PM EDT Office Visit [facility] OPTOMETRY [address] [place] [address] Angeline Robison, OD [address] [place] [address] documented as of this encounter Visit Diagnoses Diagnosis Type 2 diabetes mellitus without complication, with long-term current use of insulin ([facility]) documented in this encounter Care Teams Liner Checker Relationship Specialty Start Date End Date Gene Wallace MD [address] [place] [id number] PCP - General Internal Medicine 07/22/21 Carlito De La Cruz, VargheseD [address] [place] [id number] Pharmacist Internal Medicine 01/24/23 documented as of this encounter
--- OUTSIDE RECORDS SUMMARY | 2025-01-16 09:57 | XMS_ITS | Encounter Summary ---
Author Organization [employer] Address [address] [facility] [address] [place] [address] Care Team Providers Care Header Up Name Role Phone Gene Wallace MD Primary Care Provide r Carlito De La Cruz PharmD Unavailable [phone] Reason for Visit * Reason Comments Med Refill Encounter Details Date Type Department Care Team (Late st Contact Info) Description 01/23/2024 Refill [facility] MED & PEDS [address] [place] [address] Linda Flores MD [address] [place] [address] Social History Tobacco Use Types Packs/Day Years [...] Description 02/07/2025 10:15 AM EDT Office Visit [facility] MEDICINE [address] [place] [address] Gene Wallace MD [address] [place] [address] 04/18/2025 2:00 PM EDT Office Visit [facility] OPTOMETRY [address] [place] [address] Angeline Robison, OD [address] [place] [address] documented as of this encounter Goals Goal [...] documented as of this encounter Care Teams Header Up Relationship Specialty Start Date End Date Gene Wallace MD [address] [place] [id number] PCP - General Internal Medicine 07/22/21 Carlito De La Cruz PharmD [address] [place] [id number] Pharmacist Internal Medicine 01/24/23 documented as of this encounter
--- OUTSIDE RECORDS SUMMARY | 2025-01-16 09:57 | XMS_ITS | Encounter Summary ---
Author Organization [employer] Address [address] [facility] [address] [place] [address] Care Team Providers Care Undercover Agent Name Role Phone Gene Wallace MD Primary Care Provide r Carlito De La Cruz PharmD Unavailable [phone] Reason for Visit * Reason Comments Med Refill Encounter Details Date Type Department Care Team ([facility] st Contact Info) Description 04/25/2024 Telephone [facility] MEDICINE [address] [place] [address] Marilyn Sutherland MD [address] [place] [address] Med Refill Social History Tobacco Use Types [...] 10:51 AM EDT Telephone call placed to [facility] Cardiology. Left V/m for Dr Day's [...] Office Visit [facility] MEDICINE [address] [place] [address] Gene Wallace MD [address] [place] [address] 04/18/2025 2:00 PM EDT Office Visit [facility] OPTOMETRY [address] [place], [place] [phone] Angeline Robison, OD [address] [place] [address] documented as of this encounter Goals Goal [...] documented as of this encounter Care Teams Undercover Agent Relationship Specialty Start Date End Date Gene Wallace MD [address] [place] [address] PCP - General Internal Medicine 07/22/21 Carlito De La Cruz, VargheseD [address] [place] [address] [place] [id number] Pharmacist Internal Medicine 01/24/23 documented as of this encounter
--- OUTSIDE RECORDS SUMMARY | 2025-01-16 09:57 | XMS_ITS | Encounter Summary ---
Author Organization [employer] Address [address] [facility] [address] [place] [address] Care Team Providers Care Field Crop Grower Name Role Phone Gene Wallace MD Primary Care Provide r Carlito De La Cruz PharmD Unavailable [phone] Reason for Visit * Reason Comments Med Refill Encounter Details Date Type Department Care Team (Late st Contact Info) Description 06/14/2023 Refill [facility] MEDICINE [address] [place] [address] Gene Wallace MD [address] [place] [address] Social History Tobacco Use Types Packs/Day Years [...] Description 02/07/2025 10:15 AM EDT Office Visit [facility] MEDICINE [address] [place] [address] Gene Wallace MD [address] [place] [address] 04/18/2025 2:00 PM EDT Office Visit [facility] OPTOMETRY [address] [place] [address] Angeline Robison OD [address] [place] [address] documented as of this encounter Goals Goal [...] documented as of this encounter Care Teams Field Crop Grower Relationship Specialty Start Date End Date Gene Wallace MD [address] [place] [address] PCP - General Internal Medicine 07/22/21 Carlito De La Cruz PharmD [address] [place] [address] Pharmacist Internal Medicine 01/24/23 documented as of this encounter
--- OUTSIDE RECORDS SUMMARY | 2025-01-16 09:57 | XMS_ITS | Encounter Summary ---
Author Organization [employer] Address [address] [facility] [address] [place] [address] Care Team Providers Care Pot Lining Supervisor Name Role Phone Gene Wallace MD Primary Care Provide r Carlito De La Cruz PharmD Unavailable [phone] Reason for Visit * Reason Comments Med Refill Encounter Details Date Type Department Care Team (Late st Contact Info) Description 01/15/[address] [facility] MEDICINE [address] [place] [address] Gene Wallace MD [address] [place] [address] Type 2 diabetes mellitus without complication, with long-term current use of insulin ([facility]) Social History Tobacco Use Types Packs/Day Years [...] Description 02/07/2025 10:15 AM EDT Office Visit [facility] MEDICINE [address] [place] [address] Gene Wallace MD [address] [place] [address] 04/18/2025 2:00 PM EDT Office Visit [facility] OPTOMETRY [address] [place], [place] [phone] Angeline Robison, ODILON [address] [place] [address] documented as of this encounter Goals Goal Patient Goal Type Associated Problems Recent Progress Patient-Stated? Author Blood Pressure < 140/90 Blood Pressure HTN (hypertension), benign 110/70(2024 1:47 PM EST) No Carlito De La Cruz, PharmAbel Keep fasting blood glucose between 70 [...] current use of insulin ([facility]) documented in this encounter Additional Health Concerns Assessment Noted Time PHQ-9 Depression Total Score: 0 04/17/20 24 1:32 PM EDT documented as of this encounter Care Teams Pot Lining Supervisor Relationship Specialty Start Date End Date Gene Wallace MD [address] [place] [address] PCP - General Internal Medicine 07/22/21 Carlito De La Cruz PharmD [address] [place] [id number] Pharmacist Internal Medicine 01/24/23 documented as of this encounter
--- OUTSIDE RECORDS SUMMARY | 2025-01-16 09:57 | XMS_ITS | Clinical Summary ---
Author Organization [employer] Address [address] [facility] 7t [place] [address] Care Team Providers Care Account Services Manager Name Role Phone Gene Wallace MD Primary Care Provide r Carlito De La Cruz PharmD Unavailable [phone] Allergies No known active allergies Medications finasteride (Proscar) 5 MG tablet Take 5 mg by mouth in the morning. 3 Active insulin pen needle (Easy Touch Pen [place]) 31G X 8 mm miscIndication s:Type 2 [...] 1 5 Active Blood Glucose Monitoring Suppl ([employer] Verio) w/Device kitIndications :Type 2 diabetes mellitus [...] records were obtained Pt was treated in [place], at some point he had a repeat colonoscopy at [place] but no records were received from that colonoscopy 3 years ago other than a reference that it was done Pt was last seen by an Oncologist at [facility], he was told he did not needed to come back Previous visit pt was referred to Gastroenterology Dr Crowder, Pt no showed to that appointment. He was finally seen by Pooja Lomax NP at [facility]. Given his ongoing cardiac issues the [...] with cardiology Coronary artery disease invo lving [place] coronary artery of [place] heart without angina pectoris 11/15/2023 Assessment & Plan (11/06/2024 12:44 PM EST): Patient with CAD Cardiac Cath showed: Right dominant circulation. Proximal WEB OPERATIONS SPECIALIST right coronary artery with fubc-wi-hhsjj collaterals. Severe distal left main stenosis involving the ostial LAD and circumflex. Severe proximal LAD stenosis. High diagonal with ostial 80% stenosis and mid segment 90% stenosis. First OM 80% stenosis. Mid circumflex 80% stenosis. S/p CABG 12/09/2023 Last seen by Pulmonologist/Intensivist Dr Day 07/25/2024 Scheduled for f/u 6 months Assessment & Plan (04/17/2024 1:41 PM EDT): Patient with CAD Cardiac Cath showed: Right dominant circulation. Proximal WEB OPERATIONS SPECIALIST right coronary artery with aemg-tw-ijfzm collaterals. Severe distal left main stenosis involving the ostial LAD and circumflex. Severe proximal LAD stenosis. High diagonal with ostial 80% stenosis and mid segment 90% stenosis. First OM 80% stenosis. Mid circumflex 80% stenosis. S/p CABG 12/09/2023 Last seen by Pulmonologist/Intensivist Dr Day 04/10/2024 Scheduled for ECHO in 3-4 months Assessment & Plan (02/23/2024 12:54 PM EDT): Patient with CAD Most recent Cath showed: Right dominant circulation. Proximal WEB OPERATIONS SPECIALIST right coronary artery with qwgu-pm-nblyl collaterals. Severe distal left main stenosis involving the ostial LAD and circumflex. Severe proximal LAD stenosis. High diagonal with ostial 80% stenosis and mid segment 90% stenosis. First OM 80% stenosis. Mid circumflex 80% stenosis. He is now s/p CABG 12/09/2023 Last seen by Pulmonologist/Intensivist Dr Day 01/03/2024 Scheduled for cardiac rehab at some point Assessment & Plan (12/06/2023 8:39 AM EDT): Patient with CAD Most recent Cath showed: Right dominant circulation. Proximal WEB OPERATIONS SPECIALIST right coronary artery with kgnx-on-qxvpq collaterals. Severe distal left main stenosis involving the ostial LAD and circumflex. Severe proximal LAD stenosis. High diagonal with ostial 80% stenosis and mid segment 90% stenosis. First OM 80% stenosis. Mid circumflex 80% stenosis. Pt was referred for CABG to cardiac surgeon by Pulmonologist/Intensivist scheduled for 12/09/2023 Assessment & Plan (11/15/2023 2:25 PM EST): As part of his PE, Pt had an EKG that showed Qs in III and AVF As a result I referred patient to cardiology Pt had a stress test that was abnormal and subsequently underwent a Cath Coronary anatomy: Right dominant circulation. Proximal WEB OPERATIONS SPECIALIST right coronary artery with mycc-sv-wbmct collaterals. Severe distal left main stenosis involving the ostial LAD and circumflex. Severe proximal LAD stenosis. High diagonal with ostial 80% stenosis and mid segment 90% stenosis. First OM 80% stenosis. Mid circumflex 80% stenosis. Pt was referred for CABG to cardiac surgeon by Pulmonologist/Intensivist scheduled for 12/09/2023 Plantar fasciitis of right [...] CT right foot. 2nd opinion with Ortho literacy specialist Assessment & Plan (07/12/2023 10:50 AM [...] records were obtained Pt was treated in [place], at some point he had a repeat colonoscopy at [place] but no records were received from that colonoscopy 3 years ago other than a reference that it was done Pt was last seen by an Oncologist at [facility], he was told he did not needed to come back Previous visit pt was referred to Gastroenterology Dr Crowder, Pt no showed to that appointment. He was finally seen by Pooja Lomax NP at [facility]. Given his ongoing cardiac issues the [...] records were obtained Pt was treated in [place], at some point he had a repeat colonoscopy at [place] but no records were received from that colonoscopy 3 years ago other than a reference that it was done Pt was last seen by an Oncologist at [facility], he was told he did not needed [...] records were obtained Pt was treated in [place], at some point he had a repeat colonoscopy at [place] but no records were received from that colonoscopy 3 years ago other than a reference that it was done Pt was last seen by an Oncologist at [facility], he was told he did not needed [...] records were obtained Pt was treated in [place], at some point he had a repeat colonoscopy at [place] but no records were received from that colonoscopy 3 years ago other than a reference that it was done Pt was last seen by an Oncologist at [facility], he was told he did not needed [...] records were obtained Pt was treated in [place], at some point he had a repeat colonoscopy at [place] but no records were received from that colonoscopy 3 years ago other than a reference that it was done Pt was last seen by an Oncologist at [facility], he was told he did not needed [...] po daily Follows with our CDTM Program [facility] Lab Results Component Value Date [...] regimen of: Losartan [address] [facility] 12/03/2022 normal Plan: Increase Losartan [...] Encounters Date Type Department Care Team Description 01/15/2025 Refill [facility] [place] [id number] Gene Wallace MD Type 2 diabetes mellitus without complication, with long-term current use of insulin ([facility]) 12/04/2024 Orders Only [facility] [id number] Gene Wallace MD Acute pain of both knees (Primary Dx); Bilateral hip pain 11/28/2024 Telephone [facility] [address] [facility] [place] [id number] Gene Wallace MD Referral 11/06/2024 2:00 PM EST Office Visit [facility] [place] [id number] Gene Wallace MD Type 2 diabetes mellitus without complication, with long-term current use of insulin ([facility]) (Primary Dx); HTN (hypertension), benign; Mixed hyperlipidemia; Coronary artery disease involving [place] coronary artery of [place] heart without angina pectoris; S/P CABG (coronary artery bypass graft); Acquired hypothyroidism; Preventative health care; Class 1 obesity due to excess calories without serious comorbidity with body mass index (BMI) of 32.0 to 32.9 in adult; Dietary counseling; Exercise counseling; Acute pain of both knees; Bilateral hip pain; Lesion of nose 11/06/2024 Travel 10/24/2024 Telephone [facility] [place] [id number] Gene Wallace MD Chart Prep 10/24/2024 Patient Outreach [facility] [address] [facility] [id number] Gene Wallace MD Pre-visit Planning (SDOH Screening negative and Tobacco screening negative) 10/21/2024 Refill [facility] [address] [place] [phone] Gene Wallace MD from Last 3 Months [...] Description 02/07/2025 10:15 AM EDT Office Visit [facility] [address] [place] [address] Gene Wallace MD [address] [place] [address] 04/18/2025 2:00 PM EDT Office Visit [facility] [address] [place] [address] Angeline Robison, OD [address] [place] [address] Health Maintenance Due Date Last Done Comments [...] long-term current use of insulin ([facility]) TSH W/REFLEX TO FT4 Routine 11/07/2024 9:00 [...] AM EDT Narrative 11/29/2024 9:23 AM EDT ?[facility] ?[address] ?[place] [address] ?XRay Report ? Signed ? Patient: Driss Bender ?MR#: [id number] ?? 52 ? : 1950 ?Acct:[id number] ? Age/Sex: 74 / M ?ADM Date: 11/29/24 ? Loc: HO.HHCX ? Attending Dr: Gene Zarate MD ? Ordering Physician: Gene Zarate MD ?? Date of Service: 11/29/24 ?? Procedure(s): XR knee RT 3V ?? Accession Number(s): [id number] ? cc: Gene Zarate MD ? EXAMINATION: [...] DD/ 0838 ? TD/TT: 11/29/24 0900 ? Sales Trainer: ? Procedure Note Rickey, Image - 11/29/2024 [place] [address] XRay Report Signed Patient: Driss Bender EMR#: [id number] 52 : 1950cct:[id number] Age/Sex: 74 / MADM Date: 11/29/24 Loc: HO.HHCX Attending Dr: Gene Zarate MD Ordering Physician: Gene Zarate MD Date of Service: 11/29/24 Procedure(s): XR knee RT 3V Accession Number(s): [id number] cc: Gene Zarate MD EXAMINATION: XR KNEE, [...] Stevan Martinez MD 11/29/2024 09:20 AM EDT RP Dictated By: Stevan Garcia MD Signed By: <Electronically signed by Stevan Holloway MDin OV> 11/29/2420 DD/ 0838 TD/TT: 11/29/24 0900 Sales Trainer: us Gene Castro MD IMG XR PROCEDURES Rodriguez peace Result - Final * XR Knee 3 Views Left (11/29/2024 8:38 AM EDT) Anatomical Region Laterality Modality Lower Extremities, Knee Left Radiogra phic Imaging 11/29/2024 8:38 AM EDT Narrative 11/29/2024 9:23 AM EDT ?[facility] ?[address] ?[place] [address] ?XRay Report ? Signed ? Patient: Driss Bender ?MR#: [id number] ?? 52 ? : 1950 ?Acct:[id number] ? Age/Sex: 74 / M ?ADM Date: 11/29/24 ? Loc: HO.HHCX ? Attending Dr: Gene Zarate MD ? Ordering Physician: Gene Zarate MD ?? Date of Service: 11/29/24 ?? Procedure(s): XR knee LT 3V ?? Accession Number(s): [id number] ? cc: Gene Zarate MD ? EXAMINATION: [...] DD/ 0838 ? TD/TT: 11/29/24 0900 ? Sales Trainer: ? Procedure Note Donenrique, Image - 11/29/[address] [address] XRay Report Signed Patient: Driss Bender EMR#: [id number] 52 : 1950cct:[id number] Age/Sex: 74 / MADM Date: 11/29/24 Loc: HO.HHCX Attending Dr: Gene Zarate MD Ordering Physician: Gene Zarate MD Date of Service: 11/29/24 Procedure(s): XR knee LT 3V Accession Number(s): [id number] cc: Gene Zarate MD EXAMINATION: XR KNEE, [...] <Electronically signed by Stevan Holloway MDin OV> 11/29/24918 DD/ 0838 TD/TT: 11/29/24 09 Sales Trainer: us Gene Castro MD IMG XR PROCEDURES Rodriguez peace Result - Final * XR Hip 2 or 3 Views Right (11/29/2024 8:38 AM EDT) Anatomical Region Laterality Modality Lower Extremities, Hip Right Radiograp hic Imaging 11/29/2024 8:38 AM EDT Narrative 11/29/2024 9:20 AM EDT ?[facility] ?[address] ?[place] [address] ?XRay Report ? Signed ? Patient: Driss Bender ?MR#: [id number] ?? 52 ? : 1950 ?Acct:[id number] ? Age/Sex: 74 / M ?ADM Date: 11/29/24 ? Loc: HO.HHCX ? Attending Dr: Gene Zarate MD ? Ordering Physician: Gene Zarate MD ?? Date of Service: 11/29/24 ?? Procedure(s): XR hip RT min 2V ?? Accession Number(s): [id number] ? cc: Gene Zarate MD ? EXAMINATION: [...] DD/ 0838 ? TD/TT: 11/29/24 0900 ? Sales Trainer: ? Procedure Note Rickey, Image - 11/29/[address] [address] XRay Report Signed Patient: Driss Bender EMR#: [id number] 52 : 1950cct:[id number] Age/Sex: 74 / MADM Date: 11/29/24 Loc: HO.HHCX Attending Dr: Gene Zarate MD Ordering Physician: Gene Zarate MD Date of Service: 11/29/24 Procedure(s): XR hip RT min 2V Accession Number(s): [id number] cc: Gene Zarate MD EXAMINATION: XR HIP, [...] OV> 11/29/24 0916 DD/ 0838 TD/TT: 11/29/24 09 Sales Trainer: us Gene Castro MD IMG XR PROCEDURES Rodriguez peace Result - Final * XR Hip 2 or 3 Views Left (11/29/2024 8:38 AM EDT) Anatomical Region Laterality Modality Lower Extremities, Hip Left Radiograp hic Imaging 11/29/2024 8:38 AM EDT Narrative 11/29/2024 9:22 AM EDT ?[facility] ?[address] ?[place] [address] ?XRay Report ? Signed ? Patient: Bender,Driss E ?MR#: [id number] ?? 52 ? : 1950 ?Acct:[id number] ? Age/Sex: 74 / M ?ADM Date: 11/29/24 ? Loc: HO.HHCX ? Attending Dr: Gene Zarate MD ? Ordering Physician: Gene Zarate MD ?? Date of Service: 11/29/24 ?? Procedure(s): XR hip LT min 2V ?? Accession Number(s): [id number] ? cc: Gene Zarate MD ? EXAMINATION: [...] hip LT min 2V ?? IMPRESSION: ?? Myid-hy-pbououqc osteoarthrosis, left hip. ? Electronically signed by: ??Stevan Martinez MD ??11/29/2024 09:17 AM ?? EDT RP ? Dictated By: ?Stevan Garcia MD ? Signed By: ?<Electronically signed by Stevan Holloway MD in OV> ? 11/29/24 0917 ? DD/ 0838 ? TD/TT: 11/29/24 0900 ? Sales Trainer: ? Procedure Note Bassam Lang - 11/29/2024 [facility] [address] [place] [address] XRay Report Signed Patient: Driss Bender EMR#: [id number] 52 : 8Acct:[id number] Age/Sex: 74 / MADM Date: 11/29/24 Loc: HO.HHCX Attending Dr: Gene Zarate MD Ordering Physician: Gene Zarate MD Date of Service: 11/29/24 Procedure(s): XR hip LT min 2V Accession Number(s): [id number] cc: Gene Zarate MD EXAMINATION: XR HIP, [...] lesions. XR/XR hip LT min 2V IMPRESSION: Onok-yb-ubdhrtzj osteoarthrosis, left hip. Electronically signed by: Stevan Martinez MD 11/29/2024 09:17 AM EDT Dictated By: Stevan Garcia MD Signed By: <Electronically signed by Stevan Holloway MDin OV> 11/29/24 0917 DD/ 0838 TD/TT: 11/29/24 0900 Sales Trainer: Gene Castro MD IMG XR PROCEDURES Rodriguez peace Result - Final * (ABNORMAL) TSH with Reflex to Free T4 (11/07/2024 9:00 AM EST) TSH reflex Free T4 4.69(H) 0.32 - 4.0 uIU/mL [facility] Blood Venous blood specimen / Unknown 11/07/2024 9:00 AM EST 11/07/2024 11:08 AM EST Gene Castro MD LAB BLOOD ORDERABLES Final Result [facility] [address] [place] [phone] * Albumin, Random Urine W/Creatinine (11/07/2024 9:00 AM EST) Creatinine, Urine 211.69 mg/dL [facility] Microalbumin Urine 7.0 mg/L [facility] Microalbum Creatinine Ratio Ur 3.3 <30 ug/mg cr [facility] Comment:Albumin/Creatinine R atio Reference Ranges: Normal: < 30 ug/mg creatinine Microalbuminuria: 30 - 300 ug/mg creatinineClinical Albuminuria: > 300 ug/mg creatinine Urine (Urine, Random) 11/07/2024 9:00 AM EST 11/07/2024 11:06 AM EST Gene Castro MD LAB URINE ORDERABLES Final Result Performing Organization Address City/[facility]/ZIP Co de Phone Number [facility] [address] [place] [phone] * T4, Free (11/07/2024 9:00 AM EST) Free T4 (Free Thyroxine) 0.98 0.71 - 1.85 ng/dL [facility] 11/07/2024 9:00 AM EST 11/07/2024 11:08 AM EST Gene Castro MD LAB BLOOD ORDERABLES Final Result Performing Organization Address City/[facility]/ZIP Co de Phone Number [facility] [address] [place] [phone] * (ABNORMAL) Basic Metabolic Panel (11/07/2024 9:00 AM EST) Sodium 138 135 - 145 mmol/L [facility] Potassium 3.7 3.3 - 5.1 mmol/L [facility] Chloride 103 96 - 108 mmol/L [facility] Carbon Dioxide 29 22 - 29 mmol/L [facility] Anion Gap 10(L) 12 - 20 [facility] Urea Nitrogen (BUN) 22(H) 9 - 16 mg/dL [facility] Creatinine, Serum 1.13 0.5 - 1.4 mg/dL [facility] Estimated Glomerular Filt Rate >60 [facility] Comment:Chronic Kidney Disea se: Estimated GFR < 60 mL/min/1.00c3Lxwoab Kidney Disease: Estimated GFR < 15 mL/min/1.73m2 Glucose 182(H) 60 - 115 mg/dL [facility] Calcium 9.8 8.4 - 10.2 mg/dL [facility] Blood Venous blood specimen / Unknown 11/07/2024 9:00 AM EST 11/07/2024 11:08 AM EST us Gene Castro MD LAB BLOOD ORDERABLES Final Result [facility] [address] [place] [phone] * (ABNORMAL) POCT HGB A1C (11/06/2024 [...] specimen / Unknown 11/06/2024 1:49 PM EST Result Siddhartha Castro MD POINT OF CARE TEST EN TER/EDIT ORDERABLES Final Result * (ABNORMAL) Lipid Panel, Standard (04/25/2024 7:59 AM EDT) Triglycerides 121 <150 mg/dL [facility] Comment:Desirable Triglyceri de: less than 150 mg/dLBorderline High Triglyceride 150-199 mg/dLHigh Triglyceride: 200-499 mg/dLVery High Triglyceride: greater than or equal to 5OO mg/dL Cholesterol 137 <200 mg/dL [facility] Comment:Desirable Cholestero l: less than 200 mg/dLBorderline High Cholesterol: 200-239 mg/dLHigh Cholesterol: greater than 239 mg/dL LDL Cholesterol Calculated 77 <100 mg/dL [facility] Comment:Desirable LDL: less than 100 mg/dLNear Optimal/Above Optimal LDL: 110- 129 mg/dLBorderline High LDL: 130-159 mg/dLHigh LDL: 160-189 mg/dLVery High LDL: greater than or equal to 190 mg/dL HDL Cholesterol 36(L) >40 mg/dL [facility] Comment:Desirable HDL: great er than 40 mg/dL Note: This HDL assay may give artificially low results in patients with liver disease. Blood Venous blood specimen / Unknown 04/25/2024 7:59 AM EDT 04/25/2024 11:40 AM EDT Gene Castro MD LAB BLOOD ORDERABLES Final Result [facility] [address] [place] [phone] * Hepatitis C Antibody with Reflex to HCV, RNA, Quantitative, Real-Time PCR (12/03/2022 8:01 AM EDT) Hepatitis C Antibody NON-REACT PUNEET NON-REACT PUNEET Kyron Index 0.05 <1.00 Kyron Comment: HCV antibody was non-reactive. There is no laboratory evidence of HCV infection. In most cases, no further action is required. However, if recent HCV exposure is suspected, a test for HCV RNA (test code 30677) is suggested. For additional information please refer to http://education.AWAK/faq/XVM37y9 (This link is being provided for informational/ educational purposes only.) Blood Venous blood specimen / Unknown 12/03/2022 8:01 AM EDT 12/03/2022 8:02 AM EDT Narrative [facility] - 12/03/2022 8:32 PM EDT FASTING:YES FASTING: YES Gene Castro MD LAB BLOOD ORDERABLES Final Result [facility] [address] [place] [phone] [facility] [address] [place] [phone] from Last 3 Months or Most Recently Relevant to Health Maintenance Insurance [facility] Member Subscriber Plan / Payer (Ef fective 2023-Present) Name:Driss Guerrero Relation to Subscriber:Self Name:Driss Guerrero Payer ID:Not on file Group ID:Not on file Type:Medicaid Address: [facility] [id number] [place] [id number] [place] [address] Care Teams Account Services Manager Relationship Specialty Start Date End Date Gene Wallace MD [address] [place] [address] PCP - General Internal Medicine 07/22/21 Carlito De La Cruz PharmD [address] [place] [phone] Pharmacist Internal Medicine 01/24/23
--- OUTSIDE RECORDS SUMMARY | 2025-01-16 09:57 | XMS_ITS | Encounter Summary ---
Author Organization [employer] Address [address] [facility] 7t [place] [address] Care Team Providers Care Store Gift Wrap Associate Name Role Phone Gene Wallace MD Primary Care Provide r Carlito De La Cruz PharmD Unavailable [phone] Encounter Details Date Type Department Care Team (Late Contact Info) Description 10/08/2022 Orders Only [facility] [address] [place] [address] Denita Carrasco, NIKHIL Social History Tobacco Use [...] Description 02/07/2025 10:15 AM EDT Office Visit [facility] [address] [place] [address] Gene Wallace MD [address] [place] [address] 04/18/2025 2:00 PM EDT Office Visit [facility] [address] [place] [address] Ricki, Angeline, OD [address] [place] [address] documented as of this encounter Visit Diagnoses Not on filedocumented in this encounter Care Teams Store Gift Wrap Associate Relationship Specialty Start Date End Date Gene Wallace MD [address] [place] [address] PCP - General Internal Medicine 07/22/21 Carlito De La Cruz PharmD [address] [place] [phone] Pharmacist Internal Medicine 01/24/23 documented as of this encounter
--- OUTSIDE RECORDS SUMMARY | 2025-01-16 09:57 | XMS_ITS | Encounter Summary ---
Author Organization [employer] Address [address] [facility] 7t [place] [address] Care Team Providers Care Office Coordinator Name Role Phone Gene Wallace MD Primary Care Provide r Carlito De La Cruz PharmD Unavailable [phone] Reason for Visit * Reason Onset Date Comments Durable Medical Equipment 12/07/2023 Encounter Details Date Type Department Care Team ([facility] st Contact Info) Description 12/07/2023 Telephone [facility] [address] [place] [address] Gene Wallace MD [address] [place] [address] Durable Medical Equipment Social History Tobacco Use [...] FAXED TO [employer] AND SCAN TO [employer] * Telephone Encounter - Ramos Castro - 12/27/2023 2:03 PM EDT Tc from Michael at [facility] calling to inform the patients hospital [...] 10:15 AM EDT Office Visit [facility] [address] [place] [address] Gene Wallace MD [address] [place] [address] 04/18/2025 2:00 PM EDT Office Visit [facility] OPTOMET[facility] [address] [place], [place] [phone] Angeline Robison, OD [address] [place] [address] documented as of this encounter Goals Goal [...] documented as of this encounter Care Teams Office Coordinator Relationship Specialty Start Date End Date Gene Wallace MD [address] [place] [phone] PCP - General Internal Medicine 07/22/21 Carlito De La Cruz, PharmD [address] [place] [address] Pharmacist Internal Medicine 01/24/23 documented as of this encounter
--- NOTE | 2025-01-16 10:21 | CA_ITS ---
Transthoracic Echocardiogram Amended Patient (Last, First, Middle): Driss Bender E Gender: Male Date of : 1950 Age: 74 Procedure Date: 01/16/2025 Procedure Type: Transthoracic Echocardiogram Location: OP Height: 172.72 cm Weight: 96.62 kg BSA: 2.10 m2 Heart Rate: bpm BP: 122 / 68 mmHg Lease Out Man: ASA Referring MD: Federico Day MD Symptoms: Z95.1 - Presence of aortocoronary bypass graft Study Quality: Adequate ECG Rhythm: Sinus Conclusions: - The left ventricular systolic function is low normal. The calculated ejection fraction is 52% by biplane method. - The basal inferior segment is akinetic. - There is moderate calcification of the aortic valve. There is mild aortic valve stenosis. - There is mild mitral annular calcification. Findings Procedure Information Contrast agent, definity, is being given per protocol without apparent complications. Left Ventricle Normal left ventricular cavity size. There is moderately increased left ventricular wall thickness. The left ventricular systolic function is low normal. The calculated ejection fraction is 52% by biplane method. Diastolic function is normal for age. Wall Motion Rest Echo Findings The basal inferior segment is akinetic. Right Ventricle Mildly increased right ventricular cavity size. There is mildly decreased right ventricular systolic function. Atria The left atrium is mildly dilated. The right atrium is normal in size. Aortic Valve There is moderate calcification of the aortic valve. There is mild aortic valve stenosis. There is no aortic valve regurgitation. Mitral Valve There is mild mitral annular calcification. There is trace mitral valve regurgitation. There is no mitral valve stenosis. Pulmonic Valve There is trace pulmonic valve regurgitation. Tricuspid Valve There is mild tricuspid valve regurgitation. There is no evidence of pulmonary hypertension. Great Vessels The asc aorta is normal in size. Venous The inferior vena cava was not well visualized. Pericardium/Pleural There is no evidence of pericardial effusion. Prior Study Comparison Changes noted compared to prior study dated: 07/10/2024. LVEF improved. Measurements 2D Linear Measurements IVSd: 1.46 0.6-0.9/0.6-1.0 cm LVIDd: 4.22 3.9-5.3/4.2-5.9 cm LVIDd Index: 2.01 2.4-3.2/2.2-3.1 cm/m2 LVIDs: 3.05 2.0-3.6 cm LVPWd: 1.46 0.7-1.1 cm LA Diam: 4.10 2.7-3.8/3.0-4.0 cm LAIDs Index: 1.95 1.5-2.3 cm/m2 LV Mass: 300.40 67-162/88-224 g LV Mass Index: 143.05 43-95/49-115 g/m2 LVOT Diam: 2.30 3.0+(-)1.3 cm 2D Volumes LA Vol: 34.60 2D Systolic Function EF 4C: 58.50 >55% EF 2C: 49.40 >55% EF BiP: 52.40 >55% Mitral Valve MV Pk E: 0.76 MV PK A: 1.02 MV Decel Time: 334.00 E/A: 0.70 E'Lateral: 10.70 E'Medial: 3.15 E/E' Med: 24.10 E/E' Lat: 7.10 PHT: 98.00 MVA PHT: 2.24 Decel Medina: 2.27 Aortic Valve AoV Pk Devin: 2.28 AoV Mn Devin: 1.57 AoV VTI: 0.48 AoV Pk Grad: 21.00 Aov Mn Grad: 11.00 ROMAIN Cont.VTI: 1.66 LVOT LVOT Pk Devin: 0.78 LVOT Mn Devin: 0.55 LVOT VTI: 0.19 LVOT Pk Grad: 2.00 LVOT Mn Grad: 1.00 LVOT Diam: 2.30 LVOT Area: 4.15 Diastolic Function MV Pk E: 0.76 MV Pk A: 1.02 E/A: 0.70 E'Medial: 3.15 E/E' Med: 24.10 E' Laterial: 10.70 E/E' Lat: 7.10 Right Ventricle TAPSE (mm): 14.00 TVS' Devin: 7.00 Tricuspid Valve TR Pk Devin: 2.23 TR Pk Grad: 20.00 RA Press: 3.00 RVSP: 23.00 Great Vessels Aorta Ao Asc: 3.70 2.1-3.4 cm Updated in Other Vendor System with Status of Final Federico Day MD electronically signed on 01/18/2025 2:33:24 PM with status of Final
== END ==
LOC: HO.CARD 09:18
PROVIDERS: PCP Internal Medicine; Visit Provider Internal Medicine
DX: I42.9 Cardiomyopathy, unspecified (principal); Z95.1 Presence of aortocoronary bypass graft
CPT/HCPCS: 93306; Q9957

== ENCOUNTER → 2025-01-16 10:21 | Outpatient (BNV) | payer OTHER, SELFPAY | PROVIDERS: PCP Internal Medicine; Visit Provider Internal Medicine | DX: I42.9 Cardiomyopathy, unspecified (principal); Z95.1 Presence of aortocoronary bypass graft | CPT/HCPCS: 93306 ==

== ENCOUNTER 2025-01-30 07:30 | Outpatient (REF) | payer OTHER, SELFPAY ==
[2025-01-30 11:56] LABS: PSA,Total (Free>4and<10) 4.83 ng/mL (0.00-4.00)
[2025-01-31 13:38] LABS: Free Prostate Spec Ag 0.7 ng/mL; Percent Free Prostate Spec Ag 18 % (calc) (>25); Prostate Specific Ag Total 3.9 ng/mL (< OR = 4.0)
== END 2025-01-30 07:31 | disposition home or self-care (01) ==
LOC: HO.10HDL 07:30
PROVIDERS: Visit Provider Nurse Practitioner Family
DX: N40.0 Benign prostatic hyperplasia without lower urinary tract symptoms (principal); R97.20 Elevated prostate specific antigen [PSA]; Z12.5 Encounter for screening for malignant neoplasm of prostate
CPT/HCPCS: 36415; 84153; 84154

== ENCOUNTER 2025-02-12 12:23 | Outpatient (AMB) | payer OTHER, MEDICAID, SELFPAY ==
[2025-02-12 12:48] VITALS: BP 116/62; PULSE 68; BMI 32.2
--- NOTE | 2025-02-12 12:48 | A.OFFVIS_ITS ---
Vital Signs 02/12/25 12:48 Height 5 ft 8 in Weight 212 lb BMI 32.2 BP 116/62 Blood Pressure Location Lt brachial Position Sitting Pulse 68 Pulse Source Pulse Oximeter Intake Visit Reasons: 6m follow up Whipped Topping Supervisor Required: Yes Whipped Topping Supervisor Name: RAYMOND [phone] Allergies No Known Allergies [No Known Allergies*] Allergy (Verified 12/17/24 08:27) Medication List - Last Reconciled 02/12/25 by Federico Day MD aspirin (Adult Aspirin Regimen) 81 mg PO DAILY atorvastatin 80 mg PO BEDTIME dulaglutide (Trulicity) mg subcut finasteride 5 mg PO DAILY 90 days furosemide (Lasix) 20 mg PO DAILY PRN glipizide 5 mg PO BID insulin glargine (Lantus Solostar U-100 Insulin) 26 units subcut QPM levothyroxine 50 mcg PO DAILY losartan-hydrochlorothiazide 100-12.5 mg 1 tab PO DAILY metoprolol succinate ER (Toprol XL) 25 mg PO DAILY HPI Comments Details: Driss returns for follow-up. In the past, he was seen regarding abnormal EKG/preoperative evaluation for colonoscopy. Multiple cardiovascular risk factors. He was also describing chest tightness. That led to further workup eventually leading to cardiac catheterization followed by bypass surgery. He is generally doing well. During a prior visit, he is describing some leg swelling. Then tried low-dose diuretics prn and that helped him a lot. Otherwise, he feels good. [facility] Medical History Atherosclerotic cardiovascular disease Diabetes Abnormal EKG Pre-op examination BPH (benign prostatic hyperplasia) Hypertension Surgical History Status post aorto-coronary artery bypass graft S/P partial colectomy Family History Mother Heart problem Sister Heart problem Social History Alcohol intake: former Patient Tobacco Use Status: Former Tobacco user Current occupational status: retired Review of Systems Const Denies weakness ENT Denies dizziness Card Denies chest pain, Denies chest pain with activity, Denies syncope, Denies rapid heart rate, Denies pedal edema, Denies edema, Denies leg edema, Denies lightheadedness, Denies palpitations, Denies dyspnea, Denies dyspnea on exertion and Denies orthopnea Resp Denies cough, Denies dyspnea and Denies dyspnea on exertion GI Denies hematochezia and Denies change in stool character Musc Denies abnormal gait, Denies muscle cramps, Denies muscle weakness, Denies numbness, Denies radiating pain into limb and Denies tingling Neuro Denies abnormal gait, Denies dizziness, Denies syncope, Denies numbness, Denies tingling and Denies weakness Endo Denies palpitations Physical Exam Vital Signs: Last Vital Signs Pulse 68 02/12/25 12:48 BP 116/62 02/12/25 12:48 BMI result Body Mass Index 32.2 Const General: comfortable and no acute distress Orientation/consciousness: patient oriented x3 HEENT Other: Unremarkable Head: Yes normal to inspection Neck Neck: Yes normal visual inspection Chest Chest palpation & inspection: normal inspection of the chest Resp Auscultation: clear to auscultation bilaterally Cardio Palpation: normal PMI Heart sounds: S1 normal heart sound present, S2 normal heart sound present, no gallops, no murmurs and no rubs GI Palpation (GI): Soft to palpation Back/Spine/Pelvis Other: unremarkable Skin General skin exam: no rashes or lesions noted Neuro General: patient oriented x3 Extrem Other: 1+ edema General: Yes normal to inspection Psych Mental Status: mental status grossly normal Assessment & Plan Assessment & Plan (1) Atherosclerotic cardiovascular disease: Code(s): I25.10 - Atherosclerotic heart disease of [place] coronary artery without angina pectoris Category: Medical (2) Status post aorto-coronary artery bypass graft: Code(s): Z95.1 - Presence of aortocoronary bypass graft Category: Surgical Plan Cardiac catheterization data reviewed. Essentially complex multivessel disease with WEIGHT CHECKER of right coronary artery. Status post CABG. In the most recent echocardiogram, LVEF is 52%. Basal inferior akinesis. Moderate aortic valve calcification with mild stenosis. Mild mitral annular calcification. Overall, continue medical therapy for stable CAD. Long-term aspirin. Statins. Optimal management of diabetes, hypertension, dyslipidemia. With regard to the leg swelling, possibly dependent edema. Less likely cardiac. He is getting some benefit from low-dose diuretics and can use it as needed. If he uses it regularly, then can stop the hydrochlorothiazide component of lisinopril. Follow-up labs can be consolidated through PCP. We will follow up with 6 months' time. In the interim, call with concerns. Discussed using interpreter deaf. Discussion Notes We discussed the ongoing management of leg edema with as needed diuretic therapy which appears effective. We agreed on a routine follow-up schedule of every six months to monitor cardiovascular health and adjust the treatment plan if necessary. No new interventions were required at this visit given the stability of the symptoms. The risks and benefits of the current treatment regimen were reviewed. The patient appears satisfied with the current plan of care. Patient was informed and verbally consented to the use of an ambient scribe for clinic note documentation during this visit. Patient Instructions: - Continue taking your water pill as directed. - Do not take more than prescribed unless advised. - Schedule and attend your follow-up appointment in six months. - Call if you notice any new or worsening swelling or pain in your legs. Coding Level of Care Code Est Pt Level 4 (03575) Complex EM visit Add On G2211 Diagnoses Atherosclerotic cardiovascular disease I25.10 Status post aorto-coronary artery bypass graft Z95.1
--- OUTSIDE RECORDS SUMMARY | 2025-02-12 13:47 | XMS_ITS | Encounter Summary ---
Author Organization [employer] Address [address] [facility] [address] [place] [address] Care Team Providers Care Window Shade Installer Name Role Phone Gene Wallace MD Primary Care Provide r Carlito De La Cruz PharmD Unavailable [phone] Reason for Visit * Reason Comments Med Refill Encounter Details Date Type Department Care Team (Late st Contact Info) Description 06/14/2023 Refill [facility] MEDICINE [address] [place] [address] Gene Wallace MD [address] [place] [address] Social History Tobacco Use Types Packs/Day Years [...] Care Team (Late st Contact Info) Description 04/18/2025 2:00 PM EDT Office Visit [facility] OPTOMETRY [address] [place], [place] [phone] Angeline Robison, OD [address] [place], [place] [phone] documented as of this encounter Goals Goal Patient Goal Type Associated Problems Recent Progress Patient-Stated? Author Blood Pressure < 140/90 Blood Pressure HTN (hypertension), benign 120/70(2024 10:00 AM EDT) No Carlito De La Cruz PharmD Keep fasting blood glucose between 70 and 130 Result Component Type 2 diabetes mellitus without complication, with long-term current use of insulin On track( 023 11:39 AM EDT) No Carlito De La Cruz PharmAbel Hemoglobin A1c < 7 Result Component 9.6( 10:04 AM EDT) No Carlito De La Cruz PharmD documented as of this encounter Visit Diagnoses Not on filedocumented in this encounter Additional Health Concerns Assessment Noted Time PHQ-9 Depression Total Score: 0 12/03/19 23 10:28 AM EDT documented as of this encounter Care Teams Window Shade Installer Relationship Specialty Start Date End Date Gene Wallace MD [address] [place], [place] [phone] PCP - General Internal Medicine 11/10/21 Carlito De La Cruz, VargheseD [address] [place] [phone] Pharmacist Internal Medicine 01/24/23 documented as of this encounter
== END 2025-02-12 13:08 | disposition home or self-care (01) ==
PROVIDERS: PCP Internal Medicine; Visit Provider Internal Medicine
DX: I25.10 Atherosclerotic heart disease of native coronary artery without angina pectoris (principal); Z95.1 Presence of aortocoronary bypass graft
CPT/HCPCS: 99214; G2211

== ENCOUNTER → 2025-02-12 12:23 | Outpatient (BNVA) | payer OTHER, SELFPAY | PROVIDERS: PCP Internal Medicine; Visit Provider Internal Medicine ==

== ENCOUNTER 2025-02-13 10:37 | Outpatient (AMB) | payer OTHER, SELFPAY ==
--- NOTE | 2025-02-13 10:39 | MHC.OFFVIS ---
Intake Visit Reasons: 4m/PSA(set) Intake Note: Pt presents to the office today for a 4 month follow up/PSA/BPH Urology meds:Finasteride Blood thinners:Aspirin PVR:29ml Medical Office Specialist Required: Yes Medical Office Specialist Services: Medical Office Specialist Present Medical Office Specialist Name: Blanca [id number] Allergies No Known Allergies [No Known Allergies*] Allergy (Verified 02/13/25 11:53) Medication List - Last Reconciled 02/13/25 by SYLVIA Call- aspirin (Adult Aspirin Regimen) 81 mg PO DAILY atorvastatin 80 mg PO BEDTIME dulaglutide (Trulicity) mg subcut finasteride 5 mg PO DAILY 90 days furosemide (Lasix) 20 mg PO DAILY PRN glipizide 5 mg PO BID insulin glargine (Lantus Solostar U-100 Insulin) 26 units subcut QPM levothyroxine 50 mcg PO DAILY losartan-hydrochlorothiazide 100-12.5 mg 1 tab PO DAILY metoprolol succinate ER (Toprol XL) 25 mg PO DAILY HPI Comments Details: Driss is a pleasant 74-year-old Hungarian speaking male patient of Dr. Zarate. He has a past medical history of type 2 diabetes, and hypertension. He presents to the office today for follow-up of his elevated PSA. In discussion with the patient today he reports to be doing and feeling well. He currently denies any bothersome urinary issues or concerns. He reports compliance with 5 mg of finasteride daily. Recent PSA results reviewed with the patient today as noted and trended below. Previous workup has included a retroperitoneal ultrasound 03/04 noting bilateral kidneys with no calculi, lesions, and or hydronephrosis noted. The bladder is well distended and appears mildly trabeculated. Prostate is enlarged at 85 mL. PSAs are as follows.. 12/02 4.8, 03/04 5.1 % free 29, 07/04 4.8, 12/03 5.2, 04/04 3.5, 10/06 4.0, 02/03 4.8 %free PSA 18 When asked he denies urinary urgency, urinary frequency, incontinence, nocturia, hematuria, dysuria, foul smelling urine, changes to urinary stream, flank pain, fever, and or chills. He is happy with his current voiding parameters. In office urinalysis results reviewed with the patient today. PVR 29ml's. We discussed increase in PSA. We discussed further treatment options and risks and benefits of these treatment options. He otherwise offers no other issues or concerns at this time. [facility] Medical History Atherosclerotic cardiovascular disease Diabetes Abnormal EKG Pre-op examination BPH (benign prostatic hyperplasia) Hypertension Surgical History Status post aorto-coronary artery bypass graft S/P partial colectomy Family History Mother Heart problem Sister Heart problem Social History Alcohol intake: former Patient Tobacco Use Status: Former Tobacco user Current occupational status: retired Review of Systems Const All systems reviewed & are unremarkable except as noted in HPI and below Reports no additional complaints Eyes Reports no additional complaints ENT Reports no additional complaints Card Reports as per HPI Resp Reports no additional complaints GI Reports no additional complaints Reports as per HPI Musc Reports no additional complaints Neuro Reports no additional complaints Psych Reports no additional complaints Endo Reports as per HPI Davion/Lymph Reports no additional complaints Aller/Immun Reports no additional complaints Physical Exam Const General: cooperative, healthy appearing, comfortable, no acute distress, well developed, alert and awake Orientation/consciousness: patient oriented x3 Limitations: no limitations HEENT Head: Yes normal to inspection, Yes normocephalic and Yes atraumatic Ears: hearing grossly normal bilaterally Eyes General: appearance normal, both eyes and all related structures Neck Neck: Yes normal visual inspection and Yes trachea midline Chest Chest palpation & inspection: normal inspection of the chest Resp Effort & Inspection: normal respiratory effort and able to speak in complete sentences Cardio Rate: regular rate GI Inspection: Yes normal to inspection General: Yes no CVA tenderness Back/Spine/Pelvis Back: no CVA tenderness Skin General skin exam: no rashes or lesions noted Neuro General: patient oriented x3 Extrem General: Yes normal to inspection Psych Appearance: grossly normal and well kempt Mental Status: mental status grossly normal Speech and movement: Normal speech and movement present and Clear speech present Affect: normal affect Attitude: cooperative Thought process: Normal thought process present Thought content: Normal thought content present Insight: Fair insight present (Psych) Judgement: Fair judgement present (Psych) Office Procedures Post Void Residual Post Residual Void Post Void Residual (PVR): 29 [id number] Void Residual by ultrasound Results AMB Urinalysis, Automated UA Leukoctes 0 Solomon/uL Last Edit by Rosenda Hernandes CMA on 02/13/25 11:26 UA Nitrite Negative Last Edit by Rosenda Hernandes CMA on 02/13/25 11:26 UA Urobilinogen 3.5 mg/dL Last Edit by Rosenda Hernandes CMA on 02/13/25 11:26 UA Protein 15 mg/dL Last Edit by Rosenda Hernandes CMA on 02/13/25 11:26 UA pH 6.0 Last Edit by Rosenda Hernandes CMA on 02/13/25 11:26 UA Blood 0 Herson/uL Last Edit by Rosenda Hernandes, LE on 02/13/25 11:26 UA Specific [place] 1.025 Last Edit by Rosenda Hernandes CMA on 02/13/25 11:26 UA Ketone Negative Last Edit by Rosenda Hernandes CMA on 02/13/25 11:26 UA Bilirubin 0 mg/dL Last Edit by Rosenda Hernandes CMA on 02/13/25 11:26 UA Glucose 5 mg/dL Last Edit by Rosenda Hernandes CMA on 02/13/25 11:26 Results Reviewed Results Reviewed: Laboratory Last Values Urine pH (Auto) 6.0 02/13/25 11:22 Specific [place] (Auto) 1.025 02/13/25 11:22 Urine Protein (Auto) 15 mg/dL 02/13/25 11:22 Glucose (UA)(Auto) 5 mg/dL 02/13/25 11:22 Urine Ketones (Auto) Negative 02/13/25 11:22 Urine Blood (Auto) 0 Herson/uL 02/13/25 11:22 Urine Nitrite (Auto) Negative 02/13/25 11:22 Urine Bilirubin (Auto) 0 mg/dL 02/13/25 11:22 Urine Urobilinogen (Auto) 3.5 mg/dL 02/13/25 11:22 Leukocyte Esterase (Auto) 0 Solomon/uL 02/13/25 11:22 Assessment & Plan Assessment & Plan (1) Elevated PSA: Code(s): R97.20 - Elevated prostate specific antigen [PSA] Category: Medical (2) Enlarged prostate: Code(s): N40.0 - Benign prostatic hyperplasia without lower urinary tract symptoms Category: Medical (3) Bladder trabeculation: Code(s): N32.89 - Other specified disorders of bladder Category: Medical Plan In office urinalysis results reviewed with the patient today; as noted above. Here PVR 29 mL Recent PSA results reviewed with the patient today; as noted above. We discussed potential causes of elevated PSA despite compliance with finasteride; we discussed further interventions/workup; as well as risks and benefits of these interventions. Will obtain MRI of the prostate for further assessment evaluation. Continue finasteride as discussed and prescribed; refill provided. He otherwise denies any bothersome urinary issues. He reports be happy with current voiding parameters. Will repeat PSA with no sex the night before, no caffeine morning of, and no heavy lifting 1-2 days prior. Follow-up in 4-8 weeks with imaging and repeat PSA; or sooner with any issues, concerns, and or questions. Orders: Orders AMB Post Void Residual by ultrasound Today R33.9 - Retention of urine, unspecified MR Prostate wo/w con Today R97.20 - Elevated prostate specific antigen [PSA] AMB Urinalysis Automated Today R33.9 - Retention of urine, unspecified Patient Instructions: The patient had an opportunity to ask questions regarding the treatment plan. All questions were answered. Physical exam, labs, and imaging were discussed and reviewed in detail. As well as risks, benefits, and discussion of treatment choices. No major barriers to understanding were identified. The patient expressed understanding and agreement with the above treatment plan. The patient was made aware they should contact our office by phone for worsening of their current condition, the appearance of new symptoms, or with any questions or concerns. Compliance is encouraged with any medications and follow up testing that is ordered. It is a privilege to be allowed the opportunity to participate in? your urological care.? Again, if you have any questions or concerns If you have any questions or concerns please do not hesitate to contact me. The office is [phone]. This note is constructed using voice recognition software. While every effort has been made to ensure accuracy emergency veterinary assistant errors may have been included. Yours sincerely, SHANNAN Call Coding Level of Care Code Est Pt Level 3 (38309) Complex EM visit Add On G2211 Diagnoses Elevated PSA R97.20 Enlarged prostate N40.0 Bladder trabeculation N32.89 CPT Codes Post Residual Void - PVR CPT Code: [id number] Void Residual by ultrasound ([id number])
--- OUTSIDE RECORDS SUMMARY | 2025-02-13 11:23 | XMS_ITS | Encounter Summary ---
Author Organization [employer] Address [address] [facility] [address] [place] [address] Care Team Providers Care Director Of Promotions Name Role Phone Gene Wallace MD Primary Care Provide r Carlito De La Cruz PharmD Unavailable [phone] Reason for Visit * Reason Comments Med Refill Encounter Details Date Type Department Care Team (Late st Contact Info) Description 06/14/2023 Refill [facility] MEDICINE [address] [place] [address] Gene Wallace MD [address] [place] [address] Social History Tobacco Use Types Packs/Day Years [...] Description 04/18/2025 2:00 PM EDT Office Visit [facility] OPTOMETRY [address] [place], [place] [phone] Angeline Robison, OD [address] [place], [place] [phone] documented as of this encounter Goals Goal [...] as of this encounter Care Teams Director Of Promotions Relationship Specialty Start Date End Date Gene Wallace MD [address] [place], [place] [phone] PCP - General Internal Medicine 11/10/21 Carlito De La Cruz, VargheseD [address] [place] [phone] Pharmacist Internal Medicine 01/24/23 documented as of this encounter
== END 2025-02-13 11:57 | disposition home or self-care (01) ==
LOC: HO.HUSH 10:38
PROVIDERS: PCP Internal Medicine; Visit Provider Nurse Practitioner Family
DX: R97.20 Elevated prostate specific antigen [PSA] (principal); N40.0 Benign prostatic hyperplasia without lower urinary tract symptoms; N32.89 Other specified disorders of bladder; R33.9 Retention of urine, unspecified
CPT/HCPCS: 99213; G2211

== ENCOUNTER → 2025-02-13 10:37 | Outpatient (BNVA) | payer OTHER, SELFPAY | PROVIDERS: PCP Internal Medicine; Visit Provider Nurse Practitioner Family | DX: R97.20 Elevated prostate specific antigen [PSA] (principal); N40.0 Benign prostatic hyperplasia without lower urinary tract symptoms; N32.89 Other specified disorders of bladder | CPT/HCPCS: 51798; 81003; 99212 ==

== ENCOUNTER 2025-04-10 08:32 | Outpatient (REF) | payer OTHER, SELFPAY ==
--- OUTSIDE RECORDS SUMMARY | 2025-04-10 08:45 | XMS_ITS | Encounter Summary ---
Author Organization [employer] Address [address] [facility] [address] [place] [address] Care Team Providers Care Support Coordinator Name Role Phone Gene Wallace MD Primary Care Provide r Carlito De La Cruz PharmD Unavailable + Hien Taylor PharmD Unavailable [phone] Reason for Visit * Reason Comments Med Refill Encounter Details Date Type Department Care Team (Late st Contact Info) Description 06/14/2023 Refill [facility] MEDICINE [address] [place] [address] Gene Wallace MD [address] [place], [place] [phone] Social History Tobacco Use Types Packs/Day Years [...] Care Team (Late st Contact Info) Description 04/12/2025 9:30 AM EDT Medication Management [facility] MEDICINE [address] [place] [address] Hien Taylor, VargheseD [address] [place] [address] 04/18/2025 2:00 PM EDT Office Visit [facility] OPTOMETRY [address] [place] [address] Ricki, Angeline, OD [address] [place] [address] 05/16/2025 10:15 AM EDT Office Visit [facility] MEDICINE [address] [place] [address] Gene Wallace MD [address] [place] [address] documented as of this encounter Goals Goal Patient Goal Type Associated Problems Recent Progress Patient-Stated? Author Blood Pressure < 140/90 Blood Pressure HTN (hypertension), benign 120/62(2024 9:59 AM EDT) No Carlito De La Cruz, PharmD Keep fasting blood glucose between 70 and 130 Result Component Type 2 diabetes mellitus without complication, with long-term current use of insulin On track( 023 11:39 AM EDT) No Carlito De La Cruz PharmD Hemoglobin A1c < 7 Result Component 9.6( 5 10:04 AM EDT) No Carlito De La Cruz PharmD documented as of this encounter Visit Diagnoses Not on filedocumented in this encounter Additional Health Concerns Assessment Noted Time PHQ-9 Depression Total Score: 0 12/03/19 23 10:28 AM EDT documented as of this encounter Care Teams Support Coordinator Relationship Specialty Start Date End Date Gene Wallace MD [address] [place] [phone] PCP - General Internal Medicine 07/22/21 Carlito De La Cruz, VargheseD [address] [place] [phone] Pharmacist Internal Medicine 01/24/23 12/24/23 Hien Taylor, VargheseD [address] [place] [address] Pharmacist Pharmacy 03/13/25 documented as of this encounter
== END 2025-04-10 08:33 | disposition home or self-care (01) ==
LOC: HO.MRI 08:32
PROVIDERS: PCP Internal Medicine; Visit Provider Nurse Practitioner Family
DX: Z13.89 Encounter for screening for other disorder (principal)

== ENCOUNTER → 2025-04-23 08:15 | Outpatient (BNV) | payer OTHER, SELFPAY | PROVIDERS: PCP Internal Medicine; Visit Provider Radiology Diagnostic Radiology | DX: R97.20 Elevated prostate specific antigen [PSA] (principal) | CPT/HCPCS: 72197 ==

== ENCOUNTER 2025-04-23 08:38 | Outpatient (REF) | payer OTHER, SELFPAY ==
--- NOTE | ~2025-04-23 | MR_ITS ---
EXAMINATION: MR PROSTATE WITHOUT THEN WITH IV CONTRAST HISTORY: R97.20 - Elevated prostate specific antigen [PSA] TECHNIQUE: 1.5T body coil survey of the pelvis was performed. Phase array coil imaging of the prostate was performed in multiplanar high resolution axial, coronal, sagittal fast spin echo T2 and axial T1 weighted imaging sequences. Axial diffusion imaging at intermediate and high field performed with ADC mapping. Next, 9.5 mL Gadavist was given by intravenous infusion, and dynamic axial imaging performed. 3-D reconstructions and post-processing were performed on an independent workstation by the radiologist for biopsy planning using image fusion. COMPARISON: There are no prior studies available for comparison. CLINICAL DATA: Most recent PSA: 4.83 ng/mL on 01/30/2025. PSA Density: 0.064 ng/mL squared Prostate Biopsy: None reported FINDINGS: Prostate size: 6.2 x 5.4 x 4.3 cm. Calculated prostate volume is 74.9 mL. Hemorrhage: None. Transitional Zone: There is marked heterogeneous nodular hypertrophy of the transitional zone. Peripheral Zone: No discrete focus of abnormal signal intensity is identified. There are no foci of restricted diffusion. Seminal Vesicles/Ejaculatory Ducts: Symmetric and normal in signal and caliber. Pelvic Lymph Nodes: No obturator or internal iliac lymph nodes meeting size criteria for adenopathy. Marrow Signal: Normal marrow signal and enhancement without focal lesion identified. MR/MR Prostate wo/w con IMPRESSION: No discrete focus of abnormal signal intensity is identified to suggest clinically significant prostate carcinoma. PI-RADS 1: Very low (clinically significant cancer is highly unlikely to be present) PI-RADS Assessment Categories PI-RADS 1: Very low (clinically significant cancer is highly unlikely to be present) PI-RADS 2: Low (clinically significant cancer is unlikely to be present) PI-RADS 3: Intermediate (the presence of clinically significant cancer is equivocal) PI-RADS 4: High (clinically significant cancer is likely to be present) PI-RADS 5: Very high (clinically significant cancer is highly likely to be present) [employer]. MR Prostate Imaging Reporting and Data System version 2.1. [email or web address].org/Quality-Safety/[email or web address]/ Electronically signed by: Luis Deras MD 04/23/2025 09:53 AM EDT
== END 2025-04-23 08:39 | disposition home or self-care (01) ==
LOC: HO.MRI 08:38
PROVIDERS: PCP Internal Medicine; Visit Provider Nurse Practitioner Family
DX: R97.20 Elevated prostate specific antigen [PSA] (principal)
CPT/HCPCS: 72197; 76377; A9585

== ENCOUNTER 2025-05-09 08:34 | Outpatient (REF) | payer OTHER, SELFPAY ==
--- OUTSIDE RECORDS SUMMARY | 2025-05-09 09:14 | XMS_ITS | Encounter Summary ---
Author Organization [employer] Address [address] [facility] 7t [place] [address] Care Team Providers Care Livestock Trucker Name Role Phone Gene Wallace MD Primary Care Provide r Carlito De La Cruz PharmD Unavailable + Hien Taylor PharmD Unavailable [phone] Reason for Visit * Reason Comments Med Refill Encounter Details Date Type Department Care Team (Late st Contact Info) Description 06/14/2023 Refill [facility] [address] [place] [address] Gene Wallace MD [address] [place], [place] [phone] Social History Tobacco Use Types Packs/Day Years [...] Care Team (Late st Contact Info) Description 05/16/2025 10:15 AM EDT Office Visit [facility] [address] [place] [phone] Gene Wallace MD [address] [place] [address] 06/12/2025 10:30 AM EDT Medication Management [facility] [address] [place] [phone] Hien Taylor PharmD [address] [place] [phone] documented as of this encounter Goals Goal Patient Goal Type Associated Problems Recent Progress Patient-Stated? Author Blood Pressure < 140/90 Blood Pressure HTN (hypertension), benign 102/58(2024 11:04 AM EDT) No Carlito De La Cruz PharmAbel Keep fasting blood glucose between 70 and 130 Result Component Type 2 diabetes mellitus without complication, with long-term current use of insulin On track( 023 11:39 AM EDT) No Carlito De La Cruz, PharmAbel Hemoglobin A1c < 7 Result Component 8.6( 11:06 AM EDT) No Carlito De La Cruz PharmD documented as of this encounter Visit Diagnoses Not on filedocumented in this encounter Additional Health Concerns Assessment Noted Time PHQ-9 Depression Total Score: 0 12/03/19 23 10:28 AM EDT documented as of this encounter Care Teams Livestock Trucker Relationship Specialty Start Date End Date Gene Wallace MD [address] [place] [phone] PCP - General Internal Medicine 07/22/21 Carlito De La Cruz, VargheseD [address] [place] [phone] Pharmacist Internal Medicine 01/24/23 12/24/23 Hien Taylor, VargheseD [address] [place] [phone] Pharmacist Pharmacy 03/13/25 documented as of this encounter
--- OUTSIDE RECORDS SUMMARY | 2025-05-09 09:14 | XMS_ITS | Encounter Summary ---
Author Organization [employer] Address [address] [facility] 7t [place] [address] Care Team Providers Care Weight Training Instructor Name Role Phone Gene Wallace MD Primary Care Provide r Carlito De La Cruz PharmD Unavailable +- Hien Taylor PharmD Unavailable +1- Encounter Details Date Type Department Care Team (Late st Contact Info) Description 10/08/2022 Orders Only [facility] [address] [place] [phone] Denita Carrasco, NIKHIL Social History Tobacco Use [...] Description 05/16/2025 10:15 AM EDT Office Visit [facility] [address] [place] [phone] Gene Wallace MD [address] [place] [phone] 06/12/2025 10:30 AM EDT Medication Management [facility] [address] [place] [phone] Hien Taylor, PharmD [address] [place] [address] documented as of this encounter Visit Diagnoses Not on filedocumented in this encounter Care Teams Weight Training Instructor Relationship Specialty Start Date End Date Gene Wallace MD [address] [place] [phone] PCP - General Internal Medicine 07/22/21 Carlito De La Cruz, VargheseD [address] [place] [phone] Pharmacist Internal Medicine 01/24/23 12/24/23 Hien Taylor, VargheseD [address] [place] [phone] Pharmacist Pharmacy 03/13/25 documented as of this encounter
--- OUTSIDE RECORDS SUMMARY | 2025-05-09 09:14 | XMS_ITS | Encounter Summary ---
Author Organization [employer] Address [address] [facility] 7t [place] [address] Care Team Providers Care Generalist Name Role Phone Gene Wallace MD Primary Care Provide r Carlito De La Cruz PharmD Unavailable +- Hien Taylor PharmD Unavailable +1- Reason for Visit * Reason Onset Date Comments new script 10/07/2022 Encounter Details Date Type Department Care Team (Late st Contact Info) Description 10/07/2022 Telephone [facility] [address] [place] [address] Gene Wallace MD [address] [place] [address] new script Social History Tobacco Use Types [...] Pen needles 8mm to be sent to [facility] Pharmacy. PCP DR. Ramsay documented in this encounter Plan of Treatment Upcoming Encounters Date Type Department Care Team (Late st Contact Info) Description 05/16/2025 10:15 AM EDT Office Visit [facility] [address] Gene Wallace MD [facility] [place] [address] 06/12/2025 10:30 AM EDT Medication Management [facility] [address] [facility] [place] [address] Hien Taylor, PharmD 230 [facility] [place] [address] documented as of this encounter Visit Diagnoses Diagnosis Type 2 diabetes mellitus without complication, with long-term current use of insulin ([facility] documented in this encounter Care Teams Generalist Relationship Specialty Start Date [place] [address] PCP - General Internal Medicine 07/22/21 Carlito De La Cruz PharmD [address] [place] [address] [phone] Pharmacist Internal Medicine 01/24/23 12/24/23 Hien Taylor, VargheseD [address] [place] [phone] Pharmacist Pharmacy 03/13/25 documented as of this encounter
--- OUTSIDE RECORDS SUMMARY | 2025-05-09 09:14 | XMS_ITS | Encounter Summary ---
Author Organization [facility] Address [address] [place] [address] Care Team Providers Care Corporate Director Name Role Phone Alexx Azul MD Primary Care Provider Latia Freitas, Pcp Primary Care Provider Flory pandya Encounter Details Date Type Department Care Team Description 02/04/2018 Hospital Medical Records [address] [place], [place] [phone] [place] [address] Social History Tobacco Use Types Packs/Day Years Used Date Smoking Tobacco: Former Cigarettes 0.3 19 1 10/06/1965 - 09/12/1984 Smokeless Tobacco: Never Alcohol Use Standard Drinks/Week Comments Yes 0 (1 standard drink = 0.6 oz pur e alcohol) 7 beers per week Sex Assigned at Date Recorded Not on file documented as of this encounter Plan of Treatment Not on file documented as of this encounter Visit Diagnoses Not on filedocumented in this encounter Care Teams Corporate Director Relationship Specialty Start Date End Date Alexx Azul MD PCP - General Internal Medicine 02/06/15 12/24/21 [place], Pcp PCP - General Internal Medicine 12/25/21 documented as of this encounter
--- OUTSIDE RECORDS SUMMARY | 2025-05-09 09:14 | XMS_ITS | Encounter Summary ---
Author Organization [employer] Address [address] [facility] 7t [place] [address] Care Team Providers Care Industrial Safety And Health Specialist Name Role Phone Gene Wallace MD Primary Care Provide r Carlito De La Cruz PharmD Unavailable + Hien Taylor PharmD Unavailable +[phone] Reason for Visit * Reason Onset Date Comments Durable Medical Equipment 12/07/2023 Encounter Details Date Type Department Care Team (Late st Contact Info) Description 12/07/2023 Telephone [facility] [address] [place], [place] [phone] Gene Wallace MD [address] [place], [place] [phone] Durable Medical Equipment Social History Tobacco Use [...] FAXED TO [employer] AND [employer] TO MED[employer]. * Telephone Encounter - Ramos Castro - 12/27/2023 2:03 PM EDT Tc jean claude Rodriguez at [facility] calling to inform the patients hospital [...] Description 05/16/2025 10:15 AM EDT Office Visit [facility] [address] [place] [phone] Gene Wallace MD [address] [place] [address] 06/12/2025 10:30 AM EDT Medication Management [facility] [address] [place] [address] [phone] Hien Taylor PharmD [address] [place] [phone] documented as of this encounter Goals Goal [...] documented as of this encounter Care Teams Industrial Safety And Health Specialist Relationship Specialty Start Date End Date Gene Wallace MD [address] [place] [address] [phone] PCP - General Internal Medicine 07/22/21 Carlito De La Cruz PharmD [address] [place] [address] Pharmacist Internal Medicine 01/24/23 12/24/23 Hien Taylor, PharmD [address] [place] [address] Pharmacist Pharmacy 03/13/25 documented as of this encounter
--- OUTSIDE RECORDS SUMMARY | 2025-05-09 09:14 | XMS_ITS | Encounter Summary ---
Author Organization [employer] Address [address] [facility] 7t [place] [address] Care Team Providers Care Database Tester Name Role Phone Gene Wallace MD Primary Care Provide r Hien Taylor PharmD Unavailable +- [phone] Encounter Details Date Type Department Care Team (Latest Contact Info) Description 05/07/2025 Travel Social History Tobacco Use Types Packs/Day [...] Answer Date Recorded Internet Access Q1 Yes 04/05/2025 Internet Access Q2 Not on file 04/05/2025 Sex and Gender Information Value Date Recorded [...] Description 05/16/2025 10:15 AM EDT Office Visit [facility] [address] [place] [phone] Gene Wallace MD [address] [place] [address] 06/12/2025 10:30 AM EDT Medication Management [facility] [address] [place] [address] Hien Taylor PharmD [address] [place] [address] documented as of this encounter Goals Goal [...] documented as of this encounter Care Teams Database Tester Relationship Specialty Start Date End Date Gene Wallace MD [address] [place] [address] PCP - General Internal Medicine 07/22/21 Hien Taylor, VargheseD [address] [place] [address] Pharmacist Pharmacy 03/13/25 documented as of this encounter
--- OUTSIDE RECORDS SUMMARY | 2025-05-09 09:14 | XMS_ITS | Encounter Summary ---
Author Organization [facility] Address [address] [place] [address] Care Team Providers Care Community Resource Consultant Name Role Phone Alexx zAul MD Primary Care Provider Latia cummins [facility], Pcp Primary Care Provider [facility] Reason for Visit * Reason Comments E-prescribe Rx Request Encounter Details Date Type Department Care Team Description 12/27/2020 Refill Adult Medicine [address] [address] Alexx Azul MD E-prescribe Rx Request Social History Tobacco Use Types Packs/Day Years Used Date Smoking Tobacco: Former Cigarettes 0.3 19 1 10/06/1965 - 09/12/1984 Smokeless Tobacco: Never Alcohol Use Standard Drinks/Week Comments Yes 0 (1 standard drink = 0.6 oz pur e alcohol) 7 beers per week Sex Assigned at Date Recorded Not on file COVID-19 Exposure Response Date Recorded In the last month, have you been in contact with someone who was confirmed or suspected to have Coronavirus / COVID-19? No / Unsure 12/19/2020 10:30 AM EDT documented as of this encounter Miscellaneous Notes * Telephone Encounter - Maegan Gongora M.A. - 12/29/2020 5:13 PM EDT Lab Results Component Value Date HGBA1C 8.7 12/19/2020 MALBUR 17.7 12/19/2020 MALBCR 8.4 12/19/2020 CHOL 237 12/19/2020 LDL 161 12/19/2020 HDL 46 12/19/2020 TRIG 150 12/19/2020 GLU 114 12/19/2020 CREAT 1.08 12/19/2020 * Telephone Encounter - Liliana Younger - 12/28/2020 9:30 AM EDT Patient would like script to be: E-PRESCRIBED/FAXED TO PHARMACY WHEN WAS THE PATIENT'S LAST APPOINTMENT IN ADULT MEDICINE? 12/19/2020 WHEN WAS THE LAST TIME THE PATIENT SAW THEIR PCP? Same as above Does patient have an upcoming appointment? Yes 05/22/2021 (THE MEDICATION REQUESTED IS ON THE MED LIST ABOVE) All of the medications requested were on the CURRENT MEDS list Did you check the Pharmacy information above?: YES Patient wants: 30 -day supply Is this a mail order prescription request ? NO If the refill is from a FAXED refill request what is the RX # listed on the fax? N/A Patients current insurance carrier is: Payor: [facility] / Plan: [id number] / Product Type: HMO [id number] documented in this encounter Plan of Treatment Not on file documented as of this encounter Visit Diagnoses Not on filedocumented in this encounter Care Teams Community Resource Consultant Relationship Specialty Start Date End Date Alexx Azul MD PCP - General Internal Medicine 02/06/15 12/24/21 [facility] - General Internal Medicine 12/25/21 documented as of this encounter
--- OUTSIDE RECORDS SUMMARY | 2025-05-09 09:15 | XMS_ITS | Clinical Summary ---
Author Organization [facility] Address [address] [place] [address] Care Team Providers Care Miter Sawyer Name Role Phone Community, Pcp Primary Care Provider Unavailabl e Allergies No known active allergies Medications Medication Sig Dispensed Refills Start Date End Date Status Glucose Blood (ONE TOUCH ULTRA TEST STRIPS) Strip Test twice daily or as directed Dx 250.02 200 Strip 1 01/25/2018 Active Diclofenac Sodium 1 % GelIndications:Plant ar fasciitis of left foot,Arthritis of midfoot Place 4 g onto the skin 2 times daily for 30 days. Apply to painful area of foot twice daily for 30 days 1 Tube 1 08/16/2019 Active triamcinolone acetonide (KENALOG-40) 40 MG/ML injection 0.5 mL by Other route once for 1 dose. 0.5 mL 0 09/17/2019 Active Insulin Pen Needle (BD Pen Needle Ktay 2nd Gen) 32G X 4 MM Misc Use to inject insulin at bedtime 100 Each 3 12/30/2020 Active simvastatin (ZOCOR) 40 MG tablet TAKE 1 TABLET BY MOUTH AT BEDTIME 30 tablet 2 04/08/2021 Active losartan (COZAAR) 50 MG tablet Take 1 tablet by mouth daily. 90 tablet 1 05/22/2021 Active Insulin Lispro (HumaLOG KwikPen) 100 UNIT/ML Solution Pen-injector 2- 12 unit sc per sliding scale prior to lunch and dinner, Use the following sliding scale: BG less than 150: no treatment, BG 150-199: take 2 units,BG 200-249: take 4 units,BG 250-299: take 6 units,BG 300-349: take 8 units,BG 350-399: take 10 units,BG Over 399: take 12 units and call 5 mL 1 05/22/2021 Active Insulin Glargine (Lantus SoloStar) 100 UNIT/ML Solution Pen-injector 42 unit sc nightly 13 mL 2 05/25/2021 Active Active Problems Patient Care Coordination No te Formatting of this note is d ifferent from the original. Checking Your Blood Sugars Please check your blood sugars every day. Please check your sugars at the following times of day: before breakfast and after dinner Your Blood Sugar Goals Pre Meal: 90-130 2 hours after meals: 110-160 Bedtime: 110-150 Use the Results Bring your glucometer to every appointment Write your fingerstick blood sugars down on a log sheet or record book. Bring them to your appointment Look for patterns in the numbers. The results help you and your provider make decisions about your diabetes treatment plan. Your Results and your Goals Your Result / Date of Completion Your Goal / How Often to Assess Component Value Date HGBA1C 8.6 03/23/2016 Less than 7% --- 2-4 times per year BP Readings from Last 1 Encounters: 06/23/16 128/80 Less than 140/90 --- once per year Component Value Date MALBCR 2.2 03/23/2016 Less than 30 --- once per year Component Value Date LDL 120 03/23/2016 Less than 100 --- once per year Wt Readings from Last 1 Encounters: 06/23/16 210 lb 12.8 oz (95.618 kg) Your goal weight by next visit: 205 --- reassess 2-4 times a year Health Maintenance Due Topic Date Due Hepatitis C Screening 1998 Adult Immunization: Zostavax For Patients Over 60 2008 Abdominal Aortic Aneurysm (Aaa) Screening 2013 Diabetes: Annual Eye Exam 01/02/2016 Diabetes: Annual Care Plan 03/03/2016 Your Action Plan Check blood glucose as directed and write down all results. Continue to work on weight loss with a goal of losing 2-4 pounds per month Increase physical activity Contact me if you experience any barriers to care such as inability to purchase your medication, difficulty getting to your appointments or difficulty understanding your care plan When to Call your Healthcare Provider If your blood sugar falls below 70 and you do not know why or you become unconscious If you are sick and unable to take liquids because or nausea or vomiting If you have a fever over 101 If your blood sugar is 300 or higher on greater than 3 separate occasions during the same week If you are just unsure what to do Educational Resources [place] [employer] (www.diabetes.org) Centers for Disease Control and Prevention (www.cdc.gov/diabetes) This care plan was created in collaboration with Driss Bender on 06/23/2016 Problem Noted Date Pulmonary nodule 03/13/2015 Overview: 4-5 mm nodule on the medial aspect of the left lingula segment unchanged on CT scan 08/2013 DM (diabetes mellitus), type 2, uncontro lled 03/03/2015 Hyperlipidemia 03/03/2015 HTN (hypertension), benign 03/03/2015 History of colon cancer 03/03/2015 Overview: Stage 1 adenocarcinoma of the rectum Immunizations Name Administration Dates Next Due COVID-19 (ALAN Preston) PT REPORTED 12/09/2020 Influenza Flu (PT Reported) 06/07/2016, 5 Influenza vaccine high dose age 65 and over 05/22/2021,05/26/2020,05/16/2019,2016 Pneumococcal Conjugate PCV-13 08/11/2015 Pneumovax Adult(PT Reported) 06/07/2016 Family History Medical History Relation Name Comments No Known Problems Aunt No Known Problems Brother Cataract Father No Known Problems Maternal Grandfather No Known Problems Maternal Grandmother No Known Problems Mother No Known Problems Other No Known Problems Paternal Grandfather No Known Problems Paternal Grandmother No Known Problems Sister No Known Problems Uncle Blindness Negative Hx Glaucoma Negative Hx Macular Degeneration Negative Hx Strabismus Negative Hx Relation Name Status Comments Aunt Brother Father Maternal Grandfather Maternal Grandmother Mother Other Paternal Grandfather Paternal Grandmother Sister Uncle Social History Tobacco Use Types Packs/Day Years Used Date Smoking Tobacco: Former Cigarettes 0.3 19 1 10/06/1965 - 09/12/1984 Smokeless Tobacco: Never Tobacco Cessation:Counseling Given: Not Answered Alcohol Use Standard Drinks/Week Comments Yes 0 (1 standard drink = 0.6 oz pur e alcohol) 7 beers per week Sex Assigned at Date Recorded Not on file Last Filed Vital Signs Vital Sign Reading Time Taken Comments Blood Pressure 128/76 05/22/2021 10:54 AM EDT Pulse 72 05/22/2021 10:54 AM EDT Temperature 36.6 C (97.8 F) 05/22/2021 10:54 AM EDT Respiratory Rate 12 05/22/2021 10:54 AM EDT Oxygen Saturation 97% 02/14/2018 10:14 AM EDT on room air Inhaled Oxygen Concentration - - Weight 102.5 kg (226 lb) 10/17/2023 1:07 PM EST Height 172.7 cm (5' 8 ) 10/17/2023 1:07 PM EST Body Mass Index 34.36 10/17/2023 1:07 PM EST Plan of Treatment Health Maintenance Due Date Last Done Comments DEPRESSION SCREEN 1960 SHINGLES VACCINE (1 of 2) 1998 FALL RISK ASSESSMENT 2013 DIABETES: ANNUAL EYE EXAM 03/14/20192017, 12/06/2017, 09/09/2017 (External Completion), Additional history exists COLON CANCER SCREENING 03/28/2020 5, 03/28/2015, 01/23/2013 (No reason specified), Additional history exists DTAP/TDAP/TD (2 - Td or Tdap) 08/11/2020 08/11/2010 (External Completion of Vaccination per patient) DIABETES: BLOOD SUGAR CONTROL TEST (HGBA1C) 08/21/2021 05/22/2021, 12/19/2020, 09/18/2020, Additional history exists DIABETES: ANNUAL URINE PROTEIN TEST (MICROALBUMIN) 12/19/2021 12/19/2020, 01/12/2019, 09/14/2018, Additional history exists DIABETES/HEART DISEASE: ANNUAL CHOLESTEROL (LDL) 05/22/2022 05/22/2021, 12/19/2020, 09/18/2020, Additional history exists DIABETES: ANNUAL FOOT EXAM 05/22/202205/22, 09/18/2020, 10/05/2019, Additional history exists Covid-19 Vaccine ( season) 2024 12/09/2020 BMI CHECK/ADVISE 09/12/2024 01/25/2018, , 06/23/2016 INFLUENZA (#1) 2025 05/22/2021, 05/13, 05/16/2019, Additional history exists PNEUMOCOCCAL VACCINE Addressed 03/07/2016 (External Completion of Vaccination per patient), 08/11/2015 Overridden with the intention of not completing the topic HEPATITIS C SCREENING Completed 06/23/2016 Care Teams Miter Sawyer Relationship Specialty Start Date End Date Community, Pcp PCP - General Internal Medicine 12/25/21
--- OUTSIDE RECORDS SUMMARY | 2025-05-09 09:15 | XMS_ITS | Encounter Summary ---
Author Organization [facility] Address [address] [place] [address] Care Team Providers Care Process Manager Name Role Phone Alexx Azul MD Primary Care Provider Latia Freitas, Pcp Primary Care Provider Flory pandya Encounter Details Date Type Department Care Team Description 08/12/2015 Business Doc Medical Records [address] [place] [phone] Abstract, Provider Social History Tobacco Use Types Packs/Day Years [...] on filedocumented in this encounter Care Teams Process Manager Relationship Specialty Start Date End Date Alexx Azul MD PCP - General Internal Medicine 02/06/15 12/24/21 [facility], Pcp PCP - General Internal Medicine 12/25/21 documented as of this encounter
--- OUTSIDE RECORDS SUMMARY | 2025-05-09 09:15 | XMS_ITS | Encounter Summary ---
Author Organization [facility] Address [address] [place] [address] Care Team Providers Care Resource Specialist Teacher Name Role Phone Alexx Azul MD Primary Care Provider Latia Freitas, Pcp [facility] Reason for Visit * Reason Onset Date Comments Faxed Order 10/10/2015 Encounter Details Date Type Department Care Team Description 10/10/2015 Telephone Adult [address] [id number] Alexx Azul MD Faxed Order Social History Tobacco Use Types Packs/Day Years Used Date Smoking Tobacco: Former Cigarettes 0.3 19 1 10/06/1965 - 09/12/1984 Smokeless Tobacco: Never Alcohol Use Standard Drinks/Week Comments Yes 0 (1 standard drink = 0.6 oz pur e alcohol) 7 beers per week Sex Assigned at Date Recorded Not on file documented as of this encounter Miscellaneous Notes * Telephone Encounter - Lisa Esparza - 10/10/2015 3:22 PM EST Faxed order in bin documented in this encounter Plan of Treatment Not on file documented as of this encounter Visit Diagnoses Not on filedocumented in this encounter Care Teams Resource Specialist Teacher Relationship Specialty Start Date End Date Alexx Azul MD PCP - General Internal Medicine 02/06/15 12/24/21 [facility], Pcp PCP - General Internal Medicine 12/25/21 documented as of this encounter
--- OUTSIDE RECORDS SUMMARY | 2025-05-09 09:15 | XMS_ITS | Clinical Summary ---
Author Organization [employer] Address [address] [place] [address] Care Team Providers Care Diagnostic Sales Specialist Name Role Phone Gene Wallace MD Primary Care Provide r Hien Taylor PharmD Unavailable [phone] Allergies No known active allergies Medications finasteride (Proscar) 5 MG tablet Take 5 mg by mouth in the morning. 023 Active OneTouch Delica Lancets 33G misc 1 each 2 times daily. 100 each 11 024 Active glucose blood (OneTouch Verio) test stripIndicati ons:Type 2 diabetes mellitus without complication, with long-term current use of insulin ([facility]) 1 each by Other route every 8 (eight) hours. 100 each 11 024 Active Blood Glucose Monitoring Suppl (OneTouch Verio) w/Device kitIndication s:Type 2 diabetes mellitus without complication, with long-term current use of insulin (CMS/HCC) Use daily 1 kit 025 Active Easy Touch Pen Acme 31G X 8 MM miscIndicatio ns:Type 2 diabetes mellitus without complication, with long-term current use of insulin (CMS/HCC) USE DIRECTED 100 each 11 025 Active furosemide (Lasix) 20 MG tablet TAKE 1 TABLET BY MOUTH EVERY DAY NEEDED FOR EDEMA 025 Active Continuous Glucose Philosophy Professor (FreeStyle Carlos 3 [place]) deviceIndicat ions:Type 2 diabetes mellitus without complication, with long-term current use of insulin (CMS/HCC) 1 each Once per day. Use as directed for CGM 1 each 025 Active Continuous Glucose Sensor (FreeStyle Carlos 3 Plus Sensor) miscIndicatio ns:Type 2 diabetes mellitus without complication, with long-term current use of insulin (CMS/[facility]) 1 each every 15 days. Apply 1 every 15 days as directed for CGM 2 each Active glucose blood (FreeStyle Precision Charles Test) test stripIndicati ons:Type 2 diabetes mellitus without complication, with long-term current use of insulin ([facility]) Use to test blood sugar 3 times daily in case of CGM failure or extremes of BG 100 each 2025 Active losartan-hydr oCHLOROthiazi de (Hyzaar) 100-12.5 MG tablet TAKE 1 TABLET BY MOUTH EVERY DAY IN THE MORNING 90 tablet Active atorvastatin (Lipitor) 80 MG tablet TAKE 1 TABLET BY MOUTH EVERY DAY AT BEDTIME 90 tablet Active Aspirin Low Dose 81 MG EC tablet TAKE 1 TABLET BY MOUTH EVERY DAY 90 tablet Active levothyroxine (Synthroid, Levoxyl) 50 MCG tablet TAKE 1 TABLET BY MOUTH EVERY DAY AT BEDTIME 90 tablet Active metoprolol succinate XL (Toprol-XL) 25 MG 24 hr tablet TAKE 1 TABLET BY MOUTH EVERY DAY 90 tablet 025 Active Dulaglutide (Trulicity) 4.5 MG/0.5ML solution auto-injector Indications:T ype 2 diabetes mellitus without complication, with long-term current use of insulin ([facility]) Inject 4.5 mg under the skin every 7 (seven) days. 2 mL Active insulin glargine (Lantus SoloStar) 100 UNIT/ML penIndication s:Type 2 diabetes mellitus without complication, with long-term current use of insulin ([facility]) INJECT 38 UNITS SUBCUTANEOUSLY EVERY EVENING 15 mL 025 Active Lantus SoloStar 100 UNIT/ML penIndication s:Type 2 diabetes mellitus without complication, with long-term current use of insulin ([facility]) INJECT 34 UNIT SUBCUTANEOUSLY EVERY EVENING 15 mL 025 2024 Discontinued levothyroxine (Synthroid, Levoxyl) 50 MCG tablet TAKE 1 TABLET BY MOUTH AT BEDTIME 90 tablet 1 025 2024 Discontinued losartan-hydr oCHLOROthiazi de (Hyzaar) 100-12.5 MG tablet TAKE 1 TABLET BY MOUTH EVERY DAY IN THE MORNING 90 tablet 1 025 2024 Discontinued atorvastatin (Lipitor) 80 MG tablet TAKE 1 TABLET BY MOUTH EVERY DAY AT BEDTIME 90 tablet 1 025 2024 Discontinued Aspirin Low Dose 81 MG EC tablet TAKE 1 TABLET BY MOUTH EVERY DAY 90 tablet 1 025 2024 Discontinued metoprolol succinate XL (Toprol-XL) 25 MG 24 hr tablet TAKE 1 TABLET BY MOUTH EVERY DAY 90 tablet 1 025 2024 Discontinued Trulicity 3 MG/0.5ML solution auto-injector Indications:T ype 2 diabetes mellitus without complication, with long-term current use of insulin (CMS/HCC) INJECT ONE PEN (= 3MG) SUBCUTANEOUSLY ONCE A WEEK DIRECTED 2 mL 3 025 2024 Discontinued(D ose adjustment) Lantus SoloStar 100 UNIT/ML penIndication s:Type 2 diabetes mellitus without complication, with long-term current use of insulin (CMS/HCC) INJECT 34 UNITS SUBCUTANEOUSLY EVERY EVENING 15 mL 3 2024 Discontinued Active Problems Patient Care Coordination No te Formatting of this note migh t be different from the original. Followed by [facility] HTN, DM - Carlito De La Cruz RPneil Problem Noted Date Diagnosed Date Preventative health [...] records were obtained Pt was treated in [place], at some point he had a repeat colonoscopy at [place] but no records were received from that colonoscopy 3 years ago other than a reference that it was done Pt was last seen by an Oncologist at [facility], he was told he did not needed to come back Previous visit pt was referred to Gastroenterology Dr Crowder, Pt no showed to that appointment. He was finally seen by Pooja Lomax NP at [facility]. Given his ongoing cardiac issues the repeat colonoscopy has been postponed until after he is cleared by cardiology Bilateral knee pain 11/06/2024 Assessment & Plan (02/07/2025 10:22 AM EDT): Pt with c/o new onset Exam suggestive of OA films both knees showed: Tricompartmental osteoarthrosis, moderate involving mostly the medial compartment. Consider CPPD. Assessment & Plan (11/06/2024 2:04 PM EST): Pt with c/o new onset Exam suggestive of OA Plan: Obtain plain films both knees Bilateral hip pain 11/06/2024 Assessment & Plan (02/07/2025 10:21 AM EDT): Pt with c/o new onset Exam suggestive of OA Plain films both hips === 11/06/24 === Vybq-xm-naammzod osteoarthrosis, left hip. IMPRESSION: Mild to moderate osteoarthrosis, right hip. Pt seen by Ortho 01/14/2025 who thought his hip pain was potentially low back pain with radiation into his hips and they referred him to a different specialist Assessment & Plan (11/06/2024 2:05 PM EST): Pt with c/o new onset Exam suggestive of OA Plan: Obtain plain films both hips Lesion of nose 11/06/2024 Assessment & Plan (02/07/2025 10:34 AM EDT): Previous visit pt noted to have a Hyperpigmented lesion on the nose. Pt reports he has had it for at least 10 years, but lately feels like it has increased in size Pt was referred to Dermatology, pt tells me he has the appointment until May, he tells me he was placed on a cancellation list Assessment & Plan (11/06/2024 2:04 PM EST): [...] with cardiology Coronary artery disease invo lving [place] coronary artery of [place] heart without angina pectoris 11/15/2023 Assessment & Plan (02/07/2025 10:38 AM EDT): Patient here for a follow up Pt with CAD Cardiac Cath showed: Right dominant circulation. Proximal NURSE PRACTITIONER right coronary artery with fvuc-oy-cjkno collaterals.Severe distal left main stenosis involving the ostial LAD and circumflex.Severe proximal LAD stenosis. High diagonal with ostial 80% stenosis and mid segment 90% stenosis.First OM 80% stenosis. Mid circumflex 80% stenosis. S/p CABG 12/09/2023 Last seen by Director Of Strategic Partnerships Dr Day 12/19/2024 who recommended to repeat his ECHO He started him on a low dose lasix for new onset of LE edema Pt tells me he has a follow up Assessment & Plan (11/06/2024 12:44 PM EST): Patient with CAD Cardiac Cath showed: Right dominant circulation. Proximal NURSE PRACTITIONER right coronary artery with rezs-rm-bzlhz collaterals. Severe distal left main stenosis involving the ostial LAD and circumflex. Severe proximal LAD stenosis. High diagonal with ostial 80% stenosis and mid segment 90% stenosis. First OM 80% stenosis. Mid circumflex 80% stenosis. S/p CABG 12/09/2023 Last seen by Director Of Strategic Partnership[employer] Dr Day 07/25/2024 Scheduled for f/u 6 months Assessment & Plan (04/17/2024 1:41 PM EDT): Patient with CAD Cardiac Cath showed: Right dominant circulation. Proximal NURSE PRACTITIONER right coronary artery with yvye-qh-viwer collaterals. Severe distal left main stenosis involving the ostial LAD and circumflex. Severe proximal LAD stenosis. High diagonal with ostial 80% stenosis and mid segment 90% stenosis. First OM 80% stenosis. Mid circumflex 80% stenosis. S/p CABG 12/09/2023 Last seen by Director Of Strategic Partnership[employer] Dr Day 04/10/2024 Scheduled for ECHO in 3-4 months Assessment & Plan (02/23/2024 12:54 PM EDT): Patient with CAD Most recent Cath showed: Right dominant circulation. Proximal NURSE PRACTITIONER right coronary artery with uzff-ic-qctdo collaterals. Severe distal left main stenosis involving the ostial LAD and circumflex. Severe proximal LAD stenosis. High diagonal with ostial 80% stenosis and mid segment 90% stenosis. First OM 80% stenosis. Mid circumflex 80% stenosis. He is now s/p CABG 12/09/2023 Last seen by Director Of [employer] Partnership[employer] Dr Day 01/03/2024 Scheduled for cardiac rehab at some point Assessment & Plan (12/06/2023 8:39 AM EDT): Patient with CAD Most recent Cath showed: Right dominant circulation. Proximal NURSE PRACTITIONER right coronary artery with zcbv-nf-jgfed collaterals. Severe distal left main stenosis involving the ostial LAD and circumflex. Severe proximal LAD stenosis. High diagonal with ostial 80% stenosis and mid segment 90% stenosis. First OM 80% stenosis. Mid circumflex 80% stenosis. Pt was referred for CABG to cardiac surgeon by Director Of Strategic Partnerships scheduled for 12/09/2023 Assessment & Plan (11/15/2023 2:25 PM EST): As part of his PE, Pt had an EKG that showed Qs in III and AVF As a result I referred patient to cardiology Pt had a stress test that was abnormal and subsequently underwent a Cath Coronary anatomy: Right dominant circulation. Proximal NURSE PRACTITIONER right coronary artery with szoa-aa-oybzo collaterals. Severe distal left main stenosis involving the ostial LAD and circumflex. Severe proximal LAD stenosis. High diagonal with ostial 80% stenosis and mid segment 90% stenosis. First OM 80% stenosis. Mid circumflex 80% stenosis. Pt was referred for CABG to cardiac surgeon by Director Of Strategic Partnerships scheduled for 12/09/2023 Plantar fasciitis of right [...] CT right foot. 2nd opinion with Ortho rating specialist Assessment & Plan (07/12/2023 10:50 AM [...] records were obtained Pt was treated in [place], at some point he had a repeat colonoscopy at [place] but no records were received from that colonoscopy 3 years ago other than a reference that it was done Pt was last seen by an Oncologist at [facility], he was told he did not needed to come back Previous visit pt was referred to Gastroenterology Dr Crowder, Pt no showed to that appointment. He was finally seen by Pooja Lomax NP at [facility]. Given his ongoing cardiac issues the [...] records were obtained Pt was treated in [place], at some point he had a repeat colonoscopy at [place] but no records were received from that colonoscopy 3 years ago other than a reference that it was done Pt was last seen by an Oncologist at [facility], he was told [...] records were obtained Pt was treated in [place], at some point he had a repeat colonoscopy at [place] but no records were received from that colonoscopy 3 years ago other than a reference that it was done Pt was last seen by an Oncologist at [facility], he was told [...] records were obtained Pt was treated in [place], at some point he had a repeat colonoscopy at [place] but no records were received from that colonoscopy 3 years ago other than a reference that it was done Pt was last seen by an Oncologist at [facility], he was told [...] records were obtained Pt was treated in [place], at some point he had a repeat colonoscopy at [place] but no records were received from that colonoscopy 3 years ago other than a reference that it was done Pt was last seen by an Oncologist at [facility], he was told he did not needed to come back 7 yrs ago Previous visit pt was referred to Gastroenterology Dr Crowder, Pt no showed to that appointment Type 2 diabetes mellitus wit hout complication, with long-term current use of insulin 10/08/2022 Assessment & Plan (02/07/2025 10:38 AM EDT): Pt here for a f/u Dm worsening, Glucometer: pt checking every other day, BG as low as 69 and as high 167 He is on a regimen of: Lantus 34 units sc q pm, and Trulicity 3 mg once a week. Off Januvia. Hgb A1c 02/07/2025: 9.6 from 8.1 from 8.6 Eye exam referred Microalbumin 11/07/2024: 7 Pt on an ARB. Foot check today is risk of: zero Pt reports compliance with Asa 81 mg po daily Plan: Referred to our [facility] Program for DM f/u 3 months Pt advised to: adhere to diabetic diet check your blood sugars regularly check your feet on a daily basis. Assessment & Plan (11/06/2024 2:06 PM EST): [...] po daily Follows with our [facility] Program [facility] Lab Results Component Value Date NA [...] po daily Follows with our [facility] Program [facility] 12/03/2022 normal Plan: Continue current regimen [...] regimen of: Losartan 100 mg po daily [facility] 12/03/2022 normal Plan: Continue current regimen [...] regimen of: Losartan 50 mg po daily [facility] 12/03/2022 normal Plan: Increase Losartan to 100 mg po daily patient advised to adhere to a low sodium diet, encouraged about medication compliance, counseled about weight loss. Follow up in 3 months Assessment & Plan (12/02/2022 10:39 AM EDT): Patient with Hypertension currently uncontrolled on a regimen of: Losartan 50 mg po daily [facility] 06/14/2022 normal Plan: 1 month follow [...] Encounters Date Type Department Care Team Description 05/07/2025 Travel 04/25/2025 Refill [facility] [address] [place] [address] Gene Wallace MD 04/23/2025 Orders Only [facility] External Provider, [facility] 04/21/2025 Refill [facility] [address] [place] [address] Gene Wallace MD 04/18/2025 2:00 PM EDT Office Visit [facility] OPTOMETRY [address] [place] [address] Ricki, Angeline, OD Type 2 diabetes mellitus without complication, with long-term current use of insulin ([facility]) (Primary Dx); Combined forms of age-related cataract of both eyes; Epiretinal membrane (ERM) of left eye; Chorioretinal scar of left eye; Presbyopia 04/18/2025 Travel 04/15/2025 Refill [facility] MEDICINE [address] [place] [address] Gene Wallace MD Type 2 diabetes mellitus without complication, with long-term current use of insulin (CMS/HCC) 03/22/2025 Travel 03/14/2025 Telephone [facility] MEDICINE [address] [place] [address] Hien Taylor, PharmD 03/13/2025 Travel 02/25/2025 Telephone [facility] MEDICINE [address] [place] [address] Gene Wallace MD April02/21/2025 Telephone [facility] MEDICINE [address] [place] [address] Gene Wallace MD 02/07/2025 10:15 AM EDT Office Visit [facility] MEDICINE [address] [place] [address] Gene Wallace MD Type 2 diabetes mellitus without complication, with long-term current use of insulin ([facility]) (Primary Dx); Coronary artery disease involving [place] coronary artery of [place] heart without angina pectoris; Lesion of nose; Bilateral hip pain; Acute pain of both knees 02/07/2025 Travel 02/07/2025 Telephone [facility] MEDICINE [address] [place] [id number] Gene Wallace MD CHART PREP from Last 3 Months Immunizations Immunization Administration Dates Next Due HPV, Quadrivalent 06/12/2012 [...] Sign Reading Time Taken Comments Blood Pressure 102/58 05/07/2025 11:04 AM EDT Pulse 81 05/07/2025 11:04 AM EDT Temperature 36.2 C (97.2 F) 02/07/2025 10:00 AM EDT Respiratory Rate 18 02/07/2025 10:00 AM EDT Oxygen Saturation 98% 02/07/2025 10:00 AM EDT Inhaled Oxygen Concentration - - Weight 99.8 kg (220 lb) 02/07/2025 10:00 AM EDT Height 172.7 cm (5' 8 ) 02/07/2025 10:00 AM EDT Body Mass Index 33.45 02/07/2025 10:00 AM EDT Plan of Treatment Upcoming Encounters Date Type Department Care Team (Late st Contact Info) Description 05/16/2025 10:15 AM EDT Office Visit [facility] MEDICINE [address] [place] [address] Gene Wallace MD [address] [place] [address] 06/12/2025 10:30 AM EDT Medication Management [facility] MEDICINE [address] [place], [place] [phone] Hien Taylor, PharmD [address] [place], [place] [phone] Health Maintenance Due Date Last Done Comments Diabetes: Foot Exam 1958 RSV Patients and Patients Aged 60 years or older (1 - 1-dose 75+ series) 2023 COVID-19 Vaccine ( season) 2024 07/06/2022, 01/26/2022, 07/22/2021, Additional history exists Depression Screening 04/17/2025 04/17/2024, 04/17/20 Lipid Panel 04/25/2025 04/25/2024, 08/13, 12/03/2022, Additional history exists Influenza Vaccine (#1) 2025 , 05/27/2023, 06/01/2022, Additional history exists Alcohol/Substance Use Screening 07/12/2025 07/12/2024 Diabetes: Hemoglobin A1C 08/07/2025 025, 02/07/2025, 11/06/2024, Additional history exists SDOH Screening 10/24/2025 10/24/2024 Diabetes: Urine Protein Screening 11/07/2025 11/07/2024, 09/09/2021 Tobacco Screening 05/07/2026 05/07/2025 Eye Exam 04/18/2027 04/18/2025, 08/0 03/2025, 04/18/2025, Additional history exists DTaP/Tdap/Td Vaccines (2 - Td or Tdap) 06/01/2032 06/01/2022 HPV Vaccines Aged Out 06/12/2012 No longer eligi ble based on patient's age to complete this topic Pneumococcal Vaccine: 50+ Years Completed 06/07/2016, 08/11/2015, 05/27/2014, Additional history exists Zoster Vaccines Completed 06/15/2022, 08/0 09/2021, 12/10/2013 Hepatitis C Screening Completed 12/03/2022, 021 HIB Vaccines Aged Out No longer eligi [...] patient's age to complete this topic Meningococcal B Vaccine Aged Out No l onger eligible based on patient's age to complete [...] Diagnosis Comments POCT GLYCATED HEMOGLOBIN, TOTAL Routine 05/07/2025 11:06 AM EDT Type 2 diabetes mellitus without complication, with long-term current use of insulin ([facility]) MR PROSTATE W AND WO CONTRAST Routine 04/23/2025 8:45 AM EDT POCT GLYCATED HEMOGLOBIN, TOTAL Routine 02/07/2025 10:04 AM EDT Type 2 diabetes mellitus without complication, with long-term current use of insulin (CMS/HCC) POCT GLUCOSE Routine 02/07/2025 10:04 AM EDT Type 2 diabetes mellitus without complication, with long-term current use of insulin (CMS/HCC) ALBUMIN, RANDOM URINE W/CREATININE Routine 11/07/2024 9:00 [...] to Health Maintenance Results * (ABNORMAL) POCT A1c (05/07/2025 11:06 AM EDT) Only the most recent of2 resultswithin the time period is included. Hemoglobin A1C 8.6(A) 4.0 - 5.7 % QC Media Lot # [id number] Lot# Expiration Date [id number] Blood 05/07/2025 11:0 6 AM EDT us Gene Castro MD POINT OF CARE TEST EN TER/EDIT ORDERABLES Final Result * MR Prostate w and w/o Contrast (04/23/2025 8:45 AM EDT) Anatomical Region Laterality Modality Magnetic Resonan ce 04/23/2025 8:45 AM EDT Narrative 04/23/2025 9:56 AM EDT [address] [address] Magnetic Resonance Report Signed with Addenda Patient: Driss Bender MR#: [id number] 52 : 1950 Acct:[id number] Age/Sex: 74 / M ADM Date: 04/23/25 Loc: HO.MRI Attending Dr: Bibi CAMPBELL Ordering Physician: Bibi Downing Date of Service: 04/23/25 Procedure(s): MR Prostate wo/w con Accession Number(s): [id number] cc: Gene Zarate MD; Bibi Downing ADDENDUM ADDENDUM #1 The last line of the technique section of the report should read as follows: 3-D reconstructions and postprocessing were not performed, as no discrete lesion was identified. Electronically signed by: Luis Deras MD 04/23/2025 10:13 AM EDT RP Addendum Dictated By: Luis Deras MD Addendum Signed By: <Electronically signed by Luis Deras MD in OV> 04/23/25 1013 Addendum Cosigned By: DD/ /05/845 TD/TT: 04/23/2509/05/925 EXAMINATION: MR PROSTATE WITHOUT THEN WITH IV CONTRAST HISTORY: R97.20 - Elevated prostate specific antigen [PSA] TECHNIQUE: 1.5T body coil survey of the pelvis was performed. Phase array coil imaging of the prostate was performed in multiplanar high resolution axial, coronal, sagittal fast spin echo T2 and axial T1 weighted imaging sequences. Axial diffusion imaging at intermediate and high field performed with ADC mapping. Next, 9.5 mL Gadavist was given by intravenous infusion, and dynamic axial imaging performed. 3-D reconstructions and post-processing were performed on an independent workstation by the radiologist for biopsy planning using image fusion. COMPARISON: There are no prior studies available for comparison. CLINICAL DATA: Most recent PSA: 4.83 ng/mL on 01/30/2025. PSA Density: 0.064 ng/mL squared Prostate Biopsy: None reported FINDINGS: Prostate size: 6.2 x 5.4 x 4.3 cm. Calculated prostate volume is 74.9 mL. Hemorrhage: None. Transitional Zone: There is marked heterogeneous nodular hypertrophy of the transitional zone. Peripheral Zone: No discrete focus of abnormal signal intensity is identified. There are no foci of restricted diffusion. Seminal Vesicles/Ejaculatory Ducts: Symmetric and normal in signal and caliber. Pelvic Lymph Nodes: No obturator or internal iliac lymph nodes meeting size criteria for adenopathy. Marrow Signal: Normal marrow signal and enhancement without focal lesion identified. MR/MR Prostate wo/w con IMPRESSION: No discrete focus of abnormal signal intensity is identified to suggest clinically significant prostate carcinoma. PI-RADS 1: Very low (clinically significant cancer is highly unlikely to be present) PI-RADS Assessment Categories PI-RADS 1: Very low (clinically significant cancer is highly unlikely to be present) PI-RADS 2: Low (clinically significant cancer is unlikely to be present) PI-RADS 3: Intermediate (the presence of clinically significant cancer is equivocal) PI-RADS 4: High (clinically significant cancer is likely to be present) PI-RADS 5: Very high (clinically significant cancer is highly likely to be present) [employer]. MR Prostate Imaging Reporting and Data System version 2.1. [email or web address]/Quality-Safety/[email or web address]/ Electronically signed by: Luis Deras MD 04/23/2025 09:53 AM EDT RP Dictated By: Luis Deras MD Signed By: <Electronically signed by Luis Deras MD in OV> 04/23/25 0953 DD/ TD/TT: 04/23/25 09 Curriculum Developer: Procedure Note Donotuseinterpreter, Image - 04/23/[address] [address] Magnetic Resonance Report Signed with Danielle Patient: Driss Bender EMR#: [id number] 52 : 1950cct:[id number] Age/Sex: 74 / MADM Date: 04/23/25 Loc: HO.MRI Attending Dr: Bibi CAMPBELL Ordering Physician: Bibi Downing Date of Service: 04/23/25 Procedure(s): MR Prostate wo/w con Accession Number(s): [id number] cc: RamsayGene Power MD; Bibi Downing [facility]- ADDENDUM ADDENDUM #1 The last line of the technique section of the report should read as follows: 3-D reconstructions and postprocessing were not performed, as no discrete lesion was identified. Electronically signed by: Luis Deras MD 04/23/2025 10:13 AM EDT RP Addendum Dictated By: Luis Deras MD Addendum Signed By: <Electronically signed by MD John in OV> 04/23/25 1013 Addendum Cosigned By: DD/ /05/845 TD/TT: 04/23/2509/05/925 EXAMINATION: MR PROSTATE WITHOUT THEN WITH IV CONTRAST HISTORY: R97.20 - Elevated prostate specific antigen [PSA] TECHNIQUE: 1.5T body coil survey of the pelvis was performed. Phase array coil imaging of the prostate was performed in multiplanar high resolution axial, coronal, sagittal fast spin echo T2 and axial T1 weighted imaging sequences. Axial diffusion imaging at intermediate and high field performed with ADC mapping. Next, 9.5 mL Gadavist was given by intravenous infusion, and dynamic axial imaging performed. 3-D reconstructions and post-processing were performed on an independent workstation by the radiologist for biopsy planning using image fusion. COMPARISON: There are no prior studies available for comparison. CLINICAL DATA: Most recent PSA: 4.83 ng/mL on 01/30/2025. PSA Density: 0.064 ng/mL squared Prostate Biopsy: None reported FINDINGS: Prostate size: 6.2 x 5.4 x 4.3 cm. Calculated prostate volume is 74.9 mL. Hemorrhage: None. Transitional Zone: There is marked heterogeneous nodular hypertrophy of the transitional zone. Peripheral Zone: No discrete focus of abnormal signal intensity is identified. There are no foci of restricted diffusion. Seminal Vesicles/Ejaculatory Ducts: Symmetric and normal in signal and caliber. Pelvic Lymph Nodes: No obturator or internal iliac lymph nodes meeting size criteria for adenopathy. Marrow Signal: Normal marrow signal and enhancement without focal lesion identified. MR/MR Prostate wo/w con IMPRESSION: No discrete focus of abnormal signal intensity is identified to suggest clinically significant prostate carcinoma. PI-RADS 1: Very low (clinically significant cancer is highly unlikely to be present) PI-RADS Assessment Categories PI-RADS 1: Very low (clinically significant cancer is highly unlikely to be present) PI-RADS 2: Low (clinically significant cancer is unlikely to be present) PI-RADS 3: Intermediate (the presence of clinically significant cancer is equivocal) PI-RADS 4: High (clinically significant cancer is likely to be present) PI-RADS 5: Very high (clinically significant cancer is highly likely to be present) [employer]. MR Prostate Imaging Reporting and Data System version 2.1. http://www.acr.org/Quality-Safety/Resources/PIRADS/ Electronically signed by: Luis Deras MD 04/23/2025 09:53 AM EDT RP Dictated By: Luis Deras MD Signed By: <Electronically signed by Luis Deras MD in OV> 04/23/2553 DD/ 4 TD/TT: 04/23/25924 Curriculum Developer: [facility] External Provider IMG MRI PROCEDURES Edited Result - Final * POCT Glucose (02/07/2025 10:04 AM EDT) Pathologist [facility] Glucose Blood, POC 163 60 - 200 mg/dL QC Media Lot # [id number] Lot# Expiration Date [id number] Blood Capillary blood specimen / Unknown 02/07/2025 10:04 AM EDT Gene Castro MD POINT OF CARE TEST EN TER/EDIT ORDERABLES Final Result * Albumin, Random Urine W/Creatinine (11/07/2024 9:00 AM EST) Pathologist [facility] Creatinine, Urine 211.69 mg/dL [facility] Microalbumin Urine 7.0 mg/L [facility] Microalbum Creatinine Ratio Ur 3.3 <30 ug/mg cr [facility] Comment:Albumin/Creatinine R atio Reference Ranges: Normal: < 30 ug/mg creatinine Microalbuminuria: 30 - 300 ug/mg creatinineClinical Albuminuria: > 300 ug/mg creatinine Urine (Urine, Random) 11/07/2024 9:00 AM EST 11/07/2024 11:06 AM EST Gene Castro MD LAB URINE ORDERABLES Final Result Performing Organization Address [facility]/ZIP Co de Phone Number [facility] [address] [place] [phone] * (ABNORMAL) Lipid Panel, Standard (04/25/2024 7:59 AM EDT) Triglycerides 121 <150 mg/dL [facility] Comment:Desirable Triglyceri de: less than 150 mg/dLBorderline High Triglyceride 150-199 mg/dLHigh Triglyceride: 200-499 mg/dLVery High Triglyceride: greater than or equal to 5OO mg/dL Cholesterol 137 <200 mg/dL [facility] Comment:Desirable Cholestero l: less than 200 mg/dLBorderline High Cholesterol: 200-239 mg/dLHigh Cholesterol: greater than 239 mg/dL LDL Cholesterol Calculated 77 <100 mg/dL [facility] Comment:Desirable LDL: less than 100 mg/dLNear Optimal/Above Optimal LDL: 110- 129 mg/dLBorderline High LDL: 130-159 mg/dLHigh LDL: 160-189 mg/dLVery High LDL: greater than or equal to 190 mg/dL HDL Cholesterol 36(L) >40 mg/dL [facility] Comment:Desirable HDL: great er than 40 mg/dL Note: This HDL assay may give artificially low results in patients with liver disease. Blood Venous blood specimen / Unknown 04/25/2024 7:59 AM EDT 04/25/2024 11:40 AM EDT Gene Castro MD LAB BLOOD ORDERABLES Final Result Performing Organization Address City/[facility]/ZIP Co de Phone Number [facility] [address] [place] [phone] * Hepatitis C Antibody with Reflex to HCV, RNA, Quantitative, Real-Time PCR (12/03/2022 8:01 AM EDT) Hepatitis C Antibody NON-REACT PUNEET NON-REACT PUNEET [facility] [place] [facility] Index 0.05 <1.00 [facility] [place] [facility] Comment: HCV antibody was non-reactive. There is no laboratory evidence of HCV infection. In most cases, no further action is required. However, if recent HCV exposure is suspected, a test for HCV RNA (test code 09283) is suggested. For additional information please refer to http://education.Logi-Serve/faq/JUL76s1 (This link is being provided for informational/ educational purposes only.) Blood Venous blood specimen / Unknown 12/03/2022 8:01 AM EDT 12/03/2022 8:02 AM EDT Narrative [facility] - 12/03/2022 8:32 PM EDT FASTING:YES FASTING: YES Gene Castro MD LAB BLOOD ORDERABLES Final Result [facility] [address], [place] [address] [facility] [place] [facility] [address] [place] [phone] from Last 3 Months or Most Recently Relevant to Health Maintenance Insurance [facility] [place] [id number] Care Teams Diagnostic Sales Specialist Relationship Specialty Start Date End Date Gene Wallace MD [address] [place] [address] PCP - General Internal Medicine 07/22/21 Hien Taylor, VargheseD [address] [place] [address] Pharmacist Pharmacy 03/13/25
--- OUTSIDE RECORDS SUMMARY | 2025-05-09 09:15 | XMS_ITS | Encounter Summary ---
Author Organization [employer] Address [address] [facility] [address]t [place] [address] Care Team Providers Care Forest Ranger Technician Name Role Phone Gene Wallace MD Primary Care Provide r Hien Taylor PharmD Unavailable [phone] Reason for Visit * Reason Comments Med Refill Encounter Details Date Type Department Care Team ([facility] st Contact Info) Description 01/23/2024 Refill [facility] [address] [place], [place] [phone] Linda Flores MD [address] [place] [address] Social History Tobacco Use Types Packs/Day Years [...] Description 05/16/2025 10:15 AM EDT Office Visit [facility] MEDICINE [address] [place] [phone] Gene Wallace MD [address] [place] [phone] 06/12/2025 10:30 AM EDT Medication Management [facility] MED[facility]INE [address] [place] [phone] Hien Taylor PharmD [address] [place] [phone] documented as of this encounter Goals Goal [...] documented as of this encounter Care Teams Forest Ranger Technician Relationship Specialty Start Date End Date Gene Wallace MD [address] [place] [address] PCP - General Internal Medicine 07/22/21 Hien Taylor, VargheseD [address] [place] [address] Pharmacist Pharmacy 03/13/25 documented as of this encounter
--- OUTSIDE RECORDS SUMMARY | 2025-05-09 09:15 | XMS_ITS | Encounter Summary ---
Author Organization [facility] Address [address] [place] [address] Care Team Providers Care Veterinary Inspector Name Role Phone Alexx Azul MD Primary Care Provider Latia Freitas, Pcp Primary Care Provider Flory pandya Encounter Details Date Type Department Care Team Description 05/06/2016 Tappet Adjuster Report Medical Records [address] [place] [address] Disha Fisher [address] [place] [address] Social History Tobacco Use Types Packs/Day Years [...] on filedocumented in this encounter Care Teams Veterinary Inspector Relationship Specialty Start Date End Date Alexx Azul MD PCP - General Internal Medicine 02/06/15 12/24/21 [place] Pcp PCP - General Internal Medicine 12/25/21 documented as of this encounter
--- OUTSIDE RECORDS SUMMARY | 2025-05-09 09:15 | XMS_ITS | Encounter Summary ---
Author Organization [facility] Address [address] [place] [address] Care Team Providers Care Mail List Librarian Name Role Phone Alexx Azul MD Primary Care Provider Latia Freitas, Pcp Primary Care Provider Flory e Reason for Visit * Reason Onset Date Comments Faxed Order 04/11/2015 [facility] Encounter Details Date Type Department Care Team Description 04/11/2015 Telephone Adult [address] [address] Alexx Azul MD Faxed Order ([facility]) Social History Tobacco Use Types Packs/Day Years Used Date Smoking Tobacco: Former Alcohol Use Standard Drinks/Week Comments No 0 (1 standard drink = 0.6 oz pur e alcohol) Sex Assigned at Date Recorded Not on file documented as of this encounter Miscellaneous Notes * Telephone Encounter - Bea Mancini - 04/11/2015 9:23 AM EDT Faxed orders from [facility] sent to to sign documented in this encounter Plan of Treatment Not on file documented as of this encounter Visit Diagnoses Not on filedocumented in this encounter Care Teams Mail List Librarian Relationship Specialty Start Date End Date Alexx Azul MD PCP - General Internal Medicine 02/06/15 12/24/21 [place], Pcp PCP - General Internal Medicine 12/25/21 documented as of this encounter
--- OUTSIDE RECORDS SUMMARY | 2025-05-09 09:15 | XMS_ITS | Encounter Summary ---
Author Organization [employer] Address [address] [facility] 7t [place] [address] Care Team Providers Care Commercial Art Instructor Name Role Phone Gene Wallace MD Primary Care Provide r Hien Taylor PharmD Unavailable [phone] Reason for Visit * Reason Comments Med Refill Encounter Details Date Type Department Care Team ([facility] st Contact Info) Description 04/25/2024 Telephone [facility] [address] [place], [place] [phone] Marilyn Sutherland MD [address] [place], [place] [phone] Med Refill Social History Tobacco Use Types [...] 10:51 AM EDT Telephone call placed to [facility]. Left V/m for Dr Day's KATHIA [...] 05/16/2025 10:15 AM EDT Office Visit [facility] [address] [place] [address] Gene Wallace MD [address] [place] [address] 06/12/2025 10:30 AM EDT Medication Management [facility] [address] [place] [address] Hien Taylor PharmD [address] [place] [address] documented as of this encounter Goals Goal [...] documented as of this encounter Care Teams Commercial Art Instructor Relationship Specialty Start Date End Date Gene Wallace MD [address] [place] [phone] PCP - General Internal Medicine 07/22/21 Hien Taylor, VargheseD [address] [place] [address] Pharmacist Pharmacy 03/13/25 documented as of this encounter
[2025-05-09 12:17] LABS: B Type Natriuretic Peptide 27 pg/mL (<100)
[2025-05-09 12:22] LABS: Anion Gap 10 (12-20); Blood Urea Nitrogen 22 mg/dL (9-16); Calcium 9.7 mg/dL (8.4-10.2); Carbon Dioxide 29 mmol/L (22-29); Chloride 103 mmol/L (96-108); Cholesterol 277 mg/dL (<200); Estimated Glomerular Filt Rate 56; HDL Cholesterol 38 mg/dL (>40); Potassium 3.6 mmol/L (3.3-5.1); Prostate Specific Antigen 2.93 ng/mL (<0.05-4.0); Sodium 138 mmol/L (135-145); Triglycerides 157 mg/dL (<150)
== END 2025-05-09 08:35 | disposition home or self-care (01) ==
LOC: HO.HHCL 08:34
PROVIDERS: Internal Medicine; PCP Internal Medicine; Referring Provider Nurse Practitioner Family; Visit Provider Internal Medicine
DX: E78.2 Mixed hyperlipidemia (principal); I50.9 Heart failure, unspecified; R97.20 Elevated prostate specific antigen [PSA]; Z12.5 Encounter for screening for malignant neoplasm of prostate; Z95.1 Presence of aortocoronary bypass graft
CPT/HCPCS: 36415; 80048; 80061; 83880; 84153

== ENCOUNTER 2025-05-17 10:50 | Outpatient (REF) | payer MEDICARE, SELFPAY ==
--- NOTE | ~2025-05-17 | XR_ITS ---
EXAMINATION: XR LUMBAR SPINE 2-3 VIEWS HISTORY: M54.9 - Dorsalgia, unspecified COMPARISON: There are no prior studies for comparison. FINDINGS: AP, lateral, and coned down views of the lumbar spine are submitted. Osseous mineralization is normal. Five nonrib-bearing lumbar vertebral bodies are identified, maintaining normal height and alignment without evidence of fracture or spondylolisthesis. There is mild anterior spurring. The intervertebral disc spaces are preserved. The posterior elements are intact. There is calcification of the abdominal aorta. XR/XR lumbar spine 2-3V IMPRESSION: Minimal degenerative changes. Electronically signed by: Luis Deras MD 05/17/2025 12:14 PM EDT
== END 2025-05-17 10:51 | disposition home or self-care (01) ==
LOC: HO.HOSX 10:50
PROVIDERS: PCP Internal Medicine; Visit Provider Physical Medicine & Rehabilitation
DX: M47.26 Other spondylosis with radiculopathy, lumbar region (principal); Z79.82 Long term (current) use of aspirin; Z79.899 Other long term (current) drug therapy
CPT/HCPCS: 72100; 99202

== ENCOUNTER 2025-05-17 10:50 | Outpatient (AMB) | payer OTHER, SELFPAY ==
--- OUTSIDE RECORDS SUMMARY | 2025-05-16 10:15 | XMS_ITS | Encounter Summary ---
Author Organization [employer] Address [address] [facility] [address] [place] [address] Care Team Providers Care Rehabilitation Therapy Aide Name Role Phone Gene Wallace MD Primary Care Provide r Hien Taylor PharmD Unavailable [phone] Reason for Visit * Reason Comments Follow-up Encounter Details Date Type Department Care Team (Latest Contact Info) Description 05/16/2025 10:15 AM EDT Office Visit [facility] MEDICINE [address] [place], [place] [phone] Gene Wallace MD [address] [place] [address] Type 2 diabetes mellitus without complication, with long-term current use of insulin ([facility]) (Primary Dx); Coronary artery disease involving [place] coronary artery of [place] heart without angina pectoris; Elevated PSA; Mixed hyperlipidemia; Acquired hypothyroidism Social History Tobacco Use Types Packs/Day Years [...] Sign Reading Time Taken Comments Blood Pressure 130/80 05/16/2025 10:33 AM EDT Pulse 84 05/16/2025 10:33 AM EDT Temperature 36.1 C (97 F) 05/16/2025 10:33 AM EDT Respiratory Rate 20 05/16/2025 10:33 AM EDT Oxygen Saturation 98% 05/16/2025 10:33 AM EDT Inhaled Oxygen Concentration - - Weight 98.4 kg (217 lb) 05/16/2025 10:33 AM EDT Height 172.7 cm (5' 8 ) 05/16/2025 10:33 AM EDT Body Mass Index 32.99 05/16/2025 10:33 AM EDT documented in this encounter Progress Notes * Gene Castro MD - 05/16/2025 10:15 AM EDT SUBJECTIVE Driss Johnson is a 74 y.o. adult who presents for Follow-up. Diabetes He presents for his follow-up diabetic visit. He has type 2 diabetes mellitus. Pertinent negatives for hypoglycemia include no headaches. Pertinent negatives for diabetes include no chest pain. Review of Systems Constitutional: Negative for fever. HENT: Negative for sore throat. Respiratory: Negative for cough and shortness of breath. Cardiovascular: Negative for chest pain. Gastrointestinal: Negative for abdominal pain. Neurological: Negative for headaches. Allergies[1] OBJECTIVE Vitals: 05/16/25 1033 BP: 130/80 BP Location: Left arm Patient Position: Sitting BP Cuff Size: Adult Pulse: 84 Resp: 20 Temp: 97 ??F (36.1 ??C) TempSrc: Oral SpO2: 98% Weight: 217 lb (98.4 kg) Height: 5' 8 (1.727 m) Physical [...] complication, with long-term current use of insulin ([facility]) - Primary Pt here for a f/u DM improving He is on a regimen of: Lantus 38 units sc q pm, and Trulicity 4.5 mg once a week. Recently increased by our CDTM team. Off Januvia. Hgb A1c 05/07/2025: 8.6 from 9.6 Eye exam referred Microalbumin 11/07/2024: 7 Pt on an ARB. Foot check today is risk of: zero Pt reports compliance with Asa 81 mg po daily Plan: Continue to follow with our CDTM Program for DM f/u 3 months Pt advised to: adhere to diabetic diet check your blood sugars regularly check your feet on a daily basis. Coronary artery disease involving [place] coronary artery of [place] heart without angina pectoris Patient here for a follow up Pt with CAD Cardiac Cath showed: Right dominant circulation. Proximal TECHNOLOGIST DEVELOPMENT right coronary artery with [id number] collaterals.Severe distal left main stenosis involving the ostial LAD and circumflex.Severe proximal LAD stenosis. High diagonal with ostial 80% stenosis and mid segment 90% stenosis.First OM 80% stenosis. Mid circumflex 80% stenosis. S/p CABG 12/09/2023 Last seen by Major G[employer] Manager Dr Day 02/12/2025 who recommended continue aggressive risk factor modification Previously he started him on a low dose lasix for new onset of LE edema Elevated PSA Pt's PSA mildly elevated. Under the care of Urology. Seen last 02/13/2025 recommended MRI of prostate done: MR Prostate wo/w con IMPRESSION: No discrete focus of abnormal signal intensity is identified to suggest clinically significant prostate carcinoma. Hyperlipidemia Patient with elevated lipids. Lipid profile showed Lab Results Component Value Date TRIG 157 (H) 05/09/2025 TRIG 121 04/25/2024 CHOL 277 (H) 05/09/2025 CHOL 137 04/25/2024 LDLCHOLCAL 208 (H) 05/09/2025 LDLCHOLCAL 77 04/25/2024 HDL 38 (L) 05/09/2025 HDL 36 (L) 04/25/2024 He is supposed to be on a regimen of: Atorvastatin 40 mg po at bedtime, but given his elevated LDL I am concerned about compliance. Patient tells me he stopped taking the Atorvastatin . Plan: Restart Atorvastatin advised to try to adhere to a low cholesterol diet, counseled and educated about diet and exercise,Patient encouraged to come up with a personal goal for weight loss. Hypothyroidism Repeat Lab Results Component Value Date TSH 4.69 (H) 11/07/2024 Normal No record of hypothyroidism in the past Thyroid U/S 03/26/2022 showed: IMPRESSION: Normal sonographic appearance of the thyroid gland. No thyroid nodules meeting size criteria for additional follow-up. He is on Levothyroxine up to 50 mcg po daily' Was seen by Endocrinology 12/07/2021, Plan: Continue Levothyroxine 50 mcg po daily' Future Appointments Date Time Provider Department Center 06/12/2025 10:30 AM Hien Taylor, PharmD MEDICINE [facility] [1] No Known Allergies documented in this encounter Miscellaneous Notes * Assessment & Plan Note - Gene Castro MD - 05/16/2025 10:38 AM EDT Associated Problem(s): Hypothyroidism Repeat Lab Results Component Value Date TSH 4.69 (H) 11/07/2024 Normal No record of hypothyroidism in the past Thyroid U/S 03/26/2022 showed: IMPRESSION: Normal sonographic appearance of the thyroid gland. No thyroid nodules meeting size criteria for additional follow-up. He is on Levothyroxine up to 50 mcg po daily' Was seen by Endocrinology 12/07/2021, Plan: Continue Levothyroxine 50 mcg po daily' * Assessment & Plan Note - Gene Castro MD - 05/16/2025 10:34 AM EDT Associated Problem(s): Hyperlipidemia Patient with elevated lipids. Lipid profile showed Lab Results Component Value Date TRIG 157 (H) 05/09/2025 TRIG 121 04/25/2024 CHOL 277 (H) 05/09/2025 CHOL 137 04/25/2024 LDLCHOLCAL 208 (H) 05/09/2025 LDLCHOLCAL 77 04/25/2024 HDL 38 (L) 05/09/2025 HDL 36 (L) 04/25/2024 He is supposed to be on a regimen of: Atorvastatin 40 mg po at bedtime, but given his elevated LDL I am concerned about compliance. Patient tells me he stopped taking the Atorvastatin . Plan: Restart Atorvastatin advised to try to adhere to a low cholesterol diet, counseled and educated about diet and exercise,Patient encouraged to come up with a personal goal for weight loss. * Assessment & Plan Note - Gene Castro MD - 05/16/2025 10:33 AM EDT Associated Problem(s): Type 2 diabetes mellitus without complication, with long-term current use ofinsulin ([facility]) Pt here for a f/u DM improving He is on a regimen of: Lantus 38 units sc q pm, and Trulicity 4.5 mg once a week. Recently increased by our CDTM team. Off Januvia. Hgb A1c 05/07/2025: 8.6 from 9.6 Eye exam referred Microalbumin 11/07/2024: 7 Pt on an ARB. Foot check today is risk of: zero Pt reports compliance with Asa 81 mg po daily Plan: Continue to follow with our CDTM Program for DM f/u 3 months Pt advised to: adhere to diabetic diet check your blood sugars regularly check your feet on a daily basis. * Assessment & Plan Note - Gene Castro MD - 05/16/2025 10:29 AM EDT Associated Problem(s): Coronary artery disease involving [place] coronary artery of pass[place] heart without angina pectoris Patient here for a follow up Pt with CAD Cardiac Cath showed: Right dominant circulation. Proximal TECHNOLOGIST DEVELOPMENT right coronary artery with [id number] collaterals.Severe distal left main stenosis involving the ostial LAD and circumflex.Severe proximal LAD stenosis. High diagonal with ostial 80% stenosis and mid segment 90% stenosis.First OM 80% stenosis. Mid circumflex 80% stenosis. S/p CABG 12/09/2023 Last seen by Major G[employer] Manager Dr Day 02/12/2025 who recommended continue aggressive risk factor modification Previously he started him on a low dose lasix for new onset of LE edema * Assessment & Plan Note - Gene Castro MD - 05/16/2025 10:28 AM EDT Associated Problem(s): Elevated PSA Pt's PSA mildly elevated. Under the care of Urology. Seen last 02/13/2025 recommended MRI of prostate done: MR Prostate wo/w con IMPRESSION: No discrete focus of abnormal signal intensity is identified to suggest clinically significant prostate carcinoma. documented in this encounter Plan of Treatment Upcoming Encounters Date Type Department Care Team (Late st Contact Info) Description 06/12/2025 10:30 AM EDT Medication Management [facility] MEDICINE [address] [place] [address] Hien Taylor PharmD [address] [place] [address] documented as of this encounter Goals Goal Patient Goal Type Associated Problems Recent Progress Patient-Stated? Author Blood Pressure < 140/90 Blood Pressure HTN (hypertension), benign 130/80(2024 10:33 AM EDT) No Carlito De La Cruz [...] complication, with long-term current use of insulin ([facility])- Primary Coronary artery disease involving [place] coronary artery of [place] heart without angina pectoris Elevated PSA Elevated prostate specific antigen (PSA) Mixed hyperlipidemia Acquired hypothyroidism Unspecified hypothyroidism documented in this encounter Additional Health Concerns Assessment Noted Time PHQ-9 Depression Total Score: 0 04/17/20 24 1:32 PM EDT documented as of this encounter Care Teams Rehabilitation Therapy Aide Relationship Specialty Start Date End Date Gene Wallace MD [address] [place], [place] [phone] PCP - General Internal Medicine 07/22/21 Hien Taylor PharmD [address] [place] [address] [phone] Pharmacist Pharmacy 03/13/25 documented as of this encounter
--- NOTE | 2025-05-17 10:55 | A.OFFVIS_ITS ---
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 Patient was referred by 01/14/25, at their visit we discussed his bilateral hip pain that radiates across the lower back into both legs. At today's visit he states that for the past 30 years he has had lower to mid back pain. He states that he has only had knee injections but never for his back or hips, he has never tried physical therapy. Green Ware Caster Required: Yes Green Ware Caster Services: Green Ware Caster Present Green Ware Caster Name: Ivy [id number] Allergies No Known Allergies (No Known Allergies*) Allergy (Verified 05/17/25 11:02) Medication List - Last Reconciled 05/17/25 by Nancy Barraza MD aspirin (Adult Aspirin Regimen) 81 mg PO DAILY atorvastatin 80 mg PO BEDTIME dulaglutide (Trulicity) mg subcut finasteride 5 mg PO DAILY 90 days furosemide (Lasix) 20 mg PO DAILY PRN glipizide 5 mg PO BID insulin glargine (Lantus Solostar U-100 Insulin) 26 units subcut QPM levothyroxine 50 mcg PO DAILY losartan-hydrochlorothiazide 100-12.5 mg 1 tab PO DAILY metoprolol succinate ER (Toprol XL) 25 mg PO DAILY HPI Comments Details: He was seen by Corazon HAMMER for hip pain. Referred to physiatry for further evaluation. Points to mid lower back as source of pain, goes to both sides. Radiates to both hips and knees. Minimal pain on clarke on right side. Numbness on both feet, right worse than left. He is diabetic. He has not seen any specialist for his back pain, but he did have MRI when he was 40s that told him he has arthritis. No lumbar injections in the past. Worse with standing and walking. No bladder/bowel incontinence. Uses cane. Last PT for right foot 2months ago. [facility] Medical History Atherosclerotic cardiovascular disease Diabetes Abnormal EKG Pre-op examination BPH (benign prostatic hyperplasia) Hypertension Surgical History Status post aorto-coronary artery bypass graft S/P partial colectomy Family History Mother Heart problem Sister Heart problem Social History Alcohol intake: former Patient Tobacco Use Status: Former Tobacco user Current occupational status: retired Review of Systems Const All systems reviewed & are unremarkable except as noted in HPI and below Physical Exam Exam Exam: Constitutional: Patient appears to be in no acute distress, well nourished and well developed. Patient was appropriately conversant and oriented. Good historian. MSK: No specific abnormalities found on inspection of the spine and all extremities. No pain with palpation over the lumbar area. Lumbar ROM was limited. Bilateral hip, knee and ankle ROM WNL. No ligamentous laxity or crepitance. No increased effusion. Some weakness in right hip flexion compared to left. No increased tone. Neurological: Some weakness in right hip flexion. Question depressed reflexes on both knees and ankles. Dasilva?s negative bilaterally. Babinski was down going bilaterally. Clonus was negative. Gait is antalgic without loss of balance. Vital Signs: BMI result Body Mass Index 32.2 Results Reviewed Results Reviewed: Ordering Physician: Gene Zarate MD Date of Service: 11/29/24 Procedure(s): XR hip RT min 2V Accession Number(s): [id number] cc: Gene Zarate MD~ EXAMINATION: XR HIP, RIGHT CLINICAL INFORMATION: bilateral hip pain COMPARISON: None available. TECHNIQUE: Two views of the right hip. FINDINGS: Sclerosis along the articular surface of the right acetabulum. Subchondral cyst formation femoral head. Asymmetric joint space narrowing. No acute cortical disruption or malalignment. No lytic or blastic lesions. 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 Electronically signed by: Stevan Martinez MD 11/29/2024 09:16 AM EDT RP I reviewed records from the following: Ortho Assessment & Plan Assessment & Plan (1) Lumbar spondylosis: Code(s): M47.816 - Spondylosis without myelopathy or radiculopathy, lumbar region Category: Medical (2) Right lumbar radiculitis: Code(s): M54.16 - Radiculopathy, lumbar region Category: Medical Plan Patient describes symptoms that could be claudication from spinal stenosis. Concern for depressed reflexes, although patient also has history of peripheral neuropathy and diabetes. Lumbar x-rays today. Ordering lumbar MRI to evaluate for spinal stenosis. Assessment and plan discussed with patient, and patient was agreeable. All questions were answered thoroughly. Nancy Barraza MD, ROGELIO Board Certified, [place] [employer] and Rehabilitation (ABPMR) Board Certified, [place] Board [employer] Electrodiagnostic [employer] (ABEM) Orders: Orders MR lumbar spine wo con Today M47.816 - Spondylosis without myelopathy or radiculopathy, lumbar region, M48.061 - Spinal stenosis, lumbar region without neurogenic claudication, M54.16 - Radiculopathy, lumbar region XR lumbar spine 2-3V Today M54.9 - Dorsalgia, unspecified Coding Level of Care Code New Pt Level 4 (61755) Diagnoses Lumbar spondylosis M47.816 Right lumbar radiculitis M54.16
[2025-05-17 11:02] VITALS: BMI 32.2
--- OUTSIDE RECORDS SUMMARY | 2025-05-17 11:56 | XMS_ITS | Encounter Summary ---
Author Organization [employer] Address [address] [facility] 7t [place] [address] Care Team Providers Care General Superintendent Name Role Phone Gene Walalce MD Primary Care Provide r Carlito De La Cruz PharmD Unavailable + Hien Taylor PharmD Unavailable [phone] Reason for Visit * Reason Comments Med Refill Encounter Details Date Type Department Care Team (Late st Contact Info) Description 06/14/2023 Refill [facility] [address] [place] [address] Gene Wallace MD [address] [place], [place] [phone] Social History Tobacco Use Types Packs/Day Years [...] Description 06/12/2025 10:30 AM EDT Medication Management [facility] [address] [place] [address] Hien Taylor PharmD [address] [place] [address] documented as of this encounter Goals Goal [...] documented as of this encounter Care Teams General Superintendent Relationship Specialty Start Date End Date Gene Wallace MD [address] [place] [address] PCP - General Internal Medicine 07/22/21 Carlito De La Cruz, VargheseD [address] [place] [address] Pharmacist Internal Medicine 01/24/23 12/24/23 Hien Taylor, VargheseD [address] [place] [address] Pharmacist Pharmacy 03/13/25 documented as of this encounter
--- OUTSIDE RECORDS SUMMARY | 2025-05-17 11:56 | XMS_ITS | Encounter Summary ---
Author Organization [employer] [facility] Address [address] [facility] 7[address] [place] [address] Care Team Providers Care Screen Operator Name Role Phone Gene Wallace MD Primary Care Provide r Carlito De La Cruz PharmD Unavailable +- Hien Taylor PharmD Unavailable [phone] Encounter Details Date Type Department Care Team (Late st Contact Info) Description 10/08/2022 Orders Only [facility] [address] [place] [phone] Denita Carrasco, NIKHIL Social History Tobacco Use [...] Description 06/12/2025 10:30 AM EDT Medication Management [facility] [address] [place] [address] Hien Taylor, PharmD [address] [place] [address] documented as of this encounter Visit Diagnoses Not on filedocumented in this encounter Care Teams Screen Operator Relationship Specialty Start Date End Date Gene Wallace MD [address] [place] [address] PCP - General Internal Medicine 07/22/21 Carlito De La Cruz, VargheseD [address] [place] [address] Pharmacist Internal Medicine 01/24/23 12/24/23 Hien Taylor, VargheseD [address] [place] [address] Pharmacist Pharmacy 03/13/25 documented as of this encounter
--- OUTSIDE RECORDS SUMMARY | 2025-05-17 11:56 | XMS_ITS | Encounter Summary ---
Author Organization [employer] Address [address] [facility] 7t [place] [address] Care Team Providers Care Human Resources Designate Name Role Phone Gene Wallace MD Primary Care Provide r Hien Taylor PharmD Unavailable [phone] Reason for Visit * Reason Comments Med Refill Encounter Details Date Type Department Care Team (Late st Contact Info) Description 05/16/2025 Refill [facility] [address] [place] [address] Name, MD Jarrod [address] [place] [address] Type 2 diabetes mellitus without complication, with long-term current use of insulin ([facility]) Social History Tobacco Use Types Packs/Day Years [...] your housing situation today? I have denis glenda 12/06/[address] you li [...] Description 06/12/2025 10:30 AM EDT Medication Management [facility] [address] [place] [address] Hien Taylor PharmD [address] [place] [address] documented as of this encounter Goals Goal [...] of insulin ([facility]) documented in this encounter Additional Health Concerns Assessment Noted Time PHQ-9 Depression Total Score: 0 04/17/20 24 1:32 PM EDT documented as of this encounter Care Teams Human Resources Designate Relationship Specialty Start Date End Date Gene Wallace MD [address] [place] [address] PCP - General Internal Medicine 07/22/21 Hien Taylor, VargheseD [address] [place] [phone] Pharmacist Pharmacy 03/13/25 documented as of this encounter
--- OUTSIDE RECORDS SUMMARY | 2025-05-17 11:56 | XMS_ITS | Encounter Summary ---
Author Organization [employer] Address [address] [facility] 7t [place] [address] Care Team Providers Care Canine Enforcement Officer Name Role Phone Gene Wallace MD Primary Care Provide r Carlito De La Cruz PharmD Unavailable +- Hien Taylor PharmD Unavailable [phone]- Reason for Visit * Reason Onset Date Comments new script 10/07/2022 Encounter Details Date Type Department Care Team (Late st Contact Info) Description 10/07/2022 Telephone [facility] [address] [place] [address] Gene Wallace MD [address] [place] [address] new script Social History Tobacco Use Types [...] Pen needles 8mm to be sent to [facility] Pharmacy. PCP DR. Ramsay documented in this encounter Plan of Treatment Upcoming Encounters Date Type Department Care Team (Late st Contact Info) Description 06/12/2025 10:30 AM EDT Medication Management [facility] [address] [place] [address] Hien Taylor, Konstantin [address] [place] [address] documented as of this encounter Visit Diagnoses Diagnosis Type 2 diabetes mellitus without complication, with long-term current use of insulin ([facility]) documented in this encounter Care Teams Canine Enforcement Officer Relationship Specialty Start Date End Date Gene Wallace MD [address] [place] [address] PCP - General Internal Medicine 07/22/21 Carlito De La Cruz, VargheseD [address] [place] [address] Pharmacist Internal Medicine 01/24/23 12/24/23 Hien Taylor, PharmD [address] [place] [address] Pharmacist Pharmacy 03/13/25 documented as of this encounter
--- OUTSIDE RECORDS SUMMARY | 2025-05-17 11:56 | XMS_ITS | Encounter Summary ---
Author Organization [employer] Address [address] [facility] 7t [place] [address] Care Team Providers Care Documentation Improvement Specialist Name Role Phone Gene Wallace MD Primary Care Provide r Carlito De La Cruz PharmD Unavailable + Hien Taylor PharmD Unavailable [phone] Reason for Visit * Reason Onset Date Comments Durable Medical Equipment 12/07/2023 Encounter Details Date Type Department Care Team (Late st Contact Info) Description 12/07/2023 Telephone [facility] [address] [place], [place] [phone] Gene Wallace MD [address] [place], [place] [phone] Durable Medical Equipment Social History Tobacco Use [...] PM EDT Tc jean claude Rodriguez at [facility] calling to inform the patients [...] Description 06/12/2025 10:30 AM EDT Medication Management [facility] [address] [place] [address] Hien Taylor PharmD [address] [place] [address] documented as of this encounter Goals Goal [...] documented as of this encounter Care Teams Documentation Improvement Specialist Relationship Specialty Start Date End Date Gene Wallace MD [address] [place] [address] PCP - General Internal Medicine 07/22/21 Carlito De La Cruz PharmD [address] [place] [address] [phone] Pharmacist Internal Medicine 01/24/23 12/24/23 Hien Taylor PharmD [address] [place] [phone] Pharmacist Pharmacy 03/13/25 documented as of this encounter
--- OUTSIDE RECORDS SUMMARY | 2025-05-17 11:56 | XMS_ITS | Encounter Summary ---
Author Organization [employer] Address [address] [facility] 7t [place] [address] Care Team Providers Care Motorcycle Police Name Role Phone Gene Wallace MD Primary Care Provide r Hien Taylor PharmD Unavailable +- [phone] Encounter Details Date Type Department Care Team (Latest Contact Info) Description 05/16/2025 Travel Social History Tobacco Use Types Packs/Day [...] Description 06/12/2025 10:30 AM EDT Medication Management [facility] [address] [place], [place] [phone] Hien Taylor PharmD [address] [place] [address] documented as of this encounter Goals Goal [...] documented as of this encounter Care Teams Motorcycle Police Relationship Specialty Start Date End Date Gene Wallace MD [address] [place] [address] PCP - General Internal Medicine 07/22/21 Hien Taylor PharmD [address] [place] [address] Pharmacist Pharmacy 03/13/25 documented as of this encounter
--- OUTSIDE RECORDS SUMMARY | 2025-05-17 11:56 | XMS_ITS | Encounter Summary ---
Author Organization [employer] Address [address] [facility] 7t [place] [address] Care Team Providers Care Revenue Collector Name Role Phone Gene Wallace MD Primary Care Provide r Hien Taylor PharmD Unavailable [phone] Reason for Visit * Reason Comments Med Refill Encounter Details Date Type Department Care Team ([facility] st Contact Info) Description 04/25/2024 Telephone [facility] [address] [place], [place] [phone] Marilyn Sutherland MD [address] [place], [place] [phone] Med Refill Social History Tobacco Use Types [...] 10:51 AM EDT Telephone call placed to [facility]. Left V/m for Dr Day's [...] 10:30 AM EDT Medication Management [facility] [address] [place] [address] Hien Taylor PharmD [address] [place] [address] documented as of this encounter Goals Goal [...] documented as of this encounter Care Teams Revenue Collector Relationship Specialty Start Date End Date Gene Wallace MD [address] [place] [address] [phone] PCP - General Internal Medicine 07/22/21 Hien Taylor PharmD [address] [place] [phone] Pharmacist Pharmacy 03/13/25 documented as of this encounter
--- OUTSIDE RECORDS SUMMARY | 2025-05-17 11:56 | XMS_ITS | Encounter Summary ---
Author Organization [employer] Address [address] [facility] 7t [place] [address] Care Team Providers Care International Student Counselor Name Role Phone Gene Wallace MD Primary Care Provide r Hien Taylor PharmD Unavailable [phone] Reason for Visit * Reason Comments Med Refill Encounter Details Date Type Department Care Team ([facility] st Contact Info) Description 01/23/2024 Refill [facility] [address] [place], [place] [phone] Linda Flores MD [address] [place] [address] Social History Tobacco Use Types Packs/Day Years [...] 10:30 AM EDT Medication Management [facility] [address] [place] [address] Hien Taylor PharmD [address] [place] [address] documented as of this encounter Goals Goal [...] documented as of this encounter Care Teams International Student Counselor Relationship Specialty Start Date End Date Gene Wallace MD [address] [place] [address] PCP - General Internal Medicine 07/22/21 Hien Taylor, VargheseD [address] [place] [address] [place] [address] Pharmacist Pharmacy 03/13/25 documented as of this encounter
--- OUTSIDE RECORDS SUMMARY | 2025-05-17 11:56 | XMS_ITS | Clinical Summary ---
Author Organization [employer] Address [address] [facility] [address] [place] [address] Care Team Providers Care Tax Consultant Name Role Phone Gene Wallace MD Primary Care Provide r Hien Taylor PharmD Unavailable [phone] Allergies No known active allergies Medications finasteride (Proscar) 5 MG tablet Take 5 mg by mouth in the morning. 023 Active OneTouch Delica Lancets 33G misc 1 each 2 times daily. 100 each 11 024 Active glucose blood (OneTouch Verio) test stripIndicati ons:Type 2 diabetes mellitus without complication, with long-term current use of insulin ([facility]) 1 each by Other route every 8 (eight) hours. 100 each 11 024 Active Blood Glucose Monitoring Suppl (OneTouch Verio) w/Device kitIndication s:Type 2 diabetes mellitus without complication, with long-term current use of insulin (CMS/HCC) Use daily 1 kit 025 Active Easy Touch Pen Buckeye 31G X 8 MM miscIndicatio ns:Type 2 diabetes mellitus without complication, with long-term current use of insulin (CMS/HCC) USE DIRECTED 100 each 11 025 Active furosemide (Lasix) 20 MG tablet TAKE 1 TABLET BY MOUTH EVERY DAY NEEDED FOR EDEMA 025 Active Continuous Glucose Irrigationist Designer (FreeStyle Carlos 3 [place]) deviceIndicat ions:Type 2 diabetes mellitus without complication, with long-term current use of insulin (CMS/HCC) 1 each Once per day. Use as directed for CGM 1 each 025 Active Continuous Glucose Sensor (FreeStyle Carlos 3 Plus Sensor) miscIndicatio ns:Type 2 diabetes mellitus without complication, with long-term current use of insulin ([facility]) 1 each every 15 days. Apply 1 every 15 days as directed for CGM 2 each Active glucose blood (FreeStyle Precision Charles Test) test stripIndicati ons:Type 2 diabetes mellitus without complication, with long-term current use of insulin ([facility]) Use to test blood sugar [...] MOUTH EVERY DAY AT BEDTIME 90 tablet 025 Active metoprolol succinate XL (Toprol-XL) 25 MG 24 hr tablet TAKE 1 TABLET BY MOUTH EVERY DAY 90 tablet 025 Active Dulaglutide (Trulicity) 4.5 MG/0.5ML solution auto-injector Indications:T ype 2 diabetes mellitus without complication, with long-term current use of insulin ([facility]) Inject 4.5 mg under the skin every 7 (seven) days. 2 mL 025 Active insulin glargine (Lantus SoloStar) 100 UNIT/ML penIndication s:Type 2 diabetes mellitus without complication, with long-term current use of insulin ([facility]) INJECT 38 UNITS SUBCUTANEOUSLY EVERY EVENING 15 mL 025 Active levothyroxine (Synthroid, Levoxyl) 50 MCG tablet TAKE 1 TABLET BY MOUTH AT BEDTIME 90 tablet 025 2024 Discontinued losartan-hydr oCHLOROthiazi de (Hyzaar) 100-12.5 MG tablet TAKE 1 TABLET BY MOUTH EVERY DAY IN THE MORNING 90 tablet 025 2024 Discontinued atorvastatin (Lipitor) 80 MG [...] ONCE A WEEK DIRECTED 2 mL 3 2024 Discontinued(D ose adjustment) Lantus SoloStar 100 UNIT/ML penIndication s:Type 2 diabetes mellitus without complication, with long-term current use of insulin (CMS/HCC) INJECT 34 UNITS SUBCUTANEOUSLY EVERY EVENING 15 mL 3 025 2024 Discontinued Active Problems Patient Care Coordination [...] records were obtained Pt was treated in [place], at some point he had a repeat colonoscopy at [place] but no records were received from that colonoscopy 3 years ago other than a reference that it was done Pt was last seen by an Oncologist at [facility], he was told he did not needed to come back Previous visit pt was referred to Gastroenterology Dr Crowder, Pt no showed to that appointment. He was finally seen by Pooja Lomax NP at [facility]. Given his ongoing cardiac issues the [...] Plain films both hips === 11/06/24 === Msqs-qd-dyqfrhob osteoarthrosis, left hip. IMPRESSION: Mild to moderate [...] with cardiology Coronary artery disease invo lving [place] coronary artery of [place] heart without angina pectoris 11/15/2023 Assessment & Plan (05/16/2025 10:29 AM EDT): Patient here for a follow up Pt with CAD Cardiac Cath showed: Right dominant circulation. Proximal RENAL MEDICINE PHYSICIAN right coronary artery with qdxu-uy-xraxd collaterals.Severe distal left main stenosis involving the ostial LAD and circumflex.Severe proximal LAD stenosis. High diagonal with ostial 80% stenosis and mid segment 90% stenosis.First OM 80% stenosis. Mid circumflex 80% stenosis. S/p CABG 12/09/2023 Last seen by Jet Piercer Operator Dr Day 02/12/2025 who recommended continue aggressive risk factor modification Previously he started him on a low dose lasix for new onset of LE edema Assessment & Plan (02/07/2025 10:38 AM EDT): Patient here for a follow up Pt with CAD Cardiac Cath showed: Right dominant circulation. Proximal RENAL MEDICINE PHYSICIAN right coronary artery with xrjf-vk-fqsex collaterals.Severe distal left main stenosis involving the ostial LAD and circumflex.Severe proximal LAD stenosis. High diagonal with ostial 80% stenosis and mid segment 90% stenosis.First OM 80% stenosis. Mid circumflex 80% stenosis. S/p CABG 12/09/2023 Last seen by Jet Piercer Operator Dr Day 12/19/2024 who recommended to repeat his ECHO He started him on a low dose lasix for new onset of LE edema Pt tells me he has a follow up Assessment & Plan (11/06/2024 12:44 PM EST): Patient with CAD Cardiac Cath showed: Right dominant circulation. Proximal RENAL MEDICINE PHYSICIAN right coronary artery with xfcg-tx-hczoo collaterals. Severe distal left main stenosis involving the ostial LAD and circumflex. Severe proximal LAD stenosis. High diagonal with ostial 80% stenosis and mid segment 90% stenosis. First OM 80% stenosis. Mid circumflex 80% stenosis. S/p CABG 12/09/2023 Last seen by Jet Piercer Operator Dr Day 07/25/2024 Scheduled for f/u 6 months Assessment & Plan (04/17/2024 1:41 PM EDT): Patient with CAD Cardiac Cath showed: Right dominant circulation. Proximal RENAL MEDICINE PHYSICIAN right coronary artery with ggof-ge-aafde collaterals. Severe distal left main stenosis involving the ostial LAD and circumflex. Severe proximal LAD stenosis. High diagonal with ostial 80% stenosis and mid segment 90% stenosis. First OM 80% stenosis. Mid circumflex 80% stenosis. S/p CABG 12/09/2023 Last seen by Jet Piercer Operator Dr Day 04/10/2024 Scheduled for ECHO in 3-4 months Assessment & Plan (02/23/2024 12:54 PM EDT): Patient with CAD Most recent Cath showed: Right dominant circulation. Proximal RENAL MEDICINE PHYSICIAN right coronary artery with cluq-ig-zleez collaterals. Severe distal left main stenosis involving the ostial LAD and circumflex. Severe proximal LAD stenosis. High diagonal with ostial 80% stenosis and mid segment 90% stenosis. First OM 80% stenosis. Mid circumflex 80% stenosis. He is now s/p CABG 12/09/2023 Last seen by Jet Piercer Operator Dr Day 01/03/2024 Scheduled for cardiac rehab at some point Assessment & Plan (12/06/2023 8:39 AM EDT): Patient with CAD Most recent Cath showed: Right dominant circulation. Proximal RENAL MEDICINE PHYSICIAN right coronary artery with jtgl-er-byqcz collaterals. Severe distal left main stenosis involving the ostial LAD and circumflex. Severe proximal LAD stenosis. High diagonal with ostial 80% stenosis and mid segment 90% stenosis. First OM 80% stenosis. Mid circumflex 80% stenosis. Pt was referred for CABG to cardiac surgeon by [employer] Operator scheduled for 12/09/2023 Assessment & Plan (11/15/2023 2:25 PM EST): As part of his PE, Pt had an EKG that showed Qs in III and AVF As a result I referred patient to cardiology Pt had a stress test that was abnormal and subsequently underwent a Cath Coronary anatomy: Right dominant circulation. Proximal RENAL MEDICINE PHYSICIAN right coronary artery with ackg-ne-vfpox collaterals. Severe distal left main stenosis involving the ostial LAD and circumflex. Severe proximal LAD stenosis. High diagonal with ostial 80% stenosis and mid segment 90% stenosis. First OM 80% stenosis. Mid circumflex 80% stenosis. Pt was referred for CABG to cardiac surgeon by Jet [employer] Operator scheduled for 12/09/2023 Plantar fasciitis of right [...] CT right foot. 2nd opinion with Ortho presentation specialist Assessment & Plan (07/12/2023 10:50 AM EDT): Exam indicative of this Plan: Plain film right heel Stretching exercises NSAIDS Podiatry referral Elevated PSA 12/14/2022 Overview (03/23/2023): PSA mildly elevated From urology note 03/22/23: start finasteride as discussed and prescribed. Urology will redraw PSA in 4 months. Assessment & Plan (05/16/2025 10:48 AM EDT): Pt's PSA mildly elevated. Under the care of Urology. Seen last 02/13/2025 recommended MRI of prostate done: MR Prostate wo/w con IMPRESSION: No discrete focus of abnormal signal intensity is identified to suggest clinically significant prostate carcinoma. Assessment & Plan (04/17/2024 1:43 PM EDT): [...] Urology referral Hyperlipidemia 10/08/2022 Assessment & Plan (05/16/2025 10:46 AM EDT): Patient with elevated lipids. Lipid [...] goal for weight loss. Assessment & Plan (11/06/2024 12:47 PM EST): [...] weight loss. Hypothyroidism 10/08/2022 Assessment & Plan (05/16/2025 10:38 AM EDT): Repeat Lab Results Component Value Date TSH [...] 50 mcg po daily' Assessment & Plan (11/06/2024 12:47 PM EST): [...] records were obtained Pt was treated in [place], at some point he had a repeat colonoscopy at [place] but no records were received from that colonoscopy 3 years ago other than a reference that it was done Pt was last seen by an Oncologist at [facility], he was told he did not needed to come back Previous visit pt was referred to Gastroenterology Dr Crowder, Pt no showed to that appointment. He was finally seen by Pooja Lomax NP at [facility]. Given his ongoing cardiac issues the [...] records were obtained Pt was treated in [place], at some point he had a repeat colonoscopy at [place] but no records were received from that colonoscopy 3 years ago other than a reference that it was done Pt was last seen by an Oncologist at [facility], he was told he did not [...] records were obtained Pt was treated in [place], at some point he had a repeat colonoscopy at [place] but no records were received from that colonoscopy 3 years ago other than a reference that it was done Pt was last seen by an Oncologist at [facility], he was told he did not [...] records were obtained Pt was treated in [place], at some point he had a repeat colonoscopy at [place] but no records were received from that colonoscopy 3 years ago other than a reference that it was done Pt was last seen by an Oncologist at [facility], he was told he did not [...] records were obtained Pt was treated in [place], at some point he had a repeat colonoscopy at [place] but no records were received from that colonoscopy 3 years ago other than a reference that it was done Pt was last seen by an Oncologist at [facility], he was told he did not needed to come back 7 yrs ago Previous visit pt was referred to Gastroenterology Dr Crowder, Pt no showed to that appointment Type 2 diabetes mellitus wit hout complication, with long-term current use of insulin 10/08/2022 Assessment & Plan (05/16/2025 10:33 AM EDT): Pt here for a f/u DM improving [...] on a daily basis. Assessment & Plan (02/07/2025 10:38 AM EDT): [...] regimen of: Losartan 50 mg po daily [facility] 06/14/2022 normal Plan: 1 month follow [...] Encounters Date Type Department Care Team Description 05/16/2025 10:15 AM EDT Office Visit [facility] MEDICINE [address] [place] [address] Gene Wallace MD Type 2 diabetes mellitus without complication, with long-term current use of insulin (CMS/HCC) (Primary Dx); Coronary artery disease involving [place] coronary artery of [place] heart without angina pectoris; Elevated PSA; Mixed hyperlipidemia; Acquired hypothyroidism 05/16/2025 Travel 05/16/2025 Refill [facility] MEDICINE [address] [place] [address] Jarrod Teran MD Type 2 diabetes mellitus without complication, with long-term current use of insulin (CMS/HCC) 05/09/2025 Orders Only GENERIC EXTERNAL DATA DEPARTMENT Provider, Generic External Data 05/07/2025 Travel 04/25/2025 Refill [facility] CHC MED & PEDS [address] [place] [address] Gene Wallace MD 04/23/2025 Orders Only [facility] External Provider, [facility] 04/21/2025 Refill [facility] MED [facility] PEDS [address] [place] [address] Gene Wallace MD 04/18/2025 2:00 PM EDT Office Visit [facility] OPTOMETRY [address] [place] [address] Angeline Robison, OD Type 2 diabetes mellitus without complication, with long-term current use of insulin ([facility]) (Primary Dx); Combined forms of age-related cataract of both eyes; Epiretinal membrane (ERM) of left eye; Chorioretinal scar of left eye; Presbyopia 04/18/2025 Travel 04/15/2025 Refill [facility] MEDICINE [address] [place] [address] Gene Wallace MD Type 2 diabetes mellitus without complication, with long-term current use of insulin (CMS/HCC) 03/22/2025 Travel 03/14/2025 Telephone [facility] MEDICINE [address] [place] [address] Hien Taylor, PharmD 03/13/2025 Travel 02/25/2025 Telephone [facility] MEDICINE [address] [place] [address] Gene Wallace MD April02/21/2025 Telephone [facility] MEDICINE [address] [place] [address] Gene Wallace MD from Last 3 Months Immunizations Immunization Administration [...] Mass Index 32.99 05/16/2025 10:33 AM EDT Plan of Treatment Upcoming Encounters Date Type Department Care Team (Late st Contact Info) Description 06/12/2025 10:30 AM EDT Medication Management [facility] MEDICINE [address] [place] [address] Hien Taylor, PharmD [address] [place] [address] Health Maintenance Due Date Last Done Comments Diabetes: Foot Exam 1960 RSV Patients and Patients Aged 60 years or older (1 - 1-dose 75+ series) 2023 Depression Screening 04/17/2025 04/17/2024, 04/17/20 24 COVID-19 Vaccine (2024- season) 2025 07/06/2022, 01/26/2022, 07/22/2021, Additional history exists Influenza Vaccine (#1) 2025 , 05/27/2023, 06/01/2022, Additional history exists Alcohol/Substance Use Screening 07/12/2025 07/12/2024 Diabetes: Hemoglobin A1C 08/07/2025 025, 02/07/2025, 11/06/2024, Additional history exists SDOH Screening 10/24/2025 10/24/2024 Diabetes: Urine Protein Screening 11/07/2025 11/07/2024, 09/09/2021 Tobacco Screening 05/07/2026 05/07/2025 Lipid Panel 05/09/2026 05/09/2025, 04/12, 09/06/2023, Additional history exists Eye Exam 04/18/2027 04/18/2025, 080 03/2025, 04/18/2025, Additional history exists DTaP/Tdap/Td Vaccines [...] 10:33 AM EDT) No Carlito De La Cruz, PharmD Keep fasting blood glucose between 70 and 130 Result Component Type 2 diabetes mellitus without complication, with long-term current use of insulin On track( 023 11:39 AM EDT) No Carlito De La Cruz, PharmAbel Hemoglobin A1c < 7 Result Component 8.6( 11:06 AM EDT) No Carlito De La Cruz, Konstantin Procedures Procedure Name Priority Date/Time Associated Diagnosis Comments PSA, TOTAL Routine 05/09/2025 8:45 AM EDT LIPID PANEL, STANDARD Routine 05/09/2025 8:45 AM EDT BASIC METABOLIC PANEL Routine 05/09/2025 8:45 AM EDT B TYPE NATRIURETIC PEPTIDE (BNP) Routine 05/09/2025 8:45 AM EDT POCT GLYCATED HEMOGLOBIN, TOTAL Routine 05/07/2025 11:06 AM EDT Type 2 diabetes mellitus without complication, with long-term current use of insulin (CMS/HCC) MR PROSTATE W AND WO CONTRAST Routine 04/23/2025 8:45 AM EDT FUNDUS PHOTOS - OU - BOTH EYES Routine 04/18/2025 2:00 PM EDT Epiretinal membrane (ERM) of left eye ALBUMIN, RANDOM URINE W/CREATININE Routine 11/07/2024 9:00 AM EST Type 2 diabetes mellitus without complication, with long-term current use of insulin (CMS/HCC) HEPATITIS C AB W/REFL TO HCV RNA, QN, PCR Routine 12/03/2022 8:01 AM EDT Type 2 diabetes mellitus without complication, with long-term current use of insulin (CMS/HCC) from Last 3 Months or Most Recently Relevant to Health Maintenance Results * PSA,Total (05/09/2025 8:45 AM EDT) Prostate Specific Antigen 2.93 <0.05 - 4.0 ng/mL [facility] Comment:PSA methodology: Marquis Ren[place] i ChemiluminescentMicroparticle Immunoassay (CMIA) 05/09/2025 8:45 AM EDT 05/09/2025 11:28 AM EDT us Generic External Data Provider LAB BLOOD ORDERAB LES Final Result Performing Organization Address City/[facility]/ZIP Co de Phone Number [facility] [address] [place] [address] [phone] * B Type Natriuretic Peptide (BNP) (05/09/2025 8:45 AM EDT) B Type Natriuretic Peptide 27 <100 pg/mL [facility] 05/09/2025 8:45 AM EDT 05/09/2025 11:15 AM EDT Generic External Data Provider LAB BLOOD ORDERAB LES Final Result Performing Organization Address City/[facility] Co de Phone Number [facility] [address] [place] [phone] * (ABNORMAL) Lipid Panel, Standard (05/09/2025 8:45 AM EDT) Triglycerides 157(H) <150 mg/dL [facility] Comment:Desirable Triglyceri de: less than 150 mg/dLBorderline High Triglyceride 150-199 mg/dLHigh Triglyceride: 200-499 mg/dLVery High Triglyceride: greater than or equal to 5OO mg/dL Cholesterol 277(H) <200 mg/dL [facility] Comment:Desirable Cholestero l: less than 200 mg/dLBorderline High Cholesterol: 200-239 mg/dLHigh Cholesterol: greater than 239 mg/dL LDL Cholesterol Calculated 208(H) <100 mg/dL [facility] Comment:Desirable LDL: less than 100 mg/dLNear Optimal/Above Optimal LDL: 110- 129 mg/dLBorderline High LDL: 130-159 mg/dLHigh LDL: 160-189 mg/dLVery High LDL: greater than or equal to 190 mg/dL HDL Cholesterol 38(L) >40 mg/dL [facility] Comment:Desirable HDL: great er than 40 mg/dL Note: This HDL assay may give artificially low results in patients with liver disease. 05/09/2025 8:45 AM EDT 05/09/2025 11:28 AM EDT us Gene Castro MD LAB BLOOD ORDERABLES Final Result Performing Organization Address [facility]/ZIP Co de Phone Number [facility] [address] [place] [address] [phone] * (ABNORMAL) Basic Metabolic Panel (05/09/2025 8:45 AM EDT) Pathologist [facility] Sodium 138 135 - 145 mmol/L [facility] Potassium 3.6 3.3 - 5.1 mmol/L [facility] Chloride 103 96 - 108 mmol/L [facility] Carbon Dioxide 29 22 - 29 mmol/L [facility] Anion Gap 10(L) 12 - 20 [facility] Urea Nitrogen (BUN) 22(H) 9 - 16 mg/dL [facility] Creatinine, Serum 1.25 0.5 - 1.4 mg/dL [facility] Estimated Glomerular Filt Rate 56 [facility] Comment:Chronic Kidney Disea se: Estimated GFR < 60 mL/min/[id number] Kidney Disease: Estimated GFR < 15 mL/min/1.73m2 Glucose 119(H) 60 - 115 mg/dL [facility] Calcium 9.7 8.4 - 10.2 mg/dL [facility] 05/09/2025 8:45 AM EDT 05/09/2025 11:28 AM EDT us Generic External Data Provider LAB BLOOD ORDERAB LES Final Result Performing Organization Address [facility]/ZIP Co de Phone Number [facility] [address] [place] [address] [phone] * (ABNORMAL) POCT A1c (05/07/2025 11:06 AM EDT) Pathologist [facility] Hemoglobin A1C 8.6(A) 4.0 - 5.7 % QC Media Lot # [id number] Lot# Expiration Date ,729, Blood 05/07/2025 11:0 6 AM EDT us Gene Castro MD POINT OF CARE TEST EN TER/EDIT ORDERABLES Final Result * MR Prostate w and w/o Contrast (04/23/2025 8:45 AM EDT) Anatomical Region Laterality Modality Magnetic Resonan ce 04/23/2025 8:45 AM EDT Narrative 04/23/2025 9:56 AM EDT [address] [address] Magnetic Resonance Report Signed with Addenda Patient: Driss Bender MR#: [id number] 52 : 1950 Acct:[id number] Age/Sex: 74 / M ADM Date: 04/23/25 Loc: HO.MRI Attending Dr: Bibi CAMPBELL Ordering Physician: Bibi Downing Date of Service: 04/23/25 Procedure(s): MR Prostate wo/w con Accession Number(s): [id number] cc: Gene Zarate MD; Bibi Downing ADDENDUM [...] cancer is highly likely to be present) [employer]. MR Prostate Imaging Reporting and Data System version 2.1. [email or web address] Electronically signed by: Luis Deras MD 04/23/2025 09:53 AM EDT Dictated By: Luis Deras MD Signed By: <Electronically signed by Luis Deras MD in OV> 04/23/25 0953 DD/ TD/TT: 04/23/25924 Cereal Supervisor: Procedure Note Donotuseinterpreter, Image - 04/23/[address] [address] Magnetic Resonance Report Signed with Danielle Patient: Driss Bender EMR#: [id number] : 1950cct:[id number] Age/Sex: 74 / MADM Date: 04/23/25 Loc: HO.MRI Attending Dr: Bibi ESTEVESPAlec Ordering Physician: Bibi Downing Date of Service: 04/23/25 Procedure(s): MR Prostate wo/w con Accession Number(s): [id number] cc: Gene Zarate MD; Bibi Downing ADDENDUM [...] cancer is highly likely to be present) [employer]. MR Prostate Imaging Reporting and Data System version 2.1. [email or web address] Electronically signed by: Luis Deras MD 04/23/2025 09:53 AM EDT Dictated By: Luis Deras MD Signed By: <Electronically signed by Luis Deras MD in OV> 04/23/25 0953 DD/ 0845 TD/TT: 04/23/25924 Cereal Supervisor: [facility] External Provider IMG MRI PROCEDURES Edited Result - Final * Fundus Photos - OU - Both Eyes (04/18/2025 2:00 PM EDT) Narrative Angeline Robison, OD - 05/09/2025 3:50 PM EDT Images from the original result were not included. Right Eye Progression has no prior data. Disc findings include normal observations (No NVD). Macula findings include normal observations (No CSME). Vessel findings include normal observations. Periphery findings include normal observations (No NVE). Left Eye Progression has no prior data. Disc findings include normal observations (No NVD). Macula findings include normal observations (ERM throughout nasal macula, no CSME). Vessel findings include normal observations. Periphery findings include normal observations (No NVE). Notes Assessment and Plan: Epiretinal membrane in the left eye. No treatment necessary. Will monitor at his next exam. us Angeline Robison OD OPHTH PHOTOGRAPHY Final Resul t * Albumin, Random Urine W/Creatinine (11/07/2024 9:00 AM EST) Creatinine, Urine 211.69 mg/dL [facility] Microalbumin Urine 7.0 mg/L [facility] Microalbum Creatinine Ratio Ur 3.3 <30 ug/mg cr [facility] Comment:Albumin/Creatinine R atio Reference Ranges: Normal: < 30 ug/mg creatinine Microalbuminuria: 30 - 300 ug/mg creatinineClinical Albuminuria: > 300 ug/mg creatinine Urine (Urine, Random) 11/07/2024 9:00 AM EST 11/07/2024 11:06 AM EST Gene Castro MD LAB URINE ORDERABLES Final Result [facility] [address] [place] [phone] * Hepatitis C Antibody with Reflex to HCV, RNA, Quantitative, Real-Time PCR (12/03/2022 8:01 AM EDT) Hepatitis C Antibody NON-REACT PUNEET NON-REACT PUNEET [employer] [place] [employer] Index 0.05 <1.00 [facility] Comment: HCV antibody was non-reactive. There is no laboratory evidence of HCV infection. In most cases, no further action is required. However, if recent HCV exposure is suspected, a test for HCV RNA (test code 66393) is suggested. For additional information please refer to http://education.[employer].Bluenog/faq/NVN94p3 (This link is being provided for informational/ educational purposes only.) Blood Venous blood specimen / Unknown 12/03/2022 8:01 AM EDT 12/03/2022 8:02 AM EDT Narrative [facility] - 12/03/2022 8:32 PM EDT FASTING:YES FASTING: YES Gene Castro MD LAB BLOOD ORDERABLES Final Result [facility] [address], [place] [address] [facility] [address] [place] [address] from Last 3 Months or Most Recently Relevant to Health Maintenance Insurance [facility] Care Teams Tax Consultant Relationship Specialty Start Date End Date Gene Wallace MD [address] [place] [address] PCP - General Internal Medicine 07/22/21 Hien Taylor, VargheseD [address] [place] [id number] Pharmacist Pharmacy 03/13/25
== END 2025-05-17 11:30 | disposition home or self-care (01) ==
LOC: HO.HOS 10:51
PROVIDERS: PCP Internal Medicine; Visit Provider Physical Medicine & Rehabilitation
DX: M47.816 Spondylosis without myelopathy or radiculopathy, lumbar region (principal); M54.16 Radiculopathy, lumbar region
CPT/HCPCS: 99204

== ENCOUNTER → 2025-05-17 11:16 | Outpatient (BNV) | payer MEDICARE, SELFPAY | PROVIDERS: PCP Internal Medicine; Visit Provider Radiology Diagnostic Radiology | DX: M54.50 Low back pain, unspecified (principal) | CPT/HCPCS: 72100 ==

== ENCOUNTER 2025-06-07 15:03 | Outpatient (AMB) | payer OTHER, SELFPAY ==
--- NOTE | 2025-06-07 15:03 | A.OFFVIS_ITS ---
Intake Visit Reasons: MRI FU Intake Note: Patient presents today via telehealth for a MRI follow up * 04/23 Prostate MRI * 05/09 PSA: 2.93 Urology meds:Finasteride Blood thinners:Aspirin Concrete Paving Machine Operator Required: Yes Concrete Paving Machine Operator Services: Concrete Paving Machine Operator Present Concrete Paving Machine Operator Name: [id number] Information Interpreted: non-clinical & clinical Allergies No Known Allergies (No Known Allergies*) Allergy (Verified 06/07/25 15:03) Medication List - Last Reconciled 06/07/25 by Salma George MD aspirin (Adult Aspirin Regimen) 81 mg PO DAILY atorvastatin 80 mg PO BEDTIME dulaglutide (Trulicity) mg subcut finasteride 5 mg PO DAILY 90 days furosemide (Lasix) 20 mg PO DAILY PRN glipizide 5 mg PO BID insulin glargine (Lantus Solostar U-100 Insulin) 26 units subcut QPM levothyroxine 50 mcg PO DAILY losartan-hydrochlorothiazide 100-12.5 mg 1 tab PO DAILY metoprolol succinate ER (Toprol XL) 25 mg PO DAILY HPI Comments Details: 06/07/25 History of Present Illness The patient is a 74-year-old male presenting for follow-up on prostate health and PSA level monitoring. The patient underwent an MRI of the prostate last month, which showed no suspicious lesions. The PSA level has decreased to 2.93, attributed to the use of finasteride. The patient is advised to continue finasteride 5 mg daily, with a follow-up blood test scheduled in six months to monitor PSA levels. Results - MRI of the prostate: Normal findings, no suspicious lesions - PSA level: 2.93, 05/09/25. Plan 1. Prostate Health Monitoring - Continue finasteride 5 mg daily - Schedule follow-up blood test in six months to monitor PSA levels 02/13/25--Driss is a pleasant 74-year-old Thai speaking male patient of Dr. Zarate. He has a past medical history of type 2 diabetes, and hypertension. He presents to the office today for follow-up of his elevated PSA. In discussion with the patient today he reports to be doing and feeling well. He currently denies any bothersome urinary issues or concerns. He reports compliance with 5 mg of finasteride daily. Recent PSA results reviewed with the patient today as noted and trended below. Previous workup has included a retroperitoneal ultrasound 03/04 noting bilateral kidneys with no calculi, lesions, and or hydronephrosis noted. The bladder is well distended and appears mildly trabeculated. Prostate is enlarged at 85 mL. PSAs are as follows.. 12/02 4.8, 03/04 5.1 % free 29, 07/04 4.8, 12/03 5.2, 04/04 3.5, 10/06 4.0, 02/03 4.8 %free PSA 18 When asked he denies urinary urgency, urinary frequency, incontinence, nocturia, hematuria, dysuria, foul smelling urine, changes to urinary stream, flank pain, fever, and or chills. He is happy with his current voiding parameters. In office urinalysis results reviewed with the patient today. PVR 29ml's. We discussed increase in PSA. We discussed further treatment options and risks and benefits of these treatment options. He otherwise offers no other issues or concerns at this time. [facility] Medical History Atherosclerotic cardiovascular disease Diabetes Abnormal EKG Pre-op examination BPH (benign prostatic hyperplasia) Hypertension Surgical History Status post aorto-coronary artery bypass graft S/P partial colectomy Family History Mother Heart problem Sister Heart problem Social History Alcohol intake: former Patient Tobacco Use Status: Former Tobacco user Current occupational status: retired Review of Systems Const All systems reviewed & are unremarkable except as noted in HPI and below Reports no additional complaints Eyes Reports no additional complaints ENT Reports no additional complaints Card Reports no additional complaints Resp Reports no additional complaints GI Reports no additional complaints Reports as per HPI Musc Reports no additional complaints Skin/Breast Reports system reviewed and no additional complaints, except as documented Neuro Reports no additional complaints Psych Reports no additional complaints Endo Reports no additional complaints Davion/Lymph Reports no additional complaints Aller/Immun Reports no additional complaints Telehealth Telehealth Telehealth Platform: Telephone Location of provider rendering services: practice address Location of patient: address on file Patient Identification confirmed using: Name, : Yes Telehealth method: voice only Patient verbally consented to treatment: Yes Patient verbally consented to billing insurance company: Yes Patient informed of any privacy concerns related to visit: Yes Minutes spent on Phone/Video with Pt.: 13 Results Reviewed Results Reviewed: Date of Service: 02/17/23 Procedure(s): US retroperitoneal comp FINDINGS: RIGHT KIDNEY: 11.6 x 4.8 x 6.0 cm (SAG x AP x TRV). The kidney is normal in size, contour, and echogenicity. Renal cortical thickness is normal. No calculi or focal parenchymal lesions. No hydronephrosis. LEFT KIDNEY: 12.2 x 5.5 x 5.4 cm (SAG x AP x TRV). The kidney is normal in size, contour, and echogenicity. Renal cortical thickness is normal. No calculi or focal parenchymal lesions. No hydronephrosis. BLADDER: Bladder is well distended and appears mildly trabeculated. Bilateral ureteral jets are demonstrated. Prevoid bladder volume is 235 mL. Postvoid bladder volume is 98 mL. ADDITIONAL FINDINGS: Prostate is enlarged at 85 mL IMPRESSION: BPH with 85 mL prostate and 98 mL postvoid residual. ? The bladder is mildly trabeculated. 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 Prostate Health Monitoring - Continue finasteride 5 mg daily - Schedule follow-up blood test in six months to monitor PSA levels Patient Instructions: The patient had an opportunity to ask questions regarding treatment plan. The patient expressed understanding and agreement with the above treatment plan. The patient is aware they should contact our office by phone for worsening of their current condition or the appearance of new symptoms. Compliance is encouraged with any medications and followup testing that is ordered. It is a privilege to be allowed the opportunity to participate in the urologic care of your patient. If you have any questions or concerns regarding treatment for the above conditions please do not hesitate to contact me. The office telephone contact is [phone]. This note is constructed in part using voice recognition software. While every effort has been made to ensure accuracy barrel bridge assembler errors may have been included. Yours sincerely, Salma George MD Scribe Plan - Not visible on output: Patient was informed and verbally consented to the use of an ambient scribe for clinic note documentation during this visit. Coding Level of Care Code Tele Est Pt Level 3 (96561) Complex EM visit Add On G2211 Diagnoses Elevated PSA R97.20 Enlarged prostate N40.0 Bladder trabeculation N32.89
--- OUTSIDE RECORDS SUMMARY | 2025-06-07 15:40 | XMS_ITS | Encounter Summary ---
Author Organization [employer] [facility] Address [address] [place] [address] Care Team Providers Care Truck Trailer Mechanic Name Role Phone Gene Wallace MD Primary Care Provide r Carlito De La Cruz PharmD Unavailable [phone]- Hien Taylor PharmD Unavailable [phone] Encounter Details Date Type Department Care Team (Late st Contact Info) Description 10/08/2022 Orders Only [facility]INE [address] [place] [id number] Denita Carrasco, NIKHIL Social History Tobacco Use [...] Description 06/12/2025 10:30 AM EDT Medication Management [facility] [address] [place] [address] Hien Taylor, PharmD [address] [place] [address] documented as of this encounter Visit Diagnoses Not on filedocumented in this encounter Care Teams Truck Trailer Mechanic Relationship Specialty Start Date End Date Gene Wallace MD [address] [place] [phone] PCP - General Internal Medicine 07/22/21 Carlito De La Cruz, VargheseD [address] [place] [address] Pharmacist Internal Medicine 01/24/23 12/24/23 Hien Taylor, VargheseD [address] [place] [address] Pharmacist Pharmacy 03/13/25 documented as of this encounter
--- OUTSIDE RECORDS SUMMARY | 2025-06-07 15:40 | XMS_ITS | Encounter Summary ---
Author Organization [employer] Address [address] [place] [address] Care Team Providers Care Glue Wheel Operator Name Role Phone Gene Wallace MD Primary Care Provide r Hien Taylor PharmD Unavailable [phone] Reason for Visit * Reason Comments Med Refill Encounter Details Date Type Department Care Team (Late st Contact Info) Description 05/16/2025 Refill [facility] [address] [place] [address] Name, MD Jarrod [address] [place] [address] Type 2 diabetes mellitus without complication, with long-term current use of insulin ([facility]) Social History Tobacco Use Types Packs/Day [...] Description 06/12/2025 10:30 AM EDT Medication Management [facility] [address] [place] [address] Hien Taylor PharmD [address] [place] [address] documented as of this encounter Goals Goal [...] complication, with long-term current use of insulin ([facility]) documented in this encounter Additional Health Concerns Assessment Noted Time PHQ-9 Depression Total Score: 0 04/17/20 24 1:32 PM EDT documented as of this encounter Care Teams Glue Wheel Operator Relationship Specialty Start Date End Date Gene Wallace MD [address] [place] [address] PCP - General Internal Medicine 07/22/21 Hien Taylor, VargheseD [address] [place] [phone] Pharmacist Pharmacy 03/13/25 documented as of this encounter
--- OUTSIDE RECORDS SUMMARY | 2025-06-07 15:40 | XMS_ITS | Clinical Summary ---
Author Organization [employer] Address [address] [place] [address] Care Team Providers Care Machine Pie Maker Name Role Phone eGne Wallace MD Primary Care Provide r Hien Taylor PharmD Unavailable [phone] Allergies No known active allergies Medications finasteride (Proscar) 5 MG tablet Take 5 mg by mouth in the morning. 3 Active OneTouch Delica Lancets 33G misc 1 each 2 times daily. 100 each 11 4 Active glucose blood (OneTouch Verio) test stripIndicatio ns:Type 2 diabetes mellitus without complication, with long-term current use of insulin ([facility]) 1 each by Other route every 8 (eight) hours. 100 each 11 4 Active Blood Glucose Monitoring Suppl (OneTouch Verio) w/Device kitIndications :Type 2 diabetes mellitus without complication, with long-term current use of insulin (CMS/HCC) Use daily 1 kit 5 Active Easy Touch Pen [place] 31G X 8 MM miscIndication s:Type 2 diabetes mellitus without complication, with long-term current use of insulin (CMS/HCC) USE DIRECTED 100 each 11 5 Active furosemide (Lasix) 20 MG tablet TAKE 1 TABLET BY MOUTH EVERY DAY NEEDED FOR EDEMA 5 Active Continuous Glucose Applied Computer Science Professor (FreeStyle Carlos 3 [place]) deviceIndicati ons:Type 2 diabetes mellitus without complication, with long-term current use of insulin (CMS/HCC) 1 each Once per day. Use as directed for CGM 1 each 5 Active Continuous Glucose Sensor (FreeStyle Carlos 3 Plus Sensor) miscIndication s:Type 2 diabetes mellitus without complication, with long-term current use of insulin (CMS/HCC) 1 each every 15 days. Apply 1 every 15 days as directed for CGM 2 each 5 Active glucose blood (FreeStyle Precision Charles Test) test stripIndicatio ns:Type 2 diabetes mellitus without complication, with long-term current use of insulin ([facility]) Use to test blood sugar 3 times daily in case of CGM failure or extremes of BG 100 each 5 026 Active losartan-hydro CHLOROthiazide (Hyzaar) 100-12.5 MG tablet TAKE 1 TABLET BY MOUTH EVERY DAY IN THE MORNING 90 tablet 5 Active atorvastatin (Lipitor) 80 MG tablet TAKE 1 TABLET BY MOUTH EVERY DAY AT BEDTIME 90 tablet 5 Active Aspirin Low Dose 81 MG EC tablet TAKE 1 TABLET BY MOUTH EVERY DAY 90 tablet 5 Active levothyroxine (Synthroid, Levoxyl) 50 MCG tablet TAKE 1 TABLET BY MOUTH EVERY DAY AT BEDTIME 90 tablet 1 5 Active metoprolol succinate XL (Toprol-XL) 25 MG 24 hr tablet TAKE 1 TABLET BY MOUTH EVERY DAY 90 tablet 5 Active Dulaglutide (Trulicity) 4.5 MG/0.5ML solution auto-injectorI ndications:Typ e 2 diabetes mellitus without complication, with long-term current use of insulin ([facility]) Inject 4.5 mg under the skin every 7 (seven) days. 2 mL 1 5 Active insulin glargine (Lantus SoloStar) 100 UNIT/ML penIndications :Type 2 diabetes mellitus without complication, with long-term current use of insulin ([facility]) INJECT 38 UNITS SUBCUTANEOUSLY EVERY EVENING 15 mL 3 5 Active Active Problems Patient Care Coordination [...] records were obtained Pt was treated in [place], at some point he had a repeat colonoscopy at [place] but no records were received from that [...] finally seen by Pooja Lomax NP at [facility]. Given his ongoing [...] Plain films both hips === 11/06/24 === Hvtb-wc-ffewgxfa osteoarthrosis, left hip. IMPRESSION: Mild to moderate [...] with cardiology Coronary artery disease invo lving walk[place] coronary artery of [place] heart without angina pectoris 11/15/2023 Assessment & Plan (05/16/2025 10:29 AM EDT): Patient here for a follow up Pt with CAD Cardiac Cath showed: Right dominant circulation. Proximal REVENUE FIELD AUDITOR right coronary artery with isxm-nq-wbccw collaterals.Severe distal left main stenosis involving the ostial LAD and circumflex.Severe proximal LAD stenosis. High diagonal with ostial 80% stenosis and mid segment 90% stenosis.First OM 80% stenosis. Mid circumflex 80% stenosis. S/p CABG 12/09/2023 Last seen by Tree Trimming Line Technician Dr Day 02/12/2025 who recommended continue aggressive risk factor modification Previously he started him on a low dose lasix for new onset of LE edema Assessment & Plan (02/07/2025 10:38 AM EDT): Patient here for a follow up Pt with CAD Cardiac Cath showed: Right dominant circulation. Proximal REVENUE FIELD AUDITOR right coronary artery with bnaa-uz-kvvcj collaterals.Severe distal left main stenosis involving the ostial LAD and circumflex.Severe proximal LAD stenosis. High diagonal with ostial 80% stenosis and mid segment 90% stenosis.First OM 80% stenosis. Mid circumflex 80% stenosis. S/p CABG 12/09/2023 Last seen by Tree Trimming Line Technician Dr Day 12/19/2024 who recommended to repeat his ECHO He started him on a low dose lasix for new onset of LE edema Pt tells me he has a follow up Assessment & Plan (11/06/2024 12:44 PM EST): Patient with CAD Cardiac Cath showed: Right dominant circulation. Proximal REVENUE FIELD AUDITOR right coronary artery with yxlb-mq-kglwn collaterals. Severe distal left main stenosis involving the ostial LAD and circumflex. Severe proximal LAD stenosis. High diagonal with ostial 80% stenosis and mid segment 90% stenosis. First OM 80% stenosis. Mid circumflex 80% stenosis. S/p CABG 12/09/2023 Last seen by Tree Trimming Line Technician Dr Day 07/25/2024 Scheduled for f/u 6 months Assessment & Plan (04/17/2024 1:41 PM EDT): Patient with CAD Cardiac Cath showed: Right dominant circulation. Proximal REVENUE FIELD AUDITOR right coronary artery with vwlv-uc-jepcz collaterals. Severe distal left main stenosis involving the ostial LAD and circumflex. Severe proximal LAD stenosis. High diagonal with ostial 80% stenosis and mid segment 90% stenosis. First OM 80% stenosis. Mid circumflex 80% stenosis. S/p CABG 12/09/2023 Last seen by Tree Trimming Line Technician Dr Day 04/10/2024 Scheduled for ECHO in 3-4 months Assessment & Plan (02/23/2024 12:54 PM EDT): Patient with CAD Most recent Cath showed: Right dominant circulation. Proximal REVENUE FIELD AUDITOR right coronary artery with rrsj-lc-gctxk collaterals. Severe distal left main stenosis involving the ostial LAD and circumflex. Severe proximal LAD stenosis. High diagonal with ostial 80% stenosis and mid segment 90% stenosis. First OM 80% stenosis. Mid circumflex 80% stenosis. He is now s/p CABG 12/09/2023 Last seen by Tree Trimming Line Technician Dr Day 01/03/2024 Scheduled for cardiac rehab at some point Assessment & Plan (12/06/2023 8:39 AM EDT): Patient with CAD Most recent Cath showed: Right dominant circulation. Proximal REVENUE FIELD AUDITOR right coronary artery with than-hp-bxrcg collaterals. Severe distal left main stenosis involving the ostial LAD and circumflex. Severe proximal LAD stenosis. High diagonal with ostial 80% stenosis and mid segment 90% stenosis. First OM 80% stenosis. Mid circumflex 80% stenosis. Pt was referred for CABG to cardiac surgeon by Tree Trimming Line Technician scheduled for 12/09/2023 Assessment & Plan (11/15/2023 2:25 PM EST): As part of his PE, Pt had an EKG that showed Qs in III and AVF As a result I referred patient to cardiology Pt had a stress test that was abnormal and subsequently underwent a Cath Coronary anatomy: Right dominant circulation. Proximal REVENUE FIELD AUDITOR right coronary artery with bxcw-dn-wpith collaterals. Severe distal left main stenosis involving the ostial LAD and circumflex. Severe proximal LAD stenosis. High diagonal with ostial 80% stenosis and mid segment 90% stenosis. First OM 80% stenosis. Mid circumflex 80% stenosis. Pt was referred for CABG to cardiac surgeon by Tree Trimming Line Technician scheduled for 12/09/2023 Plantar fasciitis of right [...] CT right foot. 2nd opinion with Ortho forestry extension specialist Assessment & Plan (07/12/2023 10:50 AM [...] records were obtained Pt was treated in [place], at some point he had a repeat colonoscopy at [place] but no records were received from that [...] finally seen by Pooja Lomax NP at [facility]. Given his ongoing [...] records were obtained Pt was treated in [place], at some point he had a repeat colonoscopy at [place] but no records were received from that [...] records were obtained Pt was treated in [place], at some point he had a repeat colonoscopy at [place] but no records were received from that [...] records were obtained Pt was treated in [place], at some point he had a repeat colonoscopy at [place] but no records were received from that [...] records were obtained Pt was treated in [place], at some point he had a repeat colonoscopy at [place] but no records were received from that [...] po daily Follows with our CDTM Program [facility] 09/06/2023 normal Today will order a repeat [...] regimen of: Losartan 50 mg po daily [facility] 12/03/2022 normal Plan: Increase Losartan [...] Encounters Date Type Department Care Team Description 05/17/2025 Orders Only [facility] External Provider, [facility] 05/16/2025 10:15 AM EDT Office Visit [facility] [address] [place] [phone] Gene Wallace MD Type 2 diabetes mellitus without complication, with long-term current use of insulin ([facility]) (Primary Dx); Coronary artery disease involving walker river coronary artery of walker river heart without angina pectoris; Elevated PSA; Mixed hyperlipidemia; Acquired hypothyroidism 05/16/2025 Travel 05/16/2025 Refill [facility] [address] [place] [address] Jarrod Teran MD Type 2 diabetes mellitus without complication, with long-term current use of insulin (CMS/HCC) 05/09/2025 Orders Only GENERIC EXTERNAL DATA DEPARTMENT Provider, Generic External Data 05/07/2025 Travel 04/25/2025 Refill [facility] [address] [place] [address] Gene Wallace MD 04/23/2025 Orders Only [facility] External Provider, [facility] 04/21/2025 Refill [facility] [address] [place] [address] Gene Wallace MD 04/18/2025 2:00 PM EDT Office Visit [facility] [address] [place] [address] Ricki, Angeline, OD Diabetes type 2, no ocular involvement ([facility]) (Primary Dx); Combined forms of age-related cataract of both eyes; Epiretinal membrane (ERM) of left eye; Chorioretinal scar of left eye; Vestigial remnants of canal of [place]; Presbyopia 04/18/2025 Travel 04/15/2025 Refill [facility] [address] [place] [address] Gene Wallace MD Type 2 diabetes mellitus without complication, with long-term current use of insulin ([facility]) 03/22/2025 Travel 03/14/2025 Telephone [facility] [address] [place] [address] Hien Taylor, PharmD 03/13/2025 Travel from Last 3 Months Immunizations Immunization Administration [...] Description 06/12/2025 10:30 AM EDT Medication Management [facility] [address] [place] [address] Hien Taylor, PharmD [address] [place] [address] Health Maintenance Due Date Last Done Comments Diabetes: Foot Exam 1958 RSV Patients and Patients Aged 60 years or older (1 - 1-dose 75+ series) 2023 Depression Screening 04/17/2025 04/17/2024, 04/17/20 24 COVID-19 Vaccine ( season) 2025 07/06/2022, 01/26/2022, 07/22/2021, Additional history exists Influenza Vaccine (#1) 2025 , 05/27/2023, 06/01/2022, Additional history exists Alcohol/Substance Use Screening 07/12/2025 07/12/2024 Diabetes: Hemoglobin A1C 08/07/2025 025, 02/07/2025, 11/06/2024, Additional history exists SDOH Screening 10/24/2025 10/24/2024 Diabetes: Urine Protein Screening 11/07/2025 11/07/2024, 09/09/2021 Tobacco Screening 05/07/2026 05/07/2025 Lipid Panel 05/09/2026 05/09/2025, 08/1 12/2023, 09/06/2023, Additional history exists Eye Exam 04/18/2027 04/18/2025, 08/0 03/2025, 04/18/2025, [...] Name Priority Date/Time Associated Diagnosis Comments XR LUMBAR SPINE 2-3 VIEWS Routine 05/17/2025 11:16 AM EDT PSA, TOTAL Routine 05/09/2025 8:45 AM EDT [...] complication, with long-term current use of insulin ([facility]) from Last 3 Months or Most Recently Relevant to Health Maintenance Results * XR Lumbar Spine 2-3 Views (05/17/2025 11:16 AM EDT) Anatomical Region Laterality Modality Spine, L-spine Radiographic Betsy ging 05/17/2025 11:1 6 AM EDT Narrative 05/17/2025 12:17 PM EDT [facility] [address] [place] [address] Drive [address] [place] [address] XRay Report Signed Patient: Driss Bender MR#: [id number] 52 : 1950 Acct:[id number] Age/Sex: 74 / M ADM Date: 05/17/25 Loc: [facility] Attending Dr: Nancy Barraza MD Ordering Physician: Nancy Milligan Date of Service: 05/17/25 Procedure(s): XR lumbar spine 2-3V Accession Number(s): [id number] cc: Gene Zarate MD; Nancy Milligan Reason for Exam: M54.9 - Dorsalgia, unspecified EXAMINATION: XR LUMBAR SPINE 2-3 VIEWS HISTORY: M54.9 - Dorsalgia, unspecified COMPARISON: There are no prior studies for comparison. FINDINGS: AP, lateral, and coned down views of the lumbar spine are submitted. Osseous mineralization is normal. Five nonrib-bearing lumbar vertebral bodies are identified, maintaining normal height and alignment without evidence of fracture or spondylolisthesis. There is mild anterior spurring. The intervertebral disc spaces are preserved. The posterior elements are intact. There is calcification of the abdominal aorta. XR/XR lumbar spine 2-3V IMPRESSION: Minimal degenerative changes. Electronically signed by: Luis Deras MD 05/17/2025 12:14 PM EDT Dictated By: Luis Deras MD Signed By: <Electronically signed by Luis Deras MD in OV> 05/17/25 1214 DD/ 1116 TD/TT: 05/17/25 1120 Statistician Applied: Procedure Note Donotuseinterpreter, Image - 05/17/2025 [facility] [address] [place] [address] XRay Report Signed Patient: Driss Bender EMR#: [id number] [birth year] : 8Acct:[id number] Age/Sex: 74 / MADM Date: 05/17/25 Loc: HO.HOSX Attending Dr: Nancy Barraza MD Ordering Physician: Nancy Milligan Date of Service: 05/17/25 Procedure(s): XR lumbar spine 2-3V Accession Number(s): [id number] cc: Gene Zarate MD; Nancy Milligan Reason for Exam: M54.9 - Dorsalgia, unspecified EXAMINATION: XR LUMBAR SPINE 2-3 VIEWS HISTORY: M54.9 - Dorsalgia, unspecified COMPARISON: There are no prior studies for comparison. FINDINGS: AP, lateral, and coned down views of the lumbar spine are submitted. Osseous mineralization is normal. Five nonrib-bearing lumbar vertebral bodies are identified, maintaining normal height and alignment without evidence of fracture or spondylolisthesis. There is mild anterior spurring. The intervertebral disc spaces are preserved. The posterior elements are intact. There is calcification of the abdominal aorta. XR/XR lumbar spine 2-3V IMPRESSION: Minimal degenerative changes. Electronically signed by: Luis Deras MD 05/17/2025 12:14 PM EDT RP Dictated By: Luis Deras MD Signed By: <Electronically signed by Luis Deras MD in OV> 05/17/25 1214 DD/ 1116 TD/TT: 05/17/25 1120 Statistician Applied: [facility] External Provider IMG XR PROCEDURES Final Result * PSA,Total (05/09/2025 8:45 AM EDT) Prostate Specific Antigen 2.93 <0.05 - 4.0 ng/mL [facility] Comment:PSA methodology: Marquis [place] i ChemiluminescentMicroparticle Immunoassay (CMIA) 05/09/2025 8:45 AM EDT 05/09/2025 11:28 AM EDT us Generic External Data Provider LAB BLOOD ORDERAB LES Final Result Performing Organization Address City/[facility]/ZIP Co de Phone Number [facility] [address] [place] [phone] * B Type Natriuretic Peptide (BNP) (05/09/2025 8:45 AM EDT) B Type Natriuretic Peptide 27 <100 pg/mL [facility] 05/09/2025 8:45 AM EDT 05/09/2025 11:15 AM EDT Generic External Data Provider LAB BLOOD ORDERAB LES Final Result Performing Organization Address City/[facility] Co de Phone Number [facility] [address] [place] [phone] * (ABNORMAL) Lipid Panel, Standard (05/09/2025 8:45 AM EDT) Triglycerides 157(H) <150 mg/dL [facility] Comment:Desirable Triglyceri de: less than 150 mg/dLBorderline High Triglyceride 150-199 mg/dLHigh Triglyceride: 200-499 mg/dLVery High Triglyceride: greater than or equal to 5OO mg/dL Cholesterol 277(H) <200 mg/dL [facility] Comment:Desirable Cholestero l: less than 200 mg/dLBorderline High Cholesterol: 200-239 mg/dLHigh Cholesterol: greater than 239 mg/dL LDL Cholesterol Calculated 208(H) <100 mg/dL [facility] Comment:Desirable LDL: less than 100 mg/dLNear Optimal/Above Optimal LDL: 110- 129 mg/dLBorderline High LDL: 130-159 mg/dLHigh LDL: 160-189 mg/dLVery High LDL: greater than or equal to 190 mg/dL HDL Cholesterol 38(L) >40 mg/dL [facility] Comment:Desirable HDL: great er than 40 mg/dL Note: This HDL assay may give artificially low results in patients with liver disease. 05/09/2025 8:45 AM EDT 05/09/2025 11:28 AM EDT us Gene Castro MD LAB BLOOD ORDERABLES Final Result Performing Organization Address [facility] Co de Phone Number [facility] [address] [place] [phone] * (ABNORMAL) Basic Metabolic Panel (05/09/2025 8:45 AM EDT) Sodium 138 135 - 145 mmol/L [facility] Potassium 3.6 3.3 - 5.1 mmol/L [facility] Chloride 103 96 - 108 mmol/L [facility] Carbon Dioxide 29 22 - 29 mmol/L [facility] Anion Gap 10(L) 12 - 20 [facility] Urea Nitrogen (BUN) 22(H) 9 - 16 mg/dL [facility] Creatinine, Serum 1.25 0.5 - 1.4 mg/dL [facility] Estimated Glomerular Filt Rate 56 [facility] Comment:Chronic Kidney Disea se: Estimated GFR < 60 mL/min/1.37k4Ubnquw Kidney Disease: Estimated GFR < 15 mL/min/1.73m2 Glucose 119(H) 60 - 115 mg/dL [facility] Calcium 9.7 8.4 - 10.2 mg/dL [facility] 05/09/2025 8:45 AM EDT 05/09/2025 11:28 AM EDT us Generic External Data Provider LAB BLOOD ORDERAB LES Final Result Performing Organization Address [facility] Co de Phone Number [facility] [address] [place] [phone] * (ABNORMAL) POCT A1c (05/07/2025 11:06 AM EDT) Hemoglobin A1C 8.6(A) 4.0 - 5.7 % QC Media Lot # [id number] Lot# Expiration Date [id number] Blood 05/07/2025 11:0 6 AM EDT Gene Castro MD POINT OF CARE TEST EN TER/EDIT ORDERABLES Final Result * MR Prostate w and w/o Contrast (04/23/2025 8:45 AM EDT) Anatomical Region Laterality Modality Magnetic Resonan ce 04/23/2025 8:45 AM EDT Narrative 04/23/2025 9:56 AM EDT [place] [address] Magnetic Resonance Report Signed with Addenda Patient: Driss Bender MR#: [id number] 52 : 1950 Acct:[id number] Age/Sex: 74 / M ADM Date: 04/23/25 Loc: HO.MRI Attending Dr: Bibi CAMPBELL Ordering Physician: Bibi Downing Date of Service: 04/23/25 Procedure(s): MR Prostate wo/w con Accession Number(s): [id number] cc: Gene Zarate MD; Bibi Downing ADDENDUM [...] cancer is highly likely to be present) [employer]. MR Prostate Imaging Reporting and Data System version 2.1. [email or web address]/[email or web address]/ Electronically signed by: Luis Deras MD 04/23/2025 09:53 AM EDT Dictated By: Luis Deras MD Signed By: <Electronically signed by Luis Deras MD in OV> 04/23/2553 DD/ 4 TD/TT: 04/23/25924 Statistician Applied: Procedure Note Virginierobbieheatherter, Image - 04/23/2025 [place] [address] Magnetic Resonance Report Signed with Addenda Patient: Driss Bender EMR#: [id number] 52 : 1950cct:[id number] Age/Sex: 74 / MADM Date: 04/23/25 Loc: HO.MRI Attending Dr: Bibi CAMPBELL Ordering Physician: Bibi Downing Date of Service: 04/23/25 Procedure(s): MR Prostate wo/w con Accession Number(s): [id number] cc: Gene Zarate MD; Bibi Downing ADDENDUM [...] cancer is highly likely to be present) [employer]. MR Prostate Imaging Reporting and Data System version 2.1. [email or web address]/Quality-[email or web address]/PIRADS/ Electronically signed by: Luis Deras MD 04/23/2025 09:53 AM EDT Dictated By: Luis Deras MD Signed By: <Electronically signed by Luis Deras MD in OV> 04/23/2553 DD/ TD/TT: 04/23/25924 Statistician Applied: [facility] External Provider IMG MRI PROCEDURES Edited [...] necessary. Will monitor at his next exam. Angeline Robison OD OPHTH PHOTOGRAPHY Final Resul t * Albumin, Random Urine W/Creatinine (11/07/2024 9:00 AM EST) Creatinine, Urine 211.69 mg/dL [facility] Microalbumin Urine 7.0 mg/L [facility] Microalbum Creatinine Ratio Ur 3.3 <30 ug/mg cr [facility] Comment:Albumin/Creatinine R atio Reference Ranges: Normal: < 30 ug/mg creatinine Microalbuminuria: 30 - 300 ug/mg creatinineClinical Albuminuria: > 300 ug/mg creatinine Urine (Urine, Random) 11/07/2024 9:00 AM EST 11/07/2024 11:06 AM EST Gene Castro MD LAB URINE ORDERABLES Final Result [facility] [address] [place] [phone] * Hepatitis C Antibody with Reflex to HCV, RNA, Quantitative, Real-Time PCR (12/03/2022 8:01 AM EDT) Hepatitis C Antibody NON-REACT PUNEET NON-REACT PUNEET [facility] Index 0.05 <1.00 [facility] Comment: HCV antibody was non-reactive. There is no laboratory evidence of HCV infection. In most cases, no further action is required. However, if recent HCV exposure is suspected, a test for HCV RNA (test code 71677) is suggested. For additional information please refer to http://education.[employer]/faq/PRI64m8 (This link is being provided for informational/ educational purposes only.) Blood Venous blood specimen / Unknown 12/03/2022 8:01 AM EDT 12/03/2022 8:02 AM EDT Narrative [facility] - 12/03/2022 8:32 PM EDT FASTING:YES FASTING: YES Gene Castro MD LAB BLOOD ORDERABLES Final Result [facility] [address] [place] [phone] [facility] [address] [place] [phone] from Last 3 Months or Most Recently Relevant to Health Maintenance Insurance [facility] Care Teams Machine Pie Maker Relationship Specialty Start Date End Date Gene Wallace MD [address] [place] [address] PCP - General Internal Medicine 07/22/21 Hien Taylor, PharmD [address] [place] [address] Pharmacist Pharmacy 03/13/25
--- OUTSIDE RECORDS SUMMARY | 2025-06-07 15:40 | XMS_ITS | Encounter Summary ---
Author Organization [employer] Address [address] [facility] 7t [place] [address] Care Team Providers Care Arboriculturist Name Role Phone Gene Wallace MD Primary Care Provide r Carlito De La Cruz PharmD Unavailable + Hien Taylor PharmD Unavailable [phone] Reason for Visit * Reason Comments Med Refill Encounter Details Date Type Department Care Team (Late st Contact Info) Description 06/14/2023 Refill [facility] 230 [place] [address] Gene Wallace MD 230 [place], [place] [phone] Social History Tobacco Use Types Packs/Day Years [...] 10:30 AM EDT Medication Management [facility] 230 [place] [address] Hien Taylor PharmD 230 [place] [address] documented as of this encounter Goals Goal [...] documented as of this encounter Care Teams Arboriculturist Relationship Specialty Start Date End Date Gene Wallace MD [address] [place] [phone] PCP - General Internal Medicine 07/22/21 Carlito De La Cruz, VargheseD 230 [place] [address] Pharmacist Internal Medicine 01/24/23 12/24/23 Hien Taylor, VargheseD 230 [place] [address] Pharmacist Pharmacy 03/13/25 documented as of this encounter
--- OUTSIDE RECORDS SUMMARY | 2025-06-07 15:40 | XMS_ITS | Encounter Summary ---
Author Organization [employer] Address [address] [facility] 7t [place] [address] Care Team Providers Care Foreign Collection Clerk Name Role Phone Gene Wallace MD Primary Care Provide r Hien Taylor PharmD Unavailable [phone] Reason for Visit * Reason Comments Med Refill Encounter Details Date Type Department Care Team ([facility] st Contact Info) Description 01/23/2024 Refill [facility] [address] [place], [place] [phone] Linda Flores MD 230 [place] [address] Social History Tobacco Use Types Packs/Day Years [...] Description 06/12/2025 10:30 AM EDT Medication Management [facility]INE 230 [place] [address] Hien Taylor PharmD 230 [place] [address] documented as of this encounter Goals Goal [...] documented as of this encounter Care Teams Foreign Collection Clerk Relationship Specialty Start Date End Date Gene Wallace MD [address] [place] [phone] PCP - General Internal Medicine 07/22/21 Hien Taylor, VargheseD [address] [place] [address] [place] [address] Pharmacist Pharmacy 03/13/25 documented as of this encounter
--- OUTSIDE RECORDS SUMMARY | 2025-06-07 15:40 | XMS_ITS | Encounter Summary ---
Author Organization [employer] Address [address] [facility] 7t [place] [address] Care Team Providers Care Steward/Stewardess Room Name Role Phone Gene Wallace MD Primary Care Provide r Hien Taylor PharmD Unavailable [phone] Reason for Visit * Reason Comments Med Refill Encounter Details Date Type Department Care Team ([facility] st Contact Info) Description 04/25/2024 Telephone [facility] MEDICINE 230 [place], [place] [phone] Marilyn Sutherland MD 230 [place], [place] [phone] Med Refill Social History Tobacco Use Types [...] 10:51 AM EDT Telephone call placed to [facility] Cardiology. Left V/m for Dr Day's [...] Description 06/12/2025 10:30 AM EDT Medication Management [facility] MED[facility]INE [address] [place] [address] Hien Taylor PharmD [address] [place] [address] documented as of this encounter Goals Goal [...] documented as of this encounter Care Teams Steward/Stewardess Room Relationship Specialty Start Date End Date Gene Wallace MD [address] [place] [address] [phone] PCP - General Internal Medicine 07/22/21 Hien Taylor PharmD [address] [place] [address] [phone] Pharmacist Pharmacy 03/13/25 documented as of this encounter
--- OUTSIDE RECORDS SUMMARY | 2025-06-07 15:40 | XMS_ITS | Encounter Summary ---
Author Organization [employer] Address [address] [facility] 7t [place] [address] Care Team Providers Care Personal Caregiver Name Role Phone Gene Wallace MD Primary Care Provide r Carlito De La Cruz PharmD Unavailable +- Hien Taylor PharmD Unavailable +1- Reason for Visit * Reason Onset Date Comments new script 10/07/2022 Encounter Details Date Type Department Care Team (Late st Contact Info) Description 10/07/2022 Telephone [facility] MEDICINE 230 [place] [address] Gene Wallace MD 230 [place] [address] new script Social History Tobacco Use Types [...] 8mm to be sent to [facility] Pharmacy. PCP DR. Ramsay documented in this encounter Plan of Treatment Upcoming Encounters Date Type Department Care Team (Late st Contact Info) Description 06/12/2025 10:30 AM EDT Medication Management [facility] MEDICINE 230 [place] [address] Hien Taylor, Konstantin 230 [place] [address] documented as of this encounter Visit Diagnoses Diagnosis Type 2 diabetes mellitus without complication, with long-term current use of insulin ([facility]) documented in this encounter Care Teams Personal Caregiver Relationship Specialty Start Date End Date Gene Wallace MD [address] [place] [phone] PCP - General Internal Medicine 07/22/21 Carlito De La Cruz, VargheseD [address] [place] [address] Pharmacist Internal Medicine 01/24/23 12/24/23 Hien Taylor, PharmD [address] [place] [address] Pharmacist Pharmacy 03/13/25 documented as of this encounter
--- OUTSIDE RECORDS SUMMARY | 2025-06-07 15:40 | XMS_ITS | Encounter Summary ---
Author Organization [employer] Address [address] [facility] 7t [place] [address] Care Team Providers Care Graphic Manager Name Role Phone Gene Wallace MD Primary Care Provide r Carlito De La Cruz PharmD Unavailable + Hien Taylor PharmD Unavailable +[phone] Reason for Visit * Reason Onset Date Comments Durable Medical Equipment 12/07/2023 Encounter Details Date Type Department Care Team (Late st Contact Info) Description 12/07/2023 Telephone [facility] MEDICINE 230 [place], [place] [phone] Gene Wallace MD 230 [place], [place] [phone] Durable Medical Equipment Social History Tobacco Use [...] PM EDT Tc jean claude Rodriguez at [facility] calling to inform the patients hospital bed [...] Description 06/12/2025 10:30 AM EDT Medication Management [facility] MED[facility]INE 230 [place] [address] Hien Taylor PharmD 230 [place] [address] documented as of this encounter Goals Goal [...] documented as of this encounter Care Teams Graphic Manager Relationship Specialty Start Date End Date Gene Wallace MD [address] [place] [phone] PCP - General Internal Medicine 07/22/21 Carlito De La Cruz PharmD [address] [place] [address] [phone] Pharmacist Internal Medicine 01/24/23 12/24/23 Hien Taylor PharmD [address] [place] [address] Pharmacist Pharmacy 03/13/25 documented as of this encounter
== END 2025-06-07 16:15 | disposition home or self-care (01) ==
LOC: HO.HUSH 15:03
PROVIDERS: PCP Internal Medicine; Visit Provider Urology
DX: R97.20 Elevated prostate specific antigen [PSA] (principal); N40.0 Benign prostatic hyperplasia without lower urinary tract symptoms; N32.89 Other specified disorders of bladder
CPT/HCPCS: 99213; G2211

== ENCOUNTER 2025-07-10 08:10 | Outpatient (REF) | payer OTHER, SELFPAY ==
--- OUTSIDE RECORDS SUMMARY | 2025-07-10 08:35 | XMS_ITS | Encounter Summary ---
Author Organization [employer] Address [address] [facility] 7t [place] [address] Care Team Providers Care Board Design Engineer Name Role Phone Gene Wallace MD Primary Care Provide r Hien Taylor PharmD Unavailable +- [phone] Encounter Details Date Type Department Care Team (Latest Contact Info) Description 07/08/2025 Travel Social History Tobacco Use Types Packs/Day [...] Care Team (Late st Contact Info) Description 08/12/2025 10:00 AM EST Medication Management [facility] MEDICINE 230 [place], [place] [phone] Hien Taylor PharmD 230 [place] [address] documented as of this encounter Goals Goal Patient Goal Type Associated Problems Recent Progress Patient-Stated? Author Blood Pressure < 140/90 Blood Pressure HTN (hypertension), benign 128/70(2024 10:14 AM EDT) No Carlito De La Cruz [...] documented as of this encounter Care Teams Board Design Engineer Relationship Specialty Start Date End Date Gene Wallace MD [address] [place] [address] PCP - General Internal Medicine 07/22/21 Hien Taylor PharmD 230 [place] [address] Pharmacist Pharmacy 03/13/25 documented as of this encounter
--- OUTSIDE RECORDS SUMMARY | 2025-07-10 08:35 | XMS_ITS | Encounter Summary ---
Author Organization [employer] Address [address] [facility] 7t [place] [address] Care Team Providers Care Pipe Fitter Maintenance Name Role Phone Gene Wallace MD Primary Care Provide r Carlito De La Cruz PharmD Unavailable + Hien Taylor PharmD Unavailable [phone] Reason for Visit * Reason Comments Med Refill Encounter Details Date Type Department Care Team (Late st Contact Info) Description 06/14/2023 Refill [facility] 230 [place] [address] Gene Wallace MD [address] [place], [place] [phone] Social History Tobacco Use Types Packs/Day Years [...] Description 08/12/2025 10:00 AM EST Medication Management [facility] [address] [place] [address] Hien Taylor PharmD [address] [place] [address] documented as of this encounter Goals Goal [...] EDT) No Carlito De La Cruz PharmAbel documented as of this encounter Visit Diagnoses Not on filedocumented in this encounter Additional Health Concerns Assessment Noted Time PHQ-9 Depression Total Score: 0 12/03/19 23 10:28 AM EDT documented as of this encounter Care Teams Pipe Fitter Maintenance Relationship Specialty Start Date End Date Gene Wallace MD [address] [place] [address] PCP - General Internal Medicine 07/22/21 Carlito De La Cruz, PharmD [address] [place] [address] Pharmacist Internal Medicine 01/24/23 12/24/23 Hien Taylor, VargheseD [address] [place] [address] Pharmacist Pharmacy 03/13/25 documented as of this encounter
--- OUTSIDE RECORDS SUMMARY | 2025-07-10 08:36 | XMS_ITS | Encounter Summary ---
Author Organization [employer] Address [address] [facility] 7t [place] [address] Care Team Providers Care Chief Digital Media Officer Name Role Phone Gene Wallace MD Primary Care Provide r Carlito De La Cruz PharmD Unavailable + Hien Taylor PharmD Unavailable +[phone] Reason for Visit * Reason Onset Date Comments Durable Medical Equipment 12/07/2023 Encounter Details Date Type Department Care Team (Late st Contact Info) Description 12/07/2023 Telephone [facility] MEDICINE 230 [place], [place] [phone] Gene Wallace MD 230 [place], [place] [phone] Durable Medical Equipment Social History Tobacco Use [...] PM EDT Tc jean claude Rodriguez at [facility] calling to inform the patients hospital [...] Description 08/12/2025 10:00 AM EST Medication Management [facility] 230 [place] [address] Hien Taylor PharmD [address] [place] [address] documented as of this encounter Goals Goal [...] documented as of this encounter Care Teams Chief Digital Media Officer Relationship Specialty Start Date End Date Gene Wallace MD [address] [place] [address] PCP - General Internal Medicine 07/22/21 Carlito De La Cruz PharmD [address] [place] [address] [phone] Pharmacist Internal Medicine 01/24/23 12/24/23 Hien Taylor PharmD [address] [place] [address] [phone] Pharmacist Pharmacy 03/13/25 documented as of this encounter
--- OUTSIDE RECORDS SUMMARY | 2025-07-10 08:36 | XMS_ITS | Clinical Summary ---
Author Organization [employer] Address [address] [facility] 7t [place] [address] Care Team Providers Care Electronics Lead Name Role Phone Gene Wallace MD Primary Care Provide r Hien Taylor PharmD Unavailable [phone] Allergies No known active allergies Medications finasteride (Proscar) 5 MG tablet Take 5 mg by mouth in the morning. 3 Active OneTouch Delica Lancets 33G misc 1 each 2 times daily. 100 each 11 4 Active glucose blood (OneTouch Verio) test stripIndicatio ns:Type 2 diabetes mellitus without complication, with long-term current use of insulin (HCC) 1 each by Other route every 8 (eight) hours. 100 each 11 4 Active Blood Glucose Monitoring Suppl (OneTouch Verio) w/Device kitIndications :Type 2 diabetes mellitus without complication, with long-term current use of insulin (HCC) Use daily 1 kit 5 Active Easy Touch Pen [place] 31G X 8 MM miscIndication s:Type 2 diabetes mellitus without complication, with long-term current use of insulin (HCC) USE DIRECTED 100 each 11 5 Active furosemide (Lasix) 20 MG tablet TAKE 1 TABLET BY MOUTH EVERY DAY NEEDED FOR EDEMA 5 Active Continuous Glucose Customs Manager (FreeStyle Carlos 3 [place]) deviceIndicati ons:Type 2 diabetes mellitus without complication, with long-term current use of insulin (HCC) 1 each Once per day. Use as directed for CGM 1 each 5 Active Continuous Glucose Sensor (FreeStyle Acrlos 3 Plus Sensor) miscIndication s:Type 2 diabetes mellitus without complication, with long-term current use of insulin (HCC) 1 each every 15 days. Apply 1 every 15 days as directed for CGM 2 each 5 Active glucose blood (FreeStyle Precision Charles Test) test stripIndicatio ns:Type 2 diabetes mellitus without complication, with long-term current use of insulin (HCC) Use to test blood sugar 3 times [...] EVERY DAY 90 tablet 1 5 Active levothyroxine (Synthroid, Levoxyl) 50 MCG tablet TAKE 1 TABLET BY MOUTH EVERY DAY AT BEDTIME 90 tablet 5 Active metoprolol succinate XL (Toprol-XL) 25 MG 24 hr tablet TAKE 1 TABLET BY MOUTH EVERY DAY 90 tablet 5 Active Dulaglutide (Trulicity) 4.5 MG/0.5ML solution auto-injectorI ndications:Typ e 2 diabetes mellitus without complication, with long-term current use of insulin ([facility]) Inject 4.5 mg under the skin every 7 (seven) days. 2 mL 1 5 Active insulin glargine (Lantus SoloStar) 100 UNIT/ML penIndications :Type 2 diabetes mellitus without complication, with long-term current use of insulin ([facility]) INJECT 38 UNITS SUBCUTANEOUSLY EVERY EVENING 15 mL 3 5 Active glucose (Glutose) 40 % gel oral gelIndications :Type 2 diabetes mellitus without complication, with long-term current use of insulin ([facility]) Take 15 g by mouth if needed for low blood sugar. 45 g 3 5 Active Active Problems Patient Care Coordination No te Formatting of this note migh t be different from the original. Followed by [facility] HTN, DM - Carlito De La Cruz RPh Problem Noted Date Diagnosed Date Preventative [...] records were obtained Pt was treated in [place], at some point he had a repeat colonoscopy at [place] but no records were received from that [...] Plain films both hips === 11/06/24 === Rafa-ht-ziwbumpo osteoarthrosis, left hip. IMPRESSION: Mild to moderate [...] with cardiology Coronary artery disease invo lving yurok coronary artery of yurok heart without angina pectoris 11/15/2023 Assessment & Plan (05/16/2025 10:29 AM EDT): Patient here for a follow up Pt with CAD Cardiac Cath showed: Right dominant circulation. Proximal PET SUPPLIES SALESPERSON right coronary artery with kvhm-ak-ciqrp collaterals.Severe distal left main stenosis involving the ostial LAD and circumflex.Severe proximal LAD stenosis. High diagonal with ostial 80% stenosis and mid segment 90% stenosis.First OM 80% stenosis. Mid circumflex 80% stenosis. S/p CABG 12/09/2023 Last seen by Wildlife Removal Specialist Dr Day 02/12/2025 who recommended continue aggressive risk factor modification Previously he started him on a low dose lasix for new onset of LE edema Assessment & Plan (02/07/2025 10:38 AM EDT): Patient here for a follow up Pt with CAD Cardiac Cath showed: Right dominant circulation. Proximal PET SUPPLIES SALESPERSON right coronary artery with xveq-cm-alful collaterals.Severe distal left main stenosis involving the ostial LAD and circumflex.Severe proximal LAD stenosis. High diagonal with ostial 80% stenosis and mid segment 90% stenosis.First OM 80% stenosis. Mid circumflex 80% stenosis. S/p CABG 12/09/2023 Last seen by Wildlife Removal Specialist Dr Day 12/19/2024 who recommended to repeat his ECHO He started him on a low dose lasix for new onset of LE edema Pt tells me he has a follow up Assessment & Plan (11/06/2024 12:44 PM EST): Patient with CAD Cardiac Cath showed: Right dominant circulation. Proximal PET SUPPLIES SALESPERSON right coronary artery with kzox-yz-kisne collaterals. Severe distal left main stenosis involving the ostial LAD and circumflex. Severe proximal LAD stenosis. High diagonal with ostial 80% stenosis and mid segment 90% stenosis. First OM 80% stenosis. Mid circumflex 80% stenosis. S/p CABG 12/09/2023 Last seen by Wildlife Removal Specialist Dr Day 07/25/2024 Scheduled for f/u 6 months Assessment & Plan (04/17/2024 1:41 PM EDT): Patient with CAD Cardiac Cath showed: Right dominant circulation. Proximal PET SUPPLIES SALESPERSON right coronary artery with llxq-lt-jmsst collaterals. Severe distal left main stenosis involving the ostial LAD and circumflex. Severe proximal LAD stenosis. High diagonal with ostial 80% stenosis and mid segment 90% stenosis. First OM 80% stenosis. Mid circumflex 80% stenosis. S/p CABG 12/09/2023 Last seen by Wildlife Removal Specialist Dr Day 04/10/2024 Scheduled for ECHO in 3-4 months Assessment & Plan (02/23/2024 12:54 PM EDT): Patient with CAD Most recent Cath showed: Right dominant circulation. Proximal PET SUPPLIES SALESPERSON right coronary artery with omge-nu-xlxxv collaterals. Severe distal left main stenosis involving the ostial LAD and circumflex. Severe proximal LAD stenosis. High diagonal with ostial 80% stenosis and mid segment 90% stenosis. First OM 80% stenosis. Mid circumflex 80% stenosis. He is now s/p CABG 12/09/2023 Last seen by Wildlife Removal Specialist Dr Day 01/03/2024 Scheduled for cardiac rehab at some point Assessment & Plan (12/06/2023 8:39 AM EDT): Patient with CAD Most recent Cath showed: Right dominant circulation. Proximal PET SUPPLIES SALESPERSON right coronary artery with qbcr-vd-wmhpi collaterals. Severe distal left main stenosis involving the ostial LAD and circumflex. Severe proximal LAD stenosis. High diagonal with ostial 80% stenosis and mid segment 90% stenosis. First OM 80% stenosis. Mid circumflex 80% stenosis. Pt was referred for CABG to cardiac surgeon by Wildlife Removal Specialist scheduled for 12/09/2023 Assessment & Plan (11/15/2023 2:25 PM EST): As part of his PE, Pt had an EKG that showed Qs in III and AVF As a result I referred patient to cardiology Pt had a stress test that was abnormal and subsequently underwent a Cath Coronary anatomy: Right dominant circulation. Proximal PET SUPPLIES SALESPERSON right coronary artery with dlvj-iu-ajfmb collaterals. Severe distal left main stenosis involving the ostial LAD and circumflex. Severe proximal LAD stenosis. High diagonal with ostial 80% stenosis and mid segment 90% stenosis. First OM 80% stenosis. Mid circumflex 80% stenosis. Pt was referred for CABG to cardiac surgeon by Wildlife Removal Specialist scheduled for 12/09/2023 Plantar fasciitis of [...] CT right foot. 2nd opinion with Ortho technical service specialist Assessment & Plan (07/12/2023 10:50 AM [...] records were obtained Pt was treated in [place], at some point he had a repeat colonoscopy at [place] but no records were received from that [...] records were obtained Pt was treated in [place], at some point he had a repeat colonoscopy at [place] but no records were received from that [...] records were obtained Pt was treated in [place], at some point he had a repeat colonoscopy at [place] but no records were received from that [...] records were obtained Pt was treated in [place], at some point he had a repeat colonoscopy at [place] but no records were received from that [...] records were obtained Pt was treated in [place], at some point he had a repeat colonoscopy at [place] but no records were received from that [...] regimen of: Losartan 50 mg po daily [facility] 12/03/2022 normal Plan: Increase Losartan to [...] Encounters Date Type Department Care Team Description 07/08/2025 Travel 07/02/[address] [address] Gene Wallace MD 06/26/2025 Telephone [facility] [address] [place] [address] Hien Taylor, PharmD 06/18/2025 Telephone [facility] [address] [place] [address] Hien Taylor, PharmD 06/18/2025 Travel 05/17/2025 Orders Only [facility] External Provider, [facility] 05/16/2025 10:15 AM EDT Office Visit [facility] [address] [place] [address] Gene Wallace MD Type 2 diabetes mellitus without complication, with long-term current use of insulin (CMS/HCC) (Primary Dx); Coronary artery disease involving yurok coronary artery of yurok heart without angina pectoris; Elevated PSA; Mixed hyperlipidemia; Acquired hypothyroidism 05/16/2025 Travel 05/16/2025 Refill [facility] [address] [place] [address] Jarrod Teran MD Type 2 diabetes mellitus without complication, with long-term current use of insulin (CMS/HCC) 05/09/2025 Orders Only GENERIC EXTERNAL DATA DEPARTMENT Provider, Generic External Data 05/07/2025 Travel 04/25/2025 Refill [facility] [address] [place] [address] Gene Wallace MD 04/23/2025 Orders Only [facility] External Provider, [facility] 04/21/2025 Refill [facility] [address] [place] [address] Gene Wallace MD 04/18/2025 2:00 PM EDT Office Visit [facility] [address] [place] [address] Ricki, Angeline, OD Diabetes type 2, no ocular involvement (CMS/HCC) (Primary Dx); Combined forms of age-related cataract of both eyes; Epiretinal membrane (ERM) of left eye; Chorioretinal scar of left eye; Vestigial remnants of canal of [place]; Presbyopia 04/18/2025 Travel 04/15/2025 Refill [facility] [address] [place] [address] Gene Wallace MD Type 2 diabetes mellitus without complication, with long-term current use of insulin ([facility]) from Last 3 Months Immunizations Immunization Administration [...] Sign Reading Time Taken Comments Blood Pressure 128/70 07/08/2025 10:14 AM EDT Pulse 65 07/08/2025 10:14 AM EDT Temperature 36.1 C (97 F) [...] Description 08/12/2025 10:00 AM EST Medication Management [facility] [address] [place] [address] Hien Taylor, PharmD [address] [place] [address] Health Maintenance Due Date Last Done Comments Diabetes: Foot Exam 1958 RSV Patients and Patients Aged 60 years or older (1 - 1-dose 75+ series) 2023 Depression Screening 04/17/2025 04/17/2024, 04/17/20 COVID-19 Vaccine ( season) 2025 07/06/2022, 01/26/2022, [...] current use of insulin ([facility]) MR PROSTATE W AND WO CONTRAST Routine [...] AM EDT Narrative 05/17/2025 12:17 PM EDT [facility] [address] [place] [address] [place] [address] XRay Report Signed Patient: Driss Bender MR#: [id number] 52 : 1950 Acct:[id number] Age/Sex: 74 / M ADM Date: 05/17/25 Loc: HO.HOSX Attending Dr: Nancy Barraza MD Ordering Physician: Nancy Milligan Date of Service: 05/17/25 Procedure(s): XR lumbar spine 2-3V Accession Number(s): [id number] cc: Gene Zarate MD; Nancy Milligan Reason [...] 05/17/25 1214 DD/ 1116 TD/TT: 05/17/25 1120 Counter Clerk [employer]: Procedure Note Donotuseinterpreter, Image - 05/17/2025 [facility] [address] [place] [address] [address] [place] [address] XRay Report Signed Patient: Driss Bender EMR#: [id number] 52 : 1950cct:[id number] Age/Sex: 74 / MADM Date: 05/17/25 Loc: A[facility]ANT[facility] Attending Dr: Nancy Barraza MD Ordering Physician: Nancy Milligan Date of Service: 05/17/25 Procedure(s): XR lumbar spine 2-3V Accession Number(s): [id number] cc: Gene Zarate MD; Nancy Milligan Reason [...] 05/17/25 1214 DD/ 1116 TD/TT: 05/17/25 1120 Counter Clerk [employer]: [facility] External Provider IMG XR PROCEDURES Final Result * PSA,Total (05/09/2025 8:45 AM EDT) Pathologist [facility] [place] Prostate Specific Antigen 2.93 <0.05 - 4.0 ng/mL [facility] Comment:PSA methodology: Marquis [place] i ChemiluminescentMicroparticle Immunoassay (CMIA) 05/09/2025 8:45 AM EDT 05/09/2025 11:28 AM EDT Generic External Data Provider LAB BLOOD ORDERAB LES Final Result Performing Organization Address City/[facility]/ZIP Co de Phone Number [facility] [address] [place] [phone] * B Type Natriuretic Peptide (BNP) (05/09/2025 8:45 AM EDT) Pathologist [facility] [place] B Type Natriuretic Peptide 27 <100 pg/mL [facility] 05/09/2025 8:45 AM EDT 05/09/2025 11:15 AM EDT Generic External Data Provider LAB BLOOD ORDERAB LES Final Result Performing Organization Address City/[facility] Co de Phone Number [facility] [address] [place] [phone] * (ABNORMAL) Lipid Panel, Standard (05/09/2025 8:45 AM EDT) Triglycerides 157(H) <150 mg/dL [facility] Comment:Desirable Triglyceri de: less than 150 mg/dLBorderline High Triglyceride 150-199 mg/dLHigh Triglyceride: 200-499 mg/dLVery High Triglyceride: greater than or equal to 5OO mg/dL Cholesterol 277(H) <200 mg/dL [facility] Comment:Desirable Cholestero l: less than 200 mg/dLBorderline High Cholesterol: 200-239 mg/dLHigh Cholesterol: greater than 239 mg/dL LDL Cholesterol Calculated 208(H) <100 mg/dL [facility] Comment:Desirable LDL: less than 100 mg/dLNear Optimal/Above Optimal LDL: 110- 129 mg/dLBorderline High LDL: 130-159 mg/dLHigh LDL: 160-189 mg/dLVery High LDL: greater than or equal to 190 mg/dL HDL Cholesterol 38(L) >40 mg/dL [facility] Comment:Desirable HDL: great er than 40 mg/dL Note: This HDL assay may give artificially low results in patients with liver disease. 05/09/2025 8:45 AM EDT 05/09/2025 11:28 AM EDT us Gene Castro MD LAB BLOOD ORDERABLES Final Result [facility] [address] [place] [phone] * (ABNORMAL) Basic Metabolic Panel (05/09/2025 8:45 AM EDT) Sodium 138 135 - 145 mmol/L [facility] Potassium 3.6 3.3 - 5.1 mmol/L [facility] Chloride 103 96 - 108 mmol/L [facility] Carbon Dioxide 29 22 - 29 mmol/L [facility] Anion Gap 10(L) 12 - 20 [facility] Urea Nitrogen (BUN) 22(H) 9 - 16 mg/dL [facility] Creatinine, Serum 1.25 0.5 - 1.4 mg/dL [facility] Estimated Glomerular Filt Rate 56 [facility] Comment:Chronic Kidney Disea se: Estimated GFR < 60 mL/min/1.51c1Ehhdyi Kidney Disease: Estimated GFR < 15 mL/min/1.73m2 Glucose 119(H) 60 - 115 mg/dL [facility] Calcium 9.7 8.4 - 10.2 mg/dL [facility] 05/09/2025 8:45 AM EDT 05/09/2025 11:28 AM EDT us Generic External Data Provider LAB BLOOD ORDERAB LES Final Result [facility] [address] [place] [phone] * (ABNORMAL) POCT A1c (05/07/2025 11:06 AM EDT) Hemoglobin A1C 8.6(A) 4.0 - 5.7 % QC Media Lot # [id number] Lot# Expiration Date ,547,000 Blood 05/07/2025 11:0 6 AM EDT Gene Casrto MD POINT OF CARE TEST EN TER/EDIT ORDERABLES Final Result * MR Prostate w and w/o Contrast (04/23/2025 8:45 AM EDT) Anatomical Region Laterality Modality Magnetic Resonan ce 04/23/2025 8:45 AM EDT Narrative 04/23/2025 9:56 AM EDT [address] [address] Magnetic Resonance Report Signed with Addenda Patient: Driss Bender MR#: [id number] [birth year] : 1950 Acct:[id number] Age/Sex: 74 / M ADM Date: 04/23/25 Loc: HO.MRI Attending Dr: Bibi CAMPBELL Ordering Physician: Bibi Downing Date of Service: 04/23/25 Procedure(s): MR Prostate wo/w con Accession Number(s): [id number] cc: Gene Zarate MD; Bibi Downing ADDENDUM [...] cancer is highly likely to be present) [employer]. MR Prostate Imaging Reporting and Data System version 2.1. [email or web address]/Quality-Safety/Resources/PIRADS/ Electronically signed by: Luis Deras MD 04/23/2025 09:53 AM EDT RP Dictated By: Luis Deras MD Signed By: <Electronically signed by Luis Deras MD in OV> 04/23/2553 DD/ 4 TD/TT: 04/23/25924 Counter Clerk [employer]: Procedure Note Donotuseinterpreter, Image - 04/23/2025 [place] [address] Magnetic Resonance Report Signed with Addenda Patient: Driss Bender EMR#: [id number] 52 : 1950cct:[id number] Age/Sex: 74 / MADM Date: 04/23/25 Loc: HO.MRI Attending Dr: Bibi CAMPBELL Ordering Physician: Bibi Downing Date of Service: 04/23/25 Procedure(s): MR Prostate wo/w con Accession Number(s): [id number] cc: Gene Zarate MD; Bibi Downing ADDENDUM [...] cancer is highly likely to be present) [employer]. MR Prostate Imaging Reporting and Data System version 2.1. [email or web address].org/Quality-Safety/Resources/PIRADS/ Electronically signed by: Luis Deras MD 04/23/2025 09:53 AM EDT RP Dictated By: Luis Deras MD Signed By: <Electronically signed by Luis Deras MD in OV> 04/23/2553 DD/ 4 TD/TT: 04/23/25924 Counter Clerk [employer]: [facility] External Provider IMG MRI PROCEDURES Edited [...] 9:00 AM EST) Creatinine, Urine 211.69 mg/dL [facility] Microalbumin Urine 7.0 mg/L [facility] Microalbum Creatinine Ratio Ur 3.3 <30 ug/mg cr [facility] Comment:Albumin/Creatinine R atio Reference Ranges: Normal: < 30 ug/mg creatinine Microalbuminuria: 30 - 300 ug/mg creatinineClinical Albuminuria: > 300 ug/mg creatinine Urine (Urine, Random) 11/07/2024 9:00 AM EST 11/07/2024 11:06 AM EST Gene Castro MD LAB URINE ORDERABLES Final Result [facility] [address] [place] [phone] * Hepatitis C Antibody with Reflex to HCV, RNA, Quantitative, Real-Time PCR (12/03/2022 8:01 AM EDT) Hepatitis C Antibody NON-REACT PUNEET NON-REACT PUNEET [employer] [place] nothingGrindert Index 0.05 <1.00 [facility] Comment: HCV antibody was non-reactive. There is no laboratory evidence of HCV infection. In most cases, no further action is required. However, if recent HCV exposure is suspected, a test for HCV RNA (test code 78626) is suggested. For additional information please refer to http://education.[employer]/faq/VNY79k1 (This link is being provided for informational/ educational purposes only.) Blood Venous blood specimen / Unknown 12/03/2022 8:01 AM EDT 12/03/2022 8:02 AM EDT Narrative [facility] - 12/03/2022 8:32 PM EDT FASTING:YES FASTING: YES Gene Castro MD LAB BLOOD ORDERABLES Final Result [facility] [address], [place] [phone] [employer] [place] nothingGrindert [address] [place] [phone] from Last 3 Months or Most Recently Relevant to Health Maintenance Insurance [facility] ST[facility] ASSISTED OPTIONS (HMO D-SNP) Care Teams Electronics Lead Relationship Specialty Start Date End Date Gene Wallace MD [address] [place] [address] PCP - General Internal Medicine 07/22/21 Hien Taylor, VargheseD [address] [place] [address] Pharmacist Pharmacy 03/13/25
--- OUTSIDE RECORDS SUMMARY | 2025-07-10 08:36 | XMS_ITS | Encounter Summary ---
Author Organization [facility] Address [address] [facility] [address] [place] [address] Care Team Providers Care Makeup Artistry Instructor Name Role Phone Gene Wallace MD Primary Care Provide r Carlito De La Cruz PharmD Unavailable +- Hien Taylor PharmD Unavailable [phone] Encounter Details Date Type Department Care Team (Late st Contact Info) Description 10/08/2022 Orders Only [facility] [address] [place] [phone] Denita Carrasco, NIKHIL Social History Tobacco Use [...] Description 08/12/2025 10:00 AM EST Medication Management [facility] [address] [place] [address] Hien Taylor, PharmD [address] [place] [address] documented as of this encounter Visit Diagnoses Not on filedocumented in this encounter Care Teams Makeup Artistry Instructor Relationship Specialty Start Date End Date Gene Wallace MD [address] [place] [address] [phone] PCP - General Internal Medicine 07/22/21 Carlito De La Cruz, VargheseD [address] [place], [place] [phone] Pharmacist Internal Medicine 01/24/23 12/24/23 Hien Taylor, VargheseD [address] [place] [address] Pharmacist Pharmacy 03/13/25 documented as of this encounter
--- OUTSIDE RECORDS SUMMARY | 2025-07-10 08:36 | XMS_ITS | Encounter Summary ---
Author Organization [employer] Address 75 [facility] [address]t [place] [address] Care Team Providers Care Nursing Aide Name Role Phone Gene Wallace MD Primary Care Provide r Carlito De La Cruz PharmD Unavailable +- Hien Taylor PharmD Unavailable [phone]- Reason for Visit * Reason Onset Date Comments new script 10/07/2022 Encounter Details Date Type Department Care Team (Late st Contact Info) Description 10/07/2022 Telephone [facility] [address] [place] [address] Gene Wallace MD [address] [place] [address] new script Social History Tobacco Use Types [...] Pen needles 8mm to be sent to [facility] Pharmacy. PCP DR. Ramsay documented in this encounter Plan of Treatment Upcoming Encounters Date Type Department Care Team (Late st Contact Info) Description 08/12/2025 10:00 AM EST Medication Management [facility] [address] [place] [address] Hien Taylor, Konstantin [address] [place] [address] documented as of this encounter Visit Diagnoses Diagnosis Type 2 diabetes mellitus without complication, with long-term current use of insulin (HCC) documented in this encounter Care Teams Nursing Aide Relationship Specialty Start Date End Date Gene Wallace MD [address] [place] [phone] PCP - General Internal Medicine 07/22/21 Carlito De La Cruz, VargheseD [address] [place] [phone] Pharmacist Internal Medicine 01/24/23 12/24/23 Hien Taylor, PharmD [address] [place] [phone] Pharmacist Pharmacy 03/13/25 documented as of this encounter
--- OUTSIDE RECORDS SUMMARY | 2025-07-10 08:37 | XMS_ITS | Encounter Summary ---
Author Organization [employer] Address [address] [facility] 7t [place] [address] Care Team Providers Care Trim Stencil Maker Name Role Phone Gene Wallace MD Primary Care Provide r Hien Taylor PharmD Unavailable [phone] Reason for Visit * Reason Comments Med Refill Encounter Details Date Type Department Care Team ([facility] st Contact Info) Description 01/23/2024 Refill [facility] MED & PEDS [address] [place], [place] [phone] Linda Flores MD [address] [place] [address] Social History Tobacco Use Types Packs/Day Years [...] Description 08/12/2025 10:00 AM EST Medication Management [facility] MEDICINE [address] [place] [address] Hine Taylor PharmD [address] [place] [address] documented as of this encounter Goals Goal [...] documented as of this encounter Care Teams Trim Stencil Maker Relationship Specialty Start Date End Date Gene Wallace MD [address] [place] [phone] PCP - General Internal Medicine 07/22/21 Hien Taylor, VargheseD [address] [place] [phone] Pharmacist Pharmacy 03/13/25 documented as of this encounter
--- OUTSIDE RECORDS SUMMARY | 2025-07-10 08:37 | XMS_ITS | Encounter Summary ---
Author Organization [employer] Address [address] [facility] 7t [place] [address] Care Team Providers Care Plant Safety Leader Name Role Phone Gene Wallace MD Primary Care Provide r Hien Taylor PharmD Unavailable [phone]- [phone] Reason for Visit * Reason Comments Med Refill Encounter Details Date Type Department Care Team ([facility] st Contact Info) Description 04/25/2024 Telephone [facility] MEDICINE [address] [place], [place] [phone] Marilyn Sutherland MD [address] [place], [place] [phone] Med Refill Social History Tobacco Use Types [...] 10:51 AM EDT Telephone call placed to [facility]. Left V/m for Dr Day's [...] Description 08/12/2025 10:00 AM EST Medication Management [facility] MEDICINE [address] [place], [place] [phone] Hien Taylor PharmD [address] [place], [place] [phone] documented as of this encounter Goals Goal [...] documented as of this encounter Care Teams Plant Safety Leader Relationship Specialty Start Date End Date Gene Wallace MD [address] [place] [address] [phone] PCP - General Internal Medicine 07/22/21 Hien Taylor PharmD [address] [place] [address] [phone] Pharmacist Pharmacy 03/13/25 documented as of this encounter
--- OUTSIDE RECORDS SUMMARY | 2025-07-10 08:37 | XMS_ITS | Encounter Summary ---
Author Organization [employer] Address [address] [facility] 7t [place] [address] Care Team Providers Care Chipper Name Role Phone Gene Wallace MD Primary Care Provide r Hien Taylor PharmD Unavailable [phone]- [phone] Reason for Visit * Reason Comments Med Refill Encounter Details Date Type Department Care Team (Late st Contact Info) Description 05/16/2025 Refill [facility] MEDICINE [address] [place] [address] Name, MD Jarrod [address] [place] [address] Type 2 diabetes mellitus without complication, with long-term current use of insulin ([facility]) Social History Tobacco Use Types [...] Description 08/12/2025 10:00 AM EST Medication Management [facility] MEDICINE [address] [place] [address] Hien Taylor PharmD [address] [place] [address] documented as of this encounter Goals Goal [...] of insulin (HCC) documented in this encounter Additional Health Concerns Assessment Noted Time PHQ-9 Depression Total Score: 0 04/17/20 24 1:32 PM EDT documented as of this encounter Care Teams Chipper Relationship Specialty Start Date End Date Gene Wallace MD [address] [place] [address] PCP - General Internal Medicine 07/22/21 Hien Taylor, VargheseD [address] [place] [address] Pharmacist Pharmacy 03/13/25 documented as of this encounter
[2025-07-10 12:09] LABS: Alanine Aminotransferase 22 U/L (0-40); Albumin Level 4.0 g/dL (3.5-5.0); Alkaline Phosphatase 78 U/L (39-117); Aspartate Amino Transferase 28 U/L (5-37); Cholesterol 138 mg/dL (<200); HDL Cholesterol 36 mg/dL (>40); Total Protein 6.7 g/dL (6.5-8.0); Triglycerides 105 mg/dL (<150)
== END 2025-07-10 08:11 | disposition home or self-care (01) ==
LOC: HO.HHCL 08:10
PROVIDERS: PCP Internal Medicine; Visit Provider Internal Medicine
DX: E11.9 Type 2 diabetes mellitus without complications (principal); Z79.4 Long term (current) use of insulin
CPT/HCPCS: 36415; 80061; 80076

== ENCOUNTER → 2025-07-22 09:29 | Outpatient (BNV) | payer OTHER, SELFPAY | PROVIDERS: PCP Internal Medicine; Visit Provider Radiology Diagnostic Radiology | DX: M47.816 Spondylosis without myelopathy or radiculopathy, lumbar region (principal); M99.63 Osseous and subluxation stenosis of intervertebral foramina of lumbar region | CPT/HCPCS: 72148 ==

== ENCOUNTER 2025-07-22 09:45 | Outpatient (REF) | payer OTHER, SELFPAY ==
--- OUTSIDE RECORDS SUMMARY | 2025-07-09 05:30 | XMS_ITS | Continuity of Care Document ---
Author Organization [facility] Address [address] [place] [address] [address] [place] [address] Phone Care Team Providers Care Correctional Officer Captain Name Role Phone Darion COLON, NEAN, Luis ALEJO Unavailable U navailable Procedures Procedure Date Offic Cons New/estab Mod 40 Mi- CT & [place] Surgical Stockings Juxlite Knee 025 Duplex Scan-extrem Veins; Comp- CT & [place] Advance Directives Directive Yes / No Effective Date File Name Other Directive No 07/09/2025 N/A WARNING:The information contained in this section is historical and is provided for information only and does not constitute a legal document or any assurance that the information is still accurate. Please verify the information with the dudley of the legal document before using it for clinical purposes. Encounters Encounter Description Practice Location Reason(s) For Visit Diagnoses Date Provider Providers Copied on Encounter Offic Cons New/estab Mod 40 Mi- CT & [place] [facility], [address] [place] [address] Dr Sawyer [address] [address], [id number], [place] tel:[phone] [facility] - [place] Venous insufficiency (chronic) (peripheral)Typ e 2 diabetes mellitus without complicationsRe stless legs syndromeLymphed lupillo, not elsewhere classifiedHered itary lymphedemaCramp and spasmLocalized edema 5 Darion COLON, SAPNA BARRETT. [address] [facility], [address], [place], [place], [id number] , [place]. tel:[phone] Referring Provider: Gene Castro MD, [address], [place], [address]. tel:[phone] [facility], [address] [facility] [address], [place], [id number], [place] tel:[phone] [facility] - [place] Chronic venous hypertension (idiopathic) with other complications of bilateral lower extremity Oct-2 5 Darion COLON, RVT, RPVI Luis. [address] [facility], [address], [place], [place], [id number] , [place]. tel:[phone] Referring Provider: Gene Castro MD, [address], [place], [address]. tel:[phone] Family History Family Member Type Diagnosis Age At Onset No Information Payers Payer name Insurance type Covered democrat ID [facility] Erjay de luna(s) [facility] [id number] Social History Type Description Quantity Date Captured Comments Alcohol Use Details Unknown Caffeine Use Details Unknown Tobacco Use Status No Information Smoking Status Former Smoker Non-Smoking Tobacco Use Details : No Details Available : No Details Available Sex Male Vital Signs Date / Time: Height Weight BMI Pulse Rate Blood Pressure Temperature Respiratory Rate Body Surface Area Head Circumference Head Circ. Percentile Wt./Rashaun. Percentile BMI percentile Pulse Ox Inhaled Ox 98.430 kg (217.00 lbs) 33.1 2 kg/m eter (2) 122/84 mm[Hg] Chief Complaint And Reason For Visit No Information Reason For Referral Reason For Referral No Information Plan Of Treatment Date Type Action Status Goal Tobacco cessation counseling completed Goal Diet education completed Referral Ordered: Weight management: Referral to physician timeframe: 3 Months (related to Body mass index (BMI) 33.0-33.9, adult) ordered History Of Present Illness Encounter Date Complaint History Of Prese nt Illness No Information Functional Status Date Functional Assessmen t No Information Instructions Date Instruction Additional Infor mation Lifestyle education Related to B giancarlo mass index (BMI) 33.0-33.9, adult Patient education booklet given Related to Venous insufficiency (chronic) (peripheral) Diet education Related to Body mass index (BMI) 33.0-33.9, adult Giving Encouragement to exercise Related to Body mass index (BMI) 33.0-33.9, adult Pre and post instruc tions reviewed and provided Related to Venous insufficiency (chronic) (peripheral) Assessments Type Assessment Date No Information Patient Care Teams Name Effective Dates (start - stop) Status Members No Information
--- NOTE | ~2025-07-22 | MR_ITS ---
EXAMINATION: MR LUMBAR SPINE WITHOUT CONTRAST CLINICAL INFORMATION: M47.816. Spondylosis without myelopathy or radiculopathy. COMPARISON: None available. TECHNIQUE: MRI of the lumbar spine was obtained using routine sequences without contrast. FINDINGS: Last rib-bearing vertebra labeled T12. No bone marrow STIR signal abnormality. Schmorl node in the inferior endplate of L4. Modic type II endplate changes at L4-5. Small marginal osteophyte formation and disc desiccation, L4-5. Grade 1 retrolisthesis L5-S1. Conus medullaris and cephalad intervertebral disc T12-L1 with normal signal. T11-12: No herniated disc. No neuroforamina stenosis. T12-L1: No herniated disc. No neuroforamina stenosis. L1-2: No herniated disc. No neuroforamina stenosis. L2-3: Broad-based disc bulging. No compression upon elements. L3-4: Broad-based disc bulging. Facet joint hypertrophy. No compression upon neural elements. L4-5: Broad-based disc bulging. Facet joint and ligamentum flavum hypertrophy. Reduced AP diameter of the thecal sac and neuroforamina likely encroaching the neural elements of the thecal sac. L5-S1: Prominent epidural fat. Broad-based disc bulging. Facet joint hypertrophy. Reduced AP diameter of the thecal sac and neuroforamina likely encroaching the neural elements. No prevertebral compartment hematoma, mass or fluid collection. MR/MR lumbar spine wo con IMPRESSION: Multilevel spondylosis pronounced at L4-5 and to a lesser extent L5-S1 resulting in central spinal canal and bilateral neuroforamina narrowing encroaching the neural elements. Electronically signed by: Stevan Martinez MD 07/22/2025 11:16 AM EST
--- OUTSIDE RECORDS SUMMARY | 2025-07-22 11:10 | XMS_ITS | Encounter Summary ---
Author Organization [employer] Address 75 [facility] 7t [place] [address] Care Team Providers Care Orthodontic Band Maker Name Role Phone Gene Wallace MD Primary Care Provide r Carlito De La Cruz PharmD Unavailable + Hien Taylor PharmD Unavailable [phone] Reason for Visit * Reason Onset Date Comments Durable Medical Equipment 12/07/2023 Encounter Details Date Type Department Care Team (Late st Contact Info) Description 12/07/2023 Telephone [facility] MEDICINE [address] [place], [place] [phone] Gene Wallace MD 230 [place], [place] [phone] Durable Medical Equipment Social History Tobacco Use [...] PM EDT Tc jean claude Rodriguez at [facility] calling to inform the patients hospital [...] Description 08/12/2025 10:00 AM EST Medication Management [facility] MEDICINE [address] [place] [address] Hien Taylor PharmD [address] [place] [address] documented as of this encounter Goals Goal [...] documented as of this encounter Care Teams Orthodontic Band Maker Relationship Specialty Start Date End Date Gene Wallace MD [address] [place] [id number] PCP - General Internal Medicine 07/22/21 Carlito De La Cruz PharmD [address] [place] [address] [phone] Pharmacist Internal Medicine 01/24/23 12/24/23 Hien Taylor PharmD [address] [place] [address] [phone] Pharmacist Pharmacy 03/13/25 documented as of this encounter
--- OUTSIDE RECORDS SUMMARY | 2025-07-22 11:10 | XMS_ITS | Encounter Summary ---
Author Organization [employer] Address [address] [facility] 7t [place] [address] Care Team Providers Care Plant Floor Automation Manager Name Role Phone Gene Wallace MD Primary Care Provide r Carlito De La Cruz PharmD Unavailable +- Hien Taylor PharmD Unavailable [phone]- Reason for Visit * Reason Onset Date Comments new script 10/07/2022 Encounter Details Date Type Department Care Team (Late st Contact Info) Description 10/07/[address] [facility] MEDICINE [address] [place] [address] Gene Wallace MD [address] [place] [address] new script Social History Tobacco Use Types [...] Pen needles 8mm to be sent to [facility] Pharmacy. PCP DR. Ramsay documented in this encounter Plan of Treatment Upcoming Encounters Date Type Department Care Team (Late st Contact Info) Description 08/12/2025 10:00 AM EST Medication Management [facility] MEDICINE [address] [place] [address] Hien Taylor, Konstantin [address] [place] [address] documented as of this encounter Visit Diagnoses Diagnosis Type 2 diabetes mellitus without complication, with long-term current use of insulin (HCC) documented in this encounter Care Teams Plant Floor Automation Manager Relationship Specialty Start Date End Date Gene Wallace MD [address] [place] [phone] PCP - General Internal Medicine 07/22/21 Carlito De La Cruz, VargheseD [address] [place] [phone] Pharmacist Internal Medicine 01/24/23 12/24/23 Hien Taylor, PharmD [address] [place] [phone] Pharmacist Pharmacy 03/13/25 documented as of this encounter
--- OUTSIDE RECORDS SUMMARY | 2025-07-22 11:10 | XMS_ITS | Encounter Summary ---
Author Organization [employer] Address [address] [facility] 7t [place] [address] Care Team Providers Care Gear Cutting Machine Set Up Operator Name Role Phone Gene Wallace MD Primary Care Provide r Carlito De La Cruz PharmD Unavailable + Hien Taylor PharmD Unavailable [phone] Reason for Visit * Reason Comments Med Refill Encounter Details Date Type Department Care Team (Late st Contact Info) Description 06/14/2023 Refill [facility] MEDICINE 230 [place] [address] Gene Wallace MD [address] [place], [place] [phone] Social History Tobacco Use Types Packs/Day Years [...] Description 08/12/2025 10:00 AM EST Medication Management [facility] MEDICINE 230 [place] [address] Hien Taylor PharmD [address] [place] [address] documented as of this encounter Goals Goal [...] On track( 023 11:39 AM EDT) No aCrlito De La Cruz, PharmD Hemoglobin A1c < 7 Result Component 8.6( 11:06 AM EDT) No Carlito De La Cruz PharmAbel documented as of this encounter Visit Diagnoses Not on filedocumented in this encounter Additional Health Concerns Assessment Noted Time PHQ-9 Depression Total Score: 0 12/03/19 23 10:28 AM EDT documented as of this encounter Care Teams Gear Cutting Machine Set Up Operator Relationship Specialty Start Date End Date Gene Wallace MD [address] [place] [id number] PCP - General Internal Medicine 07/22/21 Carlito De La Cruz, PharmD [address] [place] [address] Pharmacist Internal Medicine 01/24/23 12/24/23 Hien Taylor, VargheseD [address] [place] [address] Pharmacist Pharmacy 03/13/25 documented as of this encounter
--- OUTSIDE RECORDS SUMMARY | 2025-07-22 11:10 | XMS_ITS | Clinical Summary ---
Author Organization [employer] Address [address] [facility] [address] [place] [address] Care Team Providers Care Convolute Tube Winder Name Role Phone Gene Wallace MD Primary Care Provide r Hien Taylor PharmD Unavailable [phone] Allergies No known active allergies Medications finasteride (Proscar) 5 MG tablet Take 5 mg by mouth in the morning. 06/01/20 23 Active OneTouch Delica Lancets 33G misc 1 each 2 times daily. 100 each 11 11/07/19 24 Active glucose blood (OneTouch Verio) test stripIndicati ons:Type 2 diabetes mellitus without complication, with long-term current use of insulin (HCC) 1 each by Other route every 8 (eight) hours. 100 each 11 12/27/19 24 Active Blood Glucose Monitoring Suppl (OneTouch Verio) w/Device kitIndication s:Type 2 diabetes mellitus without complication, with long-term current use of insulin (HCC) Use daily 1 kit 11/06/19 25 Active Easy Touch Pen Humphreys 31G X 8 MM miscIndicatio ns:Type 2 diabetes mellitus without complication, with long-term current use of insulin (HCC) USE DIRECTED 100 each 11 01/23/20 25 Active furosemide (Lasix) 20 MG tablet TAKE 1 TABLET BY MOUTH EVERY DAY NEEDED FOR EDEMA 02/28/20 25 Active Continuous Glucose Academy Director (FreeStyle Carlos 3 [place]) deviceIndicat ions:Type 2 diabetes mellitus without complication, with long-term current use of insulin (HCC) 1 each Once per day. Use as directed for CGM 1 each 03/14/20 25 Active Continuous Glucose Sensor (FreeStyle Carlos 3 Plus Sensor) miscIndicatio ns:Type 2 diabetes mellitus without complication, with long-term current use of insulin ([facility]) 1 each every 15 days. Apply 1 every 15 days as directed for CGM 2 each 03/14/20 Active glucose blood (FreeStyle Precision Charles Test) test stripIndicati ons:Type 2 diabetes mellitus without complication, with long-term current use of insulin ([facility]) Use to test blood sugar 3 times daily in case of CGM failure or extremes of BG 100 each 03/14/202025 Active losartan-hydr oCHLOROthiazi de (Hyzaar) 100-12.5 MG tablet TAKE 1 TABLET BY MOUTH EVERY DAY IN THE MORNING 90 tablet 04/22/20 25 Active atorvastatin (Lipitor) 80 MG tablet TAKE 1 TABLET BY MOUTH EVERY DAY AT BEDTIME 90 tablet 04/22/20 25 Active Aspirin Low Dose 81 MG EC tablet TAKE 1 TABLET BY MOUTH EVERY DAY 90 tablet 04/22/20 25 Active levothyroxine (Synthroid, Levoxyl) 50 MCG tablet TAKE 1 TABLET BY MOUTH EVERY DAY AT BEDTIME 90 tablet 04/22/20 25 Active metoprolol succinate XL (Toprol-XL) 25 MG 24 hr tablet TAKE 1 TABLET BY MOUTH EVERY DAY 90 tablet 04/26/20 25 Active insulin glargine (Lantus SoloStar) 100 UNIT/ML penIndication s:Type 2 diabetes mellitus without complication, with long-term current use of insulin ([facility]) INJECT 38 UNITS SUBCUTANEOUSLY EVERY EVENING 15 mL 05/08/20 25 Active glucose (Glutose) 40 % gel oral gelIndication s:Type 2 diabetes mellitus without complication, with long-term current use of insulin ([facility]) Take 15 g by mouth if needed for low blood sugar. 45 g 07/08/20 25 Active Trulicity 4.5 MG/0.5ML solution auto-injector Indications:T ype 2 diabetes mellitus without complication, with long-term current use of insulin ([facility]) INJECT ONE PEN (= 4.5MG) SUBCUTANEOUSLY ONCE A WEEK DIRECTED 2 mL 07/12/20 25 Active Dulaglutide (Trulicity) 4.5 MG/0.5ML solution auto-injector Indications:T ype 2 diabetes mellitus without complication, with long-term current use of insulin ([facility]) Inject 4.5 mg under the skin every 7 (seven) days. 2 mL 1 05/08/20 25 2024 Discontinued Active Problems Patient Care Coordination [...] records were obtained Pt was treated in [place], at some point he had a repeat colonoscopy at [place] but no records were received from that colonoscopy 3 years ago other than a reference that it was done Pt was last seen by an Oncologist at [facility], he was told he did not needed to come back Previous visit pt was referred to Gastroenterology Dr Crowder, Pt no showed to that appointment. He was finally seen by Pooja Lomax NP at [facility]. Given his [...] Plain films both hips === 11/06/24 === Vcjf-ft-rorzvmux osteoarthrosis, left hip. IMPRESSION: Mild to moderate [...] with cardiology Coronary artery disease invo lving [place] coronary artery of [place] heart without angina pectoris 11/15/2023 Assessment & Plan (05/16/2025 10:29 AM EDT): Patient here for a follow up Pt with CAD Cardiac Cath showed: Right dominant circulation. Proximal STORE CUSTODIAN right coronary artery with drgz-ic-cpexm collaterals.Severe distal left main stenosis involving the ostial LAD and circumflex.Severe proximal LAD stenosis. High diagonal with ostial 80% stenosis and mid segment 90% stenosis.First OM 80% stenosis. Mid circumflex 80% stenosis. S/p CABG 12/09/2023 Last seen by Make Ready Mechanic Dr Day 02/12/2025 who recommended continue aggressive risk factor modification Previously he started him on a low dose lasix for new onset of LE edema Assessment & Plan (02/07/2025 10:38 AM EDT): Patient here for a follow up Pt with CAD Cardiac Cath showed: Right dominant circulation. Proximal STORE CUSTODIAN right coronary artery with txkj-lf-tcuri collaterals.Severe distal left main stenosis involving the ostial LAD and circumflex.Severe proximal LAD stenosis. High diagonal with ostial 80% stenosis and mid segment 90% stenosis.First OM 80% stenosis. Mid circumflex 80% stenosis. S/p CABG 12/09/2023 Last seen by Make Ready Mechanic Dr Day 12/19/2024 who recommended to repeat his ECHO He started him on a low dose lasix for new onset of LE edema Pt tells me he has a follow up Assessment & Plan (11/06/2024 12:44 PM EST): Patient with CAD Cardiac Cath showed: Right dominant circulation. Proximal STORE CUSTODIAN right coronary artery with uehp-df-rgmtg collaterals. Severe distal left main stenosis involving the ostial LAD and circumflex. Severe proximal LAD stenosis. High diagonal with ostial 80% stenosis and mid segment 90% stenosis. First OM 80% stenosis. Mid circumflex 80% stenosis. S/p CABG 12/09/2023 Last seen by Make Ready Mechanic Dr Day 07/25/2024 Scheduled for f/u 6 months Assessment & Plan (04/17/2024 1:41 PM EDT): Patient with CAD Cardiac Cath showed: Right dominant circulation. Proximal STORE CUSTODIAN right coronary artery with hhtb-pp-bqtvi collaterals. Severe distal left main stenosis involving the ostial LAD and circumflex. Severe proximal LAD stenosis. High diagonal with ostial 80% stenosis and mid segment 90% stenosis. First OM 80% stenosis. Mid circumflex 80% stenosis. S/p CABG 12/09/2023 Last seen by Make Ready Mechanic Dr Day 04/10/2024 Scheduled for ECHO in 3-4 months Assessment & Plan (02/23/2024 12:54 PM EDT): Patient with CAD Most recent Cath showed: Right dominant circulation. Proximal STORE CUSTODIAN right coronary artery with fhyn-sp-uarks collaterals. Severe distal left main stenosis involving the ostial LAD and circumflex. Severe proximal LAD stenosis. High diagonal with ostial 80% stenosis and mid segment 90% stenosis. First OM 80% stenosis. Mid circumflex 80% stenosis. He is now s/p CABG 12/09/2023 Last seen by Make Ready Mechanic Dr Day 01/03/2024 Scheduled for cardiac rehab at some point Assessment & Plan (12/06/2023 8:39 AM EDT): Patient with CAD Most recent Cath showed: Right dominant circulation. Proximal STORE CUSTODIAN right coronary artery with tkdt-vr-qcbgp collaterals. Severe distal left main stenosis involving the ostial LAD and circumflex. Severe proximal LAD stenosis. High diagonal with ostial 80% stenosis and mid segment 90% stenosis. First OM 80% stenosis. Mid circumflex 80% stenosis. Pt was referred for CABG to cardiac surgeon by Make Ready Mechanic scheduled for 12/09/2023 Assessment & Plan (11/15/2023 2:25 PM EST): As part of his PE, Pt had an EKG that showed Qs in III and AVF As a result I referred patient to cardiology Pt had a stress test that was abnormal and subsequently underwent a Cath Coronary anatomy: Right dominant circulation. Proximal STORE CUSTODIAN right coronary artery with keqf-cu-ibnxv collaterals. Severe distal left main stenosis involving the ostial LAD and circumflex. Severe proximal LAD stenosis. High diagonal with ostial 80% stenosis and mid segment 90% stenosis. First OM 80% stenosis. Mid circumflex 80% stenosis. Pt was referred for CABG to cardiac surgeon by Make Ready Mechanic scheduled for 12/09/2023 Plantar fasciitis of right [...] CT right foot. 2nd opinion with Ortho online merchandising specialist Assessment & Plan (07/12/2023 10:50 AM [...] records were obtained Pt was treated in [place], at some point he had a repeat colonoscopy at [place] but no records were received from that colonoscopy 3 years ago other than a reference that it was done Pt was last seen by an Oncologist at [facility], he was told he did not needed to come back Previous visit pt was referred to Gastroenterology Dr Crowder, Pt no showed to that appointment. He was finally seen by Pooja Lomax NP at [facility]. Given his [...] records were obtained Pt was treated in [place], at some point he had a repeat colonoscopy at [place] but no records were received from that colonoscopy 3 years ago other than a reference that it was done Pt was last seen by an Oncologist at [facility], he was told he did not needed [...] records were obtained Pt was treated in [place], at some point he had a repeat colonoscopy at [place] but no records were received from that colonoscopy 3 years ago other than a reference that it was done Pt was last seen by an Oncologist at [facility], he was told he did not needed [...] records were obtained Pt was treated in [place], at some point he had a repeat colonoscopy at [place] but no records were received from that colonoscopy 3 years ago other than a reference that it was done Pt was last seen by an Oncologist at [facility], he was told he did not needed [...] records were obtained Pt was treated in [place], at some point he had a repeat colonoscopy at [place] but no records were received from that colonoscopy 3 years ago other than a reference that it was done Pt was last seen by an Oncologist at [facility], he was told he did not needed [...] regimen of: Losartan 50 mg po daily [facility] 12/03/2022 normal Plan: Increase Losartan to 100 mg po daily patient advised to adhere to a low sodium diet, encouraged about medication compliance, counseled about weight loss. Follow up in 3 months Assessment & Plan (12/02/2022 10:39 AM EDT): Patient with Hypertension currently uncontrolled on a regimen of: Losartan 50 mg po daily [facility] 06/14/2022 normal Plan: 1 month follow up, [...] Encounters Date Type Department Care Team Description 07/11/2025 Refill [facility] [address] [place] [address] Gene Wallace MD Type 2 diabetes mellitus without complication, with long-term current use of insulin (HCC) 07/08/2025 Travel 07/02/2025 Telephone [facility] [address] [place] [place] [address] Gene Wallace MD 06/26/2025 Telephone [facility] [address] [place] [address] Hien Taylor, PharmD 06/18/2025 Telephone [facility] [address] [place] [address] Hien Taylor PharmD 06/18/2025 Travel 05/17/2025 Orders Only [facility] External Provider, [facility] 05/16/2025 10:15 AM EDT Office Visit [facility] [address] [place] [address] Gene Wallace MD Type 2 diabetes mellitus without complication, with long-term current use of insulin (CMS/[facility]) (Primary Dx); Coronary artery disease involving [place] coronary artery of [place] heart without angina pectoris; Elevated PSA; Mixed hyperlipidemia; Acquired hypothyroidism 05/16/2025 Travel 05/16/2025 Refill [facility] [address] [place] [address] Jarrod Teran MD Type 2 diabetes mellitus without complication, with long-term current use of insulin (CMS/HCC) 05/09/2025 Orders Only GENERIC EXTERNAL DATA DEPARTMENT Provider, Generic External Data 05/07/2025 Travel 04/25/2025 Refill [facility] [address] [facility] [place] [phone] Gene Wallace MD 04/23/2025 Orders Only [facility] External Provider, [facility] 04/21/2025 Refill [facility] [address] [place] [address] Gene Wallace MD from Last 3 Months [...] Description 08/12/2025 10:00 AM EST Medication Management [facility] [address], [place] [phone] Hien Taylor, PharmD [address] [place] [address] Health Maintenance Due Date Last Done Comments Diabetes: Foot Exam 1958 Alcohol/Substance Use Screening 1960 RSV Patients and Patients Aged 60 years or older (1 - 1-dose 75+ series) 2023 Depression Screening 04/17/2025 04/17/2024, 04/17/20 24 COVID-19 Vaccine ( season) 2025 07/06/2022, 01/26/2022, 07/22/2021, Additional history exists Influenza Vaccine (#1) 2025 , 05/27/2023, 06/01/2022, Additional history exists Diabetes: Hemoglobin A1C 08/07/2025 025, 02/07/2025, 11/06/2024, Additional history exists SDOH Screening 10/24/2025 10/24/2024 Diabetes: Urine Protein Screening 11/07/2025 11/07/2024, 09/09/2021 Tobacco Screening 05/07/2026 05/07/2025 Lipid Panel 07/10/2026 07/10/2025, 08/2 04/2025, 04/25/2024, Additional history exists Eye Exam 04/18/2027 04/18/2025, [...] Component 8.6( 11:06 AM EDT) No Carlito D eLa Cruz PharmD Procedures Procedure Name Priority Date/Time Associated Diagnosis Comments AMB REFERRAL TO DERMATOLOGY Routine 07/18/2025 Lesion of nose HEPATIC FUNCTION PANEL Routine 07/10/2025 8:43 AM EDT Type 2 diabetes mellitus without complication, with long-term current use of insulin (HCC) LIPID PANEL, STANDARD Routine 07/10/2025 8:43 AM EDT Type 2 diabetes mellitus without complication, with long-term current use of insulin (HCC) XR LUMBAR SPINE 2-3 VIEWS Routine 05/17/2025 [...] WO CONTRAST Routine 04/23/2025 8:45 AM EDT ALBUMIN, RANDOM URINE W/CREATININE Routine 11/07/2024 9:00 AM EST Type 2 diabetes mellitus without complication, with long-term current use of insulin (CMS/HCC) HEPATITIS C AB W/REFL TO HCV RNA, QN, PCR Routine 12/03/2022 8:01 AM EDT Type 2 diabetes mellitus without complication, with long-term current use of insulin (CMS/HCC) from Last 3 Months or Most Recently Relevant to Health Maintenance Results * Referral to Dermatology (07/18/2025) Gene Castro MD OUTPATIENT REFERRAL O RDERABLES Final Result * Hepatic Function Panel (07/10/2025 8:43 AM EDT) Bilirubin, Total 0.4 0.0 - 1.0 mg/dL [facility] Bilirubin, Direct 0.1 0.0 - 0.5 mg/dL [facility] Aspartate Amino Transferase 28 5 - 37 U/L [facility] Alanine Aminotransferase 22 0 - 40 U/L [facility] Total Protein 6.7 6.5 - 8.0 g/dL [facility] Albumin Level 4.0 3.5 - 5.0 g/dL [facility] Alkaline Phosphatase 78 39 - 117 U/L [facility] Blood Venous blood specimen / Unknown 07/10/2025 8:43 AM EDT 07/10/2025 11:23 AM EDT Gene Castro MD LAB BLOOD ORDERABLES Final Result [facility] [address] [place], [place] [phone] * (ABNORMAL) Lipid Panel, Standard (07/10/2025 8:43 AM EDT) Only the most recent of2 resultswithin the time period is included. Triglycerides 105 <150 mg/dL [facility] Comment:Desirable Triglyceri de: less than 150 mg/dLBorderline High Triglyceride 150-199 mg/dLHigh Triglyceride: 200-499 mg/dLVery High Triglyceride: greater than or equal to 5OO mg/dL Cholesterol 138 <200 mg/dL [facility] Comment:Desirable Cholestero l: less than 200 mg/dLBorderline High Cholesterol: 200-239 mg/dLHigh Cholesterol: greater than 239 mg/dL LDL Cholesterol Calculated 81 <100 mg/dL [facility] Comment:Desirable LDL: less than 100 mg/dLNear Optimal/Above Optimal LDL: 110- 129 mg/dLBorderline High LDL: 130-159 mg/dLHigh LDL: 160-189 mg/dLVery High LDL: greater than or equal to 190 mg/dL HDL Cholesterol 36(L) >40 mg/dL [facility] Comment:Desirable HDL: great er than 40 mg/dL Note: This HDL assay may give artificially low results in patients with liver disease. Blood Venous blood specimen / Unknown 07/10/2025 8:43 AM EDT 07/10/2025 11:23 AM EDT us Gene Castro MD LAB BLOOD ORDERABLES Final Result [facility] [address] [place] [phone] * XR Lumbar Spine 2-3 Views (05/17/2025 11:16 AM EDT) Anatomical Region Laterality Modality Spine, L-spine Radiographic Betsy ging 05/17/2025 11:1 6 AM EDT Narrative 05/17/2025 12:17 PM EDT [facility] [address] [place] [address] XRay Report Signed Patient: Driss Bender MR#: [id number] 52 : 1950 Acct:[id number] Age/Sex: 74 / M ADM Date: 05/17/25 Loc: [facility] Attending Dr: Nancy Barraza MD Ordering Physician: Nancy Milligan Date of Service: 05/17/25 Procedure(s): XR lumbar spine 2-3V Accession Number(s): [id number] cc: Gene Zarate MD; Nancy Milligan Reason [...] 05/17/25 1214 DD/ 1116 TD/TT: 05/17/25 1120 Rehabilitation Physician: Procedure Note Donotuseinterpreter, Image - 05/17/2025 [facility] [address] [place] [address] [address] [place] [address] XRay Report Signed Patient: Driss Bender EMR#: [id number] 52 : 1950cct:[id number] Age/Sex: 74 / MADM Date: 05/17/25 Loc: [facility] Attending Dr: Nancy Barraza MD Ordering Physician: Nancy Milligan Date of Service: 05/17/25 Procedure(s): XR lumbar spine 2-3V Accession Number(s): [id number] cc: Gene Zarate MD; Nancy Milligan Reason [...] 05/17/25 1214 DD/ 1116 TD/TT: 05/17/25 1120 Rehabilitation Physician: [facility] External Provider IMG XR PROCEDURES Final Result * PSA,Total (05/09/2025 8:45 AM EDT) Pathologist [facility] Prostate Specific Antigen 2.93 <0.05 - 4.0 ng/mL [facility] Comment:PSA methodology: Marquis Ren[place] i ChemiluminescentMicroparticle Immunoassay (CMIA) 05/09/2025 8:45 AM EDT 05/09/2025 11:28 AM EDT Generic External Data Provider LAB BLOOD ORDERAB LES Final Result [facility] [address] [place] [phone] * B Type Natriuretic Peptide (BNP) (05/09/2025 8:45 AM EDT) B Type Natriuretic Peptide 27 <100 pg/mL [facility] 05/09/2025 8:45 AM EDT 05/09/2025 11:15 AM EDT Generic External Data Provider LAB BLOOD ORDERAB LES Final Result Performing Organization Address [facility] Co de Phone Number [facility] [address] [place] [phone] * (ABNORMAL) Basic Metabolic Panel (05/09/2025 8:45 AM EDT) [facility] Sodium 138 135 - 145 mmol/L [facility] Potassium 3.6 3.3 - 5.1 mmol/L [facility] Chloride 103 96 - 108 mmol/L [facility] Carbon Dioxide 29 22 - 29 mmol/L [facility] Anion Gap 10(L) 12 - 20 [facility] Urea Nitrogen (BUN) 22(H) 9 - 16 mg/dL [facility] Creatinine, Serum 1.25 0.5 - 1.4 mg/dL [facility] Estimated Glomerular Filt Rate 56 [facility] Comment:Chronic Kidney Disea se: Estimated GFR < 60 mL/min/1.21d4Tkphwv Kidney Disease: Estimated GFR < 15 mL/min/1.73m2 Glucose 119(H) 60 - 115 mg/dL [facility] Calcium 9.7 8.4 - 10.2 mg/dL [facility] 05/09/2025 8:45 AM EDT 05/09/2025 11:28 AM EDT Generic External Data Provider LAB BLOOD ORDERAB LES Final Result Performing Organization Address [facility]/ZIP Co de Phone Number [facility] [address] [place] [address] [phone] * (ABNORMAL) POCT A1c (05/07/2025 11:06 AM EDT) Pathologist [facility] Hemoglobin A1C 8.6(A) 4.0 - 5.7 % QC Media Lot # [id number] Lot# Expiration Date ,153,884 Blood 05/07/2025 11:0 6 AM EDT us Gene Castro MD POINT OF CARE TEST EN TER/EDIT ORDERABLES Final Result * MR Prostate w and w/o Contrast (04/23/2025 8:45 AM EDT) Anatomical Region Laterality Modality Magnetic Resonan ce 04/23/2025 8:45 AM EDT Narrative 04/23/2025 9:56 AM EDT [address] [address] Magnetic Resonance Report Signed with Addenda Patient: Driss Bender MR#: [id number] [birth year] : 1950 Acct:[id number] Age/Sex: 74 / M ADM Date: 04/23/25 Loc: HO.MRI Attending Dr: Bibi CAMPBELL Ordering Physician: Bibi Downing Date of Service: 04/23/25 Procedure(s): MR Prostate wo/w con Accession Number(s): [id number] cc: Gene Zarate MD; Bibi Downing ADDENDUM [...] cancer is highly likely to be present) [employer]. MR Prostate Imaging Reporting and Data System version 2.1. [email or web address].org/Quality-Safety/Resources/PIRADS/ Electronically signed by: Luis Deras MD 04/23/2025 09:53 AM EDT Dictated By: Luis Deras MD Signed By: <Electronically signed by Luis Deras MD in OV> 04/23/25 0953 DD/ TD/TT: 04/23/25924 Rehabilitation Physician: Procedure Note Donotuseinterpreter, Image - 04/23/[address] [address] Magnetic Resonance Report Signed with Danielle Patient: Driss Bender EMR#: [id number] 52 : 1950cct:[id number] Age/Sex: 74 / MADM Date: 04/23/25 Loc: HO.MRI Attending Dr: Bibi NORIEGA Ordering Physician: Bibi Downing Date of Service: 04/23/25 Procedure(s): MR Prostate wo/w con Accession Number(s): [id number] cc: Gene Zarate MD; Bibi Downing ADDENDUM [...] cancer is highly likely to be present) [employer]. MR Prostate Imaging Reporting and Data System version 2.1. [email or web address].org/[email or web address]/PIRADS/ Electronically signed by: Luis Deras MD 04/23/2025 09:53 AM EDT Dictated By: Luis Deras MD Signed By: <Electronically signed by Luis Deras MD in OV> 04/23/25 0953 DD/ 0845 TD/TT: 04/23/25924 Rehabilitation Physician: [facility] External Provider IMG MRI PROCEDURES Edited Result - Final * Albumin, Random Urine W/Creatinine (11/07/2024 9:00 AM EST) Creatinine, Urine 211.69 mg/dL [facility] Microalbumin Urine 7.0 mg/L [facility] Microalbum Creatinine Ratio Ur 3.3 <30 ug/mg cr [facility] Comment:Albumin/Creatinine R atio Reference Ranges: Normal: < 30 ug/mg creatinine Microalbuminuria: 30 - 300 ug/mg creatinineClinical Albuminuria: > 300 ug/mg creatinine Urine (Urine, Random) 11/07/2024 9:00 AM EST 11/07/2024 11:06 AM EST Gene Castro MD LAB URINE ORDERABLES Final Result Performing Organization Address City/[facility]/ZIP Co de Phone Number [facility] [address] [place] [phone] * Hepatitis C Antibody with Reflex to HCV, RNA, Quantitative, Real-Time PCR (12/03/2022 8:01 AM EDT) Hepatitis C Antibody NON-REACT PUNEET NON-REACT PUNEET [employer] Index 0.05 <1.00 [facility] Comment: HCV antibody was non-reactive. There is no laboratory evidence of HCV infection. In most cases, no further action is required. However, if recent HCV exposure is suspected, a test for HCV RNA (test code 70662) is suggested. For additional information please refer to http://education.[employer]/faq/FAT47b5 (This link is being provided for informational/ educational purposes only.) Blood Venous blood specimen / Unknown 12/03/2022 8:01 AM EDT 12/03/2022 8:02 AM EDT Narrative [facility] - 12/03/2022 8:32 PM EDT FASTING:YES FASTING: YES Result [facility] Gene Castro MD LAB BLOOD ORDERABLES Final Result [facility] [address] [place] [phone] [facility] [place] [facility] [address] [place] [phone] from Last 3 Months or Most Recently Relevant to Health Maintenance Insurance [facility] HALF-WAY OPTIONS (HMO D-SNP) Care Teams Convolute Tube Winder Relationship Specialty Start Date End Date Gene Wallace MD [address] [place] [address] PCP - General Internal Medicine 07/22/21 Hien Taylor, PharmD [address] [place] [phone] Pharmacist Pharmacy 03/13/25
--- OUTSIDE RECORDS SUMMARY | 2025-07-22 11:10 | XMS_ITS | Encounter Summary ---
Author Organization [facility] Address [address] [facility] [address] [place] [address] Care Team Providers Care Intermediate Project Manager Name Role Phone Gene Wallace MD Primary Care Provide r Carlito De La Cruz PharmD Unavailable +- Hien Taylor PharmD Unavailable [phone] Encounter Details Date Type Department Care Team (Late st Contact Info) Description 10/08/2022 Orders Only [facility] [address] [place] [id number] Denita Carrasco, NIKHIL Social History Tobacco Use [...] [facility] [address] [place] [address] Hien Taylor, PharmD [address] [place] [address] documented as of this encounter Visit Diagnoses Not on filedocumented in this encounter Care Teams Intermediate Project Manager Relationship Specialty Start Date End Date Gene Wallace MD [address] [place] [address] [phone] PCP - General Internal Medicine 07/22/21 Carlito De La Cruz, VargheseD [address] [place], [place] [phone] Pharmacist Internal Medicine 01/24/23 12/24/23 Hien Taylor, VargheseD [address] [place] [address] Pharmacist Pharmacy 03/13/25 documented as of this encounter
--- OUTSIDE RECORDS SUMMARY | 2025-07-22 11:11 | XMS_ITS | Encounter Summary ---
Author Organization [employer] Address [address] [facility] [address] [place] [address] Care Team Providers Care Health Systems Analyst Name Role Phone Gene Wallace MD Primary Care Provide r Hien Taylor PharmD Unavailable [phone] Reason for Visit * Reason Comments Med Refill Encounter Details Date Type Department Care Team ([facility] st Contact Info) Description 01/23/2024 Refill [facility] [address] [place], [place] [phone] Linda Flores MD [address] [place] [address] Social History Tobacco Use Types Packs/Day Years [...] Description 08/12/2025 10:00 AM EST Medication Management [facility] [address] [place] [address] Hien Taylor PharmD [address] [place] [address] documented as of this encounter Goals Goal [...] documented as of this encounter Care Teams Health Systems Analyst Relationship Specialty Start Date End Date Gene Wallace MD [address] [place] [phone] PCP - General Internal Medicine 07/22/21 Hien Taylor, VargheseD [address] [place] [phone] Pharmacist Pharmacy 03/13/25 documented as of this encounter
--- OUTSIDE RECORDS SUMMARY | 2025-07-22 11:11 | XMS_ITS | Encounter Summary ---
Author Organization [employer] Address [address] [facility] 7t [place] [address] Care Team Providers Care Processing Archivist Name Role Phone Gene Wallace MD Primary Care Provide r Hien Taylor PharmD Unavailable [phone] Reason for Visit * Reason Comments Med Refill Encounter Details Date Type Department Care Team ([facility] st Contact Info) Description 04/25/2024 Telephone [facility] [address] [place], [place] [phone] Marilyn Sutherland MD [address] [place], [place] [phone] Med Refill Social History Tobacco Use Types [...] 10:51 AM EDT Telephone call placed to [facility]. Left V/m for Dr Day's [...] Description 08/12/2025 10:00 AM EST Medication Management [facility] [address] [place], [place] [phone] Hien Taylor PharmD [address] [place], [place] [phone] documented as of this encounter Goals Goal [...] 8.6( 11:06 AM EDT) No Carlito De aL Cruz PharmD documented as of this encounter Visit Diagnoses Not on filedocumented in this encounter Additional Health Concerns Assessment Noted Time PHQ-9 Depression Total Score: 0 04/17/20 24 1:32 PM EDT documented as of this encounter Care Teams Processing Archivist Relationship Specialty Start Date End Date Gene Wallace MD [address] [place] [address] [phone] PCP - General Internal Medicine 07/22/21 Hien Taylor PharmD [address] [place] [address] [phone] Pharmacist Pharmacy 03/13/25 documented as of this encounter
--- OUTSIDE RECORDS SUMMARY | 2025-07-22 11:11 | XMS_ITS | Encounter Summary ---
Author Organization [employer] Address [address] [facility] 7t [place] [address] Care Team Providers Care Charter Boat Operator Name Role Phone Gene Wallace MD Primary Care Provide r Hien Taylor PharmD Unavailable [phone] Reason for Visit * Reason Comments Med Refill Encounter Details Date Type Department Care Team (Late st Contact Info) Description 05/16/[address] [facility] [address] [place] [address] Name, MD Jarrod [address] [place] [address] Type 2 diabetes mellitus without complication, with long-term current use of insulin ([facility]) Social History Tobacco Use Types [...] 10:00 AM EST Medication Management [facility] [address] [place] [address] Hien Taylor PharmD [address] [place] [address] documented as of this encounter Goals Goal [...] documented as of this encounter Care Teams Charter Boat Operator Relationship Specialty Start Date End Date Gene Wallace MD [address] [place] [address] PCP - General Internal Medicine 07/22/21 Hien Taylor, VargheseD [address] [place] [address] Pharmacist Pharmacy 03/13/25 documented as of this encounter
== END 2025-07-22 09:46 | disposition home or self-care (01) ==
LOC: HO.MRI 09:45
PROVIDERS: PCP Internal Medicine; Visit Provider Physical Medicine & Rehabilitation
DX: M47.816 Spondylosis without myelopathy or radiculopathy, lumbar region (principal); M54.16 Radiculopathy, lumbar region; M48.061 Spinal stenosis, lumbar region without neurogenic claudication
CPT/HCPCS: 72148

== ENCOUNTER 2025-08-15 12:31 | Outpatient (AMB) | payer OTHER, SELFPAY ==
--- NOTE | 2025-08-15 12:40 | MHC.OFFVIS ---
Vital Signs 08/15/25 12:41 Height 5 ft 8 in Weight 213 lb 13.574 oz BMI 32.5 BP 118/68 Blood Pressure Location Lt brachial Position Sitting Pulse 78 Pulse Source Pulse Oximeter Intake Visit Reasons: 6 mth f/up Allergies No Known Allergies (No Known Allergies*) Allergy (Verified 06/07/25 15:03) Medication List - Last Reconciled 08/15/25 by Federico Day MD aspirin (Adult Aspirin Regimen) 81 mg PO DAILY atorvastatin 80 mg PO BEDTIME dulaglutide (Trulicity) mg subcut finasteride 5 mg PO DAILY 90 days furosemide (Lasix) 20 mg PO DAILY PRN glipizide 5 mg PO BID insulin glargine (Lantus Solostar U-100 Insulin) 26 units subcut QPM levothyroxine 50 mcg PO DAILY losartan-hydrochlorothiazide 100-12.5 mg 1 tab PO DAILY metoprolol succinate ER (Toprol XL) 25 mg PO DAILY HPI Comments Details: Driss returns for follow-up. In the past, he was seen regarding abnormal EKG/preoperative evaluation for colonoscopy. Multiple cardiovascular risk factors. He was also describing chest tightness. That led to further workup eventually leading to cardiac catheterization followed by bypass surgery in 2023. Overall, he is doing good. No cardiac symptoms like angina or shortness of breath or in fact anything of cardiac nature. [facility] Medical History Atherosclerotic cardiovascular disease Diabetes Abnormal EKG Pre-op examination BPH (benign prostatic hyperplasia) Hypertension Surgical History Status post aorto-coronary artery bypass graft S/P partial colectomy Family History Mother Heart problem Sister Heart problem Social History Alcohol intake: former Patient Tobacco Use Status: Former Tobacco user Current occupational status: retired Review of Systems Const Denies weakness ENT Denies dizziness Card Denies chest pain, Denies chest pain with activity, Denies syncope, Denies rapid heart rate, Denies pedal edema, Denies edema, Denies leg edema, Denies lightheadedness, Denies palpitations, Denies dyspnea, Denies dyspnea on exertion and Denies orthopnea Resp Denies cough, Denies dyspnea and Denies dyspnea on exertion GI Denies hematochezia and Denies change in stool character Musc Denies abnormal gait, Denies muscle cramps, Denies muscle weakness, Denies numbness, Denies radiating pain into limb and Denies tingling Neuro Denies abnormal gait, Denies dizziness, Denies syncope, Denies numbness, Denies tingling and Denies weakness Endo Denies palpitations Physical Exam Vital Signs: Last Vital Signs Pulse 78 08/15/25 12:41 BP 118/68 08/15/25 12:41 BMI result Body Mass Index 32.5 Const General: comfortable and no acute distress Orientation/consciousness: patient oriented x3 HEENT Other: Unremarkable Head: Yes normal to inspection Neck Neck: Yes normal visual inspection Chest Chest palpation & inspection: normal inspection of the chest Resp Auscultation: clear to auscultation bilaterally Cardio Palpation: normal PMI Heart sounds: S1 normal heart sound present, S2 normal heart sound present, no gallops, Murmur heart sound present systolic II/ and no rubs GI Palpation (GI): Soft to palpation Back/Spine/Pelvis Other: unremarkable Skin General skin exam: no rashes or lesions noted Neuro General: patient oriented x3 Extrem General: Yes normal to inspection Psych Mental Status: mental status grossly normal Assessment & Plan Assessment & Plan (1) Atherosclerotic cardiovascular disease: Code(s): I25.10 - Atherosclerotic heart disease of [place] coronary artery without angina pectoris Category: Medical (2) Status post aorto-coronary artery bypass graft: Code(s): Z95.1 - Presence of aortocoronary bypass graft Category: Surgical (3) Non-rheumatic aortic stenosis: Code(s): I35.0 - Nonrheumatic aortic (valve) stenosis Category: Medical (4) Type 2 diabetes mellitus with unspecified complications: Code(s): E11.8 - Type 2 diabetes mellitus with unspecified complications Category: Medical (5) Hypertension: Code(s): I10 - Essential (primary) hypertension Category: Medical Qualifiers: Hypertension type: primary hypertension Qualified Code(s): I10 - Essential (primary) hypertension (6) Hyperlipidemia: Code(s): E78.5 - Hyperlipidemia, unspecified Category: Medical Qualifiers: Hyperlipidemia type: unspecified Qualified Code(s): E78.5 - Hyperlipidemia, unspecified Plan Cardiac catheterization data reviewed. 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 Status post CABG 2023. In the last echocardiogram, LVEF is 52%. Basal inferior akinesis. Moderate aortic valve calcification with mild stenosis. Mild mitral annular calcification. Overall, continue medical therapy for stable CAD. Long-term aspirin. Statins. Optimal management of diabetes, hypertension, dyslipidemia. With regard to the leg swelling, possibly dependent edema. Less likely cardiac. He is getting some benefit from low-dose diuretics and can use it as needed. With regard to aortic stenosis, we will recheck an echocardiogram in the future. Otherwise, follow up in 6 months time. He will call with any ongoing concerns. Discussion Notes I have reviewed the patient's current status, and he appears to be doing well since his bypass surgery, with no active cardiac complaints. We discussed his ongoing management, and the plan is to continue his current medications. The patient agreed to a follow-up appointment in six months. Patient was informed and verbally consented to the use of an ambient scribe for clinic note documentation during this visit. Coding Level of Care Code Est Pt Level 4 (52181) Complex visit Add On G2211 Diagnoses Atherosclerotic cardiovascular disease I25.10 Status post aorto-coronary artery bypass graft Z95.1 Non-rheumatic aortic stenosis I35.0 Type 2 diabetes mellitus with unspecified complications E11.8 Primary hypertension I10 Hypertension type: primary hypertension Hyperlipidemia, unspecified hyperlipidemia type E78.5 Hyperlipidemia type: unspecified
[2025-08-15 12:41] VITALS: BP 118/68; PULSE 78; BMI 32.5
== END 2025-08-15 12:53 | disposition home or self-care (01) ==
LOC: HO.HCS 12:31
PROVIDERS: PCP Internal Medicine; Visit Provider Internal Medicine
DX: I25.10 Atherosclerotic heart disease of native coronary artery without angina pectoris (principal); Z95.1 Presence of aortocoronary bypass graft; I35.0 Nonrheumatic aortic (valve) stenosis; E11.8 Type 2 diabetes mellitus with unspecified complications; I10 Essential (primary) hypertension; E78.5 Hyperlipidemia, unspecified
CPT/HCPCS: 99214; G2211

== ENCOUNTER → 2025-08-15 12:31 | Outpatient (BNVA) | payer OTHER, SELFPAY | PROVIDERS: PCP Internal Medicine; Visit Provider Internal Medicine | DX: I25.10 Atherosclerotic heart disease of native coronary artery without angina pectoris (principal); I10 Essential (primary) hypertension; I35.0 Nonrheumatic aortic (valve) stenosis; E11.8 Type 2 diabetes mellitus with unspecified complications; E78.5 Hyperlipidemia, unspecified; M79.89 Other specified soft tissue disorders; Z95.1 Presence of aortocoronary bypass graft; Z87.891 Personal history of nicotine dependence; Z79.4 Long term (current) use of insulin; Z79.899 Other long term (current) drug therapy; Z79.82 Long term (current) use of aspirin | CPT/HCPCS: 99212 ==

== ENCOUNTER 2025-08-16 08:37 | Outpatient (AMB) | payer OTHER, SELFPAY ==
--- NOTE | 2025-08-16 08:44 | MHC.OFFVIS ---
Vital Signs 08/16/25 08:46 Height 5 ft 8 in Weight 217 lb BMI 33.0 Intake Visit Reasons: OV- Lumbar Spine MRI Review, 07/22/25 Intake Note: Driss is a 74 year old male who presents today as a MRI review of the lumbar Spine, 07/22/25. At today's visit he states that the right sided lower back pain is still radiating into the right hip. Allergies No Known Allergies (No Known Allergies*) Allergy (Verified 06/07/25 15:03) HPI Comments Details: Points to mid lower back as source of pain, goes to both sides. Radiates to both hips and knees. Numbness on both feet, right worse than left. He is diabetic. On last visit, noted depressed reflex. Just mild groin pain only. No bladder/bowel incontinence. Uses cane. Had PT this year 2024. Lumbar MRIs showed mild disc bulge L5-S1 and L4-5 with foraminal narrowing, but no central spinal stenosis that I could see. [facility] Medical History Atherosclerotic cardiovascular disease Diabetes Abnormal EKG Pre-op examination BPH (benign prostatic hyperplasia) Hypertension Surgical History Status post aorto-coronary artery bypass graft S/P partial colectomy Family History Mother Heart problem Sister Heart problem Social History Alcohol intake: former Patient Tobacco Use Status: Former Tobacco user Current occupational status: retired Physical Exam Exam Exam: Constitutional: Patient appears to be in no acute distress, well nourished and well developed. Patient was appropriately conversant and oriented. Good historian. MSK: Shows me that most of his pain is in the right leg, from cardiac previous surgery. No signs of inflammation. No calf tenderness. No allodynia. Neurological: Some weakness in right hip flexion. Question depressed reflexes on both knees and ankles. Dasilva?s negative bilaterally. Babinski was down going bilaterally. Clonus was negative. Gait is antalgic without loss of balance. Vital Signs: BMI result Body Mass Index 33.0 Results Reviewed Results Reviewed: Ordering Physician: Nancy Milligan Date of Service: 07/22/25 Procedure(s): MR lumbar spine wo con Accession Number(s): [id number] cc: Gene Zarate MD; Nancy Milligan~ Reason for Exam: M47.816 - Spondylosis without myelopathy or radiculopathy, lumbar region EXAMINATION: MR LUMBAR SPINE WITHOUT CONTRAST CLINICAL INFORMATION: M47.816. Spondylosis without myelopathy or radiculopathy. COMPARISON: None available. TECHNIQUE: MRI of the lumbar spine was obtained using routine sequences without contrast. FINDINGS: Last rib-bearing vertebra labeled T12. No bone marrow STIR signal abnormality. Schmorl node in the inferior endplate of L4. Modic type II endplate changes at L4-5. Small marginal osteophyte formation and disc desiccation, L4-5. Grade 1 retrolisthesis L5-S1. Conus medullaris and cephalad intervertebral disc T12-L1 with normal signal. T11-12: No herniated disc. No neuroforamina stenosis. T12-L1: No herniated disc. No neuroforamina stenosis. L1-2: No herniated disc. No neuroforamina stenosis. L2-3: Broad-based disc bulging. No compression upon elements. L3-4: Broad-based disc bulging. Facet joint hypertrophy. No compression upon neural elements. L4-5: Broad-based disc bulging. Facet joint and ligamentum flavum hypertrophy. Reduced AP diameter of the thecal sac and neuroforamina likely encroaching the neural elements of the thecal sac. L5-S1: Prominent epidural fat. Broad-based disc bulging. Facet joint hypertrophy. Reduced AP diameter of the thecal sac and neuroforamina likely encroaching the neural elements. No prevertebral compartment hematoma, mass or fluid collection. MR/MR lumbar spine wo con IMPRESSION: Multilevel spondylosis pronounced at L4-5 and to a lesser extent L5-S1 resulting in central spinal canal and bilateral neuroforamina narrowing encroaching the neural elements. Electronically signed by: Stevan Martinez MD 07/22/2025 11:16 AM EST Ordering Physician: Gene Zarate MD Date of Service: 11/29/24 Procedure(s): XR hip RT min 2V Accession Number(s): [id number] cc: Gene Zarate MD~ EXAMINATION: XR HIP, RIGHT CLINICAL INFORMATION: bilateral hip pain COMPARISON: None available. TECHNIQUE: Two views of the right hip. FINDINGS: Sclerosis along the articular surface of the right acetabulum. Subchondral cyst formation femoral head. Asymmetric joint space narrowing. No acute cortical disruption or malalignment. No lytic or blastic lesions. 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 Electronically signed by: Stevan Martinez MD 11/29/2024 09:16 AM EDT RP Assessment & Plan Assessment & Plan (1) Lumbar spondylosis: Code(s): M47.816 - Spondylosis without myelopathy or radiculopathy, lumbar region Category: Medical (2) Diabetic neuropathy: Code(s): E11.40 - Type 2 diabetes mellitus with diabetic neuropathy, unspecified Category: Medical Qualifiers: Diabetes mellitus type: type 2 Diabetes mellitus complication detail: diabetic polyneuropathy Qualified Code(s): E11.42 - Type 2 diabetes mellitus with diabetic polyneuropathy (3) Right leg pain: Code(s): M79.604 - Pain in right leg Category: Medical Plan Chronic pain, multifactorial, probably from lumbar spondylosis, diabetic neuropathy in postsurgical pain in right leg. No signs of significant central spinal stenosis and lumbar MRI. I do not think any one lumbar injection would help with all his symptoms. We talked about medications such as gabapentin or Lyrica that could help all 3 of his problems. We will start with gabapentin 100 mg q.h.s. to gradually increase to 300 mg q.h.s.. Using a assembly hand to help give instructions on how to take this to the patient. Patient verbalized understanding. Side effects and precautions discussed as well. Assessment and plan discussed with patient, and patient was agreeable. All questions were answered thoroughly. Follow up 3 months. Nancy Barraza MD, ROGELIO Board Certified, [place] Board [employer] and Rehabilitation (ABPMR) Board Certified, [place] Board of Electrodiagnostic Medicine (ABEM) Medications: New gabapentin start 1 capsule before bedtime for 1 week; then increase to 2 capsules before bedtime for 1 week; then increase to 3 capsules before bedtime 100 mg PO BEDTIME 90 caps 2RF Coding Level of Care Code Est Pt Level 4 (59548) Complex visit Add On G2211 Diagnoses Lumbar spondylosis M47.816 Diabetic polyneuropathy associated with type 2 diabetes mellitus E11.42 Diabetes mellitus type: type 2 Diabetes mellitus complication detail: diabetic polyneuropathy Right leg pain M79.604
[2025-08-16 08:46] VITALS: BMI 33.0
== END 2025-08-16 09:32 | disposition home or self-care (01) ==
LOC: HO.HOS 08:37
PROVIDERS: PCP Internal Medicine; Visit Provider Physical Medicine & Rehabilitation
DX: M47.816 Spondylosis without myelopathy or radiculopathy, lumbar region (principal); E11.42 Type 2 diabetes mellitus with diabetic polyneuropathy; M79.604 Pain in right leg
CPT/HCPCS: 99214; G2211

== ENCOUNTER → 2025-08-16 08:37 | Outpatient (BNVA) | payer OTHER, SELFPAY | PROVIDERS: PCP Internal Medicine; Visit Provider Physical Medicine & Rehabilitation | DX: M47.816 Spondylosis without myelopathy or radiculopathy, lumbar region (principal); E11.42 Type 2 diabetes mellitus with diabetic polyneuropathy; M79.604 Pain in right leg | CPT/HCPCS: 99212 ==